=== PATIENT | male | born 1945 | race Caucasian/White ===

== ENCOUNTER 2018-12-23 09:10 | Inpatient (IN) | payer MEDICARE, SELFPAY ==
[2018-12-23] VITALS (33 sets, daily range): BP systolic 114–226; BP diastolic 70–108; PULSE 66–90; RESP 13–27; TEMP 36.4–38.1; O2SAT 94–100; BMI 27.3; BMI 29.4
--- NOTE | 2018-12-23 09:11 | ED.RN ---
PRESENTED TO ED. STATES SOB FOR 4-5 DAYS AMBULATED TO TRIAGE ROOM. INTIATED TRIAGE PROCESS. STATES ALSO HAVING CP WHICH IS BETTER WHEN HE IS UP MOVING AROUND IS NOT CARDIAC. PT RUBBING CENTER CHEST IN TRIAGE. CALLED FOR ASSIST TO TAKE PATIENT DIRECTLY TO ROOM AND REPORTED CP AND SOB TO NURSING.
--- NOTE | 2018-12-23 09:21 | EKG12_ITS ---
Test Reason : CP Blood Pressure : / mmHG Vent. Rate : 083 BPM Atrial Rate : 083 BPM P-R Int : 180 ms QRS Dur : 086 ms QT Int : 354 ms P-R-T Axes : -14 -31 072 degrees QTc Int : 415 ms Normal sinus rhythm Left axis deviation Inferior infarct , age undetermined Anteroseptal infarct , possibly acute ACUTE MT / STEMI Abnormal ECG Confirmed by SORAIDA JOHN ([id number]), online content editor AARON GARCIA ([id number]) on 12/27/2018 4:56:09 PM Referred By: ALDA/BRADLEY Confirmed By:SORAIDA JOHN
[2018-12-23] MEDS: Heparin Injection (Vial) 5,000 UNIT/ML VIAL 4000 UNIT IV (09:32)
[2018-12-23] MEDS: Aspirin 81 MG TAB.CHEW 324 MG PO (09:32)
[2018-12-23] MEDS: TICAGRELOR 90 MG TABLET 180 MG PO (09:32)
--- NOTE | 2018-12-23 09:35 | ED.RN ---
rad here for pt. 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
[2018-12-23 09:37] LABS: Absolute Lymphocyte Count 2.65 X10^3/ul (0.83-4.51); Absolute Neutrophil Count 9.5 X10^3/uL (2.0-7.7); Basophil# 0.02 X10^3/uL; Basophil% 0.2 % (0-1); Eosinophil# 0.26 X10^3/uL; Hematocrit 40.5 % (40-54); Hemoglobin 13.6 g/dl (13.0-16.5); Lymphocyte # 2.65 X10^3/ul (4.0); Mean Corp Hgb Conc 33.6 g/gl (32-36); Mean Corpuscular Hgb 27.9 pg (27.0-32.0); Mean Corpuscular Volume 83.2 fL (80-94); Mean Platelet Vol. 10.3 fl (6.2-12.0); Monocyte# 0.82 X10^3/uL; Monocyte% 6.2 % (0-10); Neutrophil # 9.51 X10^3/uL (2.7-7.7); Neutrophil % 71.4 % (47-70); Platelet Count 228 K/mm3 (150-450); RBC Distribution Width CV 14.2 % (11.6-14.6); RBC Distribution Width SD 43.4 fl (35.1-43.9); Red Blood Count 4.87 M/mm3 (4.6-6.2); White Blood Count 13.3 K/mm3 (4.4-11.0)
[2018-12-23 09:38] LABS: POSITIVE COUNT NO; POSITIVE DIFFERENTIAL NO; POSITIVE MORPHOLOGY NO
--- NOTE | 2018-12-23 09:38 | ED.DCSUM_ITS ---
- ER Visit Summary Date of Service: 12/23/18 Chief Complaint: Chest pain History of Present Illness: The patient is a 73 M who presents with chest pain that has been intermittent over the past 4 days but constant since this morning. Patient describes the pain is sharp. Patient states the pain is over the substernal area. Patient admits to some shortness of breath. Patient denies any nausea or vomiting. Patient denies any diaphoresis. Physical Examination: Vital signs are stable except for an elevated blood pressure 172/108. Patient is afebrile. Patient is in no acute distress. Oral mucosa is pink and moist. Neck is supple. There is no JVD noted. Heart was regular rate and rhythm. Lungs are clear and equal bilateral. Abdomen is soft nontender. Cranial nerves II through XII are intact. There are no focal motor or sensory deficits noted. Test Results: EKG showed sinus rhythm with a rate of 83. There is ST elevation in V1 through V4. Emergency Department Course and Treatment: STEMI was called. Case was discussed with Dr. Vann. He recommended giving the patient aspirin, 4000 units of heparin, and 180 mg of Brilinta. Patient was transferred to the [facility]. Patient understood and was agreeable with the plan. All questions were answered. Disposition: Admit to hospital Impression: 1. Acute STEMI This note was generated with [employer] dictation software. It may contain incorrect words, spelling, and punctuation that were not noted in review of the chart prior to signing ED Disposition - Plan for ED Patient: Referrals: NOT,DEFINED [Primary Care Provider] -
[2018-12-23 09:39] LABS: International Normalized Ratio 1.1; Prothrombin Time (Protime)PT. 13.8 SECONDS (11.7-14.9)
[2018-12-23 09:40] LABS: Partial Thromboplast Time 31.6 Seconds (24.1-36.2)
[2018-12-23 09:50] LABS: Anion Gap 8 (5-15); BUN 15 mg/dL (7-18); BUN/Creat Ratio 13.6 RATIO (10-20); Calcium,Total 9.3 mg/dL (8.5-10.1); Chloride 103 mmol/L (98-107); EST Glomerular Filtration Rate 70 mL/min (>60); Est Glom Filt Rate - Afr Amer 84 mL/min (>60); Estimated Creatinine Clearance 57.86 ml/min; Glucose 111 mg/dL (74-106); Sodium Level 138 mmol/L (136-145)
[2018-12-23 10:26] LABS: ACT Activated Clotting Time 224 sec (74-137)
[2018-12-23 10:26] LABS: ACT Activated Clotting Time 197 sec (74-137)
--- NOTE | 2018-12-23 10:30 | ECHOCS_ITS ---
Reason For Study: CHF Procedure This was a 2D Doppler, Color Flow transthoracic echocardiogram. Contrast injection was performed. Exam performed portable in ICU/CCU. Left Ventricle Mildly dilated left ventricle. The estimated ejection fraction is 45-50 %. Stage 2 diastolic dysfunction. There are regional wall motion abnormalities as specified. Right Ventricle Normal size and thickness. Normal systolic function. Atria Normal left atrium. Normal right atrium. Normal atrial septum. Mitral Valve The mitral valve is structurally normal. No prolapse or stenosis seen. Trivial mitral valve insufficiency. Tricuspid Valve Normal tricuspid valve. Unable to estimate RV systolic pressure due to inadequate jet, pulmonary artery pressure probably normal. Aortic Valve Normal aortic valve. Trisinus/trileaflet aortic valve. Pulmonic Valve Normal pulmonic valve. Great Vessels Normal aortic root. Normal arch. Normal inferior vena cava. Inferior vena cava collapse with sniff. Pericardium/Pleural No pericardial effusion. Medication Diluted definity 3.5ml given slow IV push to enhance endocardial definition. MMode/2D Measurements & Calculations LVIDd: 5.4 cm IVSd: 1.6 cm Ao root diam: 3.2 cm LVIDs: 4.0 cm LVPWd: 1.3 cm RVDd: 3.1 cm FS: 25.8 % LAV(MOD-bp): 41.2 ml LVAd ap4: 37.7 cm2 SV(MOD-sp4): 55.6 ml LAV(MOD-bp) Indexed: 21.1 ml/m2 EDV(MOD-sp4): 132.3 ml LAV(MOD-sp2): 45.3 ml EDV(sp4-el): 134.9 ml LAV(MOD-sp4): 35.9 ml LVAs ap4: 28.6 cm2 ESV(MOD-sp4): 76.7 ml ESV(sp4-el): 79.1 ml EF(MOD-sp4): 42.0 % EF(sp4-el): 41.4 % SV(sp4-el): 55.8 ml LA A4 area: 14.5 cm2 RA A4 area: 13.9 cm2 Time Measurements MV dec time: 0.27 sec Doppler Measurements & Calculations MV E max nito: 103.5 cm/sec Lat Peak E' Nito: 5.0 cm/sec Med Peak E' Nito: 5.7 cm/sec MV A max nito: 83.4 cm/sec E/E' lat: 20.6 E/E' med: 18.0 MV E/A: 1.2 MV V2 max: 106.9 cm/sec MV P1/2t max nito: 106.9 cm/sec Ao V2 max: 197.4 cm/sec MV max P.6 mmHg MV P1/2t: 154.7 msec Ao max P.6 mmHg MV V2 mean: 58.1 cm/sec Ao V2 mean: 114.6 cm/sec MV mean P.6 mmHg MV dec slope: 202.4 cm/sec2 Ao mean P.4 mmHg MV V2 VTI: 38.7 cm MVA(P1/2t): 1.4 cm2 Ao V2 VTI: 36.2 cm LV V1 max: 105.0 cm/sec PA V2 max: 114.6 cm/sec LV V1 max P.4 mmHg LV V1 mean P.3 mmHg LV V1 mean: 71.2 cm/sec LV V1 VTI: 23.5 cm Interpretation Summary Mildly dilated left ventricle. The estimated ejection fraction is 45-50 %. Stage 2 diastolic dysfunction. There are regional wall motion abnormalities as specified. Trivial mitral valve insufficiency. Unable to estimate RV systolic pressure due to inadequate jet, pulmonary artery pressure probably normal. The study was technically difficult. Contrast injection was performed. There is no comparison study available. Ordering Physician: Prakash Vann Performed By: Cesar Lopez RCS
--- NOTE | 2018-12-23 10:44 | CL.I_ITS ---
Patient Name: QASIM TAO Study Date: 12/23/2018 Performing: Prakash Vann MD Ht: 68.11 inches 173 cm : 1945 Wt: 180.78 lbs 82 kg Age: 73 Gender: male BSA: 1.96 PROCEDURE(S) PERFORMED [id number]/COR/LV [id number], TESSIE AND/OR PTCA, ARTERY OR GRAFT, SINGLE VESSEL CLINICAL PROFILE AND CO-MORBIDITIES Patient presents with STEMI for emergent cardiac cath. Indications: ACS <= 24 hrs, Worsening Angina, Suspected CAD Heart Failure: None Stress/Imaging Stress/Image Study Performed: No Angina Classification Anginal Classification w/in 2 Weeks: CCS III CAD Presentations: Unstable angina. STEMI. 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 Successful PTCA/TESSIE distal LAD with a 2.25 x 12 Promus Synergy, post dilated with a 2.25 x 8 NC ballo on; 75%-->0%, no dissection. Successful PTCA/TESSIE proximal LAD with a 3.0 x 20 Promus Synergy, post dilated throughout with a 3.0 x 8 NC Balloon; 75%-->0%, no dissection. initially successful Mynx closure, but then hematoma formed requiring femostop. RECOMMENDATIONS Referred for immediate PCI Highly recommend quitting all tobacco products Follow up with primary recruitment internship Risk factor modification ASA Indefinitley Plavix for at least 12 months Routine post interventional care Refer for Outpatient Cardiac Rehab Manual sheath removal per protocol Follow up with Dr. Vann Elective PCI of LCX and OM in 3 weeks. Medical management vs stress echo after PCI of LCX/OM DESCRIPTION OF PROCEDURE The patient arrived to the procedure lab. The risks and benefits of the procedure as well as a full d escription of our services here and lack of surgical backup were fully explained to the patient and/o r their significant other prior to the catheterization. The Timeout was completed, verifying the jose daniel ect patient and procedure. The patient's procedural site was prepped and draped in the usual fashion. Local anesthetic was given subcutaneously to right groin region with Lidocaine 2%. Using a modified Seldinger technique, arterial access was obtained via the right femoral artery, a 6Fr sheath was inse rted.. Right Coronary Artery selective angiography was then performed in multiple views using a 4 Fr . 3DRC catheter. Left Ventriculography was performed in ANTON projection using a 4 Fr. Pigtail catheter EBU 3.5 Guide catheter was inserted and engaged into the LCA. Runthrough Guide wire was advanced to the LAD. Emerge 2.00x12 Balloon catheter was inserted. PTCA balloon inflated at 10 atms for 6 secs . PTCA balloon inflated at 10 atms for 5 secs. Angiogram performed post balloon dilatation. Synergy 3 .00x38 Drug Eluting stent was inserted. Angiogram performed post balloon dilatation. Emerge 2.00x12 B alloon catheter was inserted. PTCA balloon inflated at 6 atms for 6 secs. Synergy 2.25x12 Drug Elutin g stent was inserted. Angiogram performed post stent deployment. NC Emerge 2.25x8 Balloon catheter wa s inserted. PTCA balloon inflated at 10 atms for 8 secs. PTCA balloon inflated at 14 atms for 12 secs . Angiogram performed post balloon dilatation. BMW Guide wire was advanced to the 1st Diagonal as bud dy wire Angiogram performed pre stent deployment. Synergy 3.00x20 Drug Eluting stent was inserted. NC Emerge 3.00x8 Balloon catheter was inserted. PTCA balloon inflated at 14 atms for 7 secs. PTCA balloon inflated at 14 atms for 7 secs. PTCA balloon inflated at 15 atms for 7 secs. PTCA balloo n inflated at 15 atms for 7 secs. PTCA balloon inflated at 15 atms for 7 secs. PTCA balloon inflated at 15 atms for 7 secs. Angiogram performed post balloon dilatation. Contrast was injected through the sheath and the Right Iliac and Femoral artery were assessed for possible closure device. The arteri al sheath was pulled and a Mynx closure device was deployed for hemostasis CORONARY ANGIOGRAPHY DOMINANCE: Right Dominant LEFT HEART ASSESSMENT Left Ventricular Ejection Fraction: by LV Gram 45-50 % Depressed Left Ventricular systolic function LVEDP: 30 mmHg Elevated Left Ventricular End Diastolic Pressure Anterior Hypokinesis - Mild LEFT MAIN: Angiographically normal LEFT ANTERIOR DECENDING ARTERY: PROX LAD: 75 % Stenosis MID LAD: is occluded DISTAL LAD: 75 % Stenosis CIRCUMFLEX ARTERY: MID CIRC: 75 % Stenosis OM 1: Proximal - 75 % Stenosis RIGHT CORONARY ARTERY: Non-obstructive MID RCA: 50 % Stenosis INTERVENTION INFORMATION LESION SITE: LAD (Mid) Lesion Complexity: High/C, lesion at bifurcation: No, thrombus present: Yes, lesion length: 38 mm, cu lprit lesion: Yes Pre Stenosis: 100 % Pre intervention YUE flow: 0 PROCEDURE: Drug Eluting Stent with pre and post dilatation Post Stenosis: 0 % Post intervention YUE flow: 3 Lesion Devices: Mookie Sci EMERGE MR 2.00x12 BALLOON Mookie Sci Synergy MR TESSIE 3.00x38 Mookie Sci NC EMERGE MR 3.00x08 BALLOON LESION SITE: LAD (Distal) Lesion Complexity: Non-High/Non-C, lesion at bifurcation: No, thrombus present: No, culprit lesion: N o Pre Stenosis: 75 % Pre intervention YUE flow: 2 PROCEDURE: Drug Eluting Stent with pre and post dilatation Post Stenosis: 0 % Post intervention YUE flow: 3 Lesion Devices: Mookie Sci EMERGE MR 2.00x12 BALLOON Mookie Sci Synergy MR TESSIE 2.25x12 Mookie Sci NC EMERGE MR 2.25x08 BALLOON LESION SITE: LAD (Proximal) Lesion Complexity: High/C, lesion at bifurcation: No, thrombus present: No, lesion length: 20 mm, cul prit lesion: No Pre Stenosis: 75 % Pre intervention YUE flow: 3 PROCEDURE: Drug Eluting Stent with pre and post dilatation 0 % Post intervention YUE flow: 3 Lesion Devices: Jimenez .014 BMW [place] Straight 190cm Mookie Sci Synergy MR TESSIE 3.00x20 Mookie Sci NC EMERGE MR 3.00x08 BALLOON COMPLICATIONS No Complications PROCEDURE MEDICATIONS Oxygen: 2 L/min via nasal cannula Heparin 6000 unit(s) IV 12/23/2018 09:39:37 Nitro 200 mcg IC 12/23/2018 09:40:22 Nitro glycerin 25mg / 250ml D5W @ 5 mcg/min IV started 12/23/2018 09:42:22 Nitro glycerin 25mg / 250ml D5W @ 10 mcg/min (increased rate) 12/23/2018 09:50:47 Nitro 200 mcg IC 12/23/2018 10:00:18 Nitro glycerin 25mg / 250ml D5W @ 15 mcg/min (increased rate) 12/23/2018 10:21:32 IV Bolus: .9 NaCl 1050ml total 12/23/2018 09:32:23 SUMMARY OF HEMODYNAMIC DATA Time AIR REST ECG 09:30:11 AO 206/97 (141) SA 09:35:26 LV 181/-11, 35 10:15:46 LV 174/-11, 29 10:15:52 LVp 179/-8, 29 10:15:55 AOp 176/69 (111) 10:16:00 RM AIR REST 10:41:50 Signed By Prakash Vann MD On 12/23/2018 10:43:56 Prakash Vann MD
--- NOTE | 2018-12-23 10:52 | EKG12_ITS ---
Test Reason : Blood Pressure : / mmHG Vent. Rate : 081 BPM Atrial Rate : 081 BPM P-R Int : 146 ms QRS Dur : 088 ms QT Int : 404 ms P-R-T Axes : 053 -25 055 degrees QTc Int : 469 ms Normal sinus rhythm Inferior infarct , age undetermined Anterior infarct , possibly acute * ACUTE OR Abnormal ECG Confirmed by EVELYNE WATERS, ANNAMARIA ([id number]), photographic editor AARON GARCIA ([id number]) on 12/29/2018 2:03:42 PM Referred By: Confirmed By:ANNAMARIA STUBBS MD
--- NOTE | 2018-12-23 11:00 | NURSING ---
In ICU1 per bed from skilled laborer, laborer laboratory staff in attendance
--- NOTE | 2018-12-23 11:15 | NURSING ---
noted increase firmness pt rt inner thigh. laboratory courier staff to bedside. femstop repositioned. area soft w/slt surface ecchymosis noted 1120.
[2018-12-23] MEDS: 0.9% Normal Saline 1,000 ML 150 ML IV (11:18)
[2018-12-23] MEDS: Metoprolol Tartrate 25 MG Tablet PO ×2 (12:00→21:26)
--- NOTE | 2018-12-23 12:21 | HP.PCM_ITS ---
Problem List (1) Hypertension Status: Chronic (2) Atherosclerosis of coronary artery of [place] heart without angina pectoris Status: Acute Comment: PCI-TESSIE proximal LAD with a 3.0 x 20 Promus Synergy,TESSIE mid LAD with a 3.0 x 38 Promus Synergy stent, TESSIE distal LAD with a 2.25 x 12 Promus Synergy 12/23/18 (3) History of coronary artery stent placement Status: Acute Comment: PCI-TESSIE proximal LAD with a 3.0 x 20 Promus Synergy,TESSIE mid LAD with a 3.0 x 38 Promus Synergy stent, TESSIE distal LAD with a 2.25 x 12 Promus Synergy 12/23/18 (4) STEMI (ST elevation myocardial infarction) Status: Acute History of Present Illness Date of Admission: 12/23/18 Chief Complaint: Chest pain The patient is a 73 year old M with a past medical history of hypertension who presented to the emergency department at [facility] on 12/23/2018 complaining of substernal chest pain radiating into his neck. He has been having what he thought was heartburn that was associated with shortness of breath and neck pain for 3 weeks now off and on. Over the fast 4 days it has increased in frequency and today it became constant. He is denies diaphoresis. He also had epigastric discomfort. Denied diaphoresis and denied radiation into the back or the arms. EKG in the emergency room revealed ST segment elevation in the anterior lateral leads and Q waves in the inferior leads. STEMI was called and the patient was taken to the Tread T[facility] Machine Operator. He received 4000 units of heparin and 180 mg of Brilinta prior to transport to the [facility]. Cardiac catheterization was performed by Dr. Vann and showed double vessel coronary artery disease of the LAD and LCx/OM. The mid LAD was 100% occluded. He underwent successful PTCA/TESSIE of the mid LAD, distal LAD and proximal LAD. Ventricular ejection fraction is 50% with wall motion abnormality. He had a minx closure then had a hematoma which required FemoStop. He was transferred to the intensive care unit post catheterization. On no medications at admission. He is a former smoker but quit in the 1970s. Denies any history of VTE. Tells me that he had a stress test 2 years ago in [place] and was admitted for 2 days because of chest pain. Stress test was negative. Past Medical History Past Medical History (Chronic Problems): Chronic Problems (Last Reviewed 12/23/18 @ 12:21 by Cayla Rosenberg DO) Hypertension (Chronic) Medical History: Medical History (Last Reviewed 12/23/18 @ 12:21 by Cayla Rosenberg DO) Atherosclerosis of coronary artery of [place] heart without angina pectoris (Acute) I25.10 PCI-TESSIE proximal LAD with a 3.0 x 20 Promus Synergy,TESSIE mid LAD with a 3.0 x 38 Promus Synergy stent, TESSIE distal LAD with a 2.25 x 12 Promus Synergy 12/23/18 STEMI (ST elevation myocardial infarction) (Acute) Onset Date: 12/23/18 I21.3 Allergies No Known Allergies Allergy (Verified 12/23/18 09:11) Surgical History: Surgical History (Last Reviewed 12/23/18 @ 12:21 by Cayla Rosenberg DO) History of coronary artery stent placement (Acute) Onset Date: 12/23/18 Z95.5 PCI-TESSIE proximal LAD with a 3.0 x 20 Promus Synergy,TESSIE mid LAD with a 3.0 x 38 Promus Synergy stent, TESSIE distal LAD with a 2.25 x 12 Promus Synergy 12/23/18 Surgical History: no surgical history - Other than the 3 stents to the LAD Psychiatric History: No pertinent psych hx - 12/23/2018., - - Has been under a lot of stress lately. His and he are recently . Lives: Alone Smoking Status: Former smoker - Quit smoking in the 1970s Tobacco Use: Non-smoker Alcohol: Occasional Drugs: None - *Family History Maternal History Items: No pertinent history Paternal History Items: No pertinent history Review of Systems Constitutional: Denies: Chills, Fever, Weight Change HEENT: Denies: Head Aches, Sinus Congestion, Sinus Drainage Cardiovascular: Reports: Chest Pain - Substernal chest pain radiating to the neck intermittently times 3 weeks, became constant on the morning of 12/23/2018. Rated with shortness of breath. Denies: Light Headedness, Orthopnea, Palpitations, Paroxysmal Noc. Dyspnea, Syncope Respiratory: Reports: Shortness of breath at rest - With chest pain. Denies: Cough, Sputum production Gastrointestinal: Reports: Abdominal Pain - Epigastric pain. Denies: Nausea, Vomiting Genitourinary: Denies: Dysuria Musculoskeletal: Denies: Joint Pain, Joint Tenderness Skin: Denies: Jaundice, Rash, Wounds Neurological: Denies: Numbness, Tingling, Focal weakness Psychiatric: Denies: Anxiety, Depression, Homicidal Ideations, Suicidal Ideations Endocrine: Denies: Change in Body Habitus, Hx of Thyroiditis Hematologic/ Lymphatic: Denies: Easy Bruising, Easy Bleeding, Hx of blood clot VTE Information - Inpt Only VTE Present on Admission: No VTE Mechan Device Prophylaxis: SCD's, Knee High DEBBIE Hose VTE Pharm Prophylaxis ordered?: No Reason prophylaxis not ordered:: Treatment Not Indicated - he just had 4000 of heparin prior to cardiac cath...will start prophylaxis in the AM - Physical Exam General: Alert, Oriented x3, Cooperative HEENT: Atraumatic, PERRLA, EOMI, Normocephalic Oral: Moist Mucosa, No Gingival or Mucosal Lesions/ Ulcerations Neck: Supple, No JVD, Negative Carotid Bruits, Trachea Midline Lungs: Clear to auscultation - Anterior and lateral lying flat in bed and complaining of mild shortness of breath but no significant JVD. Cardiovascular: Regular rate, Regular Rhythm, Normal S1, Normal S2, No murmurs, No Ectopic Activity, No rub noted, No Gallop Abdomen: Bowel Sounds Present, Soft, Non-Distended, Tender - Al to palpation in the mid epigastric area Extremities: No clubbing, No cyanosis, No edema, No Calf Tenderness, Peripheral Pulses Normal Skin: No rashes Musculoskeletal: No Muscle Wasting Neurological: Cranial nerves II-XII grossly intact, Neuro grossly intact Psych/Mental Status: Normal Affect, Appropriate Vital Signs Temp Pulse Resp BP Pulse Ox 97.8 F 74 18 127/91 H 100 12/23/18 11:00 12/23/18 11:45 12/23/18 11:45 12/23/18 11:45 12/23/18 11:45 Oxygen Flow Rate (L/min) 2 Oxygen Delivery Method Room Air Weight: 180 lb Body Mass Index (BMI) 27.3 Intake and Output for Last 24 Hours 12/21/18 12/22/18 12/23/18 23:59 23:59 23:59 Intake Total 1512 / 1512 Output Total 600 / 600 Balance 912 / 912 Laboratory Tests Past 24 Hrs 12/23/18 12/23/18 12/23/18 09:20 09:20 09:20 WBC 13.3 H RBC 4.87 Hgb 13.6 Hct 40.5 MCV 83.2 MCH 27.9 MCHC 33.6 RDW 14.2 RDW Differential 43.4 Plt Count 228 MPV 10.3 Immature Gran % (Auto) 0.200 Neut % (Auto) 71.4 H Lymph % (Auto) 20.0 Collier % (Auto) 6.2 Eos % (Auto) 2.0 Baso % (Auto) 0.2 Absolute Neuts (auto) 9.5 H Absolute Lymphs (auto) 2.65 Total Counted Not Reportable PT 13.8 INR 1.1 APTT 31.6 Activated Clotting Time Sodium 138 Potassium 4.0 Chloride 103 Carbon Dioxide 27.0 Anion Gap 8 BUN 15 Creatinine 1.10 Estim Creat Clear Calc 57.86 Est GFR (MDRD) Af Amer 84 Est GFR (MDRD) Non-Af 70 BUN/Creatinine Ratio 13.6 Glucose 111 H Calcium 9.3 Troponin I 7.280 H* 12/23/18 12/23/18 09:36 10:15 WBC RBC Hgb Hct MCV MCH MCHC RDW RDW Differential Plt Count MPV Immature Gran % (Auto) Neut % (Auto) Lymph % (Auto) Collier % (Auto) Eos % (Auto) Baso % (Auto) Absolute Neuts (auto) Absolute Lymphs (auto) Total Counted PT INR APTT Activated Clotting Time 197 H 224 H Sodium Potassium Chloride Carbon Dioxide Anion Gap BUN Creatinine Estim Creat Clear Calc Est GFR (MDRD) Af Amer Est GFR (MDRD) Non-Af BUN/Creatinine Ratio Glucose Calcium Troponin I Assessment/Plan All Active Problems (Last Reviewed 12/23/18 @ 12:21 by Cayla Rosenberg DO) Atherosclerosis of coronary artery of [place] heart without angina pectoris (Acute) History of coronary artery stent placement (Acute 12/23/18) STEMI (ST elevation myocardial infarction) (Acute 12/23/18) Impressions 1. STEMI 2. Two-vessel coronary artery disease of the LAD and LCx/OM -LAD had 3 stents and he will be brought back for staged intervention to the LCx post discharge 3. Hypertension 4. Possible dyslipidemia 5. Possible old inferior wall myocardial infarction with Q waves in 2, 3 and F 6. Ischemic cardiomyopathy with a 50% ejection fraction High intensity statin Beta-indira, ANNETTE inhibitor, Brilinta and aspirin for at least 1 year Currently on a nitroglycerin drip to help with blood pressure and he will be given metoprolol now. CMP and lipid panel in the a.m. Will be brought back to the hospital post discharge for intervention to the LCx/OM. Code Visit Inpatient E&M: [id number] Init Hosp L3
[2018-12-23] MEDS: 0.9% NaCl Peripheral Flush Adult/Peds IV ×2 (13:31→15:52)
[2018-12-23] MEDS: LORazepam 1 MG Tablet PO (13:37)
--- NOTE | 2018-12-23 13:40 | CASEMGMT ---
RN CM Assessment Presentation: STEMI, HTN Intro role of CM and purpose of RN CM assessment to patient in ICU. Pt awake, able to participate in RN CM assessment. Demographics, PCP and Pharmacy verified. Pt is from his and is living in [place]. PCP: Per [facility]- Pt needs to call and choose new physician as Dr. Santana is no longer available. Specialists: Dr. Vann Preferred Pharmacy: [facility] Insurance: [facility] Prescription Benefit: yes LNOK: Ez Rasheed, Daughter Living Arrangements: Pt lives in one story home alone. States he does not require any assistance normally. Transportation:drives DME: none HHC: none Patient DC goals: Home DC PLAN: anticipate pt will return home on dc. Will need [employer] savings card prior to dc.
--- NOTE | 2018-12-23 13:41 | NURSING ---
Pt very teary, lot going on. pt states recently moved out and seperated from . meds given
--- NOTE | 2018-12-23 15:29 | CHAPLAIN ---
Type of Pastoral Visit _x__ Initial Visit ___ Follow-up Visit ___ On-call Visit ___ General Patient Visit ___ Spiritual Assessment ___ Family Conference ___ Bereavement ___ Rapid Response ___ Code Blue ___ Other (describe below) Pastoral Care Referral From _x__ Patient ___ Family _x__ Nurse ___ Physician ___ Watch Parts Grinder ___ Silk Weaver ___ Other (describe below) Sacrament/Intervention _x__ Active listening ___ Anointing ___ Adventist ___ Bereavement ___ Communion _x__ Maricruz exploration ___ _x__ Life review _x__ Prayer ___ Reconciliation ___ Sacrament of Sick _x__ Supportive presence ___ Wedding ___ Other (describe below) Pastoral Comments patient talks about his 36yr old son dying 6 years ago; pt speaks of his immediate help today and good care; pt welcomes spiritual support, presence, and prayer;
[2018-12-23] MEDS: Morphine 2 MG/ML Syringe IV (15:52)
--- NOTE | 2018-12-23 16:13 | NURSING ---
Restless, c/o back discomfort d/t laying flat, Morphine given per MAR, will cont to monitor. Femstop remains on.
[2018-12-23] MEDS: TICAGRELOR 90 MG TABLET PO (21:26)
[2018-12-23] MEDS: Atorvastatin Calcium 80 MG Tablet PO (21:26)
[2018-12-23] MEDS: Acetaminophen 325 MG Tablet 650 MG PO (23:38)
[2018-12-24] VITALS (35 sets, daily range): BP systolic 120–177; BP diastolic 52–100; PULSE 61–79; RESP 10–26; TEMP 36.9–38.8; O2SAT 94–99
[2018-12-24] MEDS: 0.9% NaCl Peripheral Flush Adult/Peds IV (02:01)
[2018-12-24 05:24] LABS: Hemoglobin 10.9 g/dl (13.0-16.5); Mean Corpuscular Hgb 27.7 pg (27.0-32.0); Mean Platelet Vol. 10.8 fl (6.2-12.0); Platelet Count 187 K/mm3 (150-450); RBC Distribution Width CV 14.6 % (11.6-14.6); RBC Distribution Width SD 43.3 fl (35.1-43.9); Red Blood Count 3.93 M/mm3 (4.6-6.2); White Blood Count 11.4 K/mm3 (4.4-11.0)
[2018-12-24 05:25] LABS: Scan Indicated on CBC? Y/N NO
[2018-12-24 05:42] LABS: AST(SGOT) 106 U/L (15-37); Alanine Aminotransfer ALT/SGPT 24 U/L (16-61); Alkaline Phosphatase 55 U/L (45-117); Anion Gap 6 (5-15); BUN 18 mg/dL (7-18); BUN/Creat Ratio 15.9 RATIO (10-20); Bilirubin, Direct 0.22 mg/dL (0.00-0.30); Calcium,Total 8.1 mg/dL (8.5-10.1); Chloride 108 mmol/L (98-107); Cholesterol 138 mg/dL (200); Creatinine, Serum 1.13 mg/dL (0.70-1.30); EST Glomerular Filtration Rate 67 mL/min (>60); Est Glom Filt Rate - Afr Amer 82 mL/min (>60); Estimated Creatinine Clearance 56.33 ml/min; Globulin 3.2 g/dL (2.2-4.2); Glucose 99 mg/dL (74-106); High Density Lipoprotein 30 mg/dL; Potassium 4.2 mmol/L (3.5-5.1); Protein, Total 6.2 g/dL (6.4-8.2); Sodium Level 140 mmol/L (136-145); Triglycerides 96 mg/dL; Very Low Density Lipoprotein 19 mg/dL (5-40)
--- NOTE | 2018-12-24 08:01 | RAD_ITS ---
STUDY: X-RAY CHEST REASON FOR EXAM: Male, 73 years old. Fever TECHNIQUE: Single AP portable view of the chest. COMPARISON: None. FINDINGS: There are superimposed monitor leads. Mild interstitial prominence without focal consolidation. There is no demonstrated pleural abnormality. Normal size heart. Normal mediastinum and shabana. Normal visualized pulmonary arteries. Normal visualized aortic arch and descending extreme thoracic aorta. Normal visualized thoracic spine. Normal visualized ribs, clavicles, and shoulders. There is no demonstrated abnormality of the visualized soft tissue structures of the upper abdomen. RAD/Chest 1 View (Portable) IMPRESSION: Mild interstitial prominence may be chronic in nature. Mild bronchial inflammation possible, there is however no confluent pneumonia. Electronically Signed: Georgia Harrison MD at 6:59 EDT , Service support ,
[2018-12-24] MEDS: Aspirin E.C. 81 MG Tablet PO (08:13)
[2018-12-24] MEDS: Losartan Potassium 25 MG Tablet PO (08:14)
[2018-12-24] MEDS: Metoprolol Tartrate 25 MG Tablet PO ×2 (08:14→17:57)
--- NOTE | 2018-12-24 08:29 | CRPHASE1 ---
Patient Communication PHII Cardiac Rehab Discussed with Patient:: Yes Guide to Cardiac Rehab Given to Patient:: Yes Cardiac Rehab Facility Choice List Given to Patient:: Yes - [place] Choice Program [facility] CR PHII:: Communication Given to CR, Refer to [facility] Imaging System Administrator:: Prakash Vann Phase II Cardiac Rehab:: Yes Sessions:: 36 sessions - 3 days/wk, 12 weeks Risk Factors/Lifestyle Smoking Status: Former smoker Hx Hypertension: No Hx Diabetes Mellitus Type 1: No Hx Diabetes Mellitus Type 2: No Hx Metabolic Disorders: No Hx Dyslipidemia: No Hx Obesity: No Height: 5 ft 8 in - BMI 27.4 Stress: Home/Family Laboratory Values: Cardiac Rehab Phase I Labs Triglycerides 96 mg/dL (-199) 12/24/18 05:10 Cholesterol 138 mg/dL (200) 12/24/18 05:10 LDL Cholesterol 89 mg/dL (0-130) 12/24/18 05:10 HDL Cholesterol 30 mg/dL (40-) L 12/24/18 05:10 Phase I Education Given On:: [place], Nutrition, Antiplatelet medication Issues Affecting Care:: None Knowledge of Condition:: Yes Learning Preferences: Verbal, Written Hospital Course Presenting Symptoms:: STEMI Medical/Surgical History NH:: Yes - STEMI CAD:: No COPD:: No Diabetes:: No Hypertension:: No Dyslipidemia:: No Discharge/Home/Social Eval Discharge Disposition: Home Cardiac Rehabilitation Info Cardiac Rehabilitation Program Information: Cardiac Rehabilitation is important for patients like you who are recovering from a heart problem. Cardiac rehabilitation programs are recognized as integral to the continued care of the patient with coronary heart disease. The cardiac rehabilitation program is designed to optimize a patient's physical, psychological, and social functioning. Health assisted living care manager work in cardiac rehabilitation programs and assist you with getting the treatments you need to get stronger and healthier - like exercise, healthy eating habits, and medications. Cardiac rehabilitation has been show to help people with heart problems live longer and have better life enjoyment than people who do not go to cardiac rehabilitation. Please contact the Cardiac Rehabilitation Program at [facility] at in two weeks if you have not heard from them.
--- NOTE | 2018-12-24 08:33 | CRPHASE1_ITS ---
Patient Communication PHII Cardiac Rehab Discussed with Patient:: Yes Guide to Cardiac Rehab Given to Patient:: Yes Cardiac Rehab Facility Choice List Given to Patient:: Yes - [place] [facility] Choice [facility] CR PHII:: Communication Given to CR, Refer to [facility] Mixing Machine Tender:: Prakash Vann Phase II Cardiac Rehab:: Yes Sessions:: 36 sessions - 3 days/wk, 12 weeks Risk Factors/Lifestyle Smoking Status: Former smoker Hx Hypertension: No Hx Diabetes Mellitus Type 1: No Hx Diabetes Mellitus Type 2: No Hx Metabolic Disorders: No Hx Dyslipidemia: No Hx Obesity: No Height: 5 ft 8 in - BMI 27.4 Stress: Home/Family Laboratory Values: Cardiac Rehab Phase I Labs Triglycerides 96 mg/dL (-199) 12/24/18 05:10 Cholesterol 138 mg/dL (200) 12/24/18 05:10 LDL Cholesterol 89 mg/dL (0-130) 12/24/18 05:10 HDL Cholesterol 30 mg/dL (40-) L 12/24/18 05:10 Phase I Education Given On:: [place], Nutrition, Antiplatelet medication Issues Affecting Care:: None Knowledge of Condition:: Yes Learning Preferences: Verbal, Written Hospital Course Presenting Symptoms:: STEMI Medical/Surgical History ID:: Yes - STEMI CAD:: No COPD:: No Diabetes:: No Hypertension:: No Dyslipidemia:: No Discharge/Home/Social Eval Discharge Disposition: Home Cardiac Rehabilitation Info Cardiac Rehabilitation Program Information: Cardiac Rehabilitation is important for patients like you who are recovering from a heart problem. Cardiac rehabilitation programs are recognized as integral to the continued care of the patient with coronary heart disease. The cardiac rehabilitation program is designed to optimize a patient's physical, psychological, and social functioning. Health summer child caregiver work in cardiac rehabilitation programs and assist you with getting the treatments you need to get stronger and healthier - like exercise, healthy eating habits, and medications. Cardiac rehabilitation has been show to help people with heart problems live longer and have better life enjoyment than people who do not go to cardiac rehabilitation. Please contact the Cardiac Rehabilitation Program at [facility] at in two weeks if you have not heard from them.
--- NOTE | 2018-12-24 08:34 | CRPH1.INSTRU ---
General Education CAD and cardiac anatomy and function:: Patient communicates acknowledgment Explanation of diagnoses and procedures:: Patient communicates acknowledgment Sign/Symptoms of RI:: Patient communicates acknowledgment Antiplatelet therapy: Patient communicates acknowledgment Proper use of NTG-SL: Not instructed Emergency procedures and activation of EMS: Patient communicates acknowledgment Compliance of all prescribed medications: Patient communicates acknowledgment Smoking Patient Nicotine/Smoking Risk Factors Are:: Cigarettes Recommendations Include:: Previous smoker; encourage continued cessation Nicotine/Smoking Response Code:: Patient communicates acknowledgment Dyslipidemia Recommendations Include:: Lipid profile provided, Reviewed NCEP/ATP guidelines, Therapeutic Lifestyle Change dietary guidelines Dyslipidemia Response Code:: Patient communicates acknowledgment Overweight/Obesity Patient Overweight/Obesity Risk Factors Are:: Overweight = 26-29 Recommendations Include:: Weight loss of 5-10%, Reduced calorie diet, Exercise 5-7 times/week Overweight/Obesity:: Patient communicates acknowledgment Hypertension Patient Hypertension Risk Factors Are:: No documented hx of HTN Heart Disease Heart Disease Response Code:: Patient communicates acknowledgment Diabetes Patient Diabetes Risk Factors Are:: No documented hx of diabetes Metabolic Syndrome Recommendations Include:: Does not meet criteria Sedentary Patient Sedentary Risk Factors Are:: Lack of regular exercise Recommendations Include:: Aerobic exercise 5-7 times/week for 20-30 minutes continuously, Benefits of regular exercise, Discussed home walking program, Monitored Outpatient Cardiac Rehab Sedentary Response Code:: Patient communicates acknowledgment Stress Recommendations Include:: Identification of stressors, and assessment of coping skills, Stress management techniques Stress Response Code:: Patient communicates acknowledgment
--- NOTE | 2018-12-24 09:28 | PCM.PROGNOTE ---
Subjective: 73-year-old male admitted to the hospital with STEMI and taken to the Pediatric Licensed Practical Nurse where he had 3 stents to the LAD, proximal, mid and distal. Transferred to ICU 1 following procedure. All events of the past 24 hours been reviewed. T-max is 101.8 and current temp is 98.6. Systolic blood pressure is mildly elevated at times. Current blood pressure is 158/77. He is 96-98% saturated on room air. All lab was personally reviewed. White blood cell count is down at 11.4 from 13.3 at admission. Hemoglobin is 10.9 and platelets are within normal limits. The BMP is unremarkable. Creatinine is 1.13 with a an estimated GFR of 67. AST is mildly increased at 106 with alk phos, bili and ALT all being normal. The third troponin was 40.4. Triglycerides are normal at 96, LDL is 89 and the HDL is low at 30. He has been seen by cardiac rehab this a.m. Denies chest pain, shortness of breath, palpitations, lightheadedness, nausea, abdominal pain. States he feels better than yesterday. Objective: PHYSICAL EXAM: GENERAL: seems a little groggy this morning, oriented X 3, Cooperative, NAD ORAL: moist mucosa, no mucosal lesions NECK: No JVD, supple, trachea midline LUNGS: CTA after a few deep breaths, symmetric chest expansion HEART: RRR, Normal S1 and S2, no rub, no gallop TELEMETRY: NSR with PAC's and a short run of SVT this AM. EKG shows resolving ST elevation DC. ABDOMEN: soft, NT, ND, BS present, no guarding with palpation EXTREMITIES: no edema, no cyanosis, no calf tenderness, peripheral pulses are normal. There is groin ecchymosis and also swelling, hematoma of the right medial thigh SKIN: No rashes, no breakdown NEUROLOGIC: no focal neurologic deficits PSYCH: appropriate, flat affect, pleasant - Physical Exam Vital Signs Temp Pulse Resp BP Pulse Ox 98.6 F 76 10 L 158/77 H 97 12/24/18 04:00 12/24/18 08:14 12/24/18 07:00 12/24/18 07:00 12/24/18 07:00 Oxygen Flow Rate (L/min) 2 Oxygen Delivery Method Room Air Weight: 187 lb 6.287 oz Body Mass Index (BMI) 29.4 Intake and Output for Last 24 Hours 12/22/18 12/23/18 12/24/18 23:59 23:59 23:59 Intake Total 2732.9 / 2732.9 8.6 / 8.6 Output Total 1250 / 1250 300 / 300 Balance 1482.9 / 1482.9 -291.4 / -291.4 Laboratory Tests Past 24 Hrs 12/23/18 12/23/18 12/23/18 09:20 09:20 09:20 WBC 13.3 H RBC 4.87 Hgb 13.6 Hct 40.5 MCV 83.2 MCH 27.9 MCHC 33.6 RDW 14.2 RDW Differential 43.4 Plt Count 228 MPV 10.3 Immature Gran % (Auto) 0.200 Neut % (Auto) 71.4 H Lymph % (Auto) 20.0 Mcdowell % (Auto) 6.2 Eos % (Auto) 2.0 Baso % (Auto) 0.2 Absolute Neuts (auto) 9.5 H Absolute Lymphs (auto) 2.65 Total Counted Not Reportable PT 13.8 INR 1.1 APTT 31.6 Activated Clotting Time Sodium 138 Potassium 4.0 Chloride 103 Carbon Dioxide 27.0 Anion Gap 8 BUN 15 Creatinine 1.10 Estim Creat Clear Calc 57.86 Est GFR (MDRD) Af Amer 84 Est GFR (MDRD) Non-Af 70 BUN/Creatinine Ratio 13.6 Glucose 111 H Calcium 9.3 Total Bilirubin Direct Bilirubin AST ALT Alkaline Phosphatase Troponin I 7.280 H* Total Protein Albumin Globulin Triglycerides Cholesterol LDL Cholesterol VLDL Cholesterol HDL Cholesterol 12/23/18 12/23/18 12/23/18 09:36 10:15 12:30 WBC RBC Hgb Hct MCV MCH MCHC RDW RDW Differential Plt Count MPV Immature Gran % (Auto) Neut % (Auto) Lymph % (Auto) Mcdowell % (Auto) Eos % (Auto) Baso % (Auto) Absolute Neuts (auto) Absolute Lymphs (auto) Total Counted PT INR APTT Activated Clotting Time 197 H 224 H Sodium Potassium Chloride Carbon Dioxide Anion Gap BUN Creatinine Estim Creat Clear Calc Est GFR (MDRD) Af Amer Est GFR (MDRD) Non-Af BUN/Creatinine Ratio Glucose Calcium Total Bilirubin Direct Bilirubin AST ALT Alkaline Phosphatase Troponin I 23.300 H* Total Protein Albumin Globulin Triglycerides Cholesterol LDL Cholesterol VLDL Cholesterol HDL Cholesterol 04/11/19 04/12/19 04/12/19 15:30 05:10 05:10 WBC 11.4 H RBC 3.93 L Hgb 10.9 L Hct 33.0 L MCV 84.0 MCH 27.7 MCHC 33.0 RDW 14.6 RDW Differential 43.3 Plt Count 187 MPV 10.8 Immature Gran % (Auto) Neut % (Auto) Lymph % (Auto) Mcdowell % (Auto) Eos % (Auto) Baso % (Auto) Absolute Neuts (auto) Absolute Lymphs (auto) Total Counted PT INR APTT Activated Clotting Time Sodium 140 Potassium 4.2 Chloride 108 H Carbon Dioxide 26.0 Anion Gap 6 BUN 18 Creatinine 1.13 Estim Creat Clear Calc 56.33 Est GFR (MDRD) Af Amer 82 Est GFR (MDRD) Non-Af 67 BUN/Creatinine Ratio 15.9 Glucose 99 Calcium 8.1 L Total Bilirubin 0.80 Direct Bilirubin 0.22 AST 106 H ALT 24 Alkaline Phosphatase 55 Troponin I 40.400 H* Total Protein 6.2 L Albumin 3.0 L Globulin 3.2 Triglycerides 96 Cholesterol 138 LDL Cholesterol 89 VLDL Cholesterol 19 HDL Cholesterol 30 L Medical Necessity - Tobacco Use Smoking Status: Former smoker Tobacco Use: Non-smoker Assessment/Plan All Active Problems (Last Reviewed 12/23/18 @ 12:21 by Cayla Rosenberg DO) Atherosclerosis of coronary artery of [place] heart without angina pectoris (Acute) History of coronary artery stent placement (Acute 12/23/18) STEMI (ST elevation myocardial infarction) (Acute 12/23/18) Impressions 1. STEMI 2. Two-vessel coronary artery disease of the LAD and LCx/OM -LAD had 3 stents and he will be brought back for staged intervention to the LCx post discharge 3. Hypertension 4. Possible dyslipidemia 5. Possible old inferior wall myocardial infarction with Q waves in 2, 3 and F 6. Ischemic cardiomyopathy with a 50% ejection fraction 7. PAC's and short run SVT 8. anemia due to fluids and to groin hematoma Maintain in ICU today. Echocardiogram today Recheck BMP in the a.m. Code Visit Inpatient E&M: 01265 Subs Hosp L2
--- NOTE | 2018-12-24 10:00 | EKG12_ITS ---
Test Reason : AM Blood Pressure : / mmHG Vent. Rate : 070 BPM Atrial Rate : 070 BPM P-R Int : 180 ms QRS Dur : 088 ms QT Int : 374 ms P-R-T Axes : 000 -30 071 degrees QTc Int : 403 ms Normal sinus rhythm Left axis deviation Inferior infarct , age undetermined Abnormal ECG When compared with ECG of 23-DEC-2018 11:06, MANUAL COMPARISON REQUIRED, DATA IS UNCONFIRMED Confirmed by EVELYNE WATERS, ANNAMARIA ([id number]), editor newspaper AARON GARCIA ([id number]) on 12/29/2018 2:03:30 PM Referred By: Confirmed By:ANNAMARIA STUBBS MD
--- NOTE | 2018-12-24 10:03 | CASEMGMT ---
RN CM Note: Discussed [employer] savings card with patient. Pt with good understanding to take to pharmacy with first prescription fill. Miquel BARAHONA RNA CM
[2018-12-24] MEDS: TICAGRELOR 90 MG TABLET PO ×2 (10:10→21:22)
--- NOTE | 2018-12-24 10:17 | PCM.PN.CARD ---
Subjectve: Patient doing very well this morning does complain of a headache after nitroglycerin drip. No further chest pain. Peak troponin of 40. The patient has a mild amount of ecchymosis around his sheath site, but it appears to be clean/dry/intact without evidence of thrills or bruits. He has 2+ DP and PT pulses bilaterally. No further chest pain. EKG shows normal sinus rhythm with resolving anterior ST elevation. Echocardiogram is pending. Telemetry showed normal sinus rhythm with rare PACs. Objective: Vital Signs Temp Pulse Resp BP Pulse Ox 98.6 F 76 10 L 158/77 H 97 12/24/18 04:00 12/24/18 08:14 12/24/18 07:00 12/24/18 07:00 12/24/18 07:00 Oxygen Flow Rate (L/min) 2 Oxygen Delivery Method Room Air Weight: 187 lb 6.287 oz Body Mass Index (BMI) 29.4 Intake and Output for Last 24 Hours 12/22/18 12/23/18 12/24/18 23:59 23:59 23:59 Intake Total 2732.9 / 2732.9 8.6 / 8.6 Output Total 1250 / 1250 300 / 300 Balance 1482.9 / 1482.9 -291.4 / -291.4 General: Awake, Alert, Oriented x 3 HEENT: PERRL, EOMI, Sclera Non Icteric Neck: Supple, Good ROM, No Lymph Node Enlargement Lungs: Clear to auscultation Cardiovascular: Regular Rhythm, Normal S1, Normal S2, No Murmurs, No Rubs, No Gallops Vascular: No Carotid Bruits, Normal Femoral Pulses, Normal Radial Pulses, Normal Dorsalis Pedal Pulse, Normal Posterior Tibial Pulses Abdomen: Bowel Sounds Present, Soft, Non Tender, No HSM, No Organomegaly Extremities: No Cyanosis, No Clubbing, No edema Neurological: No Focal Motor or Sensory Deficit 12/23/18 12:30: Troponin I 23.300 H* 12/23/18 15:30: Troponin I 40.400 H* 12/24/18 05:10: WBC 11.4 H, RBC 3.93 L, Hgb 10.9 L, Hct 33.0 L, MCV 84.0, MCH 27.7, MCHC 33.0, RDW 14.6, RDW Differential 43.3, Plt Count 187, MPV 10.8 12/24/18 05:10: Sodium 140, Potassium 4.2, Chloride 108 H, Carbon Dioxide 26.0, Anion Gap 6, BUN 18, Creatinine 1.13, Est GFR (MDRD) Af Amer 82, Est GFR (MDRD) Non-Af 67, BUN/Creatinine Ratio 15.9, Glucose 99, Calcium 8.1 L, Total Bilirubin 0.80, Direct Bilirubin 0.22, Triglycerides 96, Cholesterol 138, LDL Cholesterol 89, VLDL Cholesterol 19, HDL Cholesterol 30 L Rhythm: EKG: As above ECHO: Pending Stress Test: Cardiac Cath: PCI: CT Surgery: Holter monitor: EPS: PPM: CXR: Chest CT Scan: Medical Necessity - Tobacco Use Smoking Status: Former smoker Tobacco Use: Non-smoker Assessment/Plan 1. Coronary artery disease: Patient status post acute anterior wall myocardial infarction requiring angioplasty and drug-eluting stents x3 to his LAD. The patient received 2 long proximal and mid LAD stents followed by a distal apical small 2.25 mm ex-12 Promus Synergy stent with an excellent result. Patient has remaining coronary disease in his obtuse marginal #1 and mid left circumflex which require elective intervention in 3 weeks time. Patient also has 50% mid RCA stenosis which will be assessed by a stress test after his left circumflex and OM stenting is been completed. In the meantime we will continue his baby aspirin, Brilinta, beta blockers, Cozaar and statin based medications. We will discontinue his nitro drip given his headache and appropriate pressure. We will titrate up his antihypertensive medications going forward. His echocardiogram is pending. 2. Hyperlipidemia: His LDL is 89 HDL is 30. He was started on Lipitor 80 mg p.o. nightly and will continue this and repeat his lipid profile in 6 weeks time. 3. Would recommend keeping the patient in the ICU for another day given his elevated troponin and anterior wall myocardial infarction. 4. Depending upon the patient's condition and blood pressure he may be discharged home either Thursday or Thursday. Thank you very much for the opportunity to participate in the cardiac care of your patient. Code Visit Inpatient E&M: 25666 Subs Hosp L2
--- NOTE | 2018-12-24 16:41 | PN_ITS ---
Progress Note Patient is scheduled for post hospital follow-up on 01/07/2019 at 1:30 PM with Greta Physician Expansion Envelope Maker Hand.
--- NOTE | 2018-12-24 18:24 | NURSING ---
taking pt's wallet home per his request
[2018-12-24] MEDS: Metoprolol Tartrate 50 MG Tablet PO (21:22)
[2018-12-24] MEDS: Atorvastatin Calcium 80 MG Tablet PO (21:22)
[2018-12-25] VITALS (20 sets, daily range): BP systolic 110–164; BP diastolic 58–79; PULSE 59–73; RESP 13–22; TEMP 36.7–37.3; O2SAT 96–100
[2018-12-25] MEDS: Acetaminophen 325 MG Tablet 650 MG PO (02:45)
[2018-12-25 05:01] LABS: Anion Gap 6 (5-15); BUN 23 mg/dL (7-18); BUN/Creat Ratio 20.4 RATIO (10-20); Calcium,Total 8.8 mg/dL (8.5-10.1); Chloride 107 mmol/L (98-107); Creatinine, Serum 1.13 mg/dL (0.70-1.30); EST Glomerular Filtration Rate 67 mL/min (>60); Est Glom Filt Rate - Afr Amer 82 mL/min (>60); Estimated Creatinine Clearance 56.33 ml/min; Glucose 103 mg/dL (74-106); Sodium Level 138 mmol/L (136-145)
--- NOTE | 2018-12-25 07:40 | PCM.PROGNOTE ---
Subjective: All events of the past 24 hours been reviewed. He has been afebrile. He had a low-grade fever the night before last but this is completely resolved and there is no sign of infection. Blood pressures have been mildly increased and over the past 24 hours have ranged from 124/52-170 7/72. He has predominantly systolic hypertension. BMP today is remarkable for an elevated BUN at 23 and a creatinine of 1.13 which is stable. Echocardiogram on 12/24/2018 shows a mildly dilated left ventricle with an estimated ejection fraction of 45-50%. There is stage II diastolic dysfunction. There are regional wall motion abnormalities. TELEMETRY: having NSR with bursts of AF with RVR. Objective: General: alert, oriented X3, NAD, appropriate with normal affect, looks fatigued Neck: supple, trachea midline, carotids have brisk upstroke and normal pulse volume, no JVD, no carotid bruits Lungs: Bibasilar Rales, symmetric chest expansion, not tachypneic at rest, no conversational dyspnea Heart: Regular rate and rhythm, normal S1, normal S2, no murmur, no gallop, no rub, PMI is on the midclavicular line Abdomen: soft, NT, ND, BS's present Extremities: no edema, no calf tenderness, peripheral pulses are normal, no cyanosis Telemetry: Normal sinus rhythm with bursts of atrial fibrillation, no significant ventricular ectopy - Physical Exam Vital Signs Temp Pulse Resp BP Pulse Ox 98.6 F 73 19 H 160/64 H 99 12/25/18 04:00 12/25/18 06:00 12/25/18 05:00 12/25/18 06:00 12/25/18 06:00 Oxygen Flow Rate (L/min) 2 Oxygen Delivery Method Room Air Weight: 187 lb 6.287 oz Body Mass Index (BMI) 29.4 Intake and Output for Last 24 Hours 12/23/18 12/24/18 12/25/18 23:59 23:59 23:59 Intake Total 2732.9 / 2732.9 608.6 / 608.6 400 / 400 Output Total 1250 / 1250 1750 / 1750 925 / 925 Balance 1482.9 / 1482.9 -1141.4 / -1141.4 -525 / -525 Laboratory Tests Past 24 Hrs 12/25/18 04:36 Sodium 138 Potassium 4.0 Chloride 107 Carbon Dioxide 25.0 Anion Gap 6 BUN 23 H Creatinine 1.13 Estim Creat Clear Calc 56.33 Est GFR (MDRD) Af Amer 82 Est GFR (MDRD) Non-Af 67 BUN/Creatinine Ratio 20.4 H Glucose 103 Calcium 8.8 Medical Necessity - Tobacco Use Smoking Status: Former smoker Tobacco Use: Non-smoker Assessment/Plan All Active Problems (Last Reviewed 12/23/18 @ 12:21 by Cayla Rosenberg DO) Atherosclerosis of coronary artery of [place] heart without angina pectoris (Acute) History of coronary artery stent placement (Acute 12/23/18) STEMI (ST elevation myocardial infarction) (Acute 12/23/18) Impressions 1. STEMI 2. Two-vessel coronary artery disease of the LAD and LCx/OM -LAD had 3 stents and he will be brought back for staged intervention to the LCx post discharge 3. Hypertension 4. Possible dyslipidemia 5. Possible old inferior wall myocardial infarction with Q waves in 2, 3 and F 6. Ischemic cardiomyopathy with a 45 to 50% ejection fraction on echocardiogram 7. PAC's and short bursts of paroxysmal atrial fibrillation with rapid ventricular response 8. anemia due to fluids and to groin hematoma Transfer to PCU Increase Losartan to 50 mg daily Start Lasix 20 mg IV daily Will need ambulatory pulse ox on room air prior to discharge Monitor the blood pressure closely and obtain PA and lateral chest x-ray today. Recheck BMP in the AM Code Visit Inpatient E&M: 07610 Subs Hosp L2
--- NOTE | 2018-12-25 08:57 | PCM.PN.CARD ---
Subjectve: Patient doing well this morning, no 24-hour events. Telemetry showed normal sinus rhythm/sinus tachycardia with periods of atrial fibrillation. No chest pain symptoms. Right groin is clean/dry/intact with evidence of mild soft ecchymosis along the medial area. No hematoma. Patient complained of some mild shortness of breath. Objective: Vital Signs Temp Pulse Resp BP Pulse Ox 98.0 F 65 13 152/77 H 99 12/25/18 08:00 12/25/18 08:00 12/25/18 08:00 12/25/18 08:00 12/25/18 08:00 Oxygen Flow Rate (L/min) 2 Oxygen Delivery Method Room Air Weight: 187 lb 6.287 oz Body Mass Index (BMI) 29.4 Intake and Output for Last 24 Hours 12/23/18 12/24/18 12/25/18 23:59 23:59 23:59 Intake Total 2732.9 / 2732.9 608.6 / 608.6 400 / 400 Output Total 1250 / 1250 1750 / 1750 925 / 925 Balance 1482.9 / 1482.9 -1141.4 / -1141.4 -525 / -525 General: Awake, Alert, Oriented x 3 HEENT: PERRL, EOMI, Sclera Non Icteric Neck: Supple, Good ROM, No Lymph Node Enlargement Lungs: Rales - Bruce Bases Cardiovascular: Regular Rhythm, Normal S1, Normal S2, No Murmurs, No Rubs, No Gallops Vascular: No Carotid Bruits, Normal Femoral Pulses, Normal Radial Pulses, Normal Dorsalis Pedal Pulse, Normal Posterior Tibial Pulses Abdomen: Bowel Sounds Present, Soft, Non Tender, No HSM, No Organomegaly Extremities: No Cyanosis, No Clubbing, No edema Neurological: No Focal Motor or Sensory Deficit 12/25/18 04:36: Sodium 138, Potassium 4.0, Chloride 107, Carbon Dioxide 25.0, Anion Gap 6, BUN 23 H, Creatinine 1.13, Est GFR (MDRD) Af Amer 82, Est GFR (MDRD) Non-Af 67, BUN/Creatinine Ratio 20.4 H, Glucose 103, Calcium 8.8 Rhythm: EKG: ECHO: Stress Test: Cardiac Cath: PCI: CT Surgery: Holter monitor: EPS: PPM: CXR: Chest CT Scan: Medical Necessity - Tobacco Use Smoking Status: Former smoker Tobacco Use: Non-smoker Assessment/Plan 1. Coronary artery disease: Patient status post acute anterior wall myocardial infarction requiring angioplasty and drug-eluting stents x3 to his LAD. The patient received 2 long proximal and mid LAD stents followed by a distal apical small 2.25 mm ex-12 Promus Synergy stent with an excellent result. Patient has remaining coronary disease in his obtuse marginal #1 and mid left circumflex which require elective intervention in 3 weeks time. Patient also has 50% mid RCA stenosis which will be assessed by a stress test after his left circumflex and OM stenting is been completed. In the meantime we will continue his baby aspirin, Brilinta, beta blockers, Cozaar and statin based medications. Recommend titrating up his Cozaar to 50 mg p.o. daily for afterload reduction. His echocardiogram showed an EF around 45% with mid anterior hypokinesis. He is positive on his fluid since admission, and has some mild crackles and complains of some mild shortness of breath. I recommended Lasix 20 mg IV daily to normalize his fluid balance. He may require daily p.o. Lasix such as 40 mg daily. I recommended the patient be transferred to PCU to stay for 1 more day. The patient lives alone and may benefit from either bridge facility or physical therapy at home. 2. Hyperlipidemia: His LDL is 89 HDL is 30. He was started on Lipitor 80 mg p.o. nightly and will continue this and repeat his lipid profile in 6 weeks time. 3. Would recommend keeping the patient in the PCU for another day given his elevated troponin and anterior wall myocardial infarction. 4. Discussed with Dr. Rosenberg. thank you very much for the opportunity to participate in the cardiac care of your patient. Code Visit Inpatient E&M: 20071 Subs Hosp L2
[2018-12-25] MEDS: TICAGRELOR 90 MG TABLET PO ×2 (09:13→22:08)
[2018-12-25] MEDS: Losartan Potassium 50 MG Tablet PO (09:13)
[2018-12-25] MEDS: Aspirin E.C. 81 MG Tablet PO (09:14)
[2018-12-25] MEDS: Metoprolol Tartrate 50 MG Tablet PO ×2 (09:14→22:08)
--- NOTE | 2018-12-25 10:00 | EKG12_ITS ---
Test Reason : AM EKG Blood Pressure : / mmHG Vent. Rate : 063 BPM Atrial Rate : 063 BPM P-R Int : 180 ms QRS Dur : 098 ms QT Int : 392 ms P-R-T Axes : 000 -15 065 degrees QTc Int : 401 ms Normal sinus rhythm Inferior infarct , age undetermined Anteroseptal infarct , age undetermined Abnormal ECG When compared with ECG of 24-DEC-2018 05:13, MANUAL COMPARISON REQUIRED, DATA IS UNCONFIRMED Confirmed by EVELYNE WATERS, ANNAMARIA ([id number]), metropolitan editor AARON GARCIA ([id number]) on 12/29/2018 2:02:00 PM Referred By: DORA Confirmed By:ANNAMARIA STUBBS MD
--- NOTE | 2018-12-25 10:07 | RAD_ITS ---
STUDY: X-RAY CHEST REASON FOR EXAM: Male, 73 years old. Shortness of breath TECHNIQUE: PA and lateral views of the chest. COMPARISON: 12/24/2018 FINDINGS: EKG leads project over the chest. The lungs are clear and expanded. There is no demonstrated pleural abnormality. Normal size heart. Normal mediastinum and shabana. Normal visualized pulmonary arteries. There is atherosclerotic calcification of the aortic arch with tortuosity. Normal visualized thoracic spine. Normal visualized ribs, clavicles, and shoulders. There is no demonstrated abnormality of the visualized soft tissue structures of the upper abdomen. RAD/Chest PA and Lateral IMPRESSION: No airspace consolidation or pleural effusion. Electronically Signed: Jeff Sheppard MD at 10:52 EDT , Service support ,
[2018-12-25] MEDS: Furosemide 20 MG/2 ML VIAL IV (11:07)
[2018-12-25] MEDS: Atorvastatin Calcium 80 MG Tablet PO (22:08)
[2018-12-26] VITALS (7 sets, daily range): BP systolic 112–157; BP diastolic 57–79; PULSE 63–71; RESP 16–18; TEMP 36.7–37; O2SAT 97–98
[2018-12-26 06:41] LABS: Anion Gap 7 (5-15); BUN 24 mg/dL (7-18); Calcium,Total 8.9 mg/dL (8.5-10.1); Chloride 106 mmol/L (98-107); Creatinine, Serum 1.09 mg/dL (0.70-1.30); EST Glomerular Filtration Rate 70 mL/min (>60); Est Glom Filt Rate - Afr Amer 85 mL/min (>60); Estimated Creatinine Clearance 58.39 ml/min; Glucose 103 mg/dL (74-106); Potassium 3.8 mmol/L (3.5-5.1); Sodium Level 138 mmol/L (136-145)
[2018-12-26] MEDS: Furosemide 20 MG/2 ML VIAL IV (09:46)
[2018-12-26] MEDS: 0.9% NaCl Peripheral Flush Adult/Peds IV (09:46)
[2018-12-26] MEDS: Aspirin E.C. 81 MG Tablet PO (09:47)
[2018-12-26] MEDS: Losartan Potassium 50 MG Tablet PO (09:47)
[2018-12-26] MEDS: Senna/Docusate Sodium 1 Tablet 2 TABLET PO (09:47)
[2018-12-26] MEDS: Metoprolol Tartrate 50 MG Tablet PO (09:47)
[2018-12-26] MEDS: TICAGRELOR 90 MG TABLET PO (09:47)
--- NOTE | 2018-12-26 09:52 | PCM.PN.CARD ---
Subjectve: Patient doing better this morning, no 24-hour events. Telemetry showed normal sinus rhythm. Breathing is much better since initiating low-dose Lasix. Right groin is clean/dry/intact with mild diffuse soft ecchymosis. Objective: Vital Signs Temp Pulse Resp BP Pulse Ox 98.6 F 67 16 112/57 L 97 12/26/18 09:36 12/26/18 09:47 12/26/18 09:36 12/26/18 09:36 12/26/18 09:36 Oxygen Flow Rate (L/min) 2 Oxygen Delivery Method Room Air Weight: 177 lb 11.081 oz Body Mass Index (BMI) 29.4 Intake and Output for Last 24 Hours 12/24/18 12/25/18 12/26/18 23:59 23:59 23:59 Intake Total 608.6 / 608.6 940 / 940 60 / 60 Output Total 1750 / 1750 1600 / 1600 400 / 400 Balance -1141.4 / -1141.4 -660 / -660 -340 / -340 General: Awake, Alert, Oriented x 3 HEENT: PERRL, EOMI, Sclera Non Icteric Neck: Supple, Good ROM, No Lymph Node Enlargement Lungs: Clear to auscultation Cardiovascular: Regular Rhythm, Normal S1, Normal S2, No Murmurs, No Rubs, No Gallops Vascular: No Carotid Bruits, Normal Femoral Pulses, Normal Radial Pulses, Normal Dorsalis Pedal Pulse, Normal Posterior Tibial Pulses Abdomen: Bowel Sounds Present, Soft, Non Tender, No HSM, No Organomegaly Extremities: No Cyanosis, No Clubbing, No edema Neurological: No Focal Motor or Sensory Deficit 12/26/18 05:17: Sodium 138, Potassium 3.8, Chloride 106, Carbon Dioxide 25.0, Anion Gap 7, BUN 24 H, Creatinine 1.09, Est GFR (MDRD) Af Amer 85, Est GFR (MDRD) Non-Af 70, BUN/Creatinine Ratio 22.0 H, Glucose 103, Calcium 8.9 Rhythm: EKG: ECHO: Stress Test: Cardiac Cath: PCI: CT Surgery: Holter monitor: EPS: PPM: CXR: Chest CT Scan: Medical Necessity - Tobacco Use Smoking Status: Former smoker Tobacco Use: Non-smoker Assessment/Plan 1. Coronary artery disease: Patient status post acute anterior wall myocardial infarction requiring angioplasty and drug-eluting stents x3 to his LAD. The patient received 2 long proximal and mid LAD stents followed by a distal apical small 2.25 mm ex-12 Promus Synergy stent with an excellent result. Patient has remaining coronary disease in his obtuse marginal #1 and mid left circumflex which require elective intervention in 3 weeks time. Patient also has 50% mid RCA stenosis which will be assessed by a stress test after his left circumflex and OM stenting is been completed. In the meantime we will continue his baby aspirin, Brilinta, beta blockers, Cozaar and statin based medications. Recommend titrating up his Cozaar to 50 mg p.o. daily for afterload reduction. His echocardiogram showed an EF around 45% with mid anterior hypokinesis. He is positive on his fluid since admission, but his crackles have resolved with IV Lasix. Recommend discharging him home with Lasix 40 mg p.o. daily. will DC IV Lasix. I believe the patient can be discharged home today, less physical therapy or social work believes he requires additional placement. He will follow-up with Dr. Vann going forward. 2. Hyperlipidemia: His LDL is 89 HDL is 30. He was started on Lipitor 80 mg p.o. nightly and will continue this and repeat his lipid profile in 6 weeks time. 3. Would recommend keeping the patient in the PCU for another day given his elevated troponin and anterior wall myocardial infarction. 4. Discussed with Dr. Rosenberg. thank you very much for the opportunity to participate in the cardiac care of your patient. Patient may be discharged home today if okay with primary service and physical therapy. Code Visit Inpatient E&M: 56265 Subs Hosp L2
--- NOTE | 2018-12-26 10:00 | EKG12_ITS ---
Test Reason : AM EKG Blood Pressure : / mmHG Vent. Rate : 064 BPM Atrial Rate : 064 BPM P-R Int : 184 ms QRS Dur : 100 ms QT Int : 374 ms P-R-T Axes : -40 -24 068 degrees QTc Int : 385 ms Unusual P axis, possible ectopic atrial rhythm Inferior infarct , age undetermined Anteroseptal infarct , age undetermined Abnormal ECG When compared with ECG of 25-DEC-2018 05:51, MANUAL COMPARISON REQUIRED, DATA IS UNCONFIRMED Confirmed by EVELYNE WATERS, ANNAMARIA ([id number]), greeting card editor AARON GARCIA ([id number]) on 12/29/2018 10:04:45 AM Referred By: DORA Confirmed By:ANNAMARIA STUBBS MD
--- NOTE | 2018-12-26 14:04 | DCINST_ITS ---
- Discharge Diagnoses Current Active Problems: Current Active and Chronic Problems (Last Reviewed 12/23/18 @ 12:21 by Cayla Rosenberg DO) Hypertension (Chronic) You will use the following diet at home:: Cardiac Your food should be the consistency of: Regular Your liquids should be the consistency of: Regular/Thin Discharge Activity: - - You may remove the dressing in 1 day. You may shower in 1 day. No sex for 10-14 days. Do not lift more than 10 pounds for the next 10-14 days. No strenuous activity. You may start a walking program and work up to 30 minutes daily 5-6 times a week. No hills. Lifting Restrictions: 10 pounds Call your doctor if your incision/area has: Continuous Slow Oozing, Sudden Increased Bleeding, Increased Pain/ Swelling, Increased Redness, Foul Smelling Discharge, Swelling at the incision site Call your doctor if you observe: Fever of 101 or Higher, Shortness of breath, Dizziness, Fainting spells, Swelling in the ankles, Chest pain, Increased palpitations (irregular heartbeat) Additional Instructions: 1. You have an appointment to follow-up in the cardiology office on 01/07/2019 at 1:30 PM with Greta physician assistant warehouse manager. 2. You have another artery in the heart that needs to have a stent put in it and Greta will arrange for a time for you to come back. 3. You will be on Lasix which is a diuretic once a day. You should purchase a good scale if you do not have one and weigh yourself with no close on every morning after urinating. Keep a record of your weights. If the weight goes up by more than 1-2 pounds a day 2 days in a row call cardiology for advice on Lasix. If your weight is decreasing every day and especially if you are lightheaded you may need to change the Lasix to every other day. Pending Tests on Discharge: None Allergies/Adverse Reactions: Allergies No Known Allergies Allergy (Verified 12/23/18 09:11) Medications to take at Discharge Aspirin E.C. [Ecotrin] 81 mg PO DAILY@0800 tablet 12/26/18 Atorvastatin Calcium [Lipitor] 80 mg PO QHS #30 tablet 12/26/18 Furosemide [Lasix] 40 mg PO DAILY #30 tablet 12/26/18 Losartan Potassium [Cozaar] 50 mg PO DAILY #30 tablet 12/26/18 Metoprolol Tartrate [Lopressor (beta indira)] 50 mg PO BID #60 tablet 12/26/18 Nitroglycerin [Nitrostat] 0.4 mg SUBLINGUAL Q5M PRN #1 bottle 12/26/18 Ticagrelor [Brilinta] 90 mg PO BID #60 tablet 12/26/18 The following prescriptions were given: Atorvastatin Calcium [Lipitor] 80 mg PO QHS #30 tablet Furosemide [Lasix] 40 mg PO DAILY #30 tablet Losartan Potassium [Cozaar] 50 mg PO DAILY #30 tablet Nitroglycerin [Nitrostat] 0.4 mg SUBLINGUAL Q5M PRN #1 bottle PRN Reason: Cardiac/Chest Pain Metoprolol Tartrate [Lopressor (beta indira)] 50 mg PO BID #60 tablet Ticagrelor [Brilinta] 90 mg PO BID #60 tablet Please follow up with your Primary Care Physician in: 7-10 days Test Results: Test results from this visit will be discussed in further detail at your follow- up appointment, if applicable. Please Follow Up With: Greta Esparza PA Proposed Discharge Date: 12/26/18
--- NOTE | 2018-12-26 15:37 | PCM.DC.SUM ---
Discharge Date and Diagnosis Date of Admission: 12/23/18 Date of Discharge: 12/26/18 - Primary Discharge Diagnosis Active and Suspected Problems (Last Updated 12/26/18 @ 14:01 by Cayla Rosenberg DO) STEMI Groin hematoma (Acute) Paroxysmal atrial fibrillation (Acute) Ischemic cardiomyopathy (Acute)45-50% Acute CHF - Secondary Discharge Diagnosis Chronic Problems (Last Updated 12/26/18 @ 14:01 by Cayla Rosenberg DO) Dyslipidemia (Chronic) Hypertension (Chronic) Atherosclerosis of coronary artery of [place] heart without angina pectoris (Chronic) PCI-TESSIE proximal LAD with a 3.0 x 20 Promus Synergy,TESSIE mid LAD with a 3.0 x 38 Promus Synergy stent, TESSIE distal LAD with a 2.25 x 12 Promus Synergy 12/23/18 Hospital Course and Treatment Imaging Results: Clinical Impression(s) from Imaging Studies Chest X-Ray 12/24/18 08:01 IMPRESSION: Mild interstitial prominence may be chronic in nature. Mild bronchial inflammation possible, there is however no confluent pneumonia. Electronically Signed: Georgia Harrison MD at 6:59 EDT , Service support , Chest X-Ray 12/25/18 10:07 IMPRESSION: No airspace consolidation or pleural effusion. Electronically Signed: Jeff Sheppard MD at 10:52 EDT , Service support , Laboratory Results - last 24 hr 12/26/18 05:17 Sodium 138 Potassium 3.8 Chloride 106 Carbon Dioxide 25.0 Anion Gap 7 BUN 24 H Creatinine 1.09 Estim Creat Clear Calc 58.39 Est GFR (MDRD) Af Amer 85 Est GFR (MDRD) Non-Af 70 BUN/Creatinine Ratio 22.0 H Glucose [address] Vann - [facility] Operations: None Procedures: 2-D Echocardiogram, Cardiac catheterization Summary of Care Provided: The patient is a 73 year old M with a past medical history of hypertension who presented to the emergency department at [facility] on 12/23/2018 complaining of substernal chest pain radiating into his neck. He had been having what he thought was heartburn that was associated with shortness of breath and neck pain for 3 weeks now off and on. Over the fast 4 days it has increased in frequency and today it became constant. He is denies diaphoresis. He also had epigastric discomfort. Denied diaphoresis and denied radiation into the back or the arms. EKG in the emergency room revealed ST segment elevation in the anterior lateral leads and Q waves in the inferior leads. STEMI was called and the patient was taken to the [facility]. He received 4000 units of heparin and 180 mg of Brilinta prior to transport to the [facility]. Cardiac catheterization was performed by Dr. Vann and showed double vessel coronary artery disease of the LAD and LCx/OM. The mid LAD was 100% occluded. He underwent successful PTCA/TESSIE of the mid LAD, distal LAD and proximal LAD. Ventricular ejection fraction is 50% with wall motion abnormality. He had a minx closure then had a hematoma which required FemoStop. He was transferred to the intensive care unit post catheterization. Overnight the hematoma reformed and pressure had to be applied. Telemetry showed bursts of atrial fibrillation. He was maintained in the intensive care unit 1 more day. Echocardiogram showed an ejection fraction of 40-55% with a mildly dilated left ventricle. There was stage II diastolic dysfunction and regional wall motion abnormalities. He was transferred to the progressive care unit on 12/25/2018 and encouraged to ambulate. Losartan was increased to 50 mg daily on that date and he was started on Lasix 20 mg IV daily for increased shortness of breath. On 12/26 he stated his breathing had improved significantly after Lasix. Blood pressure was well controlled and his pulse ox on room air was 97-98%. He was discharged home with prescriptions for atorvastatin 80 mg, furosemide 40 mg, losartan 50 mg, Nitrostat 0.4 mg, metoprolol 50 mg and Brilinta 90 mg. He will continue aspirin and will need dual antiplatelet therapy for at least one year. He has an appointment to follow-up with Greta Esparza in the cardiology office on 01/07/2019 at 1:30 PM. He will be brought back to the hospital post discharge for intervention to the LCx/OM. I reviewed all of his medications with him and the proper use of sublingual nitroglycerin should he develop chest discomfort. I answered all his questions and his 's questions prior to discharge. General: alert, oriented X3, NAD, appropriate with normal affect, looks fatigued Neck: supple, trachea midline, carotids have brisk upstroke and normal pulse volume, no JVD, no carotid bruits Lungs: Clear to auscultation, symmetric chest expansion, not tachypneic at rest, no conversational dyspnea Heart: Regular rate and rhythm, normal S1, normal S2, no murmur, no gallop, no rub, PMI is on the midclavicular line Abdomen: soft, NT, ND, BS's present Extremities: no edema, no calf tenderness, peripheral pulses are normal, no cyanosis Telemetry: Normal sinus rhythm with bursts of atrial fibrillation, no significant ventricular ectopy This note was generated with [employer] dictation software. It may contain incorrect words, spelling, and punctuation that were not noted in checking the note before signing. - Physical Exam Vital Signs Temp Pulse Resp BP Pulse Ox 98.0 F 64 16 124/64 H 98 12/26/18 14:43 12/26/18 14:43 12/26/18 14:43 12/26/18 14:43 12/26/18 14:43 Oxygen Flow Rate (L/min) 2 Oxygen Delivery Method Room Air Weight: 177 lb 11.081 oz Body Mass Index (BMI) 29.4 Intake and Output for Last 24 Hours 12/24/18 12/25/18 12/26/18 23:59 23:59 23:59 Intake Total 608.6 / 608.6 940 / 940 300 / 300 Output Total 1750 / 1750 1600 / 1600 525 / 525 Balance -1141.4 / -1141.4 -660 / -660 -225 / -225 Laboratory Tests Past 24 Hrs 12/26/18 05:17 Sodium 138 Potassium 3.8 Chloride 106 Carbon Dioxide 25.0 Anion Gap 7 BUN 24 H Creatinine 1.09 Estim Creat Clear Calc 58.39 Est GFR (MDRD) Af Amer 85 Est GFR (MDRD) Non-Af 70 BUN/Creatinine Ratio 22.0 H Glucose 103 Calcium 8.9 Discharge Activity: - - You may remove the dressing in 1 day. You may shower in 1 day. No sex for 10-14 days. Do not lift more than 10 pounds for the next 10-14 days. No strenuous activity. You may start a walking program and work up to 30 minutes daily 5-6 times a week. No hills. Call your doctor if your incision/area has: Continuous Slow Oozing, Sudden Increased Bleeding, Increased Pain/ Swelling, Increased Redness, Foul Smelling Discharge, Swelling at the incision site Call your doctor if you observe: Fever of 101 or Higher, Shortness of breath, Dizziness, Fainting spells, Swelling in the ankles, Chest pain, Increased palpitations (irregular heartbeat) Home Medications: Medications to take at Discharge Aspirin E.C. [Ecotrin] 81 mg PO DAILY@0800 tablet 12/26/18 Atorvastatin Calcium [Lipitor] 80 mg PO QHS #30 tablet 12/26/18 Furosemide [Lasix] 40 mg PO DAILY #30 tablet 12/26/18 Losartan Potassium [Cozaar] 50 mg PO DAILY #30 tablet 12/26/18 Metoprolol Tartrate [Lopressor (beta rocio)] 50 mg PO BID #60 tablet 12/26/18 Nitroglycerin [Nitrostat] 0.4 mg SUBLINGUAL Q5M PRN #1 bottle 12/26/18 Ticagrelor [Brilinta] 90 mg PO BID #60 tablet 12/26/18 Following Prescrptions Were Given to Patient: Atorvastatin Calcium [Lipitor] 80 mg PO QHS #30 tablet Furosemide [Lasix] 40 mg PO DAILY #30 tablet Losartan Potassium [Cozaar] 50 mg PO DAILY #30 tablet Nitroglycerin [Nitrostat] 0.4 mg SUBLINGUAL Q5M PRN #1 bottle PRN Reason: Cardiac/Chest Pain Metoprolol Tartrate [Lopressor (beta rocio)] 50 mg PO BID #60 tablet Ticagrelor [Brilinta] 90 mg PO BID #60 tablet Primary Care Physician: Partha Santana MD [Primary Care Provider] - Please follow up with your Primary Care Physician in: 7-10 days Please Follow Up With: Greta Esparza PA Disposition: Home Minutes spent on discharge:: 35 Medical Necessity - Tobacco Use Smoking Status: Former smoker Tobacco Use: Non-smoker Meaningful Use Info Meaningful Use Diagnoses (Choose all that apply): AMI - AMI Aspirin given w/in 24hrs of arrival?: Yes ASA at discharge?: Yes Statins at discharge?: Yes Main/ARB at discharge?: Yes Beta Rocio at discharge?: Yes Done w/ Acute [place] measure.: Yes Code Visit Inpatient E&M: 64247 Subs Hosp L3
--- NOTE | 2018-12-26 15:41 | DS.PCM_ITS ---
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 Mild bronchial inflammation possible, there is however no confluent pneumonia. Electronically Signed: Georgia Harrison MD at 6:59 EDT , Service support , Chest X-Ray 12/25/18 10:07 IMPRESSION: No airspace consolidation or pleural effusion. Electronically Signed: Jeff Sheppard MD at 10:52 EDT , Service support , Laboratory Results - last 24 hr 12/26/18 05:17 Sodium 138 Potassium 3.8 Chloride 106 Carbon Dioxide 25.0 Anion Gap 7 BUN 24 H Creatinine 1.09 Estim Creat Clear Calc 58.39 Est GFR (MDRD) Af Amer 85 Est GFR (MDRD) Non-Af 70 BUN/Creatinine Ratio 22.0 H Glucose [address] Vann - [facility] Operations: None Procedures: 2-D Echocardiogram, Cardiac catheterization Summary of Care Provided: The patient is a 73 year old M with a past medical history of hypertension who presented to the emergency department at [facility] on 12/23/2018 complaining of substernal chest pain radiating into his neck. He had been havi ng what he thought was heartburn that was associated with shortness of breath and neck pain for 3 weeks now off and on. Over the fast 4 days it has increased in frequency and today it became constant. He is denies diaphoresis. He also had epigastric discomfort. Denied diaphoresis and denied radiation into the back or the arms. EKG in the emergency room revealed ST segment elevation in the anterior lateral leads and Q waves in the inferior leads. STEMI was called and the patient was taken to the [facility]. He received 4000 units of heparin and 180 mg of Brilinta prior to transport to the [facility]. Cardiac catheterization was performed by Dr. Vann and showed double vessel coronary artery disease of the LAD and LCx/OM. The mid LAD was 100% occluded. He underwent successful PTCA/TESSIE of the mid LAD, distal LAD and proximal LAD. Ventricular ejection fraction is 50% with wall motion abnormality. He had a minx closure then had a hematoma which required FemoStop. He was transferred to the intensive care unit post catheterization. Overnight the hematoma reformed and pressure had to be applied. Telemetry showed bursts of atrial fibrillation. He was maintained in the intensive care unit 1 more day. Echocardiogram showed an ejection fraction of 40-55% with a mildly dilated left ventricle. There was stage II diastolic dysfunction and regional wall motion abnormalities. He was transferred to the progressive care unit on 12/25/2018 and encouraged to ambulate. Losartan was increased to 50 mg daily on that date and he was started on Lasix 20 mg IV daily for increased shortness of breath. On 12/26 he stated his breathing had improved significantly after Lasix. Blood pressure was well controlled and his pulse ox on room air was 97-98%. He was discharged home with prescriptions for atorvastatin 80 mg, furosemide 40 mg, losartan 50 mg, Nitrostat 0.4 mg, metoprolol 50 mg and Brilinta 90 mg. He will continue aspirin and will need dual antiplatelet therapy for at least one year. He has an appointment to follow-up with Greta Esparza in the cardiology office on 01/07/2019 at 1:30 PM. He will be brought back to the hospital post discharge for intervention to the LCx/OM. I reviewed all of his medications with him and the proper use of sublingual nitroglycerin should he develop chest discomfort. I answered all his questions and his 's questions prior to discharge. General: alert, oriented X3, NAD, appropriate with normal affect, looks fatigued Neck: supple, trachea midline, carotids have brisk upstroke and normal pulse volume, no JVD, no carotid bruits Lungs: Clear to auscultation, symmetric chest expansion, not tachypneic at rest, no conversational dyspnea Heart: Regular rate and rhythm, normal S1, normal S2, no murmur, no gallop, no rub, PMI is on the midclavicular line Abdomen: soft, NT, ND, BS's present Extremities: no edema, no calf tenderness, peripheral pulses are normal, no cyanosis Telemetry: Normal sinus rhythm with bursts of atrial fibrillation, no significant ventricular ectopy This note was generated with [employer] dictation software. It may contain incorrect words, spelling, and punctuation that were not noted in checking the note before signing. - Physical Exam Vital Signs Temp Pulse Resp BP Pulse Ox 98.0 F 64 16 124/64 H 98 12/26/18 14:43 12/26/18 14:43 12/26/18 14:43 12/26/18 14:43 12/26/18 14:43 Oxygen Flow Rate (L/min) 2 Oxygen Delivery Method Room Air Weight: 177 lb 11.081 oz Body Mass Index (BMI) 29.4 Intake and Output for Last 24 Hours 12/24/18 12/25/18 12/26/18 23:59 23:59 23:59 Intake Total 608.6 / 608.6 940 / 940 300 / 300 Output Total 1750 / 1750 1600 / 1600 525 / 525 Balance -1141.4 / -1141.4 -660 / -660 -225 / -225 Laboratory Tests Past 24 Hrs 12/26/18 05:17 Sodium 138 Potassium 3.8 Chloride 106 Carbon Dioxide 25.0 Anion Gap 7 BUN 24 H Creatinine 1.09 Estim Creat Clear Calc 58.39 Est GFR (MDRD) Af Amer 85 Est GFR (MDRD) Non-Af 70 BUN/Creatinine Ratio 22.0 H Glucose 103 Calcium 8.9 Discharge Activity: - - You may remove the dressing in 1 day. You may shower in 1 day. No sex for 10-14 days. Do not lift more than 10 pounds for the next 10-14 days. No strenuous activity. You may start a walking program and work up to 30 minutes daily 5-6 times a week. No hills. Call your doctor if your incision/area has: Continuous Slow Oozing, Sudden Increased Bleeding, Increased Pain/ Swelling, Increased Redness, Foul Smelling Discharge, Swelling at the incision site Call your doctor if you observe: Fever of 101 or Higher, Shortness of breath, Dizziness, Fainting spells, Swelling in the ankles, Chest pain, Increased palpitations (irregular heartbeat) Home Medications: Medications to take at Discharge Aspirin E.C. [Ecotrin] 81 mg PO DAILY@0800 tablet 12/26/18 Atorvastatin Calcium [Lipitor] 80 mg PO QHS #30 tablet 12/26/18 Furosemide [Lasix] 40 mg PO DAILY #30 tablet 12/26/18 Losartan Potassium [Cozaar] 50 mg PO DAILY #30 tablet 12/26/18 Metoprolol Tartrate [Lopressor (beta rocio)] 50 mg PO BID #60 tablet 12/26/18 Nitroglycerin [Nitrostat] 0.4 mg SUBLINGUAL Q5M PRN #1 bottle 12/26/18 Ticagrelor [Brilinta] 90 mg PO BID #60 tablet 12/26/18 Following Prescrptions Were Given to Patient: Atorvastatin Calcium [Lipitor] 80 mg PO QHS #30 tablet Furosemide [Lasix] 40 mg PO DAILY #30 tablet Losartan Potassium [Cozaar] 50 mg PO DAILY #30 tablet Nitroglycerin [Nitrostat] 0.4 mg SUBLINGUAL Q5M PRN #1 bottle PRN Reason: Cardiac/Chest Pain Metoprolol Tartrate [Lopressor (beta rocio)] 50 mg PO BID #60 tablet Ticagrelor [Brilinta] 90 mg PO BID #60 tablet Primary Care Physician: Partha Santana MD [Primary Care Provider] - Please follow up with your Primary Care Physician in: 7-10 days Please Follow Up With: Greta Esparza PA Disposition: Home Minutes spent on discharge:: 35 Medical Necessity - Tobacco Use Smoking Status: Former smoker Tobacco Use: Non-smoker Meaningful Use Info Meaningful Use Diagnoses (Choose all that apply): AMI - AMI Aspirin given w/in 24hrs of arrival?: Yes ASA at discharge?: Yes Statins at discharge?: Yes Main/ARB at discharge?: Yes Beta Rocio at discharge?: Yes Done w/ Acute [place] measure.: Yes Code Visit Inpatient E&M: 88771 Subs Hosp L3
== END 2018-12-26 15:54 | disposition home or self-care (01) | DRG 246 ==
LOC: ED 09:33 → ICU 10:16 → PCU 12-26 14:11 → ICU 12-27 11:01 → PCU 12-27 11:03
PROVIDERS: Admitting Provider Internal Medicine; Emergency Provider Emergency Medicine; Family Provider Family Medicine; PCP Family Medicine; Visit Provider Internal Medicine Cardiovascular Disease
DX: I21.09 ST elevation (STEMI) myocardial infarction involving other coronary artery of anterior wall (principal); I50.21 Acute systolic (congestive) heart failure; L76.32 Postprocedural hematoma of skin and subcutaneous tissue following other procedure; I25.110 Atherosclerotic heart disease of native coronary artery with unstable angina pectoris; E78.5 Hyperlipidemia, unspecified; I25.5 Ischemic cardiomyopathy; Y84.0 Cardiac catheterization as the cause of abnormal reaction of the patient, or of later complication, without mention of misadventure at the time of the procedure; I48.0 Paroxysmal atrial fibrillation; I11.0 Hypertensive heart disease with heart failure; Z87.891 Personal history of nicotine dependence
CPT/HCPCS: 36415; 71045; 71046; 80048; 80061; 80076; 84484; 85025; 85027; 85347; 85610; 85730; 92941; 93005; 93306; 93458; J7030; J7040; Q9957; Q9967; A4216; C1725; C1769; C1874; C1887; C8929; C9606; J1940

== ENCOUNTER → 2019-01-17 10:46 | Outpatient (CLI) | payer MEDICARE, SELFPAY ==
[2019-01-14 15:01] VITALS: BMI 29.4
--- NOTE | 2019-01-17 10:49 | ADU_ITS ---
Reason For Study: Bilateral groin bruits S/P heart catherization (RT groin). Right Velocities Left Velocities CFV, SFV and Prof V are compressible and CFV,SFV and Prof V are compressible and demonstrate flow. demonstrate flow. Supf. Femoral Artery, prox = 156.3 cm./sec. S/P RT groin heart cath access. No sign of Supf. Femoral Artery, mid = 85.7 cm./sec. pseudoaneurym or hematoma. Swelling is minimal Profunda Femoral Artery = 117.2 cm./sec. now. Ext. Iliac Artery, dist = 159.7 cm./sec. Common Femoral Artery, mid = 149.6 cm./sec. Supf Femoral Artery, prox = 103.0 cm./sec. Supf Femoral Artery, mid = 290.0 cm./sec. Supf Femoral Artery, dist. = 61.1 cm./sec. Profunda Femoral Artery = 45.8 cm./sec. Interpretation Summary Normal bilateral common femoral, profunda femoral and superficial femoral venous flow at the level of the groin. No pseudoaneurysm or AV fistula detected >50% stenosis right mid superficial femoral artery. Ordering Physician: Greta Esparza Referring Physician: Greta Esparza Performed By: Arianne Majano, MARCO, RVT
== END ==
PROVIDERS: Referring Provider Physician Assistant Medical; Visit Provider Physician Assistant Medical
DX: R09.89 Other specified symptoms and signs involving the circulatory and respiratory systems (principal); Z95.5 Presence of coronary angioplasty implant and graft; S30.1XXA Contusion of abdominal wall, initial encounter
CPT/HCPCS: 93925

== ENCOUNTER 2019-01-19 08:12 | Day surgery (SDC) | payer MEDICARE, SELFPAY ==
[2018-12-23 10:31] VITALS: BMI 29.4
[2019-01-14 15:01] VITALS: BMI 29.4
--- NOTE | 2019-01-14 16:24 | HP_ITS ---
HPI HPI Surgical H&P: Yes Details: This is a 74-year-old gentleman that presents here today for a hospital follow-up. He presented to [facility] on December 23, 2018 with substernal chest discomfort. He was noted to have an NSTEMI. He underwent a urgent heart catheterization and was noted to have double vessel coronary artery disease of the LAD and left circumflex OM. His mid LAD was 100% occluded. He did undergo successful stenting of his mid LAD, distal LAD and proximal LAD. It was noted that his ejection fraction was 50%. He did have an echocardiogram the following day which demonstrated an ejection fraction of 40 to 45% with a mildly dilated left ventricle with stage II diastolic dysfunction. He is scheduled to undergo a staged PCI of the left circumflex/OM system on January 19, 2019. During his hospital stay he was also noted to have paroxysms of atrial fibrillation. Patient states that since he has been home he has not had any further chest discomfort or shortness of breath. He does not have any palpitations that he is aware. He does not have any lightheadedness or dizziness. He does not have any syncopal episodes. He does have some bruising of his right leg. He states that his groin site is not tender however the lower part of his leg is tender where the bruises distending to. Intake Vital Signs 01/14/19 Body Mass Index (BMI) 29.4 01/14/19 Height 5 ft 8 in 01/14/19 Weight: 179 lb 01/14/19 Body Mass Index (BMI) 27.2 01/14/19 Blood Pressure 136/71 H 01/14/19 Blood Pressure Location Lt brachial 01/14/19 Blood Pressure Position Sitting 01/14/19 Respiratory Rate 18 01/14/19 Pulse Rate 58 L 01/14/19 Pulse Source Monitor 01/14/19 Pulse Ox 99 Intake Visit Reasons: Staged PCI for 01/19 Echocardiography Tech Required: No Accompanied by: none Is patient in pain?: No Allergies No Known Allergies Allergy (Verified 01/14/19 14:29) Medications Nitroglycerin [Nitrostat] 0.4 mg SUBLINGUAL Q5M PRN #1 bottle 12/26/18 [Rx Confirmed 01/14/19] ticagrelor 90 mg tablet 90 mg PO BID #60 tab 01/10/19 [Rx Confirmed 01/14/19] aspirin 81 mg tablet,delayed release 81 mg PO DAILY #90 tab 01/14/19 [Rx Confirmed 01/14/19] atorvastatin 80 mg tablet 80 mg PO QHS #90 tab 01/14/19 [Rx Confirmed 01/14/19] furosemide 40 mg tablet 40 mg PO DAILY #90 tab 01/14/19 [Rx Confirmed 01/14/19] losartan 50 mg tablet 50 mg PO DAILY #90 tab 01/14/19 [Rx Confirmed 01/14/19] metoprolol tartrate 50 mg tablet 50 mg PO BID #180 tab 01/14/19 [Rx Confirmed 01/14/19] PFSH Medical History Paroxysmal atrial fibrillation (Acute) Dyslipidemia (Chronic) Ischemic cardiomyopathy (Acute) Hypertension (Chronic) Atherosclerosis of coronary artery of [place] heart without angina pectoris (Chronic) STEMI (ST elevation myocardial infarction) (Acute 12/23/18) Surgical History History of coronary artery stent placement (Acute 12/23/18) Social History Smoking Status: Former smoker ROS Const Const: Negative for fatigue, weakness, fever(s) or headache(s) Eyes Eyes: Negative for blind spots, loss of peripheral vision or transient loss of vision ENT ENT: Negative for headache(s), dizziness, tinnitus or Nosebleed/epistaxis Cardio Chest Pain: No Palpitations: No Edema: None Muscle aches with walking: None Resp Respiratory: Negative for SOB with activity, SOB at rest, SOB orthopnea\SOB lying down or Cough GI GI: Negative nausea, vomiting, heartburn or vomiting blood/hematemesis : Negative for hematuria Musc Musc: Negative for muscle aches/ myalgia Neuro Neuro: Negative for dizziness, lightheadedness, near syncope, syncope, orthostatic symptoms, headache(s) or weakness Brad Hematologic/Lymphatic: Negative for easy bleeding Endo Endo: Negative for fatigue Cardiology Exam Const Appearance: cooperative, no acute distress and well developed Orientation: alert, awake and oriented x3 Head Head: normocephalic and atraumatic Mouth: moist mucous membranes Eyes General: appearance normal, both eyes and all related structures Conjunctivae: conjunctivae normal Pupils: PERRL EOM: EOM intact bilaterally Neck Neck: normal visual inspection, no lymphadenopathy and no JVD Carotids: Negative bruit Neck Mass: Negative Neck mass Chest Chest inspection: normal inspection of the chest and symmetric chest movement Auscultation: Bilateral: Clear to Auscultation Cardio Palpation: normal PMI Rate: regular rate Rhythm: regular rhythm Heart sounds: S1 normal and S2 normal; negative rub, gallop or murmur GI GI: normal to inspection, soft, no hepatosplenomegaly and bowel sounds present; negative tender Neuro General: alert, awake, oriented x3, CN's II-XI intact bilaterally and moves all extremities Extremities Pulses: Normal: Right Posterior Tibial Pulse, Left Posterior Tibial Pulse, Right Radial Pulse, Left Radial Pulse Lower Extremity Edema: None: Bilateral Psych Psychological: normal affect Assessment & Plan 1. Atherosclerosis of [place] coronary artery of [place] heart without angina pectoris I25.10 PCI-TESSIE proximal LAD with a 3.0 x 20 Promus Synergy,TESSIE mid LAD with a 3.0 x 38 Promus Synergy stent, TESSIE distal LAD with a 2.25 x 12 Promus Synergy 12/23/18 Plan Patient is scheduled to undergo stenting of his circumflex and OM system next week. However he was noted to have bilateral femoral bruits, would like to obtain a ultrasound to evaluate for pseudoaneurysm prior to proceeding with staged procedure for additional stenting. He is aware that he needs to maintain his Brilinta for at least one year prior to discontinuing it however he was informed that if this is expensive that he should letter office know and then we can consider switching him to Plavix after his next procedure. Did also discuss cardiac rehab with patient, he would like to further think about this and will rediscuss at next office visit. 2. Essential hypertension I10 Plan Adequately controlled. Will not make any adjustments. 3. Cardiomyopathy, ischemic I25.5 Plan We will plan on repeating echocardiogram after his staged procedure. We will like to continue to monitor. We will continue with aggressive medical management. 4. Dyslipidemia E78.5 Plan He was started on a high-dose statin. We will repeat his lipids after his next office visit. 5. Paroxysmal atrial fibrillation I48.0 Plan Patient has not had any symptomatic recurrence. We will continue to monitor. May need to consider additional anticoagulation in the future if he has any recurrence. Plan Detail Other Medications Refilled: aspirin (Adult Low Dose Aspirin) 81 mg PO DAILY 90 tabs 3RF atorvastatin 80 mg PO QHS 90 tabs 3RF furosemide 40 mg PO DAILY 90 tabs 3RF losartan 50 mg PO DAILY 90 tabs 3RF metoprolol tartrate 50 mg PO BID 180 tabs 3RF Additional Comments Thank you for allowing us to participate in patient's plan of care, if you have any questions please do not hesitate to call. This note was generated using a voice recognition system and there may be incorrect words, spelling or punctuation errors that were not noted when reviewing the office note prior to saving. Follow Up 01/14/19 (keep as is) Coding Level of Care Code Off vis,est,level 4 Diagnoses Atherosclerosis of [place] coronary artery of [place] heart without angina pectoris I25.10 ??Coronary Disease-Associated Artery/Lesion type: [place] artery Essential hypertension I10 ??Hypertension type: essential hypertension Cardiomyopathy, ischemic I25.5 Dyslipidemia E78.5 Paroxysmal atrial fibrillation I48.0 Coding Level of Care Code Off vis,est,level 4 Diagnoses Atherosclerosis of [place] coronary artery of [place] heart without angina pectoris I25.10 ??Coronary Disease-Associated Artery/Lesion type: [place] artery Essential hypertension I10 ??Hypertension type: essential hypertension Cardiomyopathy, ischemic I25.5 Dyslipidemia E78.5 Paroxysmal atrial fibrillation I48.0 Supplemental Info Supplemental Information Echocardiogram in 2019 demonstrated: Mildly dilated left ventricle. The estimated ejection fraction is 45-50 %. Stage 2 diastolic dysfunction. There are regional wall motion abnormalities as specified. Trivial mitral valve insufficiency. Unable to estimate RV systolic pressure due to inadequate jet, pulmonary artery pressure probably normal. The study was technically difficult. Contrast injection was performed. There is no comparison study available. Labs LDL Cholesterol 89 mg/dL (0-130) 12/24/18 HDL Cholesterol 30 mg/dL (40-) L 12/24/18 Triglycerides 96 mg/dL (-199) 12/24/18 VLDL Cholesterol 19 mg/dL (5-40) 12/24/18 Diagnostics Electrocardiogram 12/26/18 Echocardiogram 12/23/18 Chest X-Ray 12/25/18 01/14/19 [id number] <Electronically signed by Greta MORIN> Date Greta MORIN
[2019-01-18 09:05] VITALS: BMI 27.2
[2019-01-19] VITALS (17 sets, daily range): BP systolic 134–173; BP diastolic 39–95; PULSE 46–59; RESP 9–18; TEMP 36.6; O2SAT 94–100; BMI 27.1
[2019-01-19 13:26] LABS: ACT Activated Clotting Time 175 sec (74-137)
--- NOTE | 2019-01-19 13:39 | CL.I_ITS ---
Patient Name: QASIM TAO Study Date: 01/19/2019 Performing: Prakash Vann MD Ht: 68.11 inches 173 cm : 1945 Wt: 178.57 lbs 81 kg Age: 74 Gender: male BSA: 1.95 PROCEDURE(S) PERFORMED [id number] W OR WO PTCA, SINGLE CORONARY ARTERY [id number] W OR WO PTCA, EACH ADD'L ARTERY, SAME MAJOR [id number], EACH ADD'L CORONARY ART, SAME MAJOR CLINICAL PROFILE AND CO-MORBIDITIES Indications: Stable Known CAD, New Onset Angina <= 2 months, LV Dysfunction Heart Failure: NYHA Class: 2, Newly Diagnosed: Yes, Heart Failure Type: Systolic Stress/Imaging Stress/Image Study Performed: No Angina Classification Anginal Classification w/in 2 Weeks: CCS II CAD Presentations: Unstable angina. Other: Dyspnea on exertion Comorbidities/Risk Factors: Hypertension Dyslipidemia Prior PCI CONCLUSIONS Successful PTCA/TESSIE distal LCX with a 2.25 x 28 Promus Synergy, post dilated throughout with a 2.5 x 8 NC Balloon; 85%-->0%, no dissection. Successful PCI with PTCA to the ostium of OM#2 with a 1.5 and 2.0 x 12 balloon; 85%-->30%, no dissect ion. Vessel is too small to stent. Successful PTCA/TESSIE of OM#1 with a 2.5 x 16 Promus Synergy, post dilated throughout with a 2.5 x 8 NC Balloon; 85%-->0%, no dissection. RECOMMENDATIONS Highly recommend quitting all tobacco products Follow up with primary grease renderer Risk factor modification ASA Indefinitley Plavix for at least 12 months Routine post interventional care Refer for Outpatient Cardiac Rehab Manual sheath removal per protocol Follow up with Dr. Vann Medical management of proximal LCX. Pt recently had anterior STEMI with recurrent exertional anginal symptoms and dysnea on exertion carmen ng stress testing problematic. Manual sheath removal. DESCRIPTION OF PROCEDURE The patient arrived to the procedure lab. The risks and benefits of the procedure as well as a full d escription of our services here and current unavailability of surgical backup were fully explained to the patient and/or their significant other prior to the catheterization. The Timeout was completed, verifying the correct patient and procedure. The patient's procedural site was prepped and draped in the usual fashion. Local anesthetic was given subcutaneously to right groin region with Lidocaine 2%. Using a modified Seldinger technique, arterial access was obtained via the right femoral artery, a 6 Fr 55 cm sheath was inserted.. EBU 3.75 Guide catheter was inserted and engaged into the LCA. [employer] [place] Guide wire was advan tyrese to the Circumflex. Emerge 2.0 x 12 Balloon catheter was inserted. Balloon catheter was advanced a cross lesion in the circumflex, mid. Angiogram performed pre balloon dilatation. PTCA balloon inflate d at 6 atms for 13 secs. PTCA balloon inflated at 6 atms for 9 secs. PTCA balloon inflated at 6 atms for 10 secs. PTCA balloon inflated at 7 atms for 10 secs. PTCA balloon inflated at 6 atms for 8 secs. PTCA balloon inflated at 6 atms for 8 secs. [employer] [place] (2) Guide wire was advanced to the 2nd OM. Emerge 2.0 x 12 Balloon catheter was reinserted Balloon catheter was advanced across lesion in the s econd obtuse marginal, ostial Angiogram performed pre balloon dilatation. PTCA balloon inflated at 6 atms for 12 secs. Angiogram performed post balloon dilatation. Synergy 2.25 x 28 Drug Eluting stent w as inserted. Drug Eluting stent was advanced across the lesion in the circumflex, mid. Angiogram performed post stent deployment. NC Emerge 2.5 x 8 Balloon catheter was inserted. [employer] Unive rsal (2) Guide wire was repositioned to the 1st OM Balloon catheter was advanced across lesion in the circumflex, mid. Angiogram performed pre balloon dilatation. Angiogram performed post balloon dilata tion. [employer] [place] (1) Guide wire was repositioned to the 1st OM Emerge 2.0 x 12 Balloon catheter wa s reinserted Emerge 1.5 x 8 Balloon catheter was inserted. Balloon catheter was advanced across lesio n in the second obtuse marginal, ostial PTCA balloon inflated at 8 atms for 9 secs. PTCA balloon infl ated at 10 atms for 26 secs. PTCA balloon inflated at 12 atms for 12 secs. Emerge 2.0 x 12 Balloon ca theter was reinserted Balloon catheter was advanced across lesion in the second obtuse marginal, osti al PTCA balloon inflated at 6 atms for 40 secs. Angiogram performed post balloon dilatation. Emerge 2 .0 x 12 Balloon catheter was reinserted Balloon catheter was advanced across lesion in the first obtuse marginal, proximal. PTCA balloon inflated at 6 atms for 8 secs. PTCA balloon inflated at 8 atms for 10 secs. Angiogram performed post balloon dilatation. Synergy 2.5 x 16 Drug Eluting stent was inserted. Drug Eluting stent was advanced across the lesion in the first obtuse marginal, proxim al. Angiogram performed pre stent deployment. Angiogram performed post stent deployment. NC Emerge 2. 5 x 8 Balloon catheter was reinserted. Balloon catheter was advanced across lesion in the first obtus e marginal, proximal. Angiogram performed pre balloon dilatation. Angiogram performed post balloon di latation. Emerge 2.0 x 12 Balloon catheter was reinserted Balloon catheter was advanced across lesion in the first obtuse marginal, proximal. Angiogram performed pre balloon dilatation. Arterial sheath was exchanged for a 6 Fr 11cm Sheath. The arterial sheath was pulled and manual compression applied until hemostasis is achieved. INTERVENTION INFORMATION LESION SITE: Circumflex (Mid) Lesion Complexity: High/C, lesion at bifurcation: Yes, thrombus present: No, lesion length: 28 mm, cu lprit lesion: Yes Pre Stenosis: 85 % Pre intervention YUE flow: 3 PROCEDURE: Drug Eluting Stent with pre and post dilatation Post Stenosis: 0 % Post intervention YUE flow: 3 Lesion Devices: Cook 6F 55cm Sheath Medtronic 6 Fr EBU3.75 100cm Guide Catheter Jimenez .014 [employer] Straight 190cm Jimenez .014 [employer] [place] Straight 190cm Mookie Sci EMERGE MR 2.00x12 BALLOON Mookie Sci Synergy MR TESSIE 2.25x28 Mookie Sci NC EMERGE MR 2.50x08 BALLOON LESION SITE: 2nd OM (Ostial) Lesion Complexity: Non-High/Non-C, lesion at bifurcation: Yes, thrombus present: No, lesion length: 8 mm, culprit lesion: No Pre Stenosis: 85 % Pre intervention YUE flow: 3 PROCEDURE: Balloon Angioplasty Post Stenosis: 30 % Post intervention YEU flow: 3 Lesion Devices: Cook 6F 55cm Sheath Medtronic 6 Fr EBU3.75 100cm Guide Catheter Jimenez .014 [employer] [place] Straight 190cm Jimenez .014 [employer] [place] Straight 190cm Mookie Sci EMERGE MR 2.00x12 BALLOON Mookie Sci EMERGE MR 1.50x08 BALLOON LESION SITE: 2nd OM (Proximal) Lesion Complexity: High/C, lesion at bifurcation: No, lesion length: 16 mm, culprit lesion: No Pre Stenosis: 85 % Pre intervention YUE flow: 3 PROCEDURE: Drug Eluting Stent with pre and post dilatation 0 % Post intervention YUE flow: 3 Lesion Devices: [facility] MR TESSIE 2.50x16 COMPLICATIONS No Complications PROCEDURE MEDICATIONS Oxygen: 2 L/min via nasal cannula Heparin 6000 unit(s) IV 01/19/2019 12:24:27 Nitro 200 mcg IC 01/19/2019 12:25:25 Nitro 200 mcg IC 01/19/2019 12:25:25 Nitro 200 mcg IC 01/19/2019 12:38:04 Nitro 200 mcg IC 01/19/2019 12:44:28 Nitro 200 mcg IC 01/19/2019 13:00:46 IV Bolus: .9 NaCl 750 ml total 01/19/2019 12:24:55 SUMMARY OF HEMODYNAMIC DATA Time AIR REST ECG 08:38:10 AO 147/63 (86) SA 12:26:20 Signed By Prakash Vann MD On 01/19/2019 1:38:27 PM Prakash Vann MD
--- NOTE | 2019-01-19 14:03 | EKG12_ITS ---
Test Reason : AM EKG Blood Pressure : / mmHG Vent. Rate : 047 BPM Atrial Rate : 047 BPM P-R Int : 168 ms QRS Dur : 084 ms QT Int : 468 ms P-R-T Axes : -19 -10 022 degrees QTc Int : 414 ms Marked sinus bradycardia Low voltage QRS Inferior infarct , age undetermined ST & Marked T wave abnormality, consider anterolateral ischemia Abnormal ECG When compared with ECG of 19-JAN-2019 14:00, MANUAL COMPARISON REQUIRED, DATA IS UNCONFIRMED Confirmed by NEHEMIAS MESA ([id number]), material expeditor ADELFO WEBB ([id number]) on 01/24/2019 2:29:17 PM Referred By: Prakash Vann Confirmed By:JIM MESA
[2019-01-19] MEDS: 0.9% Normal Saline 1,000 ML 150 ML IV (14:26)
--- NOTE | 2019-01-19 15:12 | CRPHASE1_ITS ---
Patient Communication Former Patient:: Phase I - PATIENT PREVIOUSLY SEEN ON 12/31/2018 BY CR STAFF. PHII Cardiac Rehab Discussed with Patient:: Yes Guide to Cardiac Rehab Given to Patient:: Yes Cardiac Rehab Facility Choice List Given to Patient:: Yes - [facility] Choice Program [facility] PHII:: Communication Given to CR, Refer to [facility] Ledger Poster:: Prakash Vann Refer Phase II Cardiac Rehab:: Yes - TO OCCUR AFTER DISCHARGE Sessions:: 36 sessions - 3 days/wk, 12 weeks Cardiac Rehabilitation Info Cardiac Rehabilitation Program Information: Cardiac Rehabilitation is important for patients like you who are recovering from a heart problem. Cardiac rehabilitation programs are recognized as integral to the continued care of the patient with coronary heart disease. The cardiac rehabilitation program is designed to optimize a patient's physical, psychological, and social functioning. Health wound care rn work in cardiac rehabilitation programs and assist you with getting the treatments you need to get stronger and healthier - like exercise, healthy eating habits, and medications. Cardiac rehabilitation has been show to help people with heart problems live longer and have better life enjoyment than people who do not go to cardiac rehabilitation. Please contact the Cardiac Rehabilitation Program at [facility] at in two weeks if you have not heard from them.
--- NOTE | 2019-01-19 15:12 | CRPH1.INSTRU ---
General Education CAD and cardiac anatomy and function:: Not instructed Explanation of diagnoses and procedures:: Not instructed Sign/Symptoms of AL:: Not instructed Antiplatelet therapy: Not instructed Proper use of NTG-SL: Not instructed Compliance of all prescribed medications: Not instructed - PATIENT PREVIOUSLY SEEN ON 12/24/2018 FOLLOWING HIS PREVIOUS STENT
[2019-01-19] MEDS: TICAGRELOR 90 MG TABLET PO (20:50)
[2019-01-19] MEDS: Atorvastatin Calcium 80 MG Tablet PO (20:50)
[2019-01-19] MEDS: Metoprolol Tartrate 50 MG Tablet PO (20:50)
[2019-01-19] MEDS: Acetaminophen 325 MG Tablet 650 MG PO (20:51)
[2019-01-20] VITALS (14 sets, daily range): BP systolic 144–190; BP diastolic 31–66; PULSE 44–60; RESP 14–17; TEMP 36.7–36.8; O2SAT 97–99
[2019-01-20] MEDS: amLODIPine 10 MG Tablet PO (03:29)
--- NOTE | 2019-01-20 06:54 | DCINST_ITS ---
Discharge Diet: Low fat/ Low Cholesterol May shower in (days): 1 - No tub baths for 5 days May resume sexual activity in: 1-2 weeks Lifting Restrictions: Do not lift anything greater than 10 pounds for 3 days Call your doctor if your incision/area has: Continuous Slow Oozing, Sudden Increased Bleeding, Increased Pain/ Swelling, Increased Redness, Foul Smelling Discharge, Swelling at the incision site Call your doctor if you observe: Fever of 101 or Higher, Shortness of breath, Chest pain Remove Dressing in (days):: 1 Cleanse incision/area with: Soap & Water Additional Instructions: You will continue with aspirin therapy. You will remain on Brilinta therapy for at least one year. If anyone asks you to stop this medication please call the [facility] Office first at [phone]. You are scheduled for a post hospital follow-up visit with Greta Del Angel Physician Construction Stonemason on 02/02/2019 at 3 PM. Allergies/Adverse Reactions: Allergies No Known Allergies Allergy (Verified 01/18/19 09:06) Medications to take at Discharge Nitroglycerin (INPATIENT USE) [Nitrostat] 0.4 mg SUBLINGUAL Q5M PRN #1 bottle 12/26/18 ticagrelor 90 mg tablet 90 mg PO BID #60 tab 01/10/19 aspirin 81 mg tablet,delayed release 81 mg PO DAILY #90 tab 01/14/19 atorvastatin 80 mg tablet 80 mg PO QHS #90 tab 01/14/19 furosemide 40 mg tablet 40 mg PO DAILY #90 tab 01/14/19 losartan 50 mg tablet 50 mg PO DAILY #90 tab 01/14/19 metoprolol tartrate 50 mg tablet 50 mg PO BID #180 tab 01/14/19 Primary Care Physician: Care Physician,No Primary [Primary Care Provider] - Test Results: Test results from this visit will be discussed in further detail at your follow- up appointment, if applicable. Cardiac Rehabilitation Info Cardiac Rehabilitation Program Information: Cardiac Rehabilitation is important for patients like you who are recovering from a heart problem. Cardiac rehabilitation programs are recognized as integral to the continued care of the patient with coronary heart disease. The cardiac rehabilitation program is designed to optimize a patient's physical, psychological, and social functioning. Health day care home provider work in cardiac rehabilitation programs and assist you with getting the t reatments you need to get stronger and healthier - like exercise, healthy eating habits, and medications. Cardiac rehabilitation has been show to help people with heart problems live longer and have better life enjoyment than people who do not go to cardiac rehabilitation. Please contact the Cardiac Rehabilitation Program at [facility] at in two weeks if you have not heard from them.
--- NOTE | 2019-01-20 08:42 | PCM.PN.CARD ---
Subjectve: Patient feeling very well this morning, feels much better after his angioplasty. No chest pain or anginal symptoms. EKG shows sinus bradycardia with resolving anterior T wave inversions, no acute changes. Telemetry shows normal sinus rhythm, no PVCs. Right groin is clean/dry/intact, without a thrills, bruits or hematoma. Hemoglobin and creatinine within nominal limits. Blood pressure is slightly elevated this morning. Objective: Vital Signs Temp Pulse Resp BP Pulse Ox 98.1 F 50 L 17 144/52 H 99 01/20/19 04:00 01/20/19 06:00 01/20/19 06:00 01/20/19 06:00 01/20/19 06:00 Oxygen Delivery Method Room Air Weight: 168 lb 6.931 oz Body Mass Index (BMI) 27.1 Intake and Output for Last 24 Hours 01/18/19 01/19/19 01/20/19 23:59 23:59 23:59 Intake Total 2402 / 2402 480 / 480 Output Total 1100 / 1100 600 / 600 Balance 1302 / 1302 -120 / -120 General: Awake, Alert, Oriented x 3 HEENT: PERRL, EOMI, Sclera Non Icteric Neck: Supple, Good ROM, No Lymph Node Enlargement Lungs: Clear to auscultation Cardiovascular: Regular Rhythm, Normal S1, Normal S2, No Murmurs, No Rubs, No Gallops Vascular: No Carotid Bruits, Normal Femoral Pulses, Normal Radial Pulses, Normal Dorsalis Pedal Pulse, Normal Posterior Tibial Pulses Abdomen: Bowel Sounds Present, Soft, Non Tender, No HSM, No Organomegaly Extremities: No Cyanosis, No Clubbing, No edema Neurological: No Focal Motor or Sensory Deficit Rhythm: EKG: ECHO: Stress Test: Cardiac Cath: PCI: CT Surgery: Holter monitor: EPS: PPM: CXR: Chest CT Scan: Medical Necessity - Tobacco Use Smoking Status: Former smoker Assessment/Plan 1. Patient doing very well this morning, no 24-hour events. Feels much better. Blood pressure slightly elevated this morning. Right groin is clean/dry/intact, no thrills, bruits or hematoma. At this point the patient will continue antihypertensive therapy, aspirin, and Brilinta. He will now be enrolled in cardiac rehab now that he has been revascularized. The patient has nonobstructive disease of his proximal left circumflex which was left for medical management as well as his mid RCA which was left for medical management. Should the patient have recurrent chest pain symptoms I would recommend a stress test to evaluate what territory may need to be managed percutaneously. If however he has chest pain-free will continue with plans for cardiac rehab. 2. Hyperlipidemia: We will recheck his lipid profile in 6 weeks time. Continue Lipitor. 3. Patient may be discharged home. He will follow-up with Dr. Vann going forward. Code Visit Inpatient E&M: 01449 Subs Hosp L2
[2019-01-20] MEDS: TICAGRELOR 90 MG TABLET PO (08:43)
[2019-01-20] MEDS: Aspirin E.C. 81 MG Tablet PO (08:44)
[2019-01-20] MEDS: Losartan Potassium 50 MG Tablet PO (08:44)
[2019-01-20] MEDS: Furosemide 40 MG Tablet PO (08:44)
[2019-01-20] MEDS: Metoprolol Tartrate 50 MG Tablet PO (08:44)
[2019-01-20 09:44] LABS: Hematocrit 35.8 % (40-54); Hemoglobin 11.7 g/dl (13.0-16.5); Mean Corp Hgb Conc 32.7 g/gl (32-36); Mean Corpuscular Hgb 27.7 pg (27.0-32.0); Mean Corpuscular Volume 84.8 fL (80-94); Mean Platelet Vol. 10.6 fl (6.2-12.0); Platelet Count 189 K/mm3 (150-450); RBC Distribution Width CV 15.4 % (11.6-14.6); Red Blood Count 4.22 M/mm3 (4.6-6.2)
[2019-01-20 09:46] LABS: Scan Indicated on CBC? Y/N NO
--- NOTE | 2019-01-20 09:48 | CASEMGMT ---
RN CM Note: Intro role of CM to patient in room. Pt was on Brillinta prior to admission and this is covered by his insurance. No dc needs identified. Pt will dc home today. Miquel BARAHONA RN ACM
[2019-01-20 09:58] LABS: Anion Gap 7 (5-15); BUN 20 mg/dL (7-18); BUN/Creat Ratio 16.9 RATIO (10-20); Calcium,Total 8.8 mg/dL (8.5-10.1); Chloride 107 mmol/L (98-107); Cholesterol 101 mg/dL (200); Creatinine, Serum 1.18 mg/dL (0.70-1.30); EST Glomerular Filtration Rate 64 mL/min (>60); Est Glom Filt Rate - Afr Amer 78 mL/min (>60); Estimated Creatinine Clearance 53.14 ml/min; Glucose 137 mg/dL (74-106); High Density Lipoprotein 34 mg/dL; Potassium 3.9 mmol/L (3.5-5.1); Sodium Level 141 mmol/L (136-145); Triglycerides 96 mg/dL; Very Low Density Lipoprotein 19 mg/dL (5-40)
--- NOTE | 2019-01-20 10:00 | EKG12_ITS ---
Test Reason : POST PCI Blood Pressure : / mmHG Vent. Rate : 050 BPM Atrial Rate : 050 BPM P-R Int : 200 ms QRS Dur : 080 ms QT Int : 456 ms P-R-T Axes : 000 -27 -41 degrees QTc Int : 415 ms Sinus bradycardia with sinus arrhythmia Low voltage QRS Inferior infarct (cited on or before 23-DEC-2018) ST & Marked T wave abnormality, consider anterolateral ischemia Abnormal ECG When compared with ECG of 26-DEC-2018 04:47, Sinus rhythm has replaced Ectopic atrial rhythm Questionable change in QRS duration Criteria for Anteroseptal infarct are no longer Present Confirmed by NEHEMIAS MESA ([id number]), website/blog editor ADELFO WEBB ([id number]) on 01/24/2019 2:30:38 PM Referred By: Prakash Vann Confirmed By:JIM MESA
== END 2019-01-20 09:50 | disposition home or self-care (01) ==
LOC: CLSP 08:14 → ICU 01-20 09:38
PROVIDERS: Referring Provider Internal Medicine Cardiovascular Disease; Visit Provider Internal Medicine Cardiovascular Disease
DX: I25.10 Atherosclerotic heart disease of native coronary artery without angina pectoris (principal); I25.5 Ischemic cardiomyopathy; I48.0 Paroxysmal atrial fibrillation; I25.2 Old myocardial infarction; I10 Essential (primary) hypertension; E78.5 Hyperlipidemia, unspecified; Z95.5 Presence of coronary angioplasty implant and graft; Z79.82 Long term (current) use of aspirin; Z79.899 Other long term (current) drug therapy; Z87.891 Personal history of nicotine dependence
CPT/HCPCS: 80048; 80061; 85027; 85347; 92921; 92928; 92929; 93005; J0153; J7030; J7040; C1725; C1769; C1874; C1887; C1894; C9600; C9601; Q9967

== ENCOUNTER → 2019-04-05 12:46 | Outpatient (CLI) | payer MEDICARE, SELFPAY ==
[2019-03-16 13:52] VITALS: BMI 27.8
--- NOTE | 2019-04-05 12:53 | ECHOCS_ITS ---
Reason For Study: CAROTID BRUIT Procedure This was a 2D Doppler, Color Flow transthoracic echocardiogram. Exam performed in department. Left Ventricle Normal size and thickness. The estimated ejection fraction is 65 %. Stage 1 diastolic dysfunction. No regional wall motion abnormalities noted. Right Ventricle Normal size and thickness. Normal systolic function. Atria Normal left atrium. Normal right atrium. Normal atrial septum. Mitral Valve The mitral valve is structurally normal. No prolapse or stenosis seen. Trivial mitral valve insufficiency. Tricuspid Valve Normal tricuspid valve. Trivial tricuspid valve insufficiency. Right ventricular systolic pressure estimated to be 28 mmHg. Aortic Valve Trisinus/trileaflet aortic valve. Mild focal aortic valve thickening. Mild aortic stenosis. Peak aortic valve gradient 19 mmHg. Mean aortic valve gradient 12 mmHg. Calculated aortic valve area (continuity equation) is 1.7 cm2. Trivial aortic valve insufficiency. Pulmonic Valve Normal pulmonic valve. Great Vessels Normal aortic root. Normal arch. Normal inferior vena cava. Inferior vena cava collapse with sniff. Pericardium/Pleural No pericardial effusion. Medication 22 gauge I.V. with prn adaptor inserted into right arm. Diluted definity 4ml given slow IV push to enhance endocardial definition. MMode/2D Measurements & Calculations LVIDd: 4.7 cm IVSd: 0.96 cm LVOT diam: 2.0 cm LVIDs: 3.3 cm LVPWd: 0.98 cm RVDd: 3.6 cm FS: 29.9 % LVOT area: 3.2 cm2 Ao root diam: 3.2 cm LAV(MOD-bp): 48.5 ml LVAd ap4: 33.9 cm2 LAV(MOD-bp) Indexed: 25.4 ml/m2 EDV(MOD-sp4): 109.6 ml LAV(MOD-sp2): 57.3 ml EDV(sp4-el): 114.3 ml LAV(MOD-sp4): 38.5 ml LVAs ap4: 19.7 cm2 ESV(MOD-sp4): 42.4 ml ESV(sp4-el): 44.4 ml EF(MOD-sp4): 61.3 % EF(sp4-el): 61.2 % SV(MOD-sp4): 67.2 ml SV(sp4-el): 69.9 ml LA A4 area: 15.8 cm2 LA dimension(2D): 3.6 cm RA A4 area: 15.5 cm2 Time Measurements MV dec time: 0.31 sec Doppler Measurements & Calculations MV E max nito: 79.9 cm/sec Lat Peak E' Nito: 10.1 cm/sec Med Peak E' Nito: 9.1 cm/sec MV A max nito: 94.4 cm/sec E/E' lat: 7.9 E/E' med: 8.8 MV E/A: 0.85 Ao V2 max: 218.8 cm/sec AI max nito: 433.5 cm/sec LV V1 max: 116.1 cm/sec Ao max P.3 mmHg AI max P.2 mmHg LV V1 max P.4 mmHg Ao V2 mean: 164.9 cm/sec AI dec slope: 178.4 cm/sec2 LV V1 mean P.7 mmHg Ao mean P.0 mmHg AI P1/2t: 711.7 msec LV V1 mean: 77.3 cm/sec Ao V2 VTI: 55.9 cm LV V1 VTI: 30.6 cm SHARLENE(I,D): 1.7 cm2 SHARLENE(V,D): 1.7 cm2 SV(LVOT): 96.9 ml PA V2 max: 121.1 cm/sec TR max nito: 242.0 cm/sec TR max P.4 mmHg Interpretation Summary The estimated ejection fraction is 65 %. Stage 1 diastolic dysfunction. Trivial mitral valve insufficiency. Trivial tricuspid valve insufficiency. Right ventricular systolic pressure estimated to be 28 mmHg. Mild aortic stenosis. Trivial aortic valve insufficiency. Compared to echo report dated 12/24/2018, LV function has gone from 45% to 65%. The study was technically difficult. Contrast injection was performed. Ordering Physician: Greta Esparza/Prakash Vann Referring Physician: Greta Esparza Performed By: Nadya Sheth RDCS
== END ==
PROVIDERS: Referring Provider Physician Assistant Medical; Visit Provider Physician Assistant Medical
DX: I25.10 Atherosclerotic heart disease of native coronary artery without angina pectoris (principal)
CPT/HCPCS: 93306; Q9957; A4216; C8929

== ENCOUNTER 2019-08-21 06:13 | Inpatient (IN) | payer MEDICARE, SELFPAY ==
[2019-03-16 13:52] VITALS: BMI 27.8
[2019-08-21] VITALS (65 sets, daily range): BP systolic 63–213; BP diastolic 40–117; PULSE 49–97; RESP 14–38; TEMP 35.6–37.8; O2SAT 92–100; BMI 26.8; BMI 25.1; BMI 26.9
[2019-08-21 06:30] LABS: Bedside Glucose 214 mg/dL (70-110)
[2019-08-21] MEDS: Etomidate 20 MG/10 ML Vial IV (06:31)
[2019-08-21] MEDS: Succinylcholine Chloride 200 MG/10 ML Vial 100 MG IV (06:31)
[2019-08-21] MEDS: Propofol 10MG/Ml 1,000 MG/100 ML Bottle 5.1 MG CONT INF ×2 (06:40→16:28)
--- NOTE | 2019-08-21 06:40 | RAD_ITS ---
STUDY: X-RAY CHEST REASON FOR EXAM: Male, 74 years old. Respiratory distress TECHNIQUE: Portable chest COMPARISON: 12/25/2018 FINDINGS: There is an endotracheal tube with the tube tip 5.1 cm proximal to the horacio. There is a orogastric tube tip in the stomach. There are no significant bilateral patchy pulmonary opacities. There is no demonstrated pleural abnormality. Normal size heart. Normal mediastinum and shabana. Normal visualized pulmonary arteries. Normal visualized aortic arch and descending thoracic aorta. Normal visualized thoracic spine. Normal visualized ribs, clavicles, and shoulders. There is no demonstrated abnormality of the visualized soft tissue structures of the upper abdomen. RAD/Chest 1 View (Portable) IMPRESSION: endotracheal tube with the tube tip 5.1 cm proximal to the horacio. There is a orogastric tube tip in the stomach Significant patchy bilateral pulmonary opacities pulmonary edema and/or pneumonia Electronically Signed: Benny Lomeli, at 7:48 EST Tel , Service support ,
--- NOTE | 2019-08-21 06:40 | EKG12_ITS ---
Test Reason : SOB Blood Pressure : / mmHG Vent. Rate : 088 BPM Atrial Rate : 088 BPM P-R Int : 174 ms QRS Dur : 100 ms QT Int : 412 ms P-R-T Axes : 011 -70 112 degrees QTc Int : 498 ms Normal sinus rhythm Left axis deviation Septal infarct , age undetermined Inferior infarct , age undetermined T wave abnormality, consider anterolateral ischemia Abnormal ECG Confirmed by BONITA WATERS, NEHEMIAS ([id number]), general expeditor AARON GARCIA ([id number] on 08/24/2019 11:52:47 AM Referred By: Confirmed By:JIM MESA MD
[2019-08-21 06:54] LABS: Absolute Lymphocyte Count 2.84 X10^3/uL (0.83-4.51); Absolute Neutrophil Count 9.5 X10^3/uL (2.0-7.7); Basophil# 0.07 X10^3/uL; Basophil% 0.5 % (0-1); Eosinophil# 0.22 X10^3/uL; Eosinophils% 1.6 % (0-5); Hematocrit 41.3 % (40-54); Lymphocyte # 2.84 X10^3/ul (4.0); Lymphocyte % 20.4 % (19-41); Mean Corp Hgb Conc 31.5 g/dL (32-36); Mean Corpuscular Volume 92.2 fL (80-94); Mean Platelet Vol. 11.2 fl (6.2-12.0); Monocyte# 1.25 X10^3/uL; NRBC Flagged by Analyzer 0 % (0-5); Neutrophil # 9.51 X10^3/uL (2.7-7.7); Neutrophil % 68.1 % (47-70); Platelet Count 307 K/mm3 (150-450); RBC Distribution Width CV 15.3 % (11.6-14.6); RBC Distribution Width SD 51.8 fl (35.1-43.9); Red Blood Count 4.48 M/mm3 (4.6-6.2); White Blood Count 13.9 K/mm3 (4.4-11.0)
--- NOTE | 2019-08-21 07:08 | NURSING ---
STEMI ALERT CALLED
[2019-08-21 07:11] LABS: Anion Gap 10 (5-15); BUN 20 mg/dL (7-18); Calcium,Total 8.5 mg/dL (8.5-10.1); Chloride 109 mmol/L (98-107); Creatinine, Serum 1.54 mg/dL (0.70-1.30); EST Glomerular Filtration Rate 47 mL/min (>60); Est Glom Filt Rate - Afr Amer 57 mL/min (>60); Estimated Creatinine Clearance 43.45 ml/min; Glucose 225 mg/dL (74-106); Potassium 3.9 mmol/L (3.5-5.1); Sodium Level 139 mmol/L (136-145)
[2019-08-21] MEDS: Midazolam 2 MG/2 ML Syringe IV (07:18)
--- NOTE | 2019-08-21 07:24 | NURSING ---
DR TL CARLISLE
--- NOTE | 2019-08-21 07:32 | NURSING ---
ICU 5
--- NOTE | 2019-08-21 07:34 | PCM.HP.STD ---
Problem List (1) Right carotid bruit Status: Chronic (2) Paroxysmal atrial fibrillation Status: Chronic (3) Dyslipidemia Status: Chronic (4) Ischemic cardiomyopathy Status: Chronic (5) Hypertension Status: Chronic Qualifiers: Hypertension type: essential hypertension Qualified Code(s): I10 - Essential (primary) hypertension (6) Atherosclerosis of coronary artery of [place] heart without angina pectoris Status: Chronic Qualifiers: Coronary Disease-Associated Artery/Lesion type: [place] artery Qualified Code(s): I25.10 - Atherosclerotic heart disease of [place] coronary artery without angina pectoris Comment: PTCA/TESSIE distal LCX with a 2.25 x 28 Promus Synergy, PCI with PTCA to the ostium of OM#2 with a 1.5 and 2.0 x 12 balloon; 85%-->30%, no dissection. Vessel is too small to stent. Successful PTCA/TESSIE of OM#1 with a 2.5 x 16 Promus Synergy, post dilated throughout with a 2.5 X 16, 01/19/2019 PCI-TESSIE proximal LAD with a 3.0 x 20 Promus Synergy,TESSIE mid LAD with a 3.0 x 38 Promus Synergy stent, TESSIE distal LAD with a 2.25 x 12 Promus Synergy 12/23/18 (7) History of coronary artery stent placement Status: Chronic Comment: PTCA/TESSIE distal LCX with a 2.25 x 28 Promus Synergy, PCI with PTCA to the ostium of OM#2 with a 1.5 and 2.0 x 12 balloon; 85%-->30%, no dissection. Vessel is too small to stent. Successful PTCA/TESSIE of OM#1 with a 2.5 x 16 Promus Synergy, post dilated throughout with a 2.5 X 16, 01/19/2019 PCI-TESSIE proximal LAD with a 3.0 x 20 Promus Synergy,TESSIE mid LAD with a 3.0 x 38 Promus Synergy stent, TESSIE distal LAD with a 2.25 x 12 Promus Synergy 12/23/18 (8) Dyspnea Status: Acute (9) CHF (congestive heart failure) Status: Acute History of Present Illness Date of Admission: 08/21/19 Chief Complaint: Shortness of breath The patient is a 74 year old M past medical history single for coronary artery disease with previous ST segment elevation LA in December 2018 for which he underwent emergency intervention with stent placement in his LAD who was brought to the emergency department with shortness of breath. 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 He was apparently found slumped in his car the EMS squad was called. Patient was placed on noninvasive ventilation brought to the emergency department. In the ED patient was found to be significantly dyspneic. Did receive initial treatment with aerosol placed on BiPAP without much improvement decision was made to intubate patient. EKG performed in the ED demonstrated minutes of anterolateral ischemia. 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 Was subsequently admitted to the intensive care unit as a case of acute respiratory failure as well as acute non-STEMI. Past Medical History Past Medical History (Chronic Problems): Chronic Problems (Last Reviewed 08/21/19 @ 10:11 by Claude Rodriguez MD) Right carotid bruit (Chronic) Paroxysmal atrial fibrillation (Chronic) Dyslipidemia (Chronic) Ischemic cardiomyopathy (Chronic) Hypertension (Chronic) Atherosclerosis of coronary artery of [place] heart without angina pectoris (Chronic) PTCA/TESSIE distal LCX with a 2.25 x 28 Promus Synergy, PCI with PTCA to the ostium of OM#2 with a 1.5 and 2.0 x 12 balloon; 85%-->30%, no dissection. Vessel is too small to stent. Successful PTCA/TESSIE of OM#1 with a 2.5 x 16 Promus Synergy, post dilated throughout with a 2.5 X 16, 01/19/2019 PCI-TESSIE proximal LAD with a 3.0 x 20 Promus Synergy,TESSIE mid LAD with a 3.0 x 38 Promus Synergy stent, TESSIE distal LAD with a 2.25 x 12 Promus Synergy 12/23/18 History of coronary artery stent placement (Chronic 01/19/19) PTCA/TESSIE distal LCX with a 2.25 x 28 Promus Synergy, PCI with PTCA to the ostium of OM#2 with a 1.5 and 2.0 x 12 balloon; 85%-->30%, no dissection. Vessel is too small to stent. Successful PTCA/TESSIE of OM#1 with a 2.5 x 16 Promus Synergy, post dilated throughout with a 2.5 X 16, 01/19/2019 PCI-TESSIE proximal LAD with a 3.0 x 20 Promus Synergy,TESSIE mid LAD with a 3.0 x 38 Promus Synergy stent, TESSIE distal LAD with a 2.25 x 12 Promus Synergy 12/23/18 Medical History: Medical History (Last Reviewed 08/21/19 @ 10:11 by Claude Rodriguez MD) Paroxysmal atrial fibrillation (Chronic) I48.0 Dyslipidemia (Chronic) E78.5 Ischemic cardiomyopathy (Chronic) I25.5 Hypertension (Chronic) I10 Atherosclerosis of coronary artery of [place] heart without angina pectoris (Chronic) I25.10 PTCA/TESSIE distal LCX with a 2.25 x 28 Promus Synergy, PCI with PTCA to the ostium of OM#2 with a 1.5 and 2.0 x 12 balloon; 85%-->30%, no dissection. Vessel is too small to stent. Successful PTCA/TESSIE of OM#1 with a 2.5 x 16 Promus Synergy, post dilated throughout with a 2.5 X 16, 01/19/2019 PCI-TESSIE proximal LAD with a 3.0 x 20 Promus Synergy,TESSIE mid LAD with a 3.0 x 38 Promus Synergy stent, TESSIE distal LAD with a 2.25 x 12 Promus Synergy 12/23/18 STEMI (ST elevation myocardial infarction) (Resolved) Onset Date: 12/23/18 I21.3 Allergies No Known Allergies Allergy (Verified 08/21/19 06:32) Home Medications: Ambulatory Orders Medication Instructions Recorded Nitroglycerin (INPATIENT USE) 0.4 mg SUBLINGUAL Q5M PRN #1 bottle 12/26/18 [Nitrostat] ticagrelor 90 mg tablet 90 mg PO BID #60 tab 01/10/19 aspirin 81 mg tablet,delayed 81 mg PO DAILY #90 tab 01/21/19 release atorvastatin 80 mg tablet 80 mg PO QHS #90 tab 01/21/19 furosemide 40 mg tablet 40 mg PO DAILY #90 tab 01/21/19 losartan 50 mg tablet 50 mg PO DAILY #90 tab 01/21/19 metoprolol tartrate 25 mg tablet 25 mg PO BID #180 tab 02/02/19 Surgical History: Surgical History (Last Reviewed 08/21/19 @ 10:11 by Claude Rodriguez MD) History of coronary artery stent placement (Chronic) Onset Date: 01/19/19 Z95.5 PTCA/TESSIE distal LCX with a 2.25 x 28 Promus Synergy, PCI with PTCA to the ostium of OM#2 with a 1.5 and 2.0 x 12 balloon; 85%-->30%, no dissection. Vessel is too small to stent. Successful PTCA/TESSIE of OM#1 with a 2.5 x 16 Promus Synergy, post dilated throughout with a 2.5 X 16, 01/19/2019 PCI-TESSIE proximal LAD with a 3.0 x 20 Promus Synergy,TESSIE mid LAD with a 3.0 x 38 Promus Synergy stent, TESSIE distal LAD with a 2.25 x 12 Promus Synergy 12/23/18 Surgical History: no surgical history - Other than the 3 stents to the LAD Psychiatric History: No pertinent psych hx - 12/23/2018., - - Has been under a lot of stress lately. His and he are recently . Smoking Status: Unknown if ever smoked - *Family History Maternal History Items: Unknown - Patient sedated on the vent Paternal History Items: Unknown - Patient sedated on the vent Review of Systems Unable to obtain accurate/complete ROS d/t: With patient being sedated on the vent VTE Information - Inpt Only VTE Present on Admission: No VTE Mechan Device Prophylaxis: None VTE Pharm Prophylaxis ordered?: Yes Patient Problems: Active and Suspected Problems (Last Reviewed 08/21/19 @ 10:11 by Claude Rodriguez MD) Dyspnea (Acute) CHF (congestive heart failure) (Acute) Objective: GENERAL: Sedated on the vent HEENT: Atraumatic; ET tube in place EYES; Anicteric, Normal Conjunctiva NECK; supple, normal thyroid, RESPIRATORY: Diminished to auscultation bilateral rhonchi CARDIOVASCULAR: Regular S1 S2, GI: soft, normoactive bowel sounds, : No Renal angle tenderness; EXTREMITIES: Trace edema no clubbing MUSCULOSKELETAL: no muscle waisting NEURO: unable to assess patient on the vent SKIN: No Rash PSYCH; unable to assess - Physical Exam Vitals/I&O's: Vital Signs Temp Pulse Resp BP Pulse Ox 98.7 F 88 25 H 116/72 93 08/21/19 07:25 08/21/19 07:25 08/21/19 07:25 08/21/19 07:25 08/21/19 07:25 Oxygen Delivery Method Mechanical Ventilator Weight: 84.9 kg Body Mass Index (BMI) 26.8 Intake and Output for Last 24 Hours 08/19/19 08/20/19 08/21/19 23:59 23:59 23:59 Intake Total 3.82 / 3.82 Balance 3.82 / 3.82 Microbiology Past 72 Hours 08/21/19 06:48 Mucosa - Nasopharyngeal Influenza Types A,B Direct FA (YENNY) - Final Laboratory Results 08/21/19 06:26: POC Glucose 214 H 08/21/19 06:45: WBC 13.9 H, RBC 4.48 L, Hgb 13.0, Hct 41.3, MCV 92.2, MCH 29.0, MCHC 31.5 L, RDW Std Deviation 51.8 H, RDW Coeff of Fercho 15.3 H, Plt Count 307, MPV 11.2, Immature Gran % (Auto) 0.400, Neut % (Auto) 68.1, Lymph % (Auto) 20.4, [place] % (Auto) 9.0, Eos % (Auto) 1.6, Baso % (Auto) 0.5, Absolute Neuts (auto) 9.5 H, Absolute Lymphs (auto) 2.84, Nucleated RBC % 0 08/21/19 06:45: Sodium 139, Potassium 3.9, Chloride 109 H, Carbon Dioxide 20.0 L, Anion Gap 10, BUN 20 H, Creatinine 1.54 H, Estim Creat Clear Calc 43.45, Est GFR (MDRD) Af Amer 57 L, Est GFR (MDRD) Non-Af 47 L, BUN/Creatinine Ratio 13.0, Glucose 225 H, Calcium 8.5, Troponin I 0.098 H Current Medications Propofol (Diprivan) 1,000 mg in 100 mls @ 5.094 mls/hr CONT INF .Q12H MAYRA; Protocol Last Titration: 08/21/19 07:10 Dose: 25 mcg/kg/min, 12.7 mls/hr Documented by: Assessment/Plan All Active Problems (Last Reviewed 08/21/19 @ 10:11 by Claude Rodriguez MD) Dyspnea (Acute) CHF (congestive heart failure) (Acute) Groin hematoma (Resolved) STEMI (ST elevation myocardial infarction) (Resolved 12/23/18) Patient is a 74-year-old gentleman who presented with acute dyspnea.. He was found to be in acute respiratory distress resulting in patient being intubated and admitted to the intensive care unit. Imaging studies obtained on admission demonstrated patchy bilateral opacities (differential diagnosis pulmonary edema and or pneumonia 1. Acute hypoxic respiratory failure ?Suspected to be secondary to a combination of pulmonary edema with possible superimposed pneumonia. Patient was intubated in the ED placed on the vent admitted to the intensive care unit consult placed to Dr. Mayfield with intensive care for vent management 2. Acute pulmonary edema ?Patient did receive Lasix in the ED which had to be held subsequently on the floor since patient became relatively hypotensive. Of note patient is on propofol. 2D echo ordered for subsequent evaluation 3. Elevated troponin consistent with acute non-STEMI ?Patient has underlying history of single coronary artery disease with history of ST segment elevation LA in December 2018 for which he underwent PCI/TESSIE to his LAD. Subsequent serial cardiac enzymes ordered consult placed to cardiology. Also ordered echo for EF assessment patient was also placed on therapeutic Lovenox 4. Suspected pneumonia ?Patient was empirically started on vancomycin and Levaquin after cultures have been sent. Also did order for acute viral panel 5. Acute kidney injury ? ?? cardiorenal ; Patient baseline creatinine on 01/20/2019 was 1.18 creatinine was 1.54 on admission. Subsequent serial BMPs ordered for close monitoring. 6. Hyperglycemia Patient not a known diabetic. Did order hemoglobin A1c placed on Accu-Cheks before meals and at bedtime with sliding scale coverage 7. Dyslipidemia ~patient is on statin therapy, plan to restart once patient comes on the vent 8. Hypertension ~ blood pressure low on admission antihypertensives subsequently held 9. DVT prophylaxis ~ on enoxaparin Clinical Impression(s) from Imaging Studies Chest X-Ray 08/21/19 06:40 IMPRESSION: endotracheal tube with the tube tip 5.1 cm proximal to the horacio. There is a orogastric tube tip in the stomach Significant patchy bilateral pulmonary opacities pulmonary edema and/or pneumonia Electronically Signed: Benny Lomeli, at 7:48 EST Tel , Service support , Code Visit Inpatient E&M: [id number] Init Hosp L3
[2019-08-21 07:41] LABS: Base Excess -8 mmol/L (-2 to +2); Bicarbonate 18.8 mmol/L (22-26); Blood Gas Specimen Type ART; FI02 50; Mode A-C; O2 Delivery Device Vent; PEEP 5; PO2 79 mmHG (75-100); RR 14; SITE R Radial; SO2 94 % (95-99); Time Given 735; Total Carbon Dioxide 20 mmol/L; Vt 450; pH 7.28 (7.35-7.45)
--- NOTE | 2019-08-21 07:47 | PCM.CON.CC ---
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 The patient has a known history of coronary artery disease, having been admitted in December 2018, during which time he underwent cardiac catheterization and subsequent stent placement to his LAD. The patient has underlying heart failure with preserved ejection fraction and paroxysmal atrial fibrillation. On presentation to the emergency department, the patient was noted to have a documented blood pressure of 213/110. He was tachypneic with labored breathing and accessory muscle use. Attempts to utilize noninvasive positive pressure ventilatory support was unsuccessful. The patient did require emergent intubation. Initial laboratory evaluation revealed a mildly elevated white blood cell count of 14,000. Chemistry profile revealed evidence of acute kidney injury with a creatinine of 1.54. Troponin was elevated to 0.098. Arterial blood gas obtained post intubation revealed a pH of 7.28 with a corresponding PCO2 of 40 and PO2 of 79. Plain film chest x-ray revealed patchy bilateral infiltrates. The patient received IV Lasix and was subsequently transferred to the medical intensive care unit for further management. Past Medical History Past Medical History (Chronic Problems): Chronic Problems (Last Reviewed 08/21/19 @ 10:11 by Claude Rodriguez MD) Right carotid bruit (Chronic) Paroxysmal atrial fibrillation (Chronic) Dyslipidemia (Chronic) Ischemic cardiomyopathy (Chronic) Hypertension (Chronic) Atherosclerosis of coronary artery of [place] heart without angina pectoris (Chronic) PTCA/TESSIE distal LCX with a 2.25 x 28 Promus Synergy, PCI with PTCA to the ostium of OM#2 with a 1.5 and 2.0 x 12 balloon; 85%-->30%, no dissection. Vessel is too small to stent. Successful PTCA/TESSIE of OM#1 with a 2.5 x 16 Promus Synergy, post dilated throughout with a 2.5 X 16, 01/19/2019 PCI-TESSIE proximal LAD with a 3.0 x 20 Promus Synergy,TESSIE mid LAD with a 3.0 x 38 Promus Synergy stent, TESSIE distal LAD with a 2.25 x 12 Promus Synergy 12/23/18 History of coronary artery stent placement (Chronic 01/19/19) PTCA/TESSIE distal LCX with a 2.25 x 28 Promus Synergy, PCI with PTCA to the ostium of OM#2 with a 1.5 and 2.0 x 12 balloon; 85%-->30%, no dissection. Vessel is too small to stent. Successful PTCA/TESSIE of OM#1 with a 2.5 x 16 Promus Synergy, post dilated throughout with a 2.5 X 16, 01/19/2019 PCI-TESSIE proximal LAD with a 3.0 x 20 Promus Synergy,TESSIE mid LAD with a 3.0 x 38 Promus Synergy stent, TESSIE distal LAD with a 2.25 x 12 Promus Synergy 12/23/18 Medical History: Medical History (Last Reviewed 08/21/19 @ 10:11 by Claude Rodriguez MD) Paroxysmal atrial fibrillation (Chronic) I48.0 Dyslipidemia (Chronic) E78.5 Ischemic cardiomyopathy (Chronic) I25.5 Hypertension (Chronic) I10 Atherosclerosis of coronary artery of [place] heart without angina pectoris (Chronic) I25.10 PTCA/TESSIE distal LCX with a 2.25 x 28 Promus Synergy, PCI with PTCA to the ostium of OM#2 with a 1.5 and 2.0 x 12 balloon; 85%-->30%, no dissection. Vessel is too small to stent. Successful PTCA/TESSIE of OM#1 with a 2.5 x 16 Promus Synergy, post dilated throughout with a 2.5 X 16, 01/19/2019 PCI-TESSIE proximal LAD with a 3.0 x 20 Promus Synergy,TESSIE mid LAD with a 3.0 x 38 Promus Synergy stent, TESSIE distal LAD with a 2.25 x 12 Promus Synergy 12/23/18 STEMI (ST elevation myocardial infarction) (Resolved) Onset Date: 12/23/18 I21.3 Allergies No Known Allergies Allergy (Verified 08/21/19 06:32) Home Medications: Ambulatory Orders Medication Instructions Recorded Nitroglycerin (INPATIENT USE) 0.4 mg SUBLINGUAL Q5M PRN #1 bottle 12/26/18 [Nitrostat] ticagrelor 90 mg tablet 90 mg PO BID #60 tab 01/10/19 aspirin 81 mg tablet,delayed 81 mg PO DAILY #90 tab 01/21/19 release atorvastatin 80 mg tablet 80 mg PO QHS #90 tab 01/21/19 Furosemide [Lasix] 40 mg PO DAILY 08/21/19 Losartan Potassium [Cozaar] 50 mg PO DAILY 08/21/19 Metoprolol Tartrate [Lopressor 25 mg PO BID 08/21/19 (beta indira)] Surgical History: Surgical History (Last Reviewed 08/21/19 @ 10:11 by Claude Rodriguez MD) History of coronary artery stent placement (Chronic) Onset Date: 01/19/19 Z95.5 PTCA/TESSIE distal LCX with a 2.25 x 28 Promus Synergy, PCI with PTCA to the ostium of OM#2 with a 1.5 and 2.0 x 12 balloon; 85%-->30%, no dissection. Vessel is too small to stent. Successful PTCA/TESSIE of OM#1 with a 2.5 x 16 Promus Synergy, post dilated throughout with a 2.5 X 16, 01/19/2019 PCI-TESSIE proximal LAD with a 3.0 x 20 Promus Synergy,TESSIE mid LAD with a 3.0 x 38 Promus Synergy stent, TESSIE distal LAD with a 2.25 x 12 Promus Synergy 12/23/18 Surgical History: no surgical history - Other than the 3 stents to the LAD Psychiatric History: No pertinent psych hx - 12/23/2018., - - Has been under a lot of stress lately. His and he are recently . Smoking Status: Unknown if ever smoked - *Family History Maternal History Items: No pertinent history Paternal History Items: No pertinent history Review of Systems Unable to obtain accurate/complete ROS d/t: Due to current intubation and mechanical ventilation status. Patient Problems: Active and Suspected Problems (Last Reviewed 08/21/19 @ 10:11 by Claude Rodriguez MD) Dyspnea (Acute) CHF (congestive heart failure) (Acute) Objective: The patient's most recent lab work, culture data and imaging studies have all been personally reviewed. - Physical Exam Vitals/I&O's: Vital Signs Temp Pulse Resp BP Pulse Ox 98.7 F 88 25 H 116/72 93 08/21/19 07:25 08/21/19 07:25 08/21/19 07:25 08/21/19 07:25 08/21/19 07:25 Oxygen Delivery Method Mechanical Ventilator Weight: 187 lb 2.759 oz Body Mass Index (BMI) 26.8 Intake and Output for Last 24 Hours 08/19/19 08/20/19 08/21/19 23:59 23:59 23:59 Intake Total 3.82 / 3.82 Balance 3.82 / 3.82 General: - - Intubated, sedated and mechanically ventilated. HEENT: Atraumatic, PERRLA, Normocephalic Oral: No Gingival or Mucosal Lesions/ Ulcerations, - - Endotracheal and OG tubes currently in place Neck: Supple, No Nodes, Trachea Midline Lungs: Diminished, Rhonchi Cardiovascular: Regular rate, Regular Rhythm, Normal S1, Normal S2 Abdomen: Bowel Sounds Present, Soft, Non Tender Extremities: No clubbing, No cyanosis, No edema Skin: No breakdown Musculoskeletal: No Tenderness to Palpation of Joints or Extremities Lymphatic: No Cervical, Supraclavicular, or Inguinal Adenopathy Neurological: - - No focal neurological deficits. Labs (Last 48 Hours) 08/21/19 08/21/19 08/21/19 06:26 06:45 06:45 WBC 13.9 H RBC 4.48 L Hgb 13.0 Hct 41.3 MCV 92.2 MCH 29.0 MCHC 31.5 L RDW Std Deviation 51.8 H RDW Coeff of Fercho 15.3 H Plt Count 307 MPV 11.2 Immature Gran % (Auto) 0.400 Neut % (Auto) 68.1 Lymph % (Auto) 20.4 [place] % (Auto) 9.0 Eos % (Auto) 1.6 Baso % (Auto) 0.5 Absolute Neuts (auto) 9.5 H Absolute Lymphs (auto) 2.84 Nucleated RBC % 0 Specimen Type Sample Site pH Bicarbonate Actual POC Total CO2 Base Excess O2 Saturation O2 % ABG pCO2 ABG pO2 Jose Manuel Test Respiration Rate O2 Delivery Device Minute Volume Vent Mode Tidal Volume POC PEEP Blood Gas Notified Whom Blood Gas Notified Time Sodium 139 Potassium 3.9 Chloride 109 H Carbon Dioxide 20.0 L Anion Gap 10 BUN 20 H Creatinine 1.54 H Estim Creat Clear Calc 43.45 Est GFR (MDRD) Af Amer 57 L Est GFR (MDRD) Non-Af 47 L BUN/Creatinine Ratio 13.0 Glucose 225 H Calcium 8.5 Troponin I 0.098 H POC Glucose 214 H 08/21/19 07:36 WBC RBC Hgb Hct MCV MCH MCHC RDW Std Deviation RDW Coeff of Fercho Plt Count MPV Immature Gran % (Auto) Neut % (Auto) Lymph % (Auto) [place] % (Auto) Eos % (Auto) Baso % (Auto) Absolute Neuts (auto) Absolute Lymphs (auto) Nucleated RBC % Specimen Type ART Sample Site R Radial pH 7.28 L Bicarbonate Actual 18.8 L POC Total CO2 20 Base Excess -8 L O2 Saturation 94 L O2 % 50 ABG pCO2 40.0 ABG pO2 79 Jose Manuel Test NA Respiration Rate 14 O2 Delivery Device Vent Minute Volume 10.00 Vent Mode A-C Tidal Volume 450 POC PEEP 5 Blood Gas Notified Whom ED Blood Gas Notified Time 735 Sodium Potassium Chloride Carbon Dioxide Anion Gap BUN Creatinine Estim Creat Clear Calc Est GFR (MDRD) Af Amer Est GFR (MDRD) Non-Af BUN/Creatinine Ratio Glucose Calcium Troponin I POC Glucose Microbiology 08/21/19 06:48 Mucosa - Nasopharyngeal Influenza Types A,B Direct FA (YENNY) - Final Clinical Impression(s) from Imaging Studies Chest X-Ray 08/21/19 06:40 IMPRESSION: endotracheal tube with the tube tip 5.1 cm proximal to the horacio. There is a orogastric tube tip in the stomach Significant patchy bilateral pulmonary opacities pulmonary edema and/or pneumonia Electronically Signed: Benny Armani, at 7:48 EST Tel , Service support , Current Medications Propofol (Diprivan) 1,000 mg in 100 mls @ 5.094 mls/hr CONT INF .Q12H MAYRA; Protocol Last Titration: 08/21/19 07:10 Dose: 25 mcg/kg/min, 12.7 mls/hr Documented by: Assessment/Plan Active and Suspected Problems (Last Reviewed 08/21/19 @ 10:11 by Claude Rodriguez MD) Dyspnea (Acute) CHF (congestive heart failure) (Acute) RECOMMENDATIONS: 1. Recheck conference of metabolic profile and obtain BNP. 2. Continue to trend troponins. 3. Cardiology consultation pending. Obtain echocardiogram. 4. Obtain blood, urine and sputum cultures. 5. Start empiric antimicrobials. 6. Obtain arterial blood gas. Wean FiO2 to maintain oxygen saturations at or above 90%. IMPRESSIONS: 1. Acute hypoxemic respiratory failure Although the patient's presentation was initially attributed to flash pulmonary edema in the setting of hypertensive emergency, I am not entirely convinced that the patient's radiographic findings only represents that of pulmonary edema. He did technically meet 2 sirs criteria with elevated respiratory rate and white blood cell count. Given rhonchi noted on exam, I would advocate that we empirically treat him with antimicrobials and obtain culture data as well. We will plan to check a serum lactate. I would hold any additional diuretics at this time, given the patient's tenuous hemodynamics. We will also plan to check a BNP level as well. 2. Troponin elevation/known coronary artery disease/heart failure with preserved ejection fraction/paroxysmal atrial fibrillation Although there was initial concern in the emergency department for ST segment changes noted on EKG, cardiology did not feel that these represented acute changes. For now, we will continue current supportive measures. Cardiology consultation is currently pending, as are repeat troponin levels and echocardiogram. 3. Acute kidney injury Unclear etiology. Nunn catheter is in place. Will check urine lytes. 4. Hypertension/hyperlipidemia Complicates care, management, recovery and prognosis. Hold all antihypertensives at the current time given tenuous hemodynamics. TIME: 42 minutes of critical care time, independent of procedures, was spent addressing the patient's acute hypoxemic respiratory failure, troponin elevation, known history of coronary artery disease, acute kidney injury, review of all data and collaboration with the care team. ([id number]) Code Visit 9xxxx: [id number] Critical care first hour
--- NOTE | 2019-08-21 08:14 | ED.DCSUM_ITS ---
- ER Visit Summary Date of Service: 08/21/19 Chief Complaint: Shortness of breath History of Present Illness: The patient is a 74 M presenting per EMS with shortness of breath. 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 EMS was called. On arrival he is on CPAP. He is speaking in one-word sentences. He denies chest pain, complains of severe shortness of breath. Physical Examination: Blood pressure 213/110, temperature 96, heart rate 97, respiratory rate 38, pulse ox 100% on CPAP. HEENT exam is unremarkable. Neck is supple. Lungs are rhonchi bilaterally. Tachypnea, retractions Heart is regular rate and rhythm. Abdomen is soft nontender nondistended. Extremities are unremarkable. Skin is warm and dry. No focal neurologic deficit. Remainder of exam is unremarkable. Emergency Department Course and Treatment: On arrival to the ED he was placed on BiPAP. He continues to be tachypneic and has increased work of breathing. Patient is agreeable to intubation. RSI was performed using etomidate and succinylcholine. 7.5 ET tube was placed through the cords. Good color change. Equal breath sounds bilaterally. Repeat blood pressure 116/72. EKG is sinus rhythm rate of [address] elevation in leads V2 and V3. Patient has a history of previous STEMI in December 2018. At that time he had LAD occlusion. EKGs were faxed to Dr. Peters. He feels the EKG currently is similar to his baseline EKG and he does not feel patient requires emergent cardiac cath at this time. Recommends treating pulmonary edema first. Patient was given Lasix IV. Discussed with ICU and hospitalist and patient will be admitted. Disposition: Admission Impression: Respiratory failure, pulmonary edema, intubation by ED physician This note was generated with [employer] dictation software. It may contain incorrect words, spelling, and punctuation that were not noted in review of the chart prior to signing
[2019-08-21] MEDS: Furosemide 40 MG/4 ML Vial IV (08:18)
[2019-08-21 08:58] LABS: BNP,B-Type NATRIURETIC PEPTIDE 1612.8 pg/mL (0-100)
[2019-08-21] MEDS: fentaNYL drip 100 ML 5 MCG IV (09:00)
--- NOTE | 2019-08-21 09:20 | ECHOCS_ITS ---
Reason For Study: CHF Procedure This was a 2D Doppler, Color Flow transthoracic echocardiogram. The study was technically difficult. Exam performed portable in ICU/CCU. Left Ventricle Normal LV size. The estimated ejection fraction is 45 %. Mild to moderate segmental systolic dysfunction (see wall motion). Stage 2 diastolic dysfunction. Centre : Akinetic. Mid-anteroseptal : Hypokinetic. The rest of the wall segments are normal. Right Ventricle Normal RV size. Normal systolic function. Atria Normal left atrium. Normal right atrium. Mitral Valve Normal mitral valve. Mild (1+) eccentric mitral valve insufficiency. Tricuspid Valve Normal tricuspid valve. Mild tricuspid valve insufficiency. Pulmonary artery systolic pressure is 32 mmHg. Aortic Valve Trisinus/trileaflet aortic valve. Mild (1+) aortic valve insufficiency. Pulmonic Valve Normal pulmonic valve. Great Vessels Normal aortic root. The pulmonary artery is normal size. Normal inferior vena cava. Pericardium/Pleural No pericardial effusion. Medication Diluted definity 3ml given slow IV push to enhance endocardial definition. MMode/2D Measurements & Calculations LVIDd: 5.6 cm IVSd: 0.93 cm Ao root diam: 2.7 cm LVIDs: 3.0 cm LVPWd: 0.97 cm RVDd: 3.4 cm FS: 46.8 % LAV(MOD-bp): 65.4 ml LA A4 area: 18.9 cm2 LA dimension(2D): 3.7 cm LAV(MOD-bp) Indexed: 32.3 ml/m2 LAV(MOD-sp2): 76.7 ml LAV(MOD-sp4): 55.0 ml RA A4 area: 13.6 cm2 Doppler Measurements & Calculations MV E max nito: 96.5 cm/sec Lat Peak E' Nito: 7.0 cm/sec Med Peak E' Nito: 4.2 cm/sec MV A max nito: 72.9 cm/sec E/E' lat: 13.8 E/E' med: 23.0 MV E/A: 1.3 Ao V2 max: 195.3 cm/sec LV V1 max: 119.2 cm/sec PA V2 max: 122.3 cm/sec Ao max P.3 mmHg LV V1 max P.7 mmHg TR max nito: 270.6 cm/sec TR max P.3 mmHg Interpretation Summary Normal LV size. The estimated ejection fraction is 45 %. Mild to moderate segmental systolic dysfunction (see wall motion). Stage 2 diastolic dysfunction. Mild (1+) eccentric mitral valve insufficiency. Mild (1+) aortic valve insufficiency. Ordering Physician: Claude Rodriguez Performed By: Rosalind Leonardo, MARCO, RVT
--- NOTE | 2019-08-21 09:20 | RAD_ITS ---
STUDY: X-RAY - ABDOMEN/PELVIS REASON FOR EXAM: Male, 74 years old. NG tube placement. TECHNIQUE: KUB. COMPARISON: None. FINDINGS: Normal visualized lung bases. Nasogastric tube terminates in the right upper quadrant consistent with placement in the gastric antrum or duodenal bulb. Nonobstructive bowel gas pattern. No abnormal calcifications or organomegaly. Mild degenerative changes of the lumbar spine. RAD/Abdomen Single View (Portable) IMPRESSION: NG tube placement consistent with position in the gastric antrum or duodenal bulb. Electronically Signed: Varsha Majano MD at 20:09 EST Tel , Service support ,
[2019-08-21 09:48] LABS: ALB/GLOB Ratio 0.5 RATIO (0.9-2.4); AST(SGOT) 70 U/L (15-37); Alanine Aminotransfer ALT/SGPT 36 U/L (16-61); Albumin, Serum 2.4 g/dL (3.2-5.0); Alkaline Phosphatase 240 U/L (45-117); Anion Gap 6 (5-15); BUN 21 mg/dL (7-18); Calcium,Total 7.9 mg/dL (8.5-10.1); Chloride 111 mmol/L (98-107); Creatinine, Serum 1.31 mg/dL (0.70-1.30); EST Glomerular Filtration Rate 57 mL/min (>60); Est Glom Filt Rate - Afr Amer 69 mL/min (>60); Estimated Creatinine Clearance 51.08 ml/min; Globulin 4.5 g/dL (2.2-4.2); Glucose 115 mg/dL (74-106); Potassium 4.6 mmol/L (3.5-5.1); Protein, Total 6.9 g/dL (6.4-8.2); Sodium Level 140 mmol/L (136-145)
[2019-08-21 10:04] LABS: BNP,B-Type NATRIURETIC PEPTIDE 2003.5 pg/mL (0-100)
[2019-08-21] MEDS: Enoxaparin 80 MG/0.8 ML Syringe SC ×2 (10:45→18:24)
[2019-08-21] MEDS: Chlorhexidine 15 ML PO ×2 (10:46→22:17)
[2019-08-21] MEDS: Famotidine 200 MG/20 ML MDV 20 MG in 0.9% Normal Saline (Pres. free 8 ML 300 MG IV ×2 (10:46→22:22)
[2019-08-21 10:49] LABS: M R Staph aureus DNA By PCR Negative (Negative); Probe Check PASS; Specimen Processing Control PASS
[2019-08-21] MEDS: 0.9% Saline Lock 10 ML Syringe IV ×2 (11:00→16:29)
[2019-08-21 11:29] LABS: Magnesium 1.9 mg/dL (1.6-2.6); Phosphorus 3.6 mg/dL (2.5-4.9)
[2019-08-21 12:31] LABS: Bedside Glucose 102 mg/dL (70-110)
[2019-08-21 13:32] LABS: Reflex Lactate? Y
--- NOTE | 2019-08-21 14:39 | PCM.CONS.C ---
Problem List (1) CHF (congestive heart failure) Status: Acute Reason for Consult Date of Consultation: 08/21/19 History of Present Illness: The patient is a 74 year old M past medical history single for coronary artery disease with previous ST segment elevation VA in December 2018 for which he underwent emergency intervention with stent placement in his LAD who was brought to the emergency department with shortness of breath. 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 He was apparently found slumped in his car the EMS squad was called. Patient was placed on noninvasive ventilation brought to the emergency department. In the ED patient was found to be significantly dyspneic. Did receive initial treatment with aerosol placed on BiPAP without much improvement decision was made to intubate patient. EKG performed in the ED was not consistent with ST segment elevation VA. Patient had to be intubated and is currently admitted to the ICU for management of his CHF. His enzymes also went up slightly. Patient is currently intubated and sedated. Patient denied any chest pain on presentation. At the time of his ST elevation VA he had chest pain. His EKG today was compared with the EKGs from December. Review of systems: This cannot be obtained as patient is intubated and sedated. Past Medical History Allergies/Adverse Reactions: Allergies No Known Allergies Allergy (Verified 08/21/19 06:32) Home Medications: Ambulatory Orders Medication Instructions Recorded Nitroglycerin (INPATIENT USE) 0.4 mg SUBLINGUAL Q5M PRN #1 bottle 12/26/18 [Nitrostat] ticagrelor 90 mg tablet 90 mg PO BID #60 tab 01/10/19 aspirin 81 mg tablet,delayed 81 mg PO DAILY #90 tab 01/21/19 release atorvastatin 80 mg tablet 80 mg PO QHS #90 tab 01/21/19 furosemide 40 mg tablet 40 mg PO DAILY #90 tab 01/21/19 losartan 50 mg tablet 50 mg PO DAILY #90 tab 01/21/19 metoprolol tartrate 25 mg tablet 25 mg PO BID #180 tab 02/02/19 Past Medical History (Chronic Problems): Chronic Problems (Last Reviewed 08/21/19 @ 10:11 by Claude Rodriguez MD) Right carotid bruit (Chronic) Paroxysmal atrial fibrillation (Chronic) Dyslipidemia (Chronic) Ischemic cardiomyopathy (Chronic) Hypertension (Chronic) Atherosclerosis of coronary artery of [place] heart without angina pectoris (Chronic) PTCA/TESSIE distal LCX with a 2.25 x 28 Promus Synergy, PCI with PTCA to the ostium of OM#2 with a 1.5 and 2.0 x 12 balloon; 85%-->30%, no dissection. Vessel is too small to stent. Successful PTCA/TESSIE of OM#1 with a 2.5 x 16 Promus Synergy, post dilated throughout with a 2.5 X 16, 01/19/2019 PCI-TESSIE proximal LAD with a 3.0 x 20 Promus Synergy,TESSIE mid LAD with a 3.0 x 38 Promus Synergy stent, TESSIE distal LAD with a 2.25 x 12 Promus Synergy 12/23/18 History of coronary artery stent placement (Chronic 01/19/19) PTCA/TESSIE distal LCX with a 2.25 x 28 Promus Synergy, PCI with PTCA to the ostium of OM#2 with a 1.5 and 2.0 x 12 balloon; 85%-->30%, no dissection. Vessel is too small to stent. Successful PTCA/TESSIE of OM#1 with a 2.5 x 16 Promus Synergy, post dilated throughout with a 2.5 X 16, 01/19/2019 PCI-TESSIE proximal LAD with a 3.0 x 20 Promus Synergy,TESSIE mid LAD with a 3.0 x 38 Promus Synergy stent, TESSIE distal LAD with a 2.25 x 12 Promus Synergy 12/23/18 Surgical History: no surgical history - Other than the 3 stents to the LAD Psychiatric History: No pertinent psych hx - 12/23/2018., - - Has been under a lot of stress lately. His and he are recently . - *Family History Maternal History Items: Unknown - Patient sedated on the vent Paternal History Items: Unknown - Patient sedated on the vent Smoking Status: Unknown if ever smoked Objective: Vital Signs Temp Pulse Resp BP Pulse Ox 97.8 F 53 L 14 90/55 L 100 08/21/19 12:00 08/21/19 12:00 08/21/19 12:00 08/21/19 12:00 08/21/19 12:00 Oxygen Delivery Method Mechanical Ventilator Weight: 175 lb 11.335 oz Body Mass Index (BMI) 25.1 Intake and Output for Last 24 Hours 08/19/19 08/20/19 08/21/19 23:59 23:59 23:59 Intake Total 518.21 / 518.21 Output Total 475 / 475 Balance 43.21 / 43.21 General: - - Intubated, sedated HEENT: Atraumatic Lungs: Clear to auscultation Cardiovascular: Normal S1, Normal S2 Abdomen: Soft Extremities: No edema Skin: No Rashes 08/21/19 06:45: WBC 13.9 H, RBC 4.48 L, Hgb 13.0, Hct 41.3, MCV 92.2, MCH 29.0, MCHC 31.5 L, Plt Count 307, MPV 11.2, Immature Gran % (Auto) 0.400, Neut % (Auto) 68.1, Lymph % (Auto) 20.4, [place] % (Auto) 9.0, Eos % (Auto) 1.6, Baso % (Auto) 0.5, Absolute Neuts (auto) 9.5 H, Nucleated RBC % 0 08/21/19 06:45: Sodium 139, Potassium 3.9, Chloride 109 H, Carbon Dioxide 20.0 L, Anion Gap 10, BUN 20 H, Creatinine 1.54 H, Est GFR (MDRD) Af Amer 57 L, Est GFR (MDRD) Non-Af 47 L, BUN/Creatinine Ratio 13.0, Glucose 225 H, Calcium 8.5, Troponin I 0.098 H 08/21/19 06:45: B-Natriuretic Peptide 1612.8 H 08/21/19 06:45: B-Natriuretic Peptide 2003.5 H 08/21/19 07:36: pH 7.28 L, Bicarbonate Actual 18.8 L, POC Total CO2 20, Base Excess -8 L, O2 Saturation 94 L, ABG pCO2 40.0, ABG pO2 79, Jose Manuel Test NA 08/21/19 08:55: Sodium 140, Potassium 4.6, Chloride 111 H, Carbon Dioxide 23.0, Anion Gap 6, BUN 21 H, Creatinine 1.31 H, Est GFR (MDRD) Af Amer 69, Est GFR (MDRD) Non-Af 57 L, BUN/Creatinine Ratio 16.0, Glucose 115 H, Calcium 7.9 L, Total Bilirubin 0.90 08/21/19 08:55: Lactic Acid 2.0 08/21/19 08:55: Phosphorus 3.6, Magnesium 1.9, Troponin I 0.424 H 08/21/19 12:15: Troponin I 0.943 H* Rhythm: EKG: ECHO: Stress Test: Cardiac Cath: PCI: CT Surgery: Holter monitor: EPS: PPM: CXR: Chest CT Scan: Assessment/Plan 1. Congestive heart failure: Patient seems to have responded to IV Lasix. He is on 40% FiO2. His blood pressure is on the low side. He had preserved EF by echo in March of this year. We will repeat another echocardiogram. His BNP is elevated. His blood pressure was very elevated when he presented. I agree with considering other etiologies for his respiratory failure and empiric antibiotics as well. 2. Non-STEMI: Patient's troponin has gone up to 0.9. This could be a type II VA. In view of his recent stent heart cath could be considered in the next 1 or 2 days as well unless the clinical picture clearly suggests a noncardiac etiology for his respiratory failure. Continue dual antiplatelet therapy at this time.
[2019-08-21 17:05] LABS: Lactic Acid 1.1 mmol/L (0.4-1.9)
[2019-08-21 18:01] LABS: Bedside Glucose 86 mg/dL (70-110)
[2019-08-21] MEDS: Atorvastatin Calcium 80 MG Tablet PO (22:19)
[2019-08-21] MEDS: TICAGRELOR 90 MG TABLET PO (22:19)
[2019-08-22] VITALS (37 sets, daily range): BP systolic 103–183; BP diastolic 50–97; PULSE 55–73; RESP 12–28; TEMP 37.4–38; O2SAT 92–99
[2019-08-22] MEDS: Propofol 10MG/Ml 1,000 MG/100 ML Bottle 5.1 MG CONT INF (02:12)
[2019-08-22] MEDS: fentaNYL drip 100 ML 5 MCG IV (02:13)
[2019-08-22] MEDS: 0.9% Saline Lock 10 ML Syringe IV (02:20)
[2019-08-22] MEDS: CHLORHEXIDINE GLUC 2% CLOTH 1 EACH TOWELETTE TOPICAL ×2 (03:53→22:21)
[2019-08-22 04:25] LABS: Hematocrit 29.5 % (40-54); Hemoglobin 9.7 g/dL (13.0-16.5); Mean Corp Hgb Conc 32.9 g/dL (32-36); Mean Corpuscular Hgb 29.8 pg (27.0-32.0); Mean Corpuscular Volume 90.5 fL (80-94); Mean Platelet Vol. 11.2 fl (6.2-12.0); Platelet Count 191 K/mm3 (150-450); RBC Distribution Width CV 15.6 % (11.6-14.6); RBC Distribution Width SD 51.7 fl (35.1-43.9); Red Blood Count 3.26 M/mm3 (4.6-6.2)
[2019-08-22 04:39] LABS: Anion Gap 5 (5-15); BUN 25 mg/dL (7-18); BUN/Creat Ratio 19.8 RATIO (10-20); Calcium,Total 7.4 mg/dL (8.5-10.1); Chloride 111 mmol/L (98-107); Creatinine, Serum 1.26 mg/dL (0.70-1.30); EST Glomerular Filtration Rate 59 mL/min (>60); Est Glom Filt Rate - Afr Amer 72 mL/min (>60); Estimated Creatinine Clearance 53.11 ml/min; Glucose 89 mg/dL (74-106); Potassium 3.7 mmol/L (3.5-5.1); Sodium Level 140 mmol/L (136-145)
[2019-08-22 05:10] LABS: Bedside Glucose 75 mg/dL (70-110)
[2019-08-22] MEDS: Enoxaparin 80 MG/0.8 ML Syringe SC ×2 (05:13→18:16)
[2019-08-22 05:21] LABS: Bedside Glucose 78 mg/dL (70-110)
--- NOTE | 2019-08-22 05:55 | EKG12_ITS ---
Test Reason : AM EKG Blood Pressure : / mmHG Vent. Rate : 061 BPM Atrial Rate : 061 BPM P-R Int : 152 ms QRS Dur : 086 ms QT Int : 442 ms P-R-T Axes : -13 -35 077 degrees QTc Int : 444 ms Normal sinus rhythm Left axis deviation Inferior infarct (cited on or before 23-DEC-2018) T wave abnormality, consider anterior ischemia Confirmed by EVELYNE WATERS, ANNAMARIA ([id number]), editor trade journal AARON GARCIA ([id number]) on 08/22/2019 1:35:34 PM Referred By: DEB Confirmed By:ANNAMARIA STUBBS MD
[2019-08-22 06:16] LABS: Allen Test POS; Base Excess -5 mmol/L (-2 to +2); Bicarbonate 19.9 mmol/L (22-26); Blood Gas Specimen Type ART; FI02 35; Mode CPAP PS; O2 Delivery Device Vent; PEEP 5; PO2 85 mmHG (75-100); PS 5; SITE R Radial; SO2 97 % (95-99); Time Given 608; Total Carbon Dioxide 21 mmol/L; pCO2 31.7 mmHg (35-45); pH 7.41 (7.35-7.45)
[2019-08-22 06:52] LABS: Color, Urine Yellow (Yellow); Glucose, Dipstick Normal (Normal); Ketone-Dipstick 15 mg/dl (Negative); Leukocyte Esterase-Dipstick 100 /ul (Negative); Nitrite-Dipstick Negative (Negative); Occult Blood-Urine 50 /ul (Negative); Protein-Dipstick 30 mg/dl (Negative); Urine Bilirubin Dipstick Negative (Negative); Urine Clarity Clear (Clear); Urine Urobilinogen Normal (Normal)
[2019-08-22 07:00] LABS: Bacteria RARE /hpf (None Seen); Mucous, Urine RARE /hpf (<or=2+); Red Blood Cells-Urine 0-5 SEEN /hpf (0-5); Squamous Epithelial Cells - UA 0-5 SEEN /hpf (0-5); White Blood Cells 5-10 SEEN /hpf (0-5)
--- NOTE | 2019-08-22 07:11 | PN_ITS ---
Subjective: Patient did okay overnight. Patient was able to be placed on a spontaneous breathing trial this morning and tolerated over an hour. Patient reports he is currently breathing well on CPAP and pressure support. No pain has been reported. Objective: All imaging was personally reviewed. Agree with formal interpretation. General: Alert, Cooperative, No apparent distress, - - Follows commands. Appears stated age. HEENT: Atraumatic, PERRLA, EOMI, Normocephalic, - - No scleral icterus or injection noted Oral: Moist Mucosa, No Gingival or Mucosal Lesions/ Ulcerations Neck: Supple, No JVD, No Nodes, Trachea Midline Lungs: No rhonchi, No wheeze, No rales, Diminished, - - Symmetric expansion. No dullness to percussion. Cardiovascular: Regular rate, Regular Rhythm, Normal S1, Normal S2, No murmurs, No rub noted, No Gallop Abdomen: Bowel Sounds Present, Soft, Non Tender, Non-Distended Extremities: No clubbing, No cyanosis, No edema, Capillary Refill Less than 3 Seconds Skin: No rashes, No breakdown Musculoskeletal: No Tenderness to Palpation of Joints or Extremities Lymphatic: No Cervical, Supraclavicular, or Inguinal Adenopathy Neurological: Cranial nerves II-XII grossly intact, Neuro grossly intact, Motor Exam 5/5 strength throughout Psych/Mental Status: Alert and oriented to time, place, person, mood and affect Vital Signs Temp Pulse Resp BP Pulse Ox 38.0 C H 63 16 141/68 H 98 08/22/19 06:00 08/22/19 06:00 08/22/19 06:00 08/22/19 06:00 08/22/19 06:00 Oxygen Delivery Method Mechanical Ventilator Weight: 79.4 kg Body Mass Index (BMI) 25.1 Intake and Output for Last 24 Hours 08/20/19 08/21/19 08/22/19 23:59 23:59 23:59 Intake Total 1579.16 / 1699.68 237.14 / 237.14 Output Total 1025 / 1225 440 / 440 Balance 554.16 / 474.68 -202.86 / -202.86 Labs (Last 48 Hours) 08/21/19 08/21/19 08/21/19 06:26 06:45 06:45 WBC 13.9 H RBC 4.48 L Hgb 13.0 Hct 41.3 MCV 92.2 MCH 29.0 MCHC 31.5 L RDW Std Deviation 51.8 H RDW Coeff of Fercho 15.3 H Plt Count 307 MPV 11.2 Immature Gran % (Auto) 0.400 Neut % (Auto) 68.1 Lymph % (Auto) 20.4 [place] % (Auto) 9.0 Eos % (Auto) 1.6 Baso % (Auto) 0.5 Absolute Neuts (auto) 9.5 H Absolute Lymphs (auto) 2.84 Nucleated RBC % 0 Specimen Type Sample Site pH Bicarbonate Actual POC Total CO2 Base Excess O2 Saturation O2 % ABG pCO2 ABG pO2 Jose Manuel Test Respiration Rate O2 Delivery Device Minute Volume Vent Mode Tidal Volume POC PEEP POC Pressure Suppt Blood Gas Notified Whom Blood Gas Notified Time Sodium 139 Potassium 3.9 Chloride 109 H Carbon Dioxide 20.0 L Anion Gap 10 BUN 20 H Creatinine 1.54 H Estim Creat Clear Calc 43.45 Est GFR (MDRD) Af Amer 57 L Est GFR (MDRD) Non-Af 47 L BUN/Creatinine Ratio 13.0 Glucose 225 H Lactic Acid Calcium 8.5 Phosphorus Magnesium Total Bilirubin AST ALT Alkaline Phosphatase Troponin I 0.098 H B-Natriuretic Peptide Total Protein Albumin Globulin Albumin/Globulin Ratio Urine Color Urine Clarity Urine pH Ur Specific [place] Urine Protein Urine Glucose (UA) Urine Ketones Urine Occult Blood Urine Nitrite Urine Bilirubin Urine Urobilinogen Ur Leukocyte Esterase Urine RBC Urine WBC Ur Squamous Epith Cells Urine Bacteria Urine Mucus MRSA (PCR) POC Glucose 214 H 08/21/19 08/21/19 08/21/19 06:45 06:45 07:36 WBC RBC Hgb Hct MCV MCH MCHC RDW Std Deviation RDW Coeff of Fercho Plt Count MPV Immature Gran % (Auto) Neut % (Auto) Lymph % (Auto) [place] % (Auto) Eos % (Auto) Baso % (Auto) Absolute Neuts (auto) Absolute Lymphs (auto) Nucleated RBC % Specimen Type ART Sample Site R Radial pH 7.28 L Bicarbonate Actual 18.8 L POC Total CO2 20 Base Excess -8 L O2 Saturation 94 L O2 % 50 ABG pCO2 40.0 ABG pO2 79 Jose Manuel Test NA Respiration Rate 14 O2 Delivery Device Vent Minute Volume 10.00 Vent Mode A-C Tidal Volume 450 POC PEEP 5 POC Pressure Suppt Blood Gas Notified Whom ED Blood Gas Notified Time 735 Sodium Potassium Chloride Carbon Dioxide Anion Gap BUN Creatinine Estim Creat Clear Calc Est GFR (MDRD) Af Amer Est GFR (MDRD) Non-Af BUN/Creatinine Ratio Glucose Lactic Acid Calcium Phosphorus Magnesium Total Bilirubin AST ALT Alkaline Phosphatase Troponin I B-Natriuretic Peptide 1612.8 H 2003.5 H Total Protein Albumin Globulin Albumin/Globulin Ratio Urine Color Urine Clarity Urine pH Ur Specific [place] Urine Protein Urine Glucose (UA) Urine Ketones Urine Occult Blood Urine Nitrite Urine Bilirubin Urine Urobilinogen Ur Leukocyte Esterase Urine RBC Urine WBC Ur Squamous Epith Cells Urine Bacteria Urine Mucus MRSA (PCR) POC Glucose 08/21/19 08/21/19 08/21/19 08:55 08:55 08:55 WBC RBC Hgb Hct MCV MCH MCHC RDW Std Deviation RDW Coeff of Fercho Plt Count MPV Immature Gran % (Auto) Neut % (Auto) Lymph % (Auto) [place] % (Auto) Eos % (Auto) Baso % (Auto) Absolute Neuts (auto) Absolute Lymphs (auto) Nucleated RBC % Specimen Type Sample Site pH Bicarbonate Actual POC Total CO2 Base Excess O2 Saturation O2 % ABG pCO2 ABG pO2 Jose Manuel Test Respiration Rate O2 Delivery Device Minute Volume Vent Mode Tidal Volume POC PEEP POC Pressure Suppt Blood Gas Notified Whom Blood Gas Notified Time Sodium 140 Potassium 4.6 Chloride 111 H Carbon Dioxide 23.0 Anion Gap 6 BUN 21 H Creatinine 1.31 H Estim Creat Clear Calc 51.08 Est GFR (MDRD) Af Amer 69 Est GFR (MDRD) Non-Af 57 L BUN/Creatinine Ratio 16.0 Glucose 115 H Lactic Acid 2.0 Calcium 7.9 L Phosphorus 3.6 Magnesium 1.9 Total Bilirubin 0.90 AST 70 H ALT 36 Alkaline Phosphatase 240 H Troponin I 0.424 H B-Natriuretic Peptide Total Protein 6.9 Albumin 2.4 L Globulin 4.5 H Albumin/Globulin Ratio 0.5 L Urine Color Urine Clarity Urine pH Ur Specific [place] Urine Protein Urine Glucose (UA) Urine Ketones Urine Occult Blood Urine Nitrite Urine Bilirubin Urine Urobilinogen Ur Leukocyte Esterase Urine RBC Urine WBC Ur Squamous Epith Cells Urine Bacteria Urine Mucus MRSA (PCR) POC Glucose 08/21/19 08/21/19 08/21/19 09:30 12:15 12:25 WBC RBC Hgb Hct MCV MCH MCHC RDW Std Deviation RDW Coeff of Fercho Plt Count MPV Immature Gran % (Auto) Neut % (Auto) Lymph % (Auto) [place] % (Auto) Eos % (Auto) Baso % (Auto) Absolute Neuts (auto) Absolute Lymphs (auto) Nucleated RBC % Specimen Type Sample Site pH Bicarbonate Actual POC Total CO2 Base Excess O2 Saturation O2 % ABG pCO2 ABG pO2 Jose Manuel Test Respiration Rate O2 Delivery Device Minute Volume Vent Mode Tidal Volume POC PEEP POC Pressure Suppt Blood Gas Notified Whom Blood Gas Notified Time Sodium Potassium Chloride Carbon Dioxide Anion Gap BUN Creatinine Estim Creat Clear Calc Est GFR (MDRD) Af Amer Est GFR (MDRD) Non-Af BUN/Creatinine Ratio Glucose Lactic Acid Calcium Phosphorus Magnesium Total Bilirubin AST ALT Alkaline Phosphatase Troponin I 0.943 H* B-Natriuretic Peptide Total Protein Albumin Globulin Albumin/Globulin Ratio Urine Color Urine Clarity Urine pH Ur Specific [place] Urine Protein Urine Glucose (UA) Urine Ketones Urine Occult Blood Urine Nitrite Urine Bilirubin Urine Urobilinogen Ur Leukocyte Esterase Urine RBC Urine WBC Ur Squamous Epith Cells Urine Bacteria Urine Mucus MRSA (PCR) Negative POC Glucose 102 08/21/19 08/21/19 08/22/19 16:10 17:51 00:33 WBC RBC Hgb Hct MCV MCH MCHC RDW Std Deviation RDW Coeff of Fercho Plt Count MPV Immature Gran % (Auto) Neut % (Auto) Lymph % (Auto) [place] % (Auto) Eos % (Auto) Baso % (Auto) Absolute Neuts (auto) Absolute Lymphs (auto) Nucleated RBC % Specimen Type Sample Site pH Bicarbonate Actual POC Total CO2 Base Excess O2 Saturation O2 % ABG pCO2 ABG pO2 Jose Manuel Test Respiration Rate O2 Delivery Device Minute Volume Vent Mode Tidal Volume POC PEEP POC Pressure Suppt Blood Gas Notified Whom Blood Gas Notified Time Sodium Potassium Chloride Carbon Dioxide Anion Gap BUN Creatinine Estim Creat Clear Calc Est GFR (MDRD) Af Amer Est GFR (MDRD) Non-Af BUN/Creatinine Ratio Glucose Lactic Acid 1.1 Calcium Phosphorus Magnesium Total Bilirubin AST ALT Alkaline Phosphatase Troponin I B-Natriuretic Peptide Total Protein Albumin Globulin Albumin/Globulin Ratio Urine Color Urine Clarity Urine pH Ur Specific [place] Urine Protein Urine Glucose (UA) Urine Ketones Urine Occult Blood Urine Nitrite Urine Bilirubin Urine Urobilinogen Ur Leukocyte Esterase Urine RBC Urine WBC Ur Squamous Epith Cells Urine Bacteria Urine Mucus MRSA (PCR) POC Glucose 86 75 08/22/19 08/22/19 08/22/19 03:55 03:55 05:08 WBC 8.0 RBC 3.26 L Hgb 9.7 L Hct 29.5 L MCV 90.5 MCH 29.8 MCHC 32.9 RDW Std Deviation 51.7 H RDW Coeff of Fercho 15.6 H Plt Count 191 MPV 11.2 Immature Gran % (Auto) Neut % (Auto) Lymph % (Auto) [place] % (Auto) Eos % (Auto) Baso % (Auto) Absolute Neuts (auto) Absolute Lymphs (auto) Nucleated RBC % Specimen Type Sample Site pH Bicarbonate Actual POC Total CO2 Base Excess O2 Saturation O2 % ABG pCO2 ABG pO2 Jose Manuel Test Respiration Rate O2 Delivery Device Minute Volume Vent Mode Tidal Volume POC PEEP POC Pressure Suppt Blood Gas Notified Whom Blood Gas Notified Time Sodium 140 Potassium 3.7 Chloride 111 H Carbon Dioxide 24.0 Anion Gap 5 BUN 25 H Creatinine 1.26 Estim Creat Clear Calc 53.11 Est GFR (MDRD) Af Amer 72 Est GFR (MDRD) Non-Af 59 L BUN/Creatinine Ratio 19.8 Glucose 89 Lactic Acid Calcium 7.4 L Phosphorus Magnesium Total Bilirubin AST ALT Alkaline Phosphatase Troponin I B-Natriuretic Peptide Total Protein Albumin Globulin Albumin/Globulin Ratio Urine Color Urine Clarity Urine pH Ur Specific [place] Urine Protein Urine Glucose (UA) Urine Ketones Urine Occult Blood Urine Nitrite Urine Bilirubin Urine Urobilinogen Ur Leukocyte Esterase Urine RBC Urine WBC Ur Squamous Epith Cells Urine Bacteria Urine Mucus MRSA (PCR) POC Glucose 78 08/22/19 08/22/19 06:09 06:25 WBC RBC Hgb Hct MCV MCH MCHC RDW Std Deviation RDW Coeff of Fercho Plt Count MPV Immature Gran % (Auto) Neut % (Auto) Lymph % (Auto) [place] % (Auto) Eos % (Auto) Baso % (Auto) Absolute Neuts (auto) Absolute Lymphs (auto) Nucleated RBC % Specimen Type ART Sample Site R Radial pH 7.41 Bicarbonate Actual 19.9 L POC Total CO2 21 Base Excess -5 L O2 Saturation 97 O2 % 35 ABG pCO2 31.7 L ABG pO2 85 Jose Manuel Test POS Respiration Rate O2 Delivery Device Vent Minute Volume Vent Mode CPAP PS Tidal Volume POC PEEP 5 POC Pressure Suppt 5 Blood Gas Notified Whom ICU MD Blood Gas Notified Time 608 Sodium Potassium Chloride Carbon Dioxide Anion Gap BUN Creatinine Estim Creat Clear Calc Est GFR (MDRD) Af Amer Est GFR (MDRD) Non-Af BUN/Creatinine Ratio Glucose Lactic Acid Calcium Phosphorus Magnesium Total Bilirubin AST ALT Alkaline Phosphatase Troponin I B-Natriuretic Peptide Total Protein Albumin Globulin Albumin/Globulin Ratio Urine Color Yellow Urine Clarity Clear Urine pH 5.0 Ur Specific [place] 1.020 Urine Protein 30 H Urine Glucose (UA) Normal Urine Ketones 15 H Urine Occult Blood 50 H Urine Nitrite Negative Urine Bilirubin Negative Urine Urobilinogen Normal Ur Leukocyte Esterase 100 H Urine RBC 0-5 SEEN Urine WBC 5-10 SEEN Ur Squamous Epith Cells 0-5 SEEN Urine Bacteria RARE Urine Mucus RARE MRSA (PCR) POC Glucose Microbiology 08/21/19 08:47 Sputum, Induced/Lukens Gram Stain - Final 08/21/19 06:48 Mucosa - Nasopharyngeal Influenza Types A,B Direct FA (YENNY) - Final Clinical Impression(s) from Imaging Studies Chest X-Ray 08/21/19 06:40 IMPRESSION: endotracheal tube with the tube tip 5.1 cm proximal to the horacio. There is a orogastric tube tip in the stomach Significant patchy bilateral pulmonary opacities pulmonary edema and/or pneumonia Electronically Signed: Benny Lomeli at 7:48 EST Tel , Service support , KUB X-Ray 08/21/19 09:20 IMPRESSION: NG tube placement consistent with position in the gastric antrum or duodenal bulb. Electronically Signed: Varsha Majano MD at 20:09 EST Tel , Service support , Medical Necessity - Tobacco Use Smoking Status: Unknown if ever smoked Assessment/Plan All Active Problems (Last Reviewed 08/21/19 @ 10:11 by Claude Rodriguez MD) Dyspnea (Acute) CHF (congestive heart failure) (Acute) Groin hematoma (Resolved) STEMI (ST elevation myocardial infarction) (Resolved 12/23/18) RECOMMENDATIONS: 1. Anticipate extubation later this morning 2. Await echocardiogram 3. Continue antibiotics until culture negative 4. Aggressive pulmonary toileting IMPRESSIONS: 1. Acute hypoxemic respiratory failure Patient appears to have responded well to therapy overnight. This would be consistent with flash pulmonary edema associated with hypertensive emergency. However, patient is also had some elevated white blood cell count and did spike a fever this morning. Patient should be continued on empiric antibiotics pending culture data. Anticipate extubation later today. Cannot exclude the dc ed for BiPAP rescue. 2. Troponin elevation/known coronary artery disease/heart failure with preserved ejection fraction/paroxysmal atrial fibrillation Although there was initial concern in the emergency department for ST segment changes noted on EKG, cardiology did not feel that these represented acute changes. Cardiology is currently following. Troponin did elevate slightly, but this may be secondary to supply demand mismatch given hypoxia on presentation. 3. Acute kidney injury Resolved. Nunn catheter is in place. Likely okay to discontinue Nunn catheter once patient extubated 4. Hypertension/hyperlipidemia Complicates care, management, recovery and prognosis. Hold all antihypertensives at the current time given tenuous hemodynamics. TIME: 32 minutes of critical care time, independent of procedures, was spent addressing the patient's acute hypoxemic respiratory failure, troponin elevation, known history of coronary artery disease, acute kidney injury, review of all data and collaboration with the care team. (6 AM to 7 AM) Code Visit 9xxxx: [id number] Critical care first hour
--- NOTE | 2019-08-22 08:32 | PN.CARD_ITS ---
Subjectve: Patient extubated at 730 this morning. EKGs and medicines reviewed. Patient admits to stopping his diuretic therapy between 2 and 3 weeks ago, with progressively worsening shortness of breath and worsening substernal chest pain which became severe on the morning of his event requiring intubation. Unfortunate the patient's respiratory status deteriorated in his car to the point where he was unable to give a meaningful history to the EMS squad. EKG upon arrival showed normal sinus rhythm with anterolateral J-point elevation, and new T wave inversion in 1 and aVL. Patient had minimal IV diuresis according to the records but nonetheless was able to be successfully extubated this morning. Patient did not notify our office to my knowledge about his condition or discontinuation of his diuretics. Diuretics were discontinued due to urinary frequency while he was at work on the second shift. Peak troponin thus far is 0.943. Objective: Vital Signs Temp Pulse Resp BP Pulse Ox 100.4 F H 62 19 H 141/68 H 98 08/22/19 06:00 08/22/19 07:02 08/22/19 07:02 08/22/19 06:00 08/22/19 07:02 Oxygen Flow Rate (L/min) 3 Oxygen Delivery Method Nasal Cannula Weight: 175 lb 0.752 oz Body Mass Index (BMI) 25.1 Intake and Output for Last 24 Hours 08/20/19 08/21/19 08/22/19 23:59 23:59 23:59 Intake Total 1579.16 / 1699.68 237.14 / 237.14 Output Total 1025 / 1225 440 / 440 Balance 554.16 / 474.68 -202.86 / -202.86 General: Awake, Alert, Oriented x 3 HEENT: PERRL, EOMI, Sclera Non Icteric Neck: Supple, Good ROM, No Lymph Node Enlargement Lungs: Clear to auscultation Cardiovascular: Regular Rhythm, Normal S1, Normal S2, No Murmurs, No Rubs, No Gallops Vascular: No Carotid Bruits, Normal Femoral Pulses, Normal Radial Pulses, Normal Dorsalis Pedal Pulse, Normal Posterior Tibial Pulses Abdomen: Bowel Sounds Present, Soft, Non Tender, No HSM, No Organomegaly Extremities: No Cyanosis, No Clubbing, No edema Neurological: No Focal Motor or Sensory Deficit 08/21/19 06:45: B-Natriuretic Peptide 1612.8 H 08/21/19 06:45: B-Natriuretic Peptide 2003.5 H 08/21/19 08:55: Sodium 140, Potassium 4.6, Chloride 111 H, Carbon Dioxide 23.0, Anion Gap 6, BUN 21 H, Creatinine 1.31 H, Est GFR (MDRD) Af Amer 69, Est GFR (MDRD) Non-Af 57 L, BUN/Creatinine Ratio 16.0, Glucose 115 H, Calcium 7.9 L, Total Bilirubin 0.90 08/21/19 08:55: Lactic Acid 2.0 08/21/19 08:55: Phosphorus 3.6, Magnesium 1.9, Troponin I 0.424 H 08/21/19 12:15: Troponin I 0.943 H* 08/21/19 16:10: Lactic Acid 1.1 08/22/19 03:55: WBC 8.0, RBC 3.26 L, Hgb 9.7 L, Hct 29.5 L, MCV 90.5, MCH 29.8, MCHC 32.9, Plt Count 191, MPV 11.2 08/22/19 03:55: Sodium 140, Potassium 3.7, Chloride 111 H, Carbon Dioxide 24.0, Anion Gap 5, BUN 25 H, Creatinine 1.26, Est GFR (MDRD) Af Amer 72, Est GFR (MDRD) Non-Af 59 L, BUN/Creatinine Ratio 19.8, Glucose 89, Calcium 7.4 L 08/22/19 06:09: pH 7.41, Bicarbonate Actual 19.9 L, POC Total CO2 21, Base Excess -5 L, O2 Saturation 97, ABG pCO2 31.7 L, ABG pO2 85, Jose Manuel Test POS 08/22/19 06:25: Urine Color Yellow, Urine Clarity Clear, Urine pH 5.0, Ur Specific [place] 1.020, Urine Protein 30 H, Urine Glucose (UA) Normal, Urine Ketones 15 H, Urine Occult Blood 50 H, Urine Nitrite Negative, Urine Bilirubin Negative, Urine Urobilinogen Normal, Ur Leukocyte Esterase 100 H, Urine RBC 0-5 SEEN, Urine WBC 5-10 SEEN Rhythm: EKG: Normal sinus rhythm with old anteroseptal wall myocardial infarction, ST elevation/J-point elevation resolved. ECHO: Pending Stress Test: Cardiac Cath: PCI: CT Surgery: Holter monitor: EPS: PPM: CXR: Chest CT Scan: Medical Necessity - Tobacco Use Smoking Status: Unknown if ever smoked Assessment/Plan 1. Respiratory distress: Patient had a combination of medical noncompliance with discontinuation of his diuretic about 2 weeks ago, with progressively worsening shortness of breath but also progressively worsening significant substernal chest pain similar to his anginal symptoms at the time of his myocardial infarction in earlier around November 2018. At that time he received 3 stents to his LAD followed by elective angioplasty and stenting to his obtuse marginal and left circumflex. Given the patient's progressively worsening shortness of breath, fatigue, substernal chest pain, dynamic EKG changes, and need for emergent intubation due to respiratory distress I recommended that he undergo a diagnostic left heart catheterization tomorrow morning presuming he recovers well from his extubation today. In addition we will obtain a 2D echo with Doppler to evaluate his LV function and his pulmonary pressures. It is interesting that the patient's symptoms markedly improved with minimal diuresis suggesting he may have coronary occlusive disease at the 6-month racheal from his previous multivessel stenting. In the meantime he will continue his baby aspirin, Brilinta, Lasix 40 mg daily, losartan 50 mg a day, and resume his metoprolol 25 mg p.o. twice daily. 2. Hyperlipidemia: Continue Lipitor therapy. 3. Thank you very much for the opportunity to participate in the cardiac care of your patient. A catheterization to follow tomorrow 08/23/2019. Code Visit Inpatient E&M: 95858 Subs Hosp L2
--- NOTE | 2019-08-22 10:12 | PCM.PROGNOTE ---
Patient Problems: Active and Suspected Problems (Last Reviewed 08/21/19 @ 10:11 by Claude Rodriguez MD) CHF (congestive heart failure) (Acute) Subjective: Chief complaint: Follow-up after admission for acute hypoxic respiratory failure secondary to congestive heart failure and questionable pneumonia, found to have acute ST patient PA as well as acute kidney injury. Patient seen and examined. No acute events overnight. He was extubated this morning. He stated that his breathing is getting better. Denies any chest pain. He is still having spikes of low-grade fever, blood pressure stable, he is on 3 L of oxygen. - Physical Exam Vitals/I&O's: Vital Signs Temp Pulse Resp BP Pulse Ox 100.3 F H 70 22 H 152/72 H 98 08/22/19 08:00 08/22/19 08:00 08/22/19 08:00 08/22/19 08:00 08/22/19 08:00 Oxygen Flow Rate (L/min) 3 Oxygen Delivery Method Mechanical Ventilator Weight: 175 lb 0.752 oz Body Mass Index (BMI) 25.1 Intake and Output for Last 24 Hours 08/20/19 08/21/19 08/22/19 23:59 23:59 23:59 Intake Total 1579.16 / 1699.68 237.14 / 237.14 Output Total 1025 / 1225 440 / 440 Balance 554.16 / 474.68 -202.86 / -202.86 General: Alert, Oriented x3, Cooperative, - - Minimally short of breath. HEENT: Atraumatic, PERRLA, EOMI, Normocephalic Oral: Moist Mucosa, No Gingival or Mucosal Lesions/ Ulcerations Neck: Supple, No JVD, Negative Carotid Bruits, Trachea Midline, Thyroid Normal Size and Texture Lungs: Clear to auscultation, No rhonchi, No wheeze, No rales, Diminished Cardiovascular: Regular rate, Regular Rhythm, Normal S1, Normal S2, PMI Normal Abdomen: Bowel Sounds Present, Soft, Non Tender, Non-Distended, No Hepato-splenomegaly Extremities: No clubbing, No cyanosis, No edema Skin: No rashes, No breakdown Lymphatic: No Cervical, Supraclavicular, or Inguinal Adenopathy Neurological: Cranial nerves II-XII grossly intact, Motor Exam 5/5 strength throughout Psych/Mental Status: Normal Affect, Appropriate, Alert and oriented to time, place, person, mood and affect Microbiology Past 72 Hours 08/21/19 08:47 Sputum, Induced/Lukens Gram Stain - Final 08/21/19 06:48 Mucosa - Nasopharyngeal Influenza Types A,B Direct FA (YENNY) - Final Laboratory Results 08/21/19 08:55: Phosphorus 3.6, Magnesium 1.9, Troponin I 0.424 H 08/21/19 09:30: MRSA (PCR) Negative 08/21/19 12:15: Troponin I 0.943 H* 08/21/19 12:25: POC Glucose 102 08/21/19 16:10: Lactic Acid 1.1 08/21/19 17:51: POC Glucose 86 08/22/19 00:33: POC Glucose 75 08/22/19 03:55: WBC 8.0, RBC 3.26 L, Hgb 9.7 L, Hct 29.5 L, MCV 90.5, MCH 29.8, MCHC 32.9, RDW Std Deviation 51.7 H, RDW Coeff of Fercho 15.6 H, Plt Count 191, MPV 11.2 08/22/19 03:55: Sodium 140, Potassium 3.7, Chloride 111 H, Carbon Dioxide 24.0, Anion Gap 5, BUN 25 H, Creatinine 1.26, Estim Creat Clear Calc 53.11, Est GFR (MDRD) Af Amer 72, Est GFR (MDRD) Non-Af 59 L, BUN/Creatinine Ratio 19.8, Glucose 89, Calcium 7.4 L 08/22/19 03:55: Troponin I 0.699 H* 08/22/19 05:08: POC Glucose 78 08/22/19 06:09: Specimen Type ART, Sample Site R Radial, pH 7.41, Bicarbonate Actual 19.9 L, POC Total CO2 21, Base Excess -5 L, O2 Saturation 97, O2 % 35, ABG pCO2 31.7 L, ABG pO2 85, Jose Manuel Test POS, O2 Delivery Device Vent, Vent Mode CPAP PS, POC PEEP 5, POC Pressure Suppt 5, Blood Gas Notified Whom ICU MD, Blood Gas Notified Time 608 08/22/19 06:25: Urine Color Yellow, Urine Clarity Clear, Urine pH 5.0, Ur Specific [place] 1.020, Urine Protein 30 H, Urine Glucose (UA) Normal, Urine Ketones 15 H, Urine Occult Blood 50 H, Urine Nitrite Negative, Urine Bilirubin Negative, Urine Urobilinogen Normal, Ur Leukocyte Esterase 100 H, Urine RBC 0-5 SEEN, Urine WBC 5-10 SEEN, Ur Squamous Epith Cells 0-5 SEEN, Urine Bacteria RARE, Urine Mucus RARE Clinical Impression(s) from Imaging Studies Chest X-Ray 08/21/19 06:40 IMPRESSION: endotracheal tube with the tube tip 5.1 cm proximal to the horacio. There is a orogastric tube tip in the stomach Significant patchy bilateral pulmonary opacities pulmonary edema and/or pneumonia Electronically Signed: Benny Lomeli at 7:48 EST Tel , Service support , KUB X-Ray 08/21/19 09:20 IMPRESSION: NG tube placement consistent with position in the gastric antrum or duodenal bulb. Electronically Signed: Varsha Majano MD at 20:09 EST Tel , Service support , Current Medications Acetaminophen (Tylenol) 650 mg RECTAL Q4H PRN PRN PRN Reason: Pain Score 1-3/Temp > 100.7 F Albuterol Sulfate (Ventolin Aerosols) 2.5 mg INHALATION Q2H PRN PRN PRN Reason: SOB/Wheezing Aspirin (Ecotrin) 81 mg PO DAILY@0800 [facility] Atorvastatin Calcium (Lipitor) 80 mg PO QHS [facility] Last Admin: 08/21/19 22:19 Dose: 80 mg Documented by: Chlorhexidine Gluconate () 15 ml PO BID [facility] Last Admin: 08/21/19 22:17 Dose: 15 ml Documented by: Chlorhexidine Gluconate () 1 each TOPICAL DAILY [facility] Last Admin: 08/22/19 03:53 Dose: 1 each Documented by: Dextrose (D50w Syringe) 0 gm IV X1 PRN; Protocol PRN Reason: Hypoglycemia Enoxaparin Sodium (Lovenox) 80 mg SC Q12@0600,1800 [facility] Last Admin: 08/22/19 05:13 Dose: 80 mg Documented by: Furosemide (Lasix) 40 mg PO DAILY [facility] Glucagon () 1 mg IM .X1 PRN PRN Reason: Hypoglycemia Famotidine 20 mg/ Sodium (Chloride) 10 mls @ 300 mls/hr IV Q12 [facility] Last Infusion: 08/21/19 22:24 Dose: Infused Documented by: Piperacillin Sod/Tazobactam (Sod 3.375 gm/ Sodium Chloride) 50 mls @ 12.5 mls/hr IV Q8 [facility] Last Infusion: 08/22/19 05:34 Dose: 12.5 mls/hr Documented by: Sodium Chloride () 250 mls @ 15 mls/hr IV .[id number] PRN PRN Reason: Saline Flush Last Infusion: 08/22/19 05:13 Dose: 0 mls/hr Documented by: Sodium Chloride () 1,000 mls @ 0 mls/hr IV .Q0M [facility] Insulin Human Lispro (Humalog Kwikpen (Bkc)) 0 unit SC Q6 [facility]; Protocol Last Admin: 08/22/19 05:12 Dose: Not Given Documented by: Losartan Potassium (Cozaar) 25 mg PO DAILY [facility] Metoprolol Tartrate (Lopressor (Beta Rocio)) 25 mg PO BID [facility] Ondansetron HCl (Zofran) 4 mg IV Q8H PRN PRN PRN Reason: Nausea Sodium Chloride () 10 - 40 ml IV UD PRN PRN Reason: SALINE FLUSH Last Admin: 08/22/19 02:20 Dose: 30 ml Documented by: Ticagrelor (Brilinta) 90 mg PO BID [facility] Last Admin: 08/21/19 22:19 Dose: 90 mg Documented by: Assessment/Plan All Active Problems (Last Reviewed 08/21/19 @ 10:11 by Claude Rodriguez MD) CHF (congestive heart failure) (Acute) This is a 74 years old male patient presented to the emergency room because of shortness of breath and cough, found to have acute respiratory failure secondary to acute flash pulmonary edema, CHF and also found non-ST relation PA and acute kidney injury. #1 acute flash pulmonary edema: With hypertensive emergency. Switched to oral Lasix, remains on losartan and metoprolol. Status post extubation. He has been having spikes of low-grade fever, remained in sinus rhythm, blood pressure stable. Pulse ox is 93% on 3 L. Cardiology and it support technician on the case. Plan to continue same treatment for now, cardiac catheterization tomorrow according to cardiology. #2 acute hypoxic respiratory failure: Secondary to above in addition to possible pneumonia. Patient is on diuresis and empiric IV antibiotics. Status post extubation, remains on 3 L of oxygen. Plan as above. #3 acute non-ST relation PA: Troponin was elevated and went up to 0.94, came down to 0.69 today. Patient is chest pain-free. He is on aspirin, Brilinta, statins, therapeutic Lovenox twice daily in addition to losartan metoprolol. Cardiology on the case, plan for cardiac catheterization tomorrow. #4 probable community-acquired pneumonia: He is on IV Zosyn empirically. Still having spikes of low-grade fever, no leukocytosis. Sputum culture revealed beta Streptococcus, final is pending. Blood cultures pending. Nasal swab for influenza a and B were negative. Plan to continue same treatment. #5 acute kidney injury: Probably prerenal. Admission creatinine was 1.54 on admission, came down to 1.26 today, improving. Plan to keep monitoring. #6 CAD status post stents: Plan as above, continue aspirin, Brilinta, Lovenox, statins, losartan and metoprolol. #7 hypertension: Blood pressure stabilized, continue Lasix, losartan and metoprolol. #8 ischemic cardiomyopathy: With acute CHF/pulmonary edema as above. Patient is not on diuretics, beta-blockers, losartan and statins. Plan as above. #9 paroxysmal atrial fibrillation: Currently in sinus rhythm, rate is controlled. He is on metoprolol for rate control and on Lovenox twice daily. #10 hyperlipidemia: Continue statins. #11 DVT prophylaxis: He is on therapeutic Lovenox twice daily. This note was generated with popexpertation software. It may contain incorrect words, spelling, and punctuation that were not noted in checking the note before signing. Code Visit Inpatient E&M: 57441 Subs Hosp L2
--- NOTE | 2019-08-22 11:40 | CASEMGMT ---
[facility] if [facility] to Tertiary care is recommended. [facility], [facility], [facility], [facility], [facility], [facility].
--- NOTE | 2019-08-22 11:45 | CASEMGMT ---
RN CM Assessment Presentation: Pulmonary Edema/ Superimposed Pneumonia. Plan is for heart cath tomorrow. Intro role of CM and purpose of RN CM assessment to patient in room. Demographics, PCP and Pharmacy verified. Pt states he is independent, no care needs at home. Pt states exwife if living in his home currently. PCP: None. Discussed importance of establishing with PCP on dc. List of [facility] PCP's for [facility] given to pt. Specialists: [facility] Preferred Pharmacy: [facility] Insurance: Aisha ZARCO Prescription Benefit: YES LNOK: Exwife Rasheeda Martinez Living Arrangements: Lives in one story home, one step in. Pt states he is independent, does not require any assist at home. Transportation: drives DME: none. denies home oxygen HHC/SNF: none Patient DC goals: Home DC PLAN: Home. Marcelino BARAHONA RN ACM
[2019-08-22] MEDS: TICAGRELOR 90 MG TABLET PO ×2 (12:09→22:23)
[2019-08-22] MEDS: Losartan Potassium 25 MG Tablet PO (12:09)
[2019-08-22] MEDS: Aspirin E.C. 81 MG Tablet PO (12:09)
[2019-08-22] MEDS: Metoprolol Tartrate 25 MG Tablet PO ×2 (12:09→22:22)
[2019-08-22] MEDS: Furosemide 40 MG Tablet PO (12:10)
[2019-08-22] MEDS: Famotidine 20 MG Tablet PO ×2 (12:11→22:21)
--- NOTE | 2019-08-22 13:34 | CASEMGMT ---
RN АНДРЕЙ Note: questions answered re: PCP list, how to set up for first appt. RN АНДРЕЙ offered to assist pt but he would like to review list at later time. Questions answered. Pt does see [facility] physicians, and states since his PCP Dr. Santana retired, he has not found another physician. Pt does drive, not difficulty following up once established. Jeferson BARAHONA RN ACM
--- NOTE | 2019-08-22 14:08 | CHAPLAIN ---
Type of Pastoral Visit _x__ Initial Visit ___ Follow-up Visit ___ On-call Visit ___ General Patient Visit ___ Spiritual Assessment ___ Family Conference ___ Bereavement ___ Rapid Response ___ Code Blue ___ Other (describe below) Pastoral Care Referral From _x__ Patient ___ Family ___ Nurse ___ Physician ___ Litigation Services Manager ___ Assembly Supervisor ___ Other (describe below) Sacrament/Intervention _x__ Active listening ___ Anointing ___ Shinto ___ Bereavement ___ Communion ___ Maricruz exploration ___ ___ Life review ___ Prayer ___ Reconciliation ___ Sacrament of Sick ___ Supportive presence ___ Wedding ___ Other (describe below) Pastoral Comments
[2019-08-22] MEDS: Nitroglycerin Infusion 250 ML 12 MG CONT INF (18:15)
--- NOTE | 2019-08-22 18:48 | NURSING ---
education re chronic illness deferred till acute illness resolving
[2019-08-22] MEDS: Atorvastatin Calcium 80 MG Tablet PO (22:22)
[2019-08-23] VITALS (46 sets, daily range): BP systolic 104–178; BP diastolic 48–106; PULSE 56–76; RESP 14–25; TEMP 37.4–38.1; O2SAT 90–99; BMI 24.7
[2019-08-23] MEDS: 0.9% Saline Lock 10 ML Syringe IV ×2 (04:42→18:05)
[2019-08-23 04:58] LABS: Hematocrit 27.1 % (40-54); Hemoglobin 8.8 g/dL (13.0-16.5); Mean Corp Hgb Conc 32.5 g/dL (32-36); Mean Corpuscular Hgb 28.9 pg (27.0-32.0); Mean Corpuscular Volume 88.9 fL (80-94); Mean Platelet Vol. 10.4 fl (6.2-12.0); Platelet Count 184 K/mm3 (150-450); RBC Distribution Width SD 49.1 fl (35.1-43.9); Red Blood Count 3.05 M/mm3 (4.6-6.2); White Blood Count 7.2 K/mm3 (4.4-11.0)
[2019-08-23 05:06] LABS: International Normalized Ratio 1.2; Prothrombin Time (Protime)PT. 15.4 SECONDS (11.7-14.9)
[2019-08-23 05:07] LABS: Partial Thromboplast Time 43.9 Seconds (24.1-36.2)
[2019-08-23 05:09] LABS: Anion Gap 7 (5-15); BUN 23 mg/dL (7-18); BUN/Creat Ratio 18.4 RATIO (10-20); Calcium,Total 7.7 mg/dL (8.5-10.1); Chloride 110 mmol/L (98-107); Creatinine, Serum 1.25 mg/dL (0.70-1.30); EST Glomerular Filtration Rate 60 mL/min (>60); Est Glom Filt Rate - Afr Amer 73 mL/min (>60); Estimated Creatinine Clearance 53.53 ml/min; Glucose 98 mg/dL (74-106); Potassium 3.3 mmol/L (3.5-5.1); Sodium Level 142 mmol/L (136-145)
[2019-08-23] MEDS: Potassium Chloride 10mEq/100mL 10 MEQ/100 ML IV.SOLN. 100 MEQ IV BOLUS ×4 (06:13→10:00)
[2019-08-23] MEDS: CHLORHEXIDINE GLUC 2% CLOTH 1 EACH TOWELETTE TOPICAL (06:21)
[2019-08-23] MEDS: Aspirin E.C. 81 MG Tablet PO (06:21)
[2019-08-23] MEDS: Losartan Potassium 25 MG Tablet PO (06:22)
[2019-08-23] MEDS: Metoprolol Tartrate 25 MG Tablet PO (06:22)
[2019-08-23] MEDS: TICAGRELOR 90 MG TABLET PO ×2 (06:22→22:06)
[2019-08-23] MEDS: DiphenhydrAMINE 25 MG Capsule 50 MG PO (06:24)
--- NOTE | 2019-08-23 06:52 | PCM.PN.INT ---
Subjective: Patient did well overnight. No hemodynamic instability was reported. Patient has had some elevated temperatures and is reporting a slightly sore throat. Patient tolerating room air. Patient is to have a heart catheterization this morning. Patient was made n.p.o. except meds overnight. General: Alert, Oriented x3, Cooperative, No apparent distress, Well developed, Well nourished, - - No conversational dyspnea. HEENT: Atraumatic, PERRLA, EOMI, Normocephalic, - - No scleral icterus or injection noted Oral: Moist Mucosa, No Gingival or Mucosal Lesions/ Ulcerations Neck: Supple, No JVD, No Nodes, Trachea Midline Lungs: No rhonchi, No wheeze, No rales, Diminished Cardiovascular: Regular rate, Regular Rhythm, Normal S1, Normal S2, No murmurs, No rub noted, No Gallop Abdomen: Bowel Sounds Present, Soft, Non Tender, Non-Distended Extremities: No clubbing, No cyanosis, Edema - Trace Skin: No rashes, No breakdown Musculoskeletal: No Tenderness to Palpation of Joints or Extremities Lymphatic: No Cervical, Supraclavicular, or Inguinal Adenopathy Neurological: Cranial nerves II-XII grossly intact, Neuro grossly intact, Motor Exam 5/5 strength throughout Psych/Mental Status: Appropriate, Flat Affect Vital Signs Temp Pulse Resp BP Pulse Ox 37.5 C H 61 20 H 139/54 H 96 08/23/19 05:00 08/23/19 06:22 08/23/19 05:00 08/23/19 06:22 08/23/19 05:00 Oxygen Flow Rate (L/min) 3 Oxygen Delivery Method Room Air Weight: 78.2 kg Body Mass Index (BMI) 25.1 Intake and Output for Last 24 Hours 08/21/19 08/22/19 08/23/19 23:59 23:59 23:59 Intake Total 1579.16 / 1699.68 1198.82 / 1198.82 39.79 / 39.79 Output Total 1025 / 1225 2740 / 2740 Balance 554.16 / 474.68 -1541.18 / -1541.18 39.79 / 39.79 Labs (Last 48 Hours) 08/21/19 08/21/19 08/21/19 06:45 06:45 06:45 WBC 13.9 H RBC 4.48 L Hgb 13.0 Hct 41.3 MCV 92.2 MCH 29.0 MCHC 31.5 L RDW Std Deviation 51.8 H RDW Coeff of Fercho 15.3 H Plt Count 307 MPV 11.2 Immature Gran % (Auto) 0.400 Neut % (Auto) 68.1 Lymph % (Auto) 20.4 [place] % (Auto) 9.0 Eos % (Auto) 1.6 Baso % (Auto) 0.5 Absolute Neuts (auto) 9.5 H Absolute Lymphs (auto) 2.84 Nucleated RBC % 0 PT INR APTT Specimen Type Sample Site pH Bicarbonate Actual POC Total CO2 Base Excess O2 Saturation O2 % ABG pCO2 ABG pO2 Jose Manuel Test Respiration Rate O2 Delivery Device Minute Volume Vent Mode Tidal Volume POC PEEP POC Pressure Suppt Blood Gas Notified Whom Blood Gas Notified Time Sodium 139 Potassium 3.9 Chloride 109 H Carbon Dioxide 20.0 L Anion Gap 10 BUN 20 H Creatinine 1.54 H Estim Creat Clear Calc 43.45 Est GFR (MDRD) Af Amer 57 L Est GFR (MDRD) Non-Af 47 L BUN/Creatinine Ratio 13.0 Glucose 225 H Lactic Acid Calcium 8.5 Phosphorus Magnesium Total Bilirubin AST ALT Alkaline Phosphatase Troponin I 0.098 H B-Natriuretic Peptide 1612.8 H Total Protein Albumin Globulin Albumin/Globulin Ratio Urine Color Urine Clarity Urine pH Ur Specific [place] Urine Protein Urine Glucose (UA) Urine Ketones Urine Occult Blood Urine Nitrite Urine Bilirubin Urine Urobilinogen Ur Leukocyte Esterase Urine RBC Urine WBC Ur Squamous Epith Cells Urine Bacteria Urine Mucus MRSA (PCR) POC Glucose 08/21/19 08/21/19 08/21/19 06:45 07:36 08:55 WBC RBC Hgb Hct MCV MCH MCHC RDW Std Deviation RDW Coeff of Fercho Plt Count MPV Immature Gran % (Auto) Neut % (Auto) Lymph % (Auto) [place] % (Auto) Eos % (Auto) Baso % (Auto) Absolute Neuts (auto) Absolute Lymphs (auto) Nucleated RBC % PT INR APTT Specimen Type ART Sample Site R Radial pH 7.28 L Bicarbonate Actual 18.8 L POC Total CO2 20 Base Excess -8 L O2 Saturation 94 L O2 % 50 ABG pCO2 40.0 ABG pO2 79 Jose Manuel Test NA Respiration Rate 14 O2 Delivery Device Vent Minute Volume 10.00 Vent Mode A-C Tidal Volume 450 POC PEEP 5 POC Pressure Suppt Blood Gas Notified Whom ED MD Blood Gas Notified Time 735 Sodium 140 Potassium 4.6 Chloride 111 H Carbon Dioxide 23.0 Anion Gap 6 BUN 21 H Creatinine 1.31 H Estim Creat Clear Calc 51.08 Est GFR (MDRD) Af Amer 69 Est GFR (MDRD) Non-Af 57 L BUN/Creatinine Ratio 16.0 Glucose 115 H Lactic Acid Calcium 7.9 L Phosphorus Magnesium Total Bilirubin 0.90 AST 70 H ALT 36 Alkaline Phosphatase 240 H Troponin I B-Natriuretic Peptide 2003.5 H Total Protein 6.9 Albumin 2.4 L Globulin 4.5 H Albumin/Globulin Ratio 0.5 L Urine Color Urine Clarity Urine pH Ur Specific [place] Urine Protein Urine Glucose (UA) Urine Ketones Urine Occult Blood Urine Nitrite Urine Bilirubin Urine Urobilinogen Ur Leukocyte Esterase Urine RBC Urine WBC Ur Squamous Epith Cells Urine Bacteria Urine Mucus MRSA (PCR) POC Glucose 08/21/19 08/21/19 08/21/19 08:55 08:55 09:30 WBC RBC Hgb Hct MCV MCH MCHC RDW Std Deviation RDW Coeff of Fercho Plt Count MPV Immature Gran % (Auto) Neut % (Auto) Lymph % (Auto) [place] % (Auto) Eos % (Auto) Baso % (Auto) Absolute Neuts (auto) Absolute Lymphs (auto) Nucleated RBC % PT INR APTT Specimen Type Sample Site pH Bicarbonate Actual POC Total CO2 Base Excess O2 Saturation O2 % ABG pCO2 ABG pO2 Jose Manuel Test Respiration Rate O2 Delivery Device Minute Volume Vent Mode Tidal Volume POC PEEP POC Pressure Suppt Blood Gas Notified Whom Blood Gas Notified Time Sodium Potassium Chloride Carbon Dioxide Anion Gap BUN Creatinine Estim Creat Clear Calc Est GFR (MDRD) Af Amer Est GFR (MDRD) Non-Af BUN/Creatinine Ratio Glucose Lactic Acid 2.0 Calcium Phosphorus 3.6 Magnesium 1.9 Total Bilirubin AST ALT Alkaline Phosphatase Troponin I 0.424 H B-Natriuretic Peptide Total Protein Albumin Globulin Albumin/Globulin Ratio Urine Color Urine Clarity Urine pH Ur Specific [place] Urine Protein Urine Glucose (UA) Urine Ketones Urine Occult Blood Urine Nitrite Urine Bilirubin Urine Urobilinogen Ur Leukocyte Esterase Urine RBC Urine WBC Ur Squamous Epith Cells Urine Bacteria Urine Mucus MRSA (PCR) Negative POC Glucose 08/21/19 08/21/19 08/21/19 12:15 12:25 16:10 WBC RBC Hgb Hct MCV MCH MCHC RDW Std Deviation RDW Coeff of Fercho Plt Count MPV Immature Gran % (Auto) Neut % (Auto) Lymph % (Auto) [place] % (Auto) Eos % (Auto) Baso % (Auto) Absolute Neuts (auto) Absolute Lymphs (auto) Nucleated RBC % PT INR APTT Specimen Type Sample Site pH Bicarbonate Actual POC Total CO2 Base Excess O2 Saturation O2 % ABG pCO2 ABG pO2 Jose Manuel Test Respiration Rate O2 Delivery Device Minute Volume Vent Mode Tidal Volume POC PEEP POC Pressure Suppt Blood Gas Notified Whom Blood Gas Notified Time Sodium Potassium Chloride Carbon Dioxide Anion Gap BUN Creatinine Estim Creat Clear Calc Est GFR (MDRD) Af Amer Est GFR (MDRD) Non-Af BUN/Creatinine Ratio Glucose Lactic Acid 1.1 Calcium Phosphorus Magnesium Total Bilirubin AST ALT Alkaline Phosphatase Troponin I 0.943 H* B-Natriuretic Peptide Total Protein Albumin Globulin Albumin/Globulin Ratio Urine Color Urine Clarity Urine pH Ur Specific [place] Urine Protein Urine Glucose (UA) Urine Ketones Urine Occult Blood Urine Nitrite Urine Bilirubin Urine Urobilinogen Ur Leukocyte Esterase Urine RBC Urine WBC Ur Squamous Epith Cells Urine Bacteria Urine Mucus MRSA (PCR) POC Glucose 102 08/21/19 08/22/19 08/22/19 17:51 00:33 03:55 WBC 8.0 RBC 3.26 L Hgb 9.7 L Hct 29.5 L MCV 90.5 MCH 29.8 MCHC 32.9 RDW Std Deviation 51.7 H RDW Coeff of Fercho 15.6 H Plt Count 191 MPV 11.2 Immature Gran % (Auto) Neut % (Auto) Lymph % (Auto) [place] % (Auto) Eos % (Auto) Baso % (Auto) Absolute Neuts (auto) Absolute Lymphs (auto) Nucleated RBC % PT INR APTT Specimen Type Sample Site pH Bicarbonate Actual POC Total CO2 Base Excess O2 Saturation O2 % ABG pCO2 ABG pO2 Jose Manuel Test Respiration Rate O2 Delivery Device Minute Volume Vent Mode Tidal Volume POC PEEP POC Pressure Suppt Blood Gas Notified Whom Blood Gas Notified Time Sodium Potassium Chloride Carbon Dioxide Anion Gap BUN Creatinine Estim Creat Clear Calc Est GFR (MDRD) Af Amer Est GFR (MDRD) Non-Af BUN/Creatinine Ratio Glucose Lactic Acid Calcium Phosphorus Magnesium Total Bilirubin AST ALT Alkaline Phosphatase Troponin I B-Natriuretic Peptide Total Protein Albumin Globulin Albumin/Globulin Ratio Urine Color Urine Clarity Urine pH Ur Specific [place] Urine Protein Urine Glucose (UA) Urine Ketones Urine Occult Blood Urine Nitrite Urine Bilirubin Urine Urobilinogen Ur Leukocyte Esterase Urine RBC Urine WBC Ur Squamous Epith Cells Urine Bacteria Urine Mucus MRSA (PCR) POC Glucose 86 75 08/22/19 08/22/19 08/22/19 03:55 03:55 05:08 WBC RBC Hgb Hct MCV MCH MCHC RDW Std Deviation RDW Coeff of Fercho Plt Count MPV Immature Gran % (Auto) Neut % (Auto) Lymph % (Auto) [place] % (Auto) Eos % (Auto) Baso % (Auto) Absolute Neuts (auto) Absolute Lymphs (auto) Nucleated RBC % PT INR APTT Specimen Type Sample Site pH Bicarbonate Actual POC Total CO2 Base Excess O2 Saturation O2 % ABG pCO2 ABG pO2 Jose Manuel Test Respiration Rate O2 Delivery Device Minute Volume Vent Mode Tidal Volume POC PEEP POC Pressure Suppt Blood Gas Notified Whom Blood Gas Notified Time Sodium 140 Potassium 3.7 Chloride 111 H Carbon Dioxide 24.0 Anion Gap 5 BUN 25 H Creatinine 1.26 Estim Creat Clear Calc 53.11 Est GFR (MDRD) Af Amer 72 Est GFR (MDRD) Non-Af 59 L BUN/Creatinine Ratio 19.8 Glucose 89 Lactic Acid Calcium 7.4 L Phosphorus Magnesium Total Bilirubin AST ALT Alkaline Phosphatase Troponin I 0.699 H* B-Natriuretic Peptide Total Protein Albumin Globulin Albumin/Globulin Ratio Urine Color Urine Clarity Urine pH Ur Specific [place] Urine Protein Urine Glucose (UA) Urine Ketones Urine Occult Blood Urine Nitrite Urine Bilirubin Urine Urobilinogen Ur Leukocyte Esterase Urine RBC Urine WBC Ur Squamous Epith Cells Urine Bacteria Urine Mucus MRSA (PCR) POC Glucose 78 08/22/19 08/22/19 08/22/19 06:09 06:25 18:00 WBC RBC Hgb Hct MCV MCH MCHC RDW Std Deviation RDW Coeff of Fercho Plt Count MPV Immature Gran % (Auto) Neut % (Auto) Lymph % (Auto) [place] % (Auto) Eos % (Auto) Baso % (Auto) Absolute Neuts (auto) Absolute Lymphs (auto) Nucleated RBC % PT INR APTT Specimen Type ART Sample Site R Radial pH 7.41 Bicarbonate Actual 19.9 L POC Total CO2 21 Base Excess -5 L O2 Saturation 97 O2 % 35 ABG pCO2 31.7 L ABG pO2 85 Jose Manuel Test POS Respiration Rate O2 Delivery Device Vent Minute Volume Vent Mode CPAP PS Tidal Volume POC PEEP 5 POC Pressure Suppt 5 Blood Gas Notified Whom ICU MD Blood Gas Notified Time 608 Sodium Potassium Chloride Carbon Dioxide Anion Gap BUN Creatinine Estim Creat Clear Calc Est GFR (MDRD) Af Amer Est GFR (MDRD) Non-Af BUN/Creatinine Ratio Glucose Lactic Acid Calcium Phosphorus Magnesium Total Bilirubin AST ALT Alkaline Phosphatase Troponin I 0.408 H B-Natriuretic Peptide Total Protein Albumin Globulin Albumin/Globulin Ratio Urine Color Yellow Urine Clarity Clear Urine pH 5.0 Ur Specific [place] 1.020 Urine Protein 30 H Urine Glucose (UA) Normal Urine Ketones 15 H Urine Occult Blood 50 H Urine Nitrite Negative Urine Bilirubin Negative Urine Urobilinogen Normal Ur Leukocyte Esterase 100 H Urine RBC 0-5 SEEN Urine WBC 5-10 SEEN Ur Squamous Epith Cells 0-5 SEEN Urine Bacteria RARE Urine Mucus RARE MRSA (PCR) POC Glucose 08/23/19 08/23/19 08/23/19 04:43 04:43 04:43 WBC 7.2 RBC 3.05 L Hgb 8.8 L Hct 27.1 L MCV 88.9 MCH 28.9 MCHC 32.5 RDW Std Deviation 49.1 H RDW Coeff of Fercho 15.0 H Plt Count 184 MPV 10.4 Immature Gran % (Auto) Neut % (Auto) Lymph % (Auto) [place] % (Auto) Eos % (Auto) Baso % (Auto) Absolute Neuts (auto) Absolute Lymphs (auto) Nucleated RBC % PT 15.4 H INR 1.2 APTT 43.9 H Specimen Type Sample Site pH Bicarbonate Actual POC Total CO2 Base Excess O2 Saturation O2 % ABG pCO2 ABG pO2 Jose Manuel Test Respiration Rate O2 Delivery Device Minute Volume Vent Mode Tidal Volume POC PEEP POC Pressure Suppt Blood Gas Notified Whom Blood Gas Notified Time Sodium 142 Potassium 3.3 L Chloride 110 H Carbon Dioxide 25.0 Anion Gap 7 BUN 23 H Creatinine 1.25 Estim Creat Clear Calc 53.53 Est GFR (MDRD) Af Amer 73 Est GFR (MDRD) Non-Af 60 BUN/Creatinine Ratio 18.4 Glucose 98 Lactic Acid Calcium 7.7 L Phosphorus Magnesium Total Bilirubin AST ALT Alkaline Phosphatase Troponin I B-Natriuretic Peptide Total Protein Albumin Globulin Albumin/Globulin Ratio Urine Color Urine Clarity Urine pH Ur Specific [place] Urine Protein Urine Glucose (UA) Urine Ketones Urine Occult Blood Urine Nitrite Urine Bilirubin Urine Urobilinogen Ur Leukocyte Esterase Urine RBC Urine WBC Ur Squamous Epith Cells Urine Bacteria Urine Mucus MRSA (PCR) POC Glucose Microbiology 08/21/19 09:30 Urine Catheter - Nunn Urine Culture - Preliminary Culture exhibits no growth. 08/21/19 08:47 Sputum, Induced/Lukens Gram Stain - Final 08/21/19 08:47 Sputum, Induced/Lukens Respiratory Culture - Preliminary Beta streptococcus 08/21/19 06:48 Mucosa - Nasopharyngeal Influenza Types A,B Direct FA (YENNY) - Final Assessment/Plan All Active Problems (Last Updated 08/22/19 @ 13:07 by Antoinette Flowers MD) CHF (congestive heart failure) (Acute) RECOMMENDATIONS: 1. Await the results of heart catheterization 2. Transition potassium supplementation from p.o. to IV 3. Transition from Zosyn to amoxicillin to complete a 5-day course 4. Aggressive pulmonary toileting 5. Possible transfer from the intensive care unit later today pending results of heart catheterization IMPRESSIONS: 1. Acute hypoxemic respiratory failure Patient appears to have responded well to therapy overnight. This would be consistent with flash pulmonary edema associated with hypertensive emergency. However, patient is also had some elevated white blood cell count and did spike a fever this morning. Patient should be continued on empiric antibiotics pending culture data. Anticipate extubation later today. Cannot exclude the need for BiPAP rescue. 2. Troponin elevation/known coronary artery disease/heart failure with preserved ejection fraction/paroxysmal atrial fibrillation Although there was initial concern in the emergency department for ST segment changes noted on EKG, cardiology did not feel that these represented acute changes. Cardiology is currently following. Troponin did elevate slightly, but this may be secondary to supply demand mismatch given hypoxia on presentation. Patient is to have a heart catheterization this morning. Transfer from the intensive care unit pending results of study. 3. Acute kidney injury/hypokalemia Resolved. Patient will be transition from potassium repletion by mouth to IV secondary to concerns for nausea associated with oral administration and need for heart catheterization this morning. 4. Hypertension/hyperlipidemia/strep throat Complicates care, management, recovery and prognosis. Okay to reinitiate baseline medications. Patient will be treated for 5 days for beta-hemolytic pharyngitis. Code Visit Inpatient E&M: 52747 [facility] L3
--- NOTE | 2019-08-23 07:03 | NURSING ---
PT is prepped for Heart Cath. Report called to biological lab technician and pt has been medicated with pertinent medications per protocol.
[2019-08-23 09:40] LABS: ACT Activated Clotting Time 208 sec (74-137)
[2019-08-23 09:40] LABS: ACT Activated Clotting Time 224 sec (74-137)
--- NOTE | 2019-08-23 09:45 | EKG12_ITS ---
Test Reason : CHEST PAIN Blood Pressure : / mmHG Vent. Rate : 065 BPM Atrial Rate : 065 BPM P-R Int : 170 ms QRS Dur : 090 ms QT Int : 452 ms P-R-T Axes : 009 -56 071 degrees QTc Int : 470 ms Normal sinus rhythm Left axis deviation Low voltage QRS Septal infarct , age undetermined , cannot be excluded Inferior infarct , age undetermined , cannot be excluded T wave abnormality, consider anterior ischemia Abnormal ECG No previous ECGs available Confirmed by CARLI WATERS, RAUL ([id number]), manuscript editor ADELFO WEBB ([id number]) on 08/31/2019 1:12:17 PM Referred By: MOHAMUD Confirmed By:RAUL BOYCE MD
--- NOTE | 2019-08-23 09:49 | CL.I_ITS ---
Patient Name: QASIM TAO Study Date: 08/23/2019 Performing: Prakash Vann MD Ht: 70 inches 178 cm : 1945 Wt: 172.2 lbs 78 kg Age: 74 Gender: male BSA: 1.96 PROCEDURE(S) PERFORMED SW26-LHD/COR/LV QD08-MIC W OR WO PTCA, SINGLE CORONARY ARTERY [id number] W OR WO PTCA, SINGLE CORONARY ARTERY CLINICAL PROFILE AND CO-MORBIDITIES Patient presents with NSTEMI for urgent cardiac cath Indications: ACS > 24 hrs, New Onset Angina <= 2 months, Worsening Angina, Resuscitated Cardiac A rrest, Stable Known CAD, LV Dysfunction Heart Failure: NYHA Class: 3, Newly Diagnosed: No, Heart Failure Type: Systolic Stress/Imaging Stress/Image Study Performed: No Angina Classification Anginal Classification w/in 2 Weeks: CCS III CAD Presentations: Unstable angina. Non-STEMI. Symptom onset Date/Time: 08/21/2019 Time Not Avail able Comorbidities/Risk Factors: Hypertension Dyslipidemia Prior CHF Prior PCI Diabetes Mellitus: Diabetes Therapy: Oral CONCLUSIONS Segmented LV systolic dysfunction- Moderate LVEF: by LV gram 45 % Double vessel CAD of the LCX and RCA Successful PTCA/TESSIE proximal LCX with a 3.0 x 8 Promus Synergy, post dilated with a 3.25 x 8 NC ballo on; 75%-->0%, no dissection. Successful PTCA/TESSIE distal RCA with a 2.5 x 38 Promus Synergy, followed immediately upstream with a 3 .0 x 12 Promus Synergy, post dilated distally with 3.25 x 8 NC at low pressure (4 lydia), followed with a 3.5 x 8 NC balloon in proximal overlapping stented area at 14 lydia; 75%-->0%, no dissection. RECOMMENDATIONS Referred for immediate PCI Highly recommend quitting all tobacco products Follow up with primary shagger Risk factor modification ASA Indefinitley Plavix for at least 12 months Routine post interventional care Refer for Outpatient Cardiac Rehab Manual sheath removal per protocol Follow up with Dr. Vann Manual sheath removal once ACT<150. Pt may need temporary in patient rehab/SNF prior to d/c home. DESCRIPTION OF PROCEDURE The patient arrived to the procedure lab. The risks and benefits of the procedure as well as a full d escription of our services here and lack of surgical backup were fully explained to the patient and/o r their significant other prior to the catheterization. The Timeout was completed, verifying the jose daniel ect patient and procedure. The patient's procedural site was prepped and draped in the usual fashion. Local anesthetic was given subcutaneously to right groin region with Lidocaine 2%. Using a modified Seldinger technique, arterial access was obtained via the right femoral artery, a 4Fr sheath was inse rted. Left Coronary Artery selective angiography was performed in multiple views using a 4 Fr. JL5 c atheter. Right Coronary Artery selective angiography was then performed in multiple views using a 4 F r. 3DRC catheter. Left Ventriculography was performed in ANTON projection using a 4 Fr. Pigtail cathete r. LV to AO pullback pressures were then recorded Arterial sheath was exchanged for a 6 Fr 55cm Sheath. EBU 3.75 Guide catheter was inserted and en gaged into the LCA. BMW Frederic Guide wire was advanced to the Circumflex. Emerge 2.0 x 8 Balloon c atheter was inserted. Balloon catheter was advanced across lesion in the circumflex, mid. PTCA balloo n inflated at 8 atms for 11 secs. Synergy 3.0 x 8 Drug Eluting stent was inserted. Drug Eluting stent was advanced across the lesion in the circumflex, mid. NC Emerge 3.25 x 8 Balloon catheter was inser saida. Drug Eluting stent was advanced across the lesion in the circumflex, mid. HS II Guide catheter w as inserted and engaged into the RCA. BMW Frederic Guide wire was Inserted. AL 1 Guide catheter was inserted and engaged into the RCA. BMW Frederic Guide wire was advanced to the RCA. Emerge 2.0 x 8 B alloon catheter was inserted. Balloon catheter was advanced across lesion in the right coronary, dist al. PTCA balloon inflated at 8 atms for 8 secs. PTCA balloon inflated at 8 atms for 9 secs. PTCA balloon inflated at 8 atms for 14 secs. Synergy 2.5 x 38 Drug Eluting stent was inserted. Drug Eluting stent was advanced across the lesion in the right coronary, distal. Synergy 3.0 x 12 Raphael g Eluting stent was inserted. Drug Eluting stent was advanced across the lesion in the right coronary , distal. NC Emerge 3.25 x 8 Balloon catheter was reinserted. Balloon catheter was advanced across l esion in the right coronary, distal. NC Emerge 3.5 x 8 Balloon catheter was inserted. Balloon cathete r was advanced across lesion in the right coronary, distal. Contrast was injected through the sheath and the Right Iliac and Femoral artery were assessed for possible closure device. The arterial sheat h was exchanged to a standard sheath and left inplace to be pulled once ACT is in range. The arterial sheath was sutured in place and capped CORONARY ANGIOGRAPHY DOMINANCE: Right Dominant LEFT HEART ASSESSMENT Left Ventricular Ejection Fraction: by LV Gram 45 % Depressed Left Ventricular systolic function LVEDP: 24 mmHg Elevated Left Ventricular End Diastolic Pressure Depressed Left Ventricular systolic function LVEDP: 24 mmHg Elevated Left Ventricular End Diastolic Pressure Anterior Hypokinesis - Mild. Apical Akinesis LEFT MAIN: Angiographically normal LEFT ANTERIOR DESCENDING ARTERY: PROX LAD: Previously placed stent is patent DISTAL LAD: Previously placed stent is patent, 60%, doubtful benefit from additional PCI. CIRCUMFLEX ARTERY: PROX CIRC: 75 % Stenosis DISTAL CIRC: Previously placed stent is patent OM 1: Proximal - Previously placed stent is patent RIGHT CORONARY ARTERY: PROX RCA: Mild luminal irregularities less than 30% DISTAL RCA: 75 % Stenosis RT PDA: Proximal - Non-obstructive INTERVENTION INFORMATION LESION SITE: Circumflex (Mid) Lesion Complexity: Non-High/Non-C, lesion at bifurcation: No, thrombus present: No, lesion length: 8 mm, culprit lesion: No Pre Stenosis: 75 % Pre intervention YUE flow: 3 PROCEDURE: Drug Eluting Stent with pre and post dilatation Post Stenosis: 0 % Post intervention YUE flow: 3 Lesion Devices: Medtronic 6 Fr EBU3.75 100cm Guide Catheter Jimenez .014 BMW Frederic Straight 190cm Mookie Sci EMERGE MR 2.00x08 BALLOON Mookie Sci Synergy MR TESSIE 3.00x08 Mookie Sci NC EMERGE MR 3.25x08 BALLOON LESION SITE: RCA (Distal) Lesion Complexity: High/C, lesion at bifurcation: No, thrombus present: No, lesion length: 50 mm, cul prit lesion: Yes Pre Stenosis: 75 % Pre intervention YUE flow: 3 PROCEDURE: Drug Eluting Stent with pre and post dilatation Post Stenosis: 0 % Post intervention YUE flow: 3 Lesion Devices: Medtronic 6 Fr EBU3.75 100cm Guide Catheter Jimenez .014 BMW Frederic Straight 190cm Mookie Sci EMERGE MR 2.00x08 BALLOON Mookie Sci NC EMERGE MR 3.25x08 BALLOON Medtronic 6 Fr HSII 100cm Guide Catheter Medtronic 6 Fr AL1.0 100cm Guide Catheter Mookie Sci Synergy MR TESSIE 2.50x38 Mookie Sci Synergy MR TESSIE 3.00x12 Mookie Sci NC EMERGE MR 3.50x08 BALLOON COMPLICATIONS No Complications PROCEDURE MEDICATIONS Fentanyl 25 mcg IV Oxygen: 2 L/min via nasal cannula Heparin 6000 unit(s) IV 08/23/2019 08:35:32 Heparin 4000 unit(s) IV 08/23/2019 08:59:35 Nitro 200 mcg IC 08/23/2019 08:30:44 Nitro 200 mcg IC 08/23/2019 08:30:44 Nitro 200 mcg IC 08/23/2019 08:40:13 SUMMARY OF HEMODYNAMIC DATA Time AIR REST ECG 08:10:34 AO 121/70 (92) SA 08:26:49 LV 156/-11, 24 08:33:43 LV 155/-10, 24 08:33:49 LVp 158/-12, 23 08:33:54 AOp 159/63 (95) 08:33:59 Signed By Prakash Vann MD On 08/23/2019 09:49:02 Prakash Vann MD
--- NOTE | 2019-08-23 10:00 | EKG12_ITS ---
Test Reason : AM EKG Blood Pressure : / mmHG Vent. Rate : 062 BPM Atrial Rate : 062 BPM P-R Int : 152 ms QRS Dur : 098 ms QT Int : 454 ms P-R-T Axes : 065 -51 116 degrees QTc Int : 460 ms Normal sinus rhythm Low voltage QRS Left anterior fascicular block Inferior infarct , age undetermined Anterior ND, age undetermined, cannot be excluded T wave abnormality, consider anterior-lateral ischemia Abnormal ECG Confirmed by CARLI WATERS, RAUL ([id number]), city editor ADELFO WEBB ([id number]) on 08/31/2019 1:17:31 PM Referred By: LINDA Confirmed By:RAUL BOYCE MD
[2019-08-23] MEDS: 0.9% Normal Saline 1,000 ML 150 ML IV (10:10)
[2019-08-23] MEDS: Morphine 2 MG/ML Syringe IV (10:19)
--- NOTE | 2019-08-23 10:35 | NURSING ---
1035 - steady bleeding from around sheath. golf ball size hematoma noted just above insertions site. pressure held by this RN call to roofing laborer 1040 - roofing laborer staff present in pt room. Dr. Vann notified-. orders recd 1050 - now marble size hematoma, bleeding slowed to steady ooze. pressure now by Mahesh, roofing laborer staff 1105 - ACT 197 1110 - 1 nitro SL given for BP 1120 - Dr. Vann present in pt room. 1125 - per Dr. Vann 6fr sheath excanged for 7fr sheath. no bleeding noted from site, sm amt bruising noted, return to sheath intervention
--- NOTE | 2019-08-23 10:40 | CRPHASE1 ---
Patient Communication PHII Cardiac Rehab Discussed with Patient:: No - PT STATES HE DECLINED CR IN DECEMBER 2018 WELL Guide to Cardiac Rehab Given to Patient:: Yes Cardiac Rehab Facility Choice List Given to Patient:: Yes Choice Program [facility] CR PHII:: Communication Given to CR, Refer to [employer] Risk Factors/Lifestyle Hx Hypertension: Yes Hx Dyslipidemia: Yes Height: 5 ft 10 in Weight:: 172 lb BMI: 24.7 Medical/Surgical History Hypertension:: Yes Dyslipidemia:: Yes Arrhythmias:: Yes - PAROXYSMAL A FIB PTCA:: Yes - STENT 12/2018 AND TODAY 08/23/2019 Discharge/Home/Social Eval Discharge Disposition: Home - PT DECLINED CR IN DECEMBER 2018 AND STATES HE DOES NOT PLAN TO ATTEND. WILL CALL PT AFTER HOME TO ASSESS IF INTERESTED IN INTERVIEW FOR CR Cardiac Rehabilitation Info Cardiac Rehabilitation Program Information: Cardiac Rehabilitation is important for patients like you who are recovering from a heart problem. Cardiac rehabilitation programs are recognized as integral to the continued care of the patient with coronary heart disease. The cardiac rehabilitation program is designed to optimize a patient's physical, psychological, and social functioning. Health career resource technician work in cardiac rehabilitation programs and assist you with getting the treatments you need to get stronger and healthier - like exercise, healthy eating habits, and medications. Cardiac rehabilitation has been show to help people with heart problems live longer and have better life enjoyment than people who do not go to cardiac rehabilitation. Please contact the Cardiac Rehabilitation Program at [facility] at in two weeks if you have not heard from them.
--- NOTE | 2019-08-23 10:45 | CRPH1.INSTRU ---
General Education CAD and cardiac anatomy and function:: Not instructed Explanation of diagnoses and procedures:: Not instructed Sign/Symptoms of OR:: Not instructed Antiplatelet therapy: Not instructed Proper use of NTG-SL: Not instructed Emergency procedures and activation of EMS: Not instructed Compliance of all prescribed medications: Not instructed - PT DECLINES WANTING TO ATTEND CR. HE DECLINED IN DECEMBER 2018 WELL Smoking Nicotine/Smoking Response Code:: Not instructed Dyslipidemia Dyslipidemia Response Code:: Not instructed Overweight/Obesity Patient Overweight/Obesity Risk Factors Are:: BMI Normal [24-29 & > 65 years old] Overweight/Obesity:: Not instructed Hypertension Recommendations Include:: Maintain BP <130/85, BP <130/80 if diabetic, DASH dietary guidelines, Decrease/maintain normal body weight, Moderation of ETOH Hypertension:: Not instructed Heart Disease Heart Disease Response Code:: Not instructed Diabetes Patient Diabetes Risk Factors Are:: No documented hx of diabetes Diabetes:: Not instructed Metabolic Syndrome Metabolic Syndrome Response Code:: Not instructed Sedentary Sedentary Response Code:: Not instructed Stress Stress Response Code:: Not instructed
[2019-08-23] MEDS: Nitroglycerin (INPATIENT USE) 0.4 MG TAB.SUBL SUBLINGUAL (11:10)
[2019-08-23] MEDS: hydrALAZINE 20 MG/ML Vial 10 MG IV ×2 (11:20→18:04)
[2019-08-23] MEDS: LORazepam 1 MG Tablet PO (12:28)
[2019-08-23 12:31] LABS: ACT Activated Clotting Time 180 sec (74-137)
--- NOTE | 2019-08-23 12:35 | PCM.PROGNOTE ---
Patient Problems: Active and Suspected Problems (Last Updated 08/22/19 @ 13:07 by Antoinette Flowers MD) CHF (congestive heart failure) (Acute) Subjective: Chief complaint: Follow-up after admission for acute hypoxic respiratory failure secondary to congestive heart failure and questionable pneumonia, found to have acute ST patient VT as well as acute kidney injury. Patient seen and examined. No acute events overnight. He is came back from [employer] and he was having bleeding at the right groin at the catheterization site. Patient denied any chest pain or shortness of breath. He continued to have spikes of low-grade fever, blood pressure slightly better, other vital signs are stable. - Physical Exam Vitals/I&O's: Vital Signs Temp Pulse Resp BP Pulse Ox 100.6 F H 65 24 H 157/75 H 97 08/23/19 11:30 08/23/19 11:30 08/23/19 11:30 08/23/19 11:30 08/23/19 11:30 Oxygen Flow Rate (L/min) 2 Oxygen Delivery Method Nasal Cannula Weight: 172 lb Body Mass Index (BMI) 25.1 Intake and Output for Last 24 Hours 08/21/19 08/22/19 08/23/19 23:59 23:59 23:59 Intake Total 1579.16 / 1699.68 1198.82 / 1198.82 558.24 / 558.24 Output Total 1025 / 1225 2740 / 2740 225 / 225 Balance 554.16 / 474.68 -1541.18 / -1541.18 333.24 / 333.24 General: Alert, Oriented x3, Cooperative, No apparent distress HEENT: Atraumatic, PERRLA, EOMI, Normocephalic Oral: Moist Mucosa, No Gingival or Mucosal Lesions/ Ulcerations Neck: Supple, No JVD, Negative Carotid Bruits, Trachea Midline, Thyroid Normal Size and Texture Lungs: Clear to auscultation, Normal air movement, No rhonchi, No wheeze, No rales, Diminished Cardiovascular: Regular rate, Regular Rhythm, Normal S1, Normal S2, PMI Normal Abdomen: Bowel Sounds Present, Soft, Non Tender, Non-Distended, No Hepato-splenomegaly Extremities: No clubbing, No cyanosis, Edema Skin: No rashes, No breakdown Lymphatic: No Cervical, Supraclavicular, or Inguinal Adenopathy Neurological: Cranial nerves II-XII grossly intact, Motor Exam 5/5 strength throughout Psych/Mental Status: Normal Affect, Appropriate, Alert and oriented to time, place, person, mood and affect Microbiology Past 72 Hours 08/21/19 08:45 Blood Culture (Wb) - Left Wrist Blood Culture - Preliminary No growth in 48 hours. 08/21/19 06:55 Blood Culture (Wb) - Left Wrist Blood Culture - Preliminary No growth in 48 hours. 08/21/19 07:02 Blood Culture (Wb) - Anticubital Right Blood Culture - Preliminary No growth in 48 hours. 08/22/19 06:25 Urine Catheter - Nunn Urine Culture - Preliminary Culture exhibits no growth. 08/21/19 09:30 Urine Catheter - Nunn Urine Culture - Final Culture exhibits no growth. 08/21/19 08:47 Sputum, Induced/Lukens Gram Stain - Final 08/21/19 08:47 Sputum, Induced/Lukens Respiratory Culture - Preliminary Beta streptococcus 08/21/19 06:48 Mucosa - Nasopharyngeal Influenza Types A,B Direct FA (YENNY) - Final Laboratory Results 08/22/19 18:00: Troponin I 0.408 H 08/23/19 04:43: WBC 7.2, RBC 3.05 L, Hgb 8.8 L, Hct 27.1 L, MCV 88.9, MCH 28.9, MCHC 32.5, RDW Std Deviation 49.1 H, RDW Coeff of Fercho 15.0 H, Plt Count 184, MPV 10.4 08/23/19 04:43: Sodium 142, Potassium 3.3 L, Chloride 110 H, Carbon Dioxide 25.0, Anion Gap 7, BUN 23 H, Creatinine 1.25, Estim Creat Clear Calc 53.53, Est GFR (MDRD) Af Amer 73, Est GFR (MDRD) Non-Af 60, BUN/Creatinine Ratio 18.4, Glucose 98, Calcium 7.7 L 08/23/19 04:43: PT 15.4 H, INR 1.2, APTT 43.9 H 08/23/19 08:56: Activated Clotting Time 208 H 08/23/19 09:21: Activated Clotting Time 224 H 08/23/19 12:18: Activated Clotting Time 180 H Current Medications Acetaminophen (Tylenol) 650 mg PO Q6H PRN PRN PRN Reason: Pain Score 1-3/10 Albuterol Sulfate (Ventolin Aerosols) 2.5 mg INHALATION Q2H PRN PRN PRN Reason: SOB/Wheezing Amoxicillin (Amoxil) 500 mg PO Q8 [facility] Stop: 08/26/19 22:00 Aspirin (Ecotrin) 81 mg PO DAILY@0800 [facility] Last Admin: 08/23/19 06:21 Dose: 81 mg Documented by: Atorvastatin Calcium (Lipitor) 80 mg PO QHS [facility] Last Admin: 08/22/19 22:22 Dose: 80 mg Documented by: Atropine Sulfate () 0.5 mg IV UD PRN PRN Reason: HR <50 bpm Carvedilol (Coreg) 6.25 mg PO BID [facility] Chlorhexidine Gluconate () 1 each TOPICAL DAILY [facility] Last Admin: 08/23/19 06:21 Dose: 1 each Documented by: Dextrose (D50w Syringe) 0 gm IV X1 PRN; Protocol PRN Reason: Hypoglycemia Famotidine (Pepcid) 20 mg PO BID [facility] Last Admin: 08/22/19 22:21 Dose: 20 mg Documented by: Fentanyl Citrate (Sublimaze (100mcg Ampule)) 25 mcg IV Q2H PRN PRN PRN Reason: Pain Score 4-10/10 Furosemide (Lasix) 40 mg PO DAILY [facility] Last Admin: 08/22/19 12:10 Dose: 40 mg Documented by: Glucagon () 1 mg IM .X1 PRN PRN Reason: Hypoglycemia Heparin Sodium (Beef Lung) (Heparin 500 Unit/5 Ml (100/Ml)) 500 unit IV UD PRN PRN Reason: HEPARIN FLUSH Hydralazine HCl (Apresoline Iv) 10 mg IV Q4H PRN PRN PRN Reason: Hypertension Last Admin: 08/23/19 11:20 Dose: 10 mg Documented by: Sodium Chloride () 250 mls @ 15 mls/hr IV .[id number] PRN PRN Reason: Saline Flush Last Infusion: 08/23/19 07:50 Dose: 0 mls/hr Documented by: Sodium Chloride () 1,000 mls @ 0 mls/hr IV .Q0M [facility] Nitroglycerin/Dextrose () 250 mls @ 12 mls/hr CONT INF .[id number] [facility]; Protocol Last Titration: 08/23/19 08:00 Dose: 20 mcg/min, 12 mls/hr Documented by: Sodium Chloride () 1,000 mls @ 150 mls/hr IV .[id number] [facility] Stop: 08/23/19 16:14 Last Admin: 08/23/19 10:10 Dose: 150 mls/hr Documented by: Nitroglycerin/Dextrose () 250 mls @ 12 mls/hr IV .[id number] [facility] Stop: 08/24/19 07:00 Isosorbide Mononitrate (Imdur) 30 mg PO DAILY [facility] Labetalol HCl (Trandate) 5 mg IV X1 PRN PRN Reason: SBP > 160 when pulling sheath Stop: 08/25/19 09:32 Lorazepam (Ativan) 1 mg PO Q6H PRN PRN PRN Reason: BACK SPASMS/ANXIETY Last Admin: 08/23/19 12:28 Dose: 1 mg Documented by: Losartan Potassium (Cozaar) 50 mg PO DAILY [facility] Metoclopramide HCl (Reglan) 5 mg IV Q6H PRN PRN PRN Reason: NAUSEA/VOMITING Nitroglycerin (Nitrostat) 0.4 mg SUBLINGUAL Q5M PRN PRN Reason: CARDIAC/CHEST PAIN Last Admin: 08/23/19 11:10 Dose: 1 tab Documented by: Ondansetron HCl (Zofran) 4 mg IV Q8H PRN PRN PRN Reason: Nausea Sodium Chloride () 10 - 40 ml IV UD PRN PRN Reason: SALINE FLUSH Last Admin: 08/23/19 04:42 Dose: 10 ml Documented by: Sodium Chloride () 500 ml IV BOLUS PRN PRN Reason: VASO-VAGAL PROTOCOL Ticagrelor (Brilinta) 90 mg PO BID [facility] Last Admin: 08/23/19 06:22 Dose: 90 mg Documented by: Assessment/Plan All Active Problems (Last Updated 08/22/19 @ 13:07 by Antoinette Flowers MD) CHF (congestive heart failure) (Acute) This is a 74 years old male patient presented to the emergency room because of shortness of breath and cough, found to have acute respiratory failure secondary to acute flash pulmonary edema, CHF and also found non-ST relation VT and acute kidney injury. #1 acute flash pulmonary edema: Started on IV nitroglycerin drip, also on p.o. Lasix, nitrate and Coreg as well as losartan. Blood pressure still on the higher side, systolic has been around 160s. Patient underwent cardiac catheterization today as below. Cardiology and field director on the case. Plan to continue same treatment for now. #2 acute hypoxic respiratory failure: Secondary to above in addition to possible pneumonia. Patient is on diuresis, IV nitroglycerin drip and empiric IV antibiotics. Status post extubation, respiratory status stabilized, pulse ox is 97% on 2 L. #3 acute non-ST relation VT: Status post cardiac catheterization, PTCA/TESSIE to proximal left circumflex, PTCA/TESSIE to distal RCA. He is on aspirin, statins, Coreg, nitrate, losartan and Brilinta. 2D echocardiogram revealed ejection fraction of 45%, stage II diastolic function. Cardiology on the case, plan to continue same treatment. #4 probable community-acquired pneumonia: Started on oral Augmentin, IV Zosyn discontinued. Patient still having spikes of low-grade fever, no leukocytosis. Sputum culture revealed beta Streptococcus, final is pending. Blood culture showed no growth in 48 hours. Urine culture showed no growth x2.. Nasal swab for influenza a and B were negative. #5 acute kidney injury: Probably prerenal. Admission creatinine was 1.54 on admission, came down to 1.25 today, improving. #6 CAD status post stents: Plan as above, continue aspirin, Brilinta, statins, losartan and Coreg. #7 hypertension: Blood pressure still on the higher side, started on IV nitroglycerin drip, continue Lasix, losartan and Coreg. #8 ischemic cardiomyopathy: With acute CHF/pulmonary edema as above. #9 paroxysmal atrial fibrillation: Currently in sinus rhythm, rate is controlled. He is Coreg for rate control and not on anticoagulation #10 hyperlipidemia: Continue statins. #11 DVT prophylaxis: SCDs. This note was generated with [employer] dictation software. It may contain incorrect words, spelling, and punctuation that were not noted in checking the note before signing. Code Visit Inpatient E&M: 96067 Subs Hosp L2
[2019-08-23] MEDS: fentaNYL 100 MCG/2 ML Ampul 25 MCG IV ×2 (12:54→13:55)
[2019-08-23] MEDS: Isosorbide Mononitrate 30 MG Tablet PO ×2 (12:58→17:45)
[2019-08-23] MEDS: Losartan Potassium 50 MG Tablet PO (12:58)
--- NOTE | 2019-08-23 13:25 | NURSING ---
1325 - Zen Orr RN, present in pt room. 1333 - sheath removed, pressure held 1335 HR 71 R 22, BP 165/78, SpO2 95RA pt restless. much reassurance given 1340 HR, 71 R,17 BP,144/66 SpO2 94 RA despite reassurance/instruction re bleeding concerns, pt cont to be very restless, trying to sit up/turn on his side. he remains Ox3, CAM neg. 1345 HR,72 R,17 BP, SpO2 94 RA pt more relaxed at this time 1350 HR,72 R,18 BP,136/100 SpO2 94 RA pt c/o severe pain in rt groin, again disc why pressure required, risks of bleeding. pt cont to find it diff to assist w/ acchieving hemostasis. 1355 HR, 75 R,22 BP,154/92 SpO2 95 RA Fentanyl 25mcq IV given, verified per Jolene Parker RN. 1400 HR,81 R,20 BP,SpO2 95 RA pt restful at this time. 1405 HR,70 R,16 BP,126/56 SpO2 94 RA 1410 HR,65 R, 18 BP,163/89 SpO2 93 RA pt again c/o dissatisfaction of staying in bed, again educated on post cath bedrest requirment/bleeding risks, time bedrest completed, and cont of bedrest till am if bleeding occurs. 1415 see post cath intervention
[2019-08-23 13:30] LABS: ACT Activated Clotting Time 164 sec (74-137)
[2019-08-23] MEDS: Nitroglycerin Infusion 250 ML 33 MG IV (13:30)
[2019-08-23] MEDS: TITRATION PARAMETER CHANGE 1 EACH IV ×2 (14:00→16:15)
--- NOTE | 2019-08-23 14:22 | CASEMGMT ---
RN CM Note: Attempted to explain Brilinta savings card to patient. He is currently sleepy and will need reinforcement. Card left on bedside table. Nurse updated. Jeferson GUTIERREZN RN ACM
[2019-08-23 15:20] LABS: ACT Activated Clotting Time 202 sec (74-137)
[2019-08-23 15:20] LABS: ACT Activated Clotting Time 197 sec (74-137)
[2019-08-23] MEDS: Nitroglycerin Infusion 250 ML 24 MG IV (15:30)
[2019-08-23] MEDS: Furosemide 40 MG Tablet PO (15:39)
[2019-08-23] MEDS: Famotidine 20 MG Tablet PO ×2 (15:41→22:07)
--- NOTE | 2019-08-23 17:23 | NURSING ---
education re chronic illness deferred till post cath care completed.
[2019-08-23] MEDS: AMOXICILLIN 500 MG CAPSULE PO ×2 (17:45→22:06)
[2019-08-23] MEDS: Atorvastatin Calcium 80 MG Tablet PO (22:06)
[2019-08-23] MEDS: Carvedilol 6.25 MG Tablet PO (22:07)
[2019-08-24] VITALS (24 sets, daily range): BP systolic 115–181; BP diastolic 35–76; PULSE 58–73; RESP 15–26; TEMP 36.8–37.9; O2SAT 93–97
[2019-08-24] MEDS: 0.9% Saline Lock 10 ML Syringe IV ×2 (04:11→20:51)
[2019-08-24 04:25] LABS: Hematocrit 25.9 % (40-54); Hemoglobin 8.6 g/dL (13.0-16.5); Mean Corp Hgb Conc 33.2 g/dL (32-36); Mean Corpuscular Volume 87.2 fL (80-94); Mean Platelet Vol. 10.5 fl (6.2-12.0); Platelet Count 175 K/mm3 (150-450); RBC Distribution Width CV 15.2 % (11.6-14.6); RBC Distribution Width SD 48.8 fl (35.1-43.9); Red Blood Count 2.97 M/mm3 (4.6-6.2); White Blood Count 7.5 K/mm3 (4.4-11.0)
[2019-08-24 05:03] LABS: ALB/GLOB Ratio 0.6 RATIO (0.9-2.4); AST(SGOT) 51 U/L (15-37); Alanine Aminotransfer ALT/SGPT 23 U/L (16-61); Albumin, Serum 2.2 g/dL (3.2-5.0); Alkaline Phosphatase 160 U/L (45-117); Anion Gap 6 (5-15); BUN 17 mg/dL (7-18); BUN/Creat Ratio 15.3 RATIO (10-20); Calcium,Total 7.7 mg/dL (8.5-10.1); Chloride 108 mmol/L (98-107); Creatinine, Serum 1.11 mg/dL (0.70-1.30); EST Glomerular Filtration Rate 69 mL/min (>60); Est Glom Filt Rate - Afr Amer 83 mL/min (>60); Estimated Creatinine Clearance 60.29 ml/min; Glucose 106 mg/dL (74-106); Potassium 3.5 mmol/L (3.5-5.1); Protein, Total 6.2 g/dL (6.4-8.2); Sodium Level 140 mmol/L (136-145)
[2019-08-24] MEDS: AMOXICILLIN 500 MG CAPSULE PO ×3 (06:39→21:10)
--- NOTE | 2019-08-24 06:40 | PN_ITS ---
Subjective: Patient did okay overnight. Patient is off of bedrest following heart catheterization with 2 stents placed. Patient is denying any pain at the int ervention site. No bleeding complications have been reported. Patient is not reporting any back pain, abdominal pain, nausea or vomiting. Patient has remained on room air. General: Alert, Oriented x3, Cooperative, No apparent distress, Well developed, Well nourished, - - No conversational dyspnea. HEENT: Atraumatic, PERRLA, EOMI, Normocephalic, - - No scleral icterus or injection noted Oral: Moist Mucosa, No Gingival or Mucosal Lesions/ Ulcerations Neck: Supple, No JVD, No Nodes, Trachea Midline Lungs: No rhonchi, No wheeze, No rales, Diminished, - - Fair effort. Symmetric expansion. Cardiovascular: Regular rate, Regular Rhythm, Normal S1, Normal S2, No murmurs, No rub noted, No Gallop Abdomen: Bowel Sounds Present, Soft, Non Tender, Non-Distended Extremities: No clubbing, No cyanosis, No edema, Capillary Refill Less than 3 Seconds Skin: No rashes, No breakdown, - - Slight ecchymosis without induration at the femoral site Musculoskeletal: No Tenderness to Palpation of Joints or Extremities Lymphatic: No Cervical, Supraclavicular, or Inguinal Adenopathy Neurological: Cranial nerves II-XII grossly intact, Neuro grossly intact, Motor Exam 5/5 strength throughout Psych/Mental Status: Alert and oriented to time, place, person, mood and affect Vital Signs Temp Pulse Resp BP Pulse Ox 37.5 C H 67 24 H 165/74 H 95 08/24/19 05:00 08/24/19 06:00 08/24/19 06:00 08/24/19 06:00 08/24/19 06:00 Oxygen Flow Rate (L/min) 2 Oxygen Delivery Method Room Air Weight: 78.7 kg Body Mass Index (BMI) 25.1 Intake and Output for Last 24 Hours 08/22/19 08/23/19 08/24/19 23:59 23:59 23:59 Intake Total 1198.82 / 1198.82 1943.99 / 2327.99 429.00 / 429.00 Output Total 2740 / 2740 1075 / 2575 1750 / 1750 Balance -1541.18 / -1541.18 868.99 / -247.01 -1321.00 / -1321.00 Labs (Last 48 Hours) 08/22/19 08/22/19 08/22/19 03:55 06:25 18:00 WBC RBC Hgb Hct MCV MCH MCHC RDW Std Deviation RDW Coeff of Fercho Plt Count MPV PT INR APTT Activated Clotting Time Sodium Potassium Chloride Carbon Dioxide Anion Gap BUN Creatinine Estim Creat Clear Calc Est GFR (MDRD) Af Amer Est GFR (MDRD) Non-Af BUN/Creatinine Ratio Glucose Calcium Total Bilirubin AST ALT Alkaline Phosphatase Troponin I 0.699 H* 0.408 H Total Protein Albumin Globulin Albumin/Globulin Ratio Urine Color Yellow Urine Clarity Clear Urine pH 5.0 Ur Specific Bradford 1.020 Urine Protein 30 H Urine Glucose (UA) Normal Urine Ketones 15 H Urine Occult Blood 50 H Urine Nitrite Negative Urine Bilirubin Negative Urine Urobilinogen Normal Ur Leukocyte Esterase 100 H Urine RBC 0-5 SEEN Urine WBC 5-10 SEEN Ur Squamous Epith Cells 0-5 SEEN Urine Bacteria RARE Urine Mucus RARE 08/23/19 08/23/19 08/23/19 04:43 04:43 04:43 WBC 7.2 RBC 3.05 L Hgb 8.8 L Hct 27.1 L MCV 88.9 MCH 28.9 MCHC 32.5 RDW Std Deviation 49.1 H RDW Coeff of Fercho 15.0 H Plt Count 184 MPV 10.4 PT 15.4 H INR 1.2 APTT 43.9 H Activated Clotting Time Sodium 142 Potassium 3.3 L Chloride 110 H Carbon Dioxide 25.0 Anion Gap 7 BUN 23 H Creatinine 1.25 Estim Creat Clear Calc 53.53 Est GFR (MDRD) Af Amer 73 Est GFR (MDRD) Non-Af 60 BUN/Creatinine Ratio 18.4 Glucose 98 Calcium 7.7 L Total Bilirubin AST ALT Alkaline Phosphatase Troponin I Total Protein Albumin Globulin Albumin/Globulin Ratio Urine Color Urine Clarity Urine pH Ur Specific Bradford Urine Protein Urine Glucose (UA) Urine Ketones Urine Occult Blood Urine Nitrite Urine Bilirubin Urine Urobilinogen Ur Leukocyte Esterase Urine RBC Urine WBC Ur Squamous Epith Cells Urine Bacteria Urine Mucus 08/23/19 08/23/19 08/23/19 08:56 09:21 10:53 WBC RBC Hgb Hct MCV MCH MCHC RDW Std Deviation RDW Coeff of Fercho Plt Count MPV PT INR APTT Activated Clotting Time 208 H 224 H 202 H Sodium Potassium Chloride Carbon Dioxide Anion Gap BUN Creatinine Estim Creat Clear Calc Est GFR (MDRD) Af Amer Est GFR (MDRD) Non-Af BUN/Creatinine Ratio Glucose Calcium Total Bilirubin AST ALT Alkaline Phosphatase Troponin I Total Protein Albumin Globulin Albumin/Globulin Ratio Urine Color Urine Clarity Urine pH Ur Specific Bradford Urine Protein Urine Glucose (UA) Urine Ketones Urine Occult Blood Urine Nitrite Urine Bilirubin Urine Urobilinogen Ur Leukocyte Esterase Urine RBC Urine WBC Ur Squamous Epith Cells Urine Bacteria Urine Mucus 08/23/19 08/23/19 08/23/19 11:02 12:18 13:20 WBC RBC Hgb Hct MCV MCH MCHC RDW Std Deviation RDW Coeff of Fercho Plt Count MPV PT INR APTT Activated Clotting Time 197 H 180 H 164 H Sodium Potassium Chloride Carbon Dioxide Anion Gap BUN Creatinine Estim Creat Clear Calc Est GFR (MDRD) Af Amer Est GFR (MDRD) Non-Af BUN/Creatinine Ratio Glucose Calcium Total Bilirubin AST ALT Alkaline Phosphatase Troponin I Total Protein Albumin Globulin Albumin/Globulin Ratio Urine Color Urine Clarity Urine pH Ur Specific Bradford Urine Protein Urine Glucose (UA) Urine Ketones Urine Occult Blood Urine Nitrite Urine Bilirubin Urine Urobilinogen Ur Leukocyte Esterase Urine RBC Urine WBC Ur Squamous Epith Cells Urine Bacteria Urine Mucus 08/24/19 08/24/19 04:15 04:15 WBC 7.5 RBC 2.97 L Hgb 8.6 L Hct 25.9 L MCV 87.2 MCH 29.0 MCHC 33.2 RDW Std Deviation 48.8 H RDW Coeff of Fercho 15.2 H Plt Count 175 MPV 10.5 PT INR APTT Activated Clotting Time Sodium 140 Potassium 3.5 Chloride 108 H Carbon Dioxide 26.0 Anion Gap 6 BUN 17 Creatinine 1.11 Estim Creat Clear Calc 60.29 Est GFR (MDRD) Af Amer 83 Est GFR (MDRD) Non-Af 69 BUN/Creatinine Ratio 15.3 Glucose 106 Calcium 7.7 L Total Bilirubin 0.90 AST 51 H ALT 23 Alkaline Phosphatase 160 H Troponin I Total Protein 6.2 L Albumin 2.2 L Globulin 4.0 Albumin/Globulin Ratio 0.6 L Urine Color Urine Clarity Urine pH Ur Specific Bradford Urine Protein Urine Glucose (UA) Urine Ketones Urine Occult Blood Urine Nitrite Urine Bilirubin Urine Urobilinogen Ur Leukocyte Esterase Urine RBC Urine WBC Ur Squamous Epith Cells Urine Bacteria Urine Mucus Microbiology 08/21/19 08:45 Blood Culture (Wb) - Left Wrist Blood Culture - Preliminary No growth in 48 hours. 08/21/19 06:55 Blood Culture (Wb) - Left Wrist Blood Culture - Preliminary No growth in 48 hours. 08/21/19 07:02 Blood Culture (Wb) - Anticubital Right Blood Culture - Preliminary No growth in 48 hours. 08/22/19 06:25 Urine Catheter - Nunn Urine Culture - Preliminary Culture exhibits no growth. 08/21/19 09:30 Urine Catheter - Nunn Urine Culture - Final Culture exhibits no growth. 08/21/19 08:47 Sputum, Induced/Lukens Gram Stain - Final 08/21/19 08:47 Sputum, Induced/Lukens Respiratory Culture - Preliminary Beta streptococcus Assessment/Plan All Active Problems (Last Updated 08/23/19 @ 17:25 by Carol Mckeon) CHF (congestive heart failure) (Acute) RECOMMENDATIONS: 1. Increase activity per cardiology 2. Walking oximetry prior to discharge 3. Complete 5-day course of antibiotics 4. Aggressive pulmonary toileting 5. Hemodynamically stable on room air. Will sign off from a critical care perspective IMPRESSIONS: 1. Acute hypoxemic respiratory failure Patient likely had an element of flash pulmonary edema secondary to hypertensive emergency. Patient is on room air and tolerating well. Patient did have a fever overnight, but is being treated for strep pharyngitis. Patient should have a walking oximetry prior to discharge. 2. Troponin elevation/known coronary artery disease/heart failure with preserved ejection fraction/paroxysmal atrial fibrillation Patient with heart catheterization and stent placement yesterday. Patient is off of bedrest and doing well. Patient did have a slight drop in hemoglobin, but no acute bleeding has been reported. Patient has no pain at the femoral site. 3. Acute kidney injury/hypokalemia Resolved. Potassium is marginal at this time, but would likely respond to dietary intake of potassium. 4. Hypertension/hyperlipidemia/strep throat Complicates care, management, recovery and prognosis. Okay to reinitiate baseline medications. Patient will be treated for 5 days for beta-hemolytic pharyngitis. Code Visit Inpatient E&M: 66244 Subs Hosp L2
--- NOTE | 2019-08-24 07:52 | ADUL_ITS ---
Reason For Study: S/p cath 08/23/19, r/o pseudoaneurysm of right groin. Right Velocities Rt MOLDER INFLATED BALL measures 0.70 x 0.74 cm with a velocity of 190.6 cm/sec. RT FA measures 0.69 x 0.76 cm with a velocity of 115.6 cm/sec. RT CFV and FV are compressible with normal flow noted. No pseudoaneurysm noted. Procedure Prelim to Danita MARIE. Exam performed portable in ICU/CCU. Interpretation Summary No evidence for pseudoaneurysm or artereovenous fistula right common femoral artery or vein. Mildly increased velocity noted in the right common femoral artery. Ordering Physician: Prakash Vann Performed By: Danielle Wesley RVT
--- NOTE | 2019-08-24 08:30 | PN.CARD_ITS ---
Subjectve: Patient seen and examined this morning. Nitroglycerin drip titrated off around 2 AM this morning. Right groin is clean/dry/intact without evidence of hematoma but there is a faint bruit noted. No tenderness. 2+ DP and PT pulses bilaterally. No chest pain. EKG shows normal sinus rhythm with resolving anterior lateral T wave inversion. Hemoglobin decreased from 8.8 to 8.6 post PCI, however his original hemoglobin upon admission was 13.0. Patient as of yet has not had a significant hemoglobin drop since his PCI. Patient admits to black tarry stools at home prior to his admission. Objective: Vital Signs Temp Pulse Resp BP Pulse Ox 99.5 F H 59 L 20 H 164/62 H 97 08/24/19 05:00 08/24/19 07:06 08/24/19 07:06 08/24/19 07:06 08/24/19 07:06 Oxygen Flow Rate (L/min) 2 Oxygen Delivery Method Room Air Weight: 173 lb 8.061 oz Body Mass Index (BMI) 25.1 Intake and Output for Last 24 Hours 08/22/19 08/23/19 08/24/19 23:59 23:59 23:59 Intake Total 1198.82 / 1198.82 1943.99 / 2327.99 429.00 / 429.00 Output Total 2740 / 2740 1075 / 2575 1750 / 1750 Balance -1541.18 / -1541.18 868.99 / -247.01 -1321.00 / -1321.00 General: Awake, Alert, Oriented x 3 HEENT: PERRL, EOMI, Sclera Non Icteric Neck: Supple, Good ROM, No Lymph Node Enlargement Lungs: Clear to auscultation Cardiovascular: Regular Rhythm, Normal S1, Normal S2, No Murmurs, No Rubs, No Gallops Vascular: No Carotid Bruits, Normal Femoral Pulses, Normal Radial Pulses, Normal Dorsalis Pedal Pulse, Normal Posterior Tibial Pulses Abdomen: Bowel Sounds Present, Soft, Non Tender, No HSM, No Organomegaly Extremities: No Cyanosis, No Clubbing, No edema Neurological: No Focal Motor or Sensory Deficit 08/24/19 04:15: WBC 7.5, RBC 2.97 L, Hgb 8.6 L, Hct 25.9 L, MCV 87.2, MCH 29.0, MCHC 33.2, Plt Count 175, MPV 10.5 08/24/19 04:15: Sodium 140, Potassium 3.5, Chloride 108 H, Carbon Dioxide 26.0, Anion Gap 6, BUN 17, Creatinine 1.11, Est GFR (MDRD) Af Amer 83, Est GFR (MDRD) Non-Af 69, BUN/Creatinine Ratio 15.3, Glucose 106, Calcium 7.7 L, Total Bilirubin 0.90 Rhythm: EKG: ECHO: Stress Test: Cardiac Cath: PCI: CT Surgery: Holter monitor: EPS: PPM: CXR: Chest CT Scan: Assessment/Plan 1. Respiratory distress: Patient had a combination of medical noncompliance with discontinuation of his diuretic about 2 weeks ago, with progressively worsening shortness of breath but also progressively worsening significant substernal chest pain similar to his anginal symptoms at the time of his myocardial infarction in earlier around November 2018. At that time he received 3 stents to his LAD followed by elective angioplasty and stenting to his obtuse marginal and left circumflex. Given the patient's progressively worsening shortness of breath, fatigue, substernal chest pain, dynamic EKG changes, and need for emergent intubation due to respiratory distress I recommended that he undergo a diagnostic left heart catheterization which took place on 08/23/2019, the patient required 3 additional drug-eluting stents. The patient received a drug-eluting stent to the proximal left circumflex and 2 drug-eluting stents to the distal right coronary artery with an excellent result. Overnight the patient required aggressive antihypertensive medication therapy, as well as prolonged direct manual pressure to his right groin by the [employer] staff to maintain hemostasis. Overnight the patient has had no further chest pain, and feels much better, however his right groin appears to have some mild bruit noted. The access site appeared to be between the profunda and the superficial femoral artery, possibly increasing the risk for pseudoaneurysm. I recommend the patient undergo an ultrasound of his right groin today to evaluate for pseudoaneurysm prior to ambulation. If this is negative, the patient may be transferred to the floor for further rehabilitation. In addition the patient's hemoglobin has been drifting down ever since admission, and went from 8.8 from yesterday to 8.6 today. The patient does admit to black tarry stools at home prior to his admission. Recommend starting him on Protonix 40 mg p.o. daily. He may require an EGD at some point in the future. Recommend monitoring his hemoglobin on a daily basis. Would not recommend transfusion until his hemoglobin goes below 8.0. The patient officially did not have a significant 4 g drop of hemoglobin after his angioplasty. His echocardiogram demonstrates anteroseptal and apical hypokinesis with an overall ejection fraction of 45% confirmed by catheterization yesterday. In the meantime he will continue his baby aspirin, Brilinta, Lasix 40 mg daily, losartan 50 mg a day. We switched him from metoprolol to Coreg which is a better antihypertensive medication given his LV dysfunction and coronary disease. His nitroglycerin drip is been titrated off. We started him on Imdur yesterday 30 mg p.o. daily and will titrate this up as needed. If the patient's ultrasound is negative he may be transferred to the PCU for further rehab evaluation. The patient may require long term facility prior to discharge. 2. Hyperlipidemia: Continue Lipitor therapy. 3. Thank you very much for the opportunity to participate in the cardiac care of your patient. Patient to follow-up with Dr. Vann going forward. Code Visit Inpatient E&M: 08747 Subs Hosp L2
[2019-08-24] MEDS: Furosemide 40 MG Tablet PO (08:50)
[2019-08-24] MEDS: Famotidine 20 MG Tablet PO ×2 (08:50→20:47)
[2019-08-24] MEDS: Aspirin E.C. 81 MG Tablet PO (08:50)
[2019-08-24] MEDS: Carvedilol 6.25 MG Tablet PO ×2 (08:51→20:42)
[2019-08-24] MEDS: TICAGRELOR 90 MG TABLET PO ×2 (08:51→20:43)
[2019-08-24] MEDS: Losartan Potassium 50 MG Tablet PO (08:51)
[2019-08-24] MEDS: Pantoprazole Sodium 40 MG Tablet PO (08:53)
[2019-08-24] MEDS: Isosorbide Mononitrate 30 MG Tablet PO (08:54)
--- NOTE | 2019-08-24 10:00 | EKG12_ITS ---
Test Reason : Blood Pressure : / mmHG Vent. Rate : 055 BPM Atrial Rate : 055 BPM P-R Int : 164 ms QRS Dur : 092 ms QT Int : 450 ms P-R-T Axes : 060 -63 091 degrees QTc Int : 430 ms Sinus bradycardia Low voltage QRS (Limb Leads) Left anterior fascicular block Septal infarct , age undetermined Inferior infarct , age undetermined, cannot be excluded T wave abnormality, consider anterior ischemia Abnormal ECG Confirmed by CARLI WATERS, RAUL ([id number]), rewrite editor ADELFO WEBB ([id number]) on 08/31/2019 1:26:56 PM Referred By: Confirmed By:RAUL BOYCE MD
--- NOTE | 2019-08-24 10:02 | PN_ITS ---
Patient Problems: Active and Suspected Problems (Last Updated 08/23/19 @ 17:25 by Carol Mckeon) CHF (congestive heart failure) (Acute) Subjective: Chief complaint: Follow-up after admission for acute hypoxic respiratory failure secondary to congestive heart failure and questionable pneumonia, found to have acute ST patient NH as well as acute kidney injury. Patient seen and examined. No acute events overnight. He denied any chest pain or shortness of breath. Denied any complaints. Blood pressure slightly related, other vital signs are stable. - Physical Exam Vitals/I&O's: Vital Signs Temp Pulse Resp BP Pulse Ox 99.5 F H 59 L 20 H 164/62 H 97 08/24/19 05:00 08/24/19 07:06 08/24/19 07:06 08/24/19 07:06 08/24/19 07:06 Oxygen Flow Rate (L/min) 2 Oxygen Delivery Method Room Air Weight: 173 lb 8.061 oz Body Mass Index (BMI) 25.1 Intake and Output for Last 24 Hours 08/22/19 08/23/19 08/24/19 23:59 23:59 23:59 Intake Total 1198.82 / 1198.82 1943.99 / 2327.99 429.00 / 429.00 Output Total 2740 / 2740 1075 / 2575 1750 / 1750 Balance -1541.18 / -1541.18 868.99 / -247.01 -1321.00 / -1321.00 General: Alert, Oriented x3, Cooperative, No apparent distress HEENT: Atraumatic, PERRLA, EOMI, Normocephalic Oral: Moist Mucosa, No Gingival or Mucosal Lesions/ Ulcerations Neck: Supple, No JVD, Negative Carotid Bruits, Trachea Midline, Thyroid Normal Size and Texture Lungs: Clear to auscultation, Normal air movement, No rhonchi, No wheeze, No rales, Diminished Cardiovascular: Regular rate, Regular Rhythm, Normal S1, Normal S2, PMI Normal Abdomen: Bowel Sounds Present, Soft, Non Tender, Non-Distended, No Hepato- splenomegaly Extremities: No clubbing, No cyanosis, No edema Skin: No rashes, No breakdown Lymphatic: No Cervical, Supraclavicular, or Inguinal Adenopathy Neurological: Cranial nerves II-XII grossly intact, Neuro grossly intact Psych/Mental Status: Normal Affect, Appropriate, Alert and oriented to time, place, person, mood and affect Microbiology Past 72 Hours 08/22/19 06:25 Urine Catheter - Nunn Urine Culture - Final Culture exhibits no growth. 08/21/19 08:47 Sputum, Induced/Lukens Gram Stain - Final 08/21/19 08:47 Sputum, Induced/Lukens Respiratory Culture - Final Streptococcus agalactiae (B) 08/21/19 08:45 Blood Culture (Wb) - Left Wrist Blood Culture - Preliminary No growth in 48 hours. 08/21/19 06:55 Blood Culture (Wb) - Left Wrist Blood Culture - Preliminary No growth in 48 hours. 08/21/19 07:02 Blood Culture (Wb) - Anticubital Right Blood Culture - Preliminary No growth in 48 hours. 08/21/19 09:30 Urine Catheter - Nunn Urine Culture - Final Culture exhibits no growth. 08/21/19 06:48 Mucosa - Nasopharyngeal Influenza Types A,B Direct FA (YENNY) - Final Laboratory Results 08/23/19 10:53: Activated Clotting Time 202 H 08/23/19 11:02: Activated Clotting Time 197 H 08/23/19 12:18: Activated Clotting Time 180 H 08/23/19 13:20: Activated Clotting Time 164 H 08/24/19 04:15: WBC 7.5, RBC 2.97 L, Hgb 8.6 L, Hct 25.9 L, MCV 87.2, MCH 29.0, MCHC 33.2, RDW Std Deviation 48.8 H, RDW Coeff of Fercho 15.2 H, Plt Count 175, MPV 10.5 08/24/19 04:15: Sodium 140, Potassium 3.5, Chloride 108 H, Carbon Dioxide 26.0, Anion Gap 6, BUN 17, Creatinine 1.11, Estim Creat Clear Calc 60.29, Est GFR (MDRD) Af Amer 83, Est GFR (MDRD) Non-Af 69, BUN/Creatinine Ratio 15.3, Glucose 106, Calcium 7.7 L, Total Bilirubin 0.90, AST 51 H, ALT 23, Alkaline Phosphatase 160 H, Total Protein 6.2 L, Albumin 2.2 L, Globulin 4.0, Albumin/Globulin Ratio 0.6 L Current Medications Acetaminophen (Tylenol) 650 mg PO Q6H PRN PRN PRN Reason: Pain Score 1-3/10 Albuterol Sulfate (Ventolin Aerosols) 2.5 mg INHALATION Q2H PRN PRN PRN Reason: SOB/Wheezing Amoxicillin (Amoxil) 500 mg PO Q8 [facility] Stop: 08/26/19 22:00 Last Admin: 08/24/19 06:39 Dose: 500 mg Documented by: Aspirin (Ecotrin) 81 mg PO DAILY@0800 [facility] Last Admin: 08/24/19 08:50 Dose: 81 mg Documented by: Atorvastatin Calcium (Lipitor) 80 mg PO QHS [facility] Last Admin: 08/23/19 22:06 Dose: 80 mg Documented by: Atropine Sulfate () 0.5 mg IV UD PRN PRN Reason: HR <50 bpm Carvedilol (Coreg) 6.25 mg PO BID [facility] Last Admin: 08/24/19 08:51 Dose: 6.25 mg Documented by: Chlorhexidine Gluconate () 1 each TOPICAL DAILY [facility] Last Admin: 08/23/19 06:21 Dose: 1 each Documented by: Famotidine (Pepcid) 20 mg PO BID [facility] Last Admin: 08/24/19 08:50 Dose: 20 mg Documented by: Fentanyl Citrate (Sublimaze (100mcg Ampule)) 25 mcg IV Q2H PRN PRN PRN Reason: Pain Score 4-10/10 Last Admin: 08/23/19 12:54 Dose: 25 mcg Documented by: Furosemide (Lasix) 40 mg PO DAILY [facility] Last Admin: 08/24/19 08:50 Dose: 40 mg Documented by: Glucagon () 1 mg IM .X1 PRN PRN Reason: Hypoglycemia Heparin Sodium (Beef Lung) (Heparin 500 Unit/5 Ml (100/Ml)) 500 unit IV UD PRN PRN Reason: HEPARIN FLUSH Hydralazine HCl (Apresoline Iv) 10 mg IV Q2H PRN PRN PRN Reason: Hypertension Sodium Chloride () 250 mls @ 15 mls/hr IV .[id number] PRN PRN Reason: Saline Flush Last Infusion: 08/23/19 14:00 Dose: Infused Documented by: Sodium Chloride () 1,000 mls @ 0 mls/hr IV .Q0M [facility] Dextrose (Dextrose 10%-Water) 250 mls @ 999 mls/hr IV X1 PRN; Protocol Isosorbide Mononitrate (Imdur) 30 mg PO DAILY [facility] Last Admin: 08/24/19 08:54 Dose: 30 mg Documented by: Labetalol HCl (Trandate) 5 mg IV X1 PRN PRN Reason: SBP > 160 when pulling sheath Stop: 08/25/19 09:32 Lorazepam (Ativan) 1 mg PO Q6H PRN PRN PRN Reason: BACK SPASMS/ANXIETY Last Admin: 08/23/19 12:28 Dose: 1 mg Documented by: Losartan Potassium (Cozaar) 50 mg PO DAILY [facility] Last Admin: 08/24/19 08:51 Dose: 50 mg Documented by: Metoclopramide HCl (Reglan) 5 mg IV Q6H PRN PRN PRN Reason: NAUSEA/VOMITING Nitroglycerin (Nitrostat) 0.4 mg SUBLINGUAL Q5M PRN PRN Reason: CARDIAC/CHEST PAIN Last Admin: 08/23/19 11:10 Dose: 1 tab Documented by: Ondansetron HCl (Zofran) 4 mg IV Q8H PRN PRN PRN Reason: Nausea Pantoprazole Sodium (Protonix) 40 mg PO DAILY [facility] Last Admin: 08/24/19 08:53 Dose: 40 mg Documented by: Sodium Chloride () 10 - 40 ml IV UD PRN PRN Reason: SALINE FLUSH Last Admin: 08/24/19 04:11 Dose: 20 ml Documented by: Sodium Chloride () 500 ml IV BOLUS PRN PRN Reason: VASO-VAGAL PROTOCOL Ticagrelor (Brilinta) 90 mg PO BID [facility] Last Admin: 08/24/19 08:51 Dose: 90 mg Documented by: Assessment/Plan All Active Problems (Last Updated 08/23/19 @ 17:25 by Carol Mckeon) CHF (congestive heart failure) (Acute) This is a 74 years old male patient presented to the emergency room because of shortness of breath and cough, found to have acute respiratory failure secondary to acute flash pulmonary edema, CHF and also found non-ST relation NH and acute kidney injury. #1 acute flash pulmonary edema: IV nitroglycerin drip discontinued, he is on Lasix, nitrates, Coreg and losartan. Symptoms improved, has been on home oxygen and pulse ox is maintained. Patient underwent cardiac catheterization today as below. Cardiology and web content producer on the case. Plan to transfer to PCU. #2 acute hypoxic respiratory failure: Resolved, secondary to above in addition to possible pneumonia. Respiratory status improved, patient has been on room air and pulse ox is 97%. #3 acute non-ST relation NH: Status post cardiac catheterization, PTCA/TESSIE to proximal left circumflex, PTCA/TESSIE to distal RCA. He is on aspirin, statins, Coreg, nitrate, losartan and Brilinta. 2D echocardiogram revealed ejection fraction of 45%, stage II diastolic function. Patient has bruit at the right groin at the cath site. Ultrasound right groin ordered to rule out aneurysm and it is pending. #4 probable community-acquired pneumonia: On oral amoxicillin. Patient was on IV Zosyn. Fever is trending down, no leukocytosis. Sputum culture revealed beta Streptococcus, final is pending. Blood culture showed no growth in 48 hours. Urine culture showed no growth x2.. Nasal swab for influenza a and B were negative. #5 acute kidney injury: Probably prerenal. Admission creatinine was 1.54 on admission, came down to 1.11 today, improving. #6 CAD status post stents: Plan as above, continue aspirin, Brilinta, statins, losartan and Coreg. #7 hypertension: Blood pressure still on the higher side, started on IV nitroglycerin drip, continue Lasix, losartan and Coreg. #8 ischemic cardiomyopathy: With acute CHF/pulmonary edema as above. #9 paroxysmal atrial fibrillation: Currently in sinus rhythm, rate is controlled. He is Coreg for rate control and not on anticoagulation #10 hyperlipidemia: Continue statins. #11 DVT prophylaxis: SCDs. This note was generated with [employer] dictation software. It may contain incorrect words, spelling, and punctuation that were not noted in checking the note before signing. Code Visit Inpatient E&M: 34091 Subs Hosp L2
[2019-08-24] MEDS: Atorvastatin Calcium 80 MG Tablet PO (20:42)
[2019-08-25] VITALS (8 sets, daily range): BP systolic 108–165; BP diastolic 53–72; PULSE 61–85; RESP 16; TEMP 36.8–37.4; O2SAT 93–97
[2019-08-25] MEDS: AMOXICILLIN 500 MG CAPSULE PO (05:10)
[2019-08-25 06:21] LABS: Hematocrit 27.5 % (40-54); Hemoglobin 9.2 g/dL (13.0-16.5)
--- NOTE | 2019-08-25 07:13 | RAD_ITS ---
STUDY: X-RAY CHEST REASON FOR EXAM: Male, 74 years old. Fever. History of acute hypoxic respiratory failure. TECHNIQUE: Single AP portable view of the chest. COMPARISON: Comparison is made with prior examination dated August 21, 2019. FINDINGS: EKG electrodes are seen. A left-sided PICC line catheter is seen with the tip at the junction of the superior vena cava and right atrium. The orogastric tube and endotracheal tube is been removed. Since prior study, there has been a moderate degree of improvement of aeration of both lungs. Mild residual bilateral perihilar increased markings are seen as well as atelectasis and/or infiltrate in the posteromedial segment of the left lower lobe. There is no demonstrated pleural abnormality. Normal size heart. Normal mediastinum and shabana. Normal visualized pulmonary arteries. There is atherosclerotic tortuosity of the aortic arch and descending thoracic aorta. Normal visualized thoracic spine. Normal visualized ribs, clavicles, and shoulders. There is no demonstrated abnormality of the visualized soft tissue structures of the upper abdomen. RAD/Chest 1 View (Portable) IMPRESSION: Residual changes persist although there has been a moderate improvement in the aeration of both lungs. Electronically Signed: Omar Anthony, at 9:23 EST , Service support ,
[2019-08-25] MEDS: TICAGRELOR 90 MG TABLET PO (08:41)
[2019-08-25] MEDS: Aspirin E.C. 81 MG Tablet PO (08:42)
[2019-08-25] MEDS: Isosorbide Mononitrate 30 MG Tablet PO (08:42)
[2019-08-25] MEDS: Furosemide 40 MG Tablet PO (08:42)
[2019-08-25] MEDS: Famotidine 20 MG Tablet PO (08:42)
[2019-08-25] MEDS: Pantoprazole Sodium 40 MG Tablet PO (08:42)
[2019-08-25] MEDS: Carvedilol 6.25 MG Tablet PO (08:42)
[2019-08-25] MEDS: Losartan Potassium 50 MG Tablet PO (08:42)
--- NOTE | 2019-08-25 11:20 | DCINST_ITS ---
- Discharge Diagnoses Current Active Problems: Current Active and Chronic Problems (Last Updated 08/23/19 @ 17:25 by Carol Mckeon) CHF (congestive heart failure) (Acute) You will use the following diet at home:: Cardiac Your food should be the consistency of: Regular Discharge Activity: Return to Normal Activity Weight Bearing Status: Weight bearing as tolerated Call your doctor if you observe: Fever of 101 or Higher, Shortness of breath, Dizziness, Fainting spells, Swelling in the ankles, Chest pain, Increased palpitations (irregular heartbeat), Uncontrolled pain Allergies/Adverse Reactions: Allergies No Known Allergies Allergy (Verified 08/21/19 06:32) Medications to take at Discharge Nitroglycerin (INPATIENT USE) [Nitrostat] 0.4 mg SUBLINGUAL Q5M PRN #1 bottle 12/26/18 ticagrelor 90 mg tablet 90 mg PO BID #60 tab 01/10/19 aspirin 81 mg tablet,delayed release 81 mg PO DAILY #90 tab 01/21/19 atorvastatin 80 mg tablet 80 mg PO QHS #90 tab 01/21/19 Furosemide [Lasix] 40 mg PO DAILY 08/21/19 Losartan Potassium [Cozaar] 50 mg PO DAILY 08/21/19 Amoxicillin [Amoxil] 500 mg PO Q8 #15 cap 08/25/19 Carvedilol [Coreg (Beta Rocio)] 6.25 mg PO BID #90 tab 08/25/19 Isosorbide Mononitrate [Imdur] 30 mg PO DAILY #90 tab 08/25/19 Pantoprazole Sodium [Protonix] 40 mg PO DAILY #30 tab 08/25/19 The following prescriptions were given: Amoxicillin [Amoxil] 500 mg PO Q8 #15 cap Transmission Status: Pending to [facility]30 Carvedilol [Coreg (Beta Rocio)] 6.25 mg PO BID #90 tab Transmission Status: Pending to [facility] #30 Isosorbide Mononitrate [Imdur] 30 mg PO DAILY #90 tab Transmission Status: Pending to [facility] #30 Pantoprazole Sodium [Protonix] 40 mg PO DAILY #30 tab Transmission Status: Pending to [facility] #30 Orders to be completed after discharge: Phase II, Outpatient Cardiac Rehab Location: None Selected Primary Care Physician: Care Physician,No Primary [Primary Care Provider] - Please follow up with your Primary Care Physician in: 1 WEEK. Test Results: Test results from this visit will be discussed in further detail at your follow- up appointment, if applicable. Please Follow Up With: Prakash Vann MD When: 2-4 weeks.
--- NOTE | 2019-08-25 11:29 | PCA ---
List of area PCPs given to patient with discharge paperwork.
--- NOTE | 2019-08-25 11:57 | DS.PCM_ITS ---
Discharge Date and Diagnosis - Problem List Patient Problems: Active and Suspected Problems (Last Updated 08/23/19 @ 17:25 by Carol Mckeon) CHF (congestive heart failure) (Acute) Date of Admission: 08/21/19 Date of Discharge: 08/25/19 - Primary Discharge Diagnosis Active and Suspected Problems (Last Updated 08/23/19 @ 17:25 by Carol Mckeon) #1 acute flash pulmonary edema/acute systolic CHF. #2 acute non-ST elevation IA, status post PTCA/TESSIE to proximal left circumflex, PTCA/TESSIE to distal RCA. #3 acute hypoxic respiratory failure, resolved. #4 probable community-acquired pneumonia. #5 acute kidney injury, resolved. - Secondary Discharge Diagnosis Chronic Problems (Last Updated 08/23/19 @ 17:25 by Carol Mckeon) Right carotid bruit (Chronic) Paroxysmal atrial fibrillation (Chronic) Dyslipidemia (Chronic) Ischemic cardiomyopathy (Chronic) Hypertension (Chronic) Atherosclerosis of coronary artery of [place] heart without angina pectoris (Chronic) History of coronary artery stent placement (Chronic 08/23/19) TESSIE distal LCX with a 2.25 x 28 Promus Synergy, PCI with PTCA to the ostium of OM#2. PCI-TESSIE OM#1 with a 2.5 x 16 Promus Synergy 01/19/2019; PCI-TESSIE proximal LAD with a 3.0 x 20 Promus Synergy,TESSIE mid LAD with a 3.0 x 38 Promus Synergy stent, TESSIE distal LAD with a 2.25 x 12 Promus Synergy 12/23/18; TESSIE proximal LCX with a 3.0 x 8 Promus Synergy and TESSIE distal RCA with a 2.5 x 38 Promus Synergy, followed immediately upstream with a 3.0 x 12 Promus Synergy 08/23/19 STEMI (ST elevation myocardial infarction) (Chronic 12/23/18) Hospital Course and Treatment Imaging Results: 08/25/19 07:13 CXR [Chest 1 View (Portable)] [RAD] Urgent Clinical Impression(s) from Imaging Studies Chest X-Ray 08/21/19 06:40 IMPRESSION: endotracheal tube with the tube tip 5.1 cm proximal to the horacio. There is a orogastric tube tip in the stomach Significant patchy bilateral pulmonary opacities pulmonary edema and/or pneumonia Electronically Signed: Benny Lomeli, at 7:48 EST Tel , Service support , KUB X-Ray 08/21/19 09:20 IMPRESSION: NG tube placement consistent with position in the gastric antrum or duodenal bulb. Electronically Signed: Varsha Majano MD at 20:09 EST Tel , Service support , Chest X-Ray 08/25/19 07:13 IMPRESSION: Residual changes persist although there has been a moderate improvement in the aeration of both lungs. Electronically Signed: Omar Joycefarhad, at 9:23 EST , Service support , Dr. Allen, critical care. Dr. Vann, cardiology. Operations: None Procedures: 2-D Echocardiogram, Cardiac catheterization, EKG, Intubation Summary of Care Provided: Patient seen and examined on the day of discharge and appeared to be stable to be discharged home. He denies any complaints. He was evaluated by physical therapy and he did very well ambulating without any problems. His vital signs are stable. This is a 74 years old male patient presented to the emergency room because of shortness of breath and cough, found to have acute respiratory failure secondary to acute flash pulmonary edema, CHF and also found non-ST relation IA and acute kidney injury. #1 acute flash pulmonary edema: Admitted to the intensive care unit, needed endotracheal intubation and mechanical ventilation. He was treated with IV nitroglycerin drip, diuretics, nitrates as well as Coreg and losartan. Patient underwent cardiac catheterization and he had 2 stent placed as below. Patient was extubated, respiratory status stabilized and he was transferred out of the ICU to PCU. #2 acute hypoxic respiratory failure: Secondary to acute pulmonary edema in addition to probable pneumonia. Initially, patient required endotracheal intubation mechanical ventilation, later was extubated and afterwards, he did very well on room air, resolved. #3 acute non-ST relation IA: Status post cardiac catheterization, PTCA/TESSIE to proximal left circumflex, PTCA/TESSIE to distal RCA. Treated with aspirin, statins, Coreg, nitrate, losartan and Brilinta. 2D echocardiogram revealed ejection fraction of 45%, stage II diastolic function. Patient has bruit at the right groin at the cath site, ultrasound right groin showed no evidence of aneurysm or see aneurysm. #4 probable community-acquired pneumonia: Initially treated with IV antibiotics and then switched with to oral amoxicillin. Sputum culture revealed Streptococcus agalactiae B. Blood culture showed no growth in 48 hours. Urine culture showed no growth x2.. Nasal swab for influenza a and B were negative. Patient discharged on oral amoxicillin to complete total of 7 days of treatment. #5 acute kidney injury: Probably prerenal. Admission creatinine was 1.54 on admission, treated with IV fluids and came down to 1.11 today, returning back to normal.. Patient discharged home in a stable medical condition, discharged on amoxicillin 500 mg p.o. 3 times daily for 5 more days of treatment for pneumonia, discharged on aspirin, Brilinta, Lipitor, Coreg, isosorbide mononitrate and losartan as well as Lasix, discharged on Protonix, plan to follow-up with cardiology in 2 to 4 weeks, recommended follow-up with PCP in 1 week. Patient was evaluated by PT OT and he did very well and he was stable to go home without any need for intermediate facility placement. This note was generated with [employer] dictation software. It may contain incorrect words, spelling, and punctuation that were not noted in checking the note before signing. Patient Problems: Active and Suspected Problems (Last Updated 08/23/19 @ 17:25 by Carol Mckeon) CHF (congestive heart failure) (Acute) - Physical Exam Vitals/I&O's: Vital Signs Temp Pulse Resp BP Pulse Ox 98.8 F 63 16 165/70 H 97 08/25/19 08:30 08/25/19 11:03 08/25/19 08:30 08/25/19 08:30 08/25/19 08:30 Oxygen Flow Rate (L/min) 2 Oxygen Delivery Method Room Air Weight: 168 lb 6.931 oz Body Mass Index (BMI) 25.1 Intake and Output for Last 24 Hours 08/23/19 08/24/19 08/25/19 23:59 23:59 23:59 Intake Total 1943.99 / 2327.99 809.00 / 809.00 180 / 180 Output Total 1075 / 2575 2425 / 2425 675 / 675 Balance 868.99 / -247.01 -1616.00 / -1616.00 -495 / -495 General: Alert, Oriented x3, Cooperative, No apparent distress HEENT: Atraumatic, PERRLA, EOMI, Normocephalic Oral: Moist Mucosa, No Gingival or Mucosal Lesions/ Ulcerations Neck: Supple, No JVD, Negative Carotid Bruits, Trachea Midline, Thyroid Normal Size and Texture Lungs: Clear to auscultation, Normal air movement, No rhonchi, No wheeze, No rales, Diminished Cardiovascular: Regular rate, Regular Rhythm, Normal S1, Normal S2, No murmurs Abdomen: Bowel Sounds Present, Soft, Non Tender, Non-Distended, No Hepato- splenomegaly Extremities: No clubbing, No cyanosis, No edema Skin: No rashes, No breakdown Lymphatic: No Cervical, Supraclavicular, or Inguinal Adenopathy Neurological: Cranial nerves II-XII grossly intact, Neuro grossly intact Psych/Mental Status: Normal Affect, Appropriate Microbiology Past 72 Hours 08/22/19 06:25 Urine Catheter - Nunn Urine Culture - Final Culture exhibits no growth. 08/21/19 08:47 Sputum, Induced/Lukens Gram Stain - Final 08/21/19 08:47 Sputum, Induced/Lukens Respiratory Culture - Final Streptococcus agalactiae (B) 08/21/19 08:45 Blood Culture (Wb) - Left Wrist Blood Culture - Preliminary No growth in 48 hours. 08/21/19 06:55 Blood Culture (Wb) - Left Wrist Blood Culture - Preliminary No growth in 48 hours. 08/21/19 07:02 Blood Culture (Wb) - Anticubital Right Blood Culture - Preliminary No growth in 48 hours. 08/21/19 09:30 Urine Catheter - Nunn Urine Culture - Final Culture exhibits no growth. Laboratory Results 08/25/19 05:35: Hgb 9.2 L, Hct 27.5 L Current Medications Acetaminophen (Tylenol) 650 mg PO Q6H PRN PRN PRN Reason: Pain Score 1-3/10 Albuterol Sulfate (Ventolin Aerosols) 2.5 mg INHALATION Q2H PRN PRN PRN Reason: SOB/Wheezing Amoxicillin (Amoxil) 500 mg PO Q8 MAYRA Stop: 08/26/19 22:00 Last Admin: 08/25/19 05:10 Dose: 500 mg Documented by: Aspirin (Ecotrin) 81 mg PO DAILY@0800 [facility] Last Admin: 08/25/19 08:42 Dose: 81 mg Documented by: Atorvastatin Calcium (Lipitor) 80 mg PO QHS [facility] Last Admin: 08/24/19 20:42 Dose: 80 mg Documented by: Atropine Sulfate () 0.5 mg IV UD PRN PRN Reason: HR <50 bpm Carvedilol (Coreg) 6.25 mg PO BID [facility] Last Admin: 08/25/19 08:42 Dose: 6.25 mg Documented by: Chlorhexidine Gluconate () 1 each TOPICAL DAILY [facility] Last Admin: 08/25/19 08:42 Dose: Not Given Documented by: Famotidine (Pepcid) 20 mg PO BID [facility] Last Admin: 08/25/19 08:42 Dose: 20 mg Documented by: Fentanyl Citrate (Sublimaze (100mcg Ampule)) 25 mcg IV Q2H PRN PRN PRN Reason: Pain Score 4-10/10 Last Admin: 08/23/19 12:54 Dose: 25 mcg Documented by: Furosemide (Lasix) 40 mg PO DAILY [facility] Last Admin: 08/25/19 08:42 Dose: 40 mg Documented by: Glucagon () 1 mg IM .X1 PRN PRN Reason: Hypoglycemia Heparin Sodium (Beef Lung) (Heparin 500 Unit/5 Ml (100/Ml)) 500 unit IV UD PRN PRN Reason: HEPARIN FLUSH Hydralazine HCl (Apresoline Iv) 10 mg IV Q2H PRN PRN PRN Reason: Hypertension Sodium Chloride () 250 mls @ 15 mls/hr IV .[id number] PRN PRN Reason: Saline Flush Last Infusion: 08/23/19 14:00 Dose: Infused Documented by: Sodium Chloride () 1,000 mls @ 0 mls/hr IV .Q0M [facility] Dextrose (Dextrose 10%-Water) 250 mls @ 999 mls/hr IV X1 PRN; Protocol PRN Reason: HYPOGLYCEMIA Isosorbide Mononitrate (Imdur) 30 mg PO DAILY [facility] Last Admin: 08/25/19 08:42 Dose: 30 mg Documented by: Lorazepam (Ativan) 1 mg PO Q6H PRN PRN PRN Reason: BACK SPASMS/ANXIETY Last Admin: 08/23/19 12:28 Dose: 1 mg Documented by: Losartan Potassium (Cozaar) 50 mg PO DAILY [facility] Last Admin: 08/25/19 08:42 Dose: 50 mg Documented by: Metoclopramide HCl (Reglan) 5 mg IV Q6H PRN PRN PRN Reason: NAUSEA/VOMITING Nitroglycerin (Nitrostat) 0.4 mg SUBLINGUAL Q5M PRN PRN Reason: CARDIAC/CHEST PAIN Last Admin: 08/23/19 11:10 Dose: 1 tab Documented by: Ondansetron HCl (Zofran) 4 mg IV Q8H PRN PRN PRN Reason: Nausea Pantoprazole Sodium (Protonix) 40 mg PO DAILY [facility] Last Admin: 08/25/19 08:42 Dose: 40 mg Documented by: Sodium Chloride () 10 - 40 ml IV UD PRN PRN Reason: SALINE FLUSH Last Admin: 08/24/19 20:51 Dose: 20 ml Documented by: Sodium Chloride () 500 ml IV BOLUS PRN PRN Reason: VASO-VAGAL PROTOCOL Ticagrelor (Brilinta) 90 mg PO BID [facility] Last Admin: 08/25/19 08:41 Dose: 90 mg Documented by: Discharge Activity: Return to Normal Activity Weight Bearing Status: Weight bearing as tolerated Call your doctor if you observe: Fever of 101 or Higher, Shortness of breath, Dizziness, Fainting spells, Swelling in the ankles, Chest pain, Increased palpitations (irregular heartbeat), Uncontrolled pain Home Medications: Medications to take at Discharge Nitroglycerin (INPATIENT USE) [Nitrostat] 0.4 mg SUBLINGUAL Q5M PRN #1 bottle 12/26/18 ticagrelor 90 mg tablet 90 mg PO BID #60 tab 01/10/19 aspirin 81 mg tablet,delayed release 81 mg PO DAILY #90 tab 01/21/19 atorvastatin 80 mg tablet 80 mg PO QHS #90 tab 01/21/19 Furosemide [Lasix] 40 mg PO DAILY 08/21/19 Losartan Potassium [Cozaar] 50 mg PO DAILY 08/21/19 Amoxicillin [Amoxil] 500 mg PO Q8 #15 cap 08/25/19 Carvedilol [Coreg (Beta Rocio)] 6.25 mg PO BID #90 tab 08/25/19 Isosorbide Mononitrate [Imdur] 30 mg PO DAILY #90 tab 08/25/19 Pantoprazole Sodium [Protonix] 40 mg PO DAILY #30 tab 08/25/19 Following Prescrptions Were Given to Patient: Amoxicillin [Amoxil] 500 mg PO Q8 #15 cap Transmission Status: Received by [facility] Carvedilol [Coreg (Beta Rocio)] 6.25 mg PO BID #90 tab Transmission Status: Received by [facility] Isosorbide Mononitrate [Imdur] 30 mg PO DAILY #90 tab Transmission Status: Received by [facility] [place] #[facility] Pantoprazole Sodium [Protonix] 40 mg PO DAILY #30 tab Transmission Status: Received by [facility] Other Amb Orders: Phase II, Outpatient Cardiac Rehab Location: None Selected Primary Care Physician: Care Physician,No Primary [Primary Care Provider] - Please follow up with your Primary Care Physician in: 1 WEEK. Please Follow Up With: Prakash Vann MD When: 2-4 weeks. Disposition: Home Minutes spent on discharge:: 34 Patient Condition:: Stable Meaningful Use Info Meaningful Use Diagnoses (Choose all that apply): CHF - CHF ANNETTE/ARB ordered at discharge?: Yes Documented LVEF (%): 45 Code Visit Inpatient E&M: 47776 Disch Hosp
--- NOTE | 2019-08-25 12:10 | CASEMGMT ---
Therapy states no further therapy is recommended for pt at this time. This RN CM to room and pt/ state no concerns with going home at time of discharge. Pt/ state no need for any further resources at discharge. is concerned about the CXR results at this time. Rosa MARIE aware of 's concerns and states will update her on results. Pt/ voice no further questions/concerns/needs at this time. SStaten FRANK CM
--- NOTE | 2019-08-25 13:07 | NURSING ---
PICC line dc'd tip intact. Vaseline guaze with 2x2 overtop secured with tegaderm after 5min of direct pressure. Instructed to lie flat x 30 min. Verbalizes understanding.
--- NOTE | 2019-08-26 12:27 | CASEMGMT ---
FRANK CM DC PHONE CALL DC DATE: 08.26.19 DC Disposition: Home Diagnosis on Discharge: 08/17 LACE/STRATA: 08/17 Attempted call to phone. Service not working. Miquel GUTIERREZN RN ACM
== END 2019-08-25 13:33 | disposition home or self-care (01) | DRG 246 ==
LOC: ED 06:33 → ICU 07:37 → PCU 08-24 16:52
PROVIDERS: Internal Medicine Cardiovascular Disease; Internal Medicine Critical Care Medicine; Admitting Provider Internal Medicine; Emergency Provider Emergency Medicine; Visit Provider Hospitalist
DX: I11.0 Hypertensive heart disease with heart failure (principal); J96.01 Acute respiratory failure with hypoxia; I21.4 Non-ST elevation (NSTEMI) myocardial infarction; I50.21 Acute systolic (congestive) heart failure; J18.9 Pneumonia, unspecified organism; N17.9 Acute kidney failure, unspecified; I16.1 Hypertensive emergency; I25.2 Old myocardial infarction; E78.5 Hyperlipidemia, unspecified; Z95.5 Presence of coronary angioplasty implant and graft; I48.0 Paroxysmal atrial fibrillation; E87.6 Hypokalemia; I25.5 Ischemic cardiomyopathy
CPT/HCPCS: 31500; 31720; 36415; 36569; 36600; 71045; 74018; 80048; 80053; 81001; 82803; 82962; 83605; 83735; 83880; 84100; 84484; 85014; 85018; 85025; 85027; 85347; 85610; 85730; 87040; 87070; 87077; 87086; 87186; 87205; 87641; 87804; 92928; 93005; 93306; 93458; 93926; 94002; 94003; 94660; 94667; 94668; 95831; 97162; 97166; 97530; 97802; 99152; 99251; 99285; J7030; J7040; J7050; Q9957; Q9967; A4216; C1725; C1769; C1874; C1887; C1894; C8929; C9600; G0463; J0330; J1940; J3490

== ENCOUNTER → 2019-10-05 10:39 | Outpatient (CLI) | payer MEDICARE, SELFPAY ==
[2019-08-23 10:44] VITALS: BMI 24.7
[2019-09-29 14:24] VITALS: BMI 25.0
[2019-10-05 13:07] LABS: AST(SGOT) 56 U/L (15-37); Alanine Aminotransfer ALT/SGPT 44 U/L (16-61); Albumin, Serum 2.7 g/dL (3.2-5.0); Alkaline Phosphatase 183 U/L (45-117); Bilirubin, Direct 0.27 mg/dL (0.00-0.30); Cholesterol 90 mg/dL (200); Globulin 4.3 g/dL (2.2-4.2); High Density Lipoprotein 41 mg/dL; Triglycerides 58 mg/dL; Very Low Density Lipoprotein 12 mg/dL (5-40)
== END ==
PROVIDERS: Referring Provider Internal Medicine Cardiovascular Disease; Visit Provider Internal Medicine Cardiovascular Disease
DX: E78.5 Hyperlipidemia, unspecified (principal); I25.10 Atherosclerotic heart disease of native coronary artery without angina pectoris
CPT/HCPCS: 36415; 80061; 80076

== ENCOUNTER → 2020-04-16 05:41 | Outpatient (CLI) | payer MEDICARE, SELFPAY ==
[2019-08-23 10:44] VITALS: BMI 24.7
[2019-09-29 14:24] VITALS: BMI 25.0
[2020-04-16 07:32] LABS: AST(SGOT) 37 U/L (15-37); Alanine Aminotransfer ALT/SGPT 37 U/L (16-61); Albumin, Serum 3.1 g/dL (3.2-5.0); Alkaline Phosphatase 111 U/L (45-117); Bilirubin, Direct 0.14 mg/dL (0.00-0.30); Cholesterol 104 mg/dL (200); Globulin 4.3 g/dL (2.2-4.2); High Density Lipoprotein 43 mg/dL; Protein, Total 7.4 g/dL (6.4-8.2); Triglycerides 55 mg/dL; Very Low Density Lipoprotein 11 mg/dL (5-40)
== END ==
PROVIDERS: Referring Provider Internal Medicine Cardiovascular Disease; Visit Provider Internal Medicine Cardiovascular Disease
DX: E78.00 Pure hypercholesterolemia, unspecified (principal)
CPT/HCPCS: 36415; 80061; 80076

== ENCOUNTER → 2020-11-02 09:25 | Outpatient (CLI) | payer MEDICARE, SELFPAY ==
[2019-08-23 10:44] VITALS: BMI 24.7
[2020-10-30 13:57] VITALS: BMI 29.3
[2020-11-02 11:32] LABS: Absolute Lymphocyte Count 1.66 X10^3/uL (0.83-4.51); Absolute Neutrophil Count 4.3 X10^3/uL (2.0-7.7); Basophil# 0.03 X10^3/uL; Basophil% 0.4 % (0-1); Eosinophil# 0.35 X10^3/uL; Hematocrit 33.9 % (40-54); Hemoglobin 10.5 g/dL (13.0-16.5); Lymphocyte # 1.66 X10^3/ul (4.0); Lymphocyte % 23.6 % (19-41); Mean Corpuscular Hgb 26.2 pg (27.0-32.0); Mean Corpuscular Volume 84.5 fL (80-94); Mean Platelet Vol. 11.5 fl (6.2-12.0); Monocyte# 0.72 X10^3/uL; Monocyte% 10.2 % (0-10); NRBC Flagged by Analyzer 0 % (0-5); Neutrophil # 4.26 X10^3/uL (2.7-7.7); Neutrophil % 60.7 % (47-70); Platelet Count 176 K/mm3 (150-450); RBC Distribution Width SD 49.3 fl (35.1-43.9); Red Blood Count 4.01 M/mm3 (4.6-6.2)
[2020-11-02 11:45] LABS: BNP,B-Type NATRIURETIC PEPTIDE 91.9 pg/mL (0-100)
[2020-11-02 11:51] LABS: AST(SGOT) 46 U/L (15-37); Alanine Aminotransfer ALT/SGPT 41 U/L (16-61); Albumin, Serum 3.5 g/dL (3.2-5.0); Alkaline Phosphatase 113 U/L (45-117); Anion Gap 5 (5-15); BUN 23 mg/dL (7-18); BUN/Creat Ratio 15.9 RATIO (10-20); Calcium,Total 9.2 mg/dL (8.5-10.1); Chloride 106 mmol/L (98-107); Cholesterol 91 mg/dL (200); Creatinine, Serum 1.45 mg/dL (0.70-1.30); EST Glomerular Filtration Rate 50 mL/min (>60); Est Glom Filt Rate - Afr Amer 61 mL/min (>60); Globulin 4.2 g/dL (2.2-4.2); Glucose 84 mg/dL (74-106); High Density Lipoprotein 39 mg/dL; Potassium 4.1 mmol/L (3.5-5.1); Protein, Total 7.7 g/dL (6.4-8.2); Sodium Level 138 mmol/L (136-145); Triglycerides 74 mg/dL; Very Low Density Lipoprotein 15 mg/dL (5-40)
== END ==
PROVIDERS: Internal Medicine Cardiovascular Disease; PCP Family Medicine; Referring Provider Nurse Practitioner Family; Visit Provider Nurse Practitioner Family
DX: I11.0 Hypertensive heart disease with heart failure (principal); I50.9 Heart failure, unspecified; I48.0 Paroxysmal atrial fibrillation; I25.5 Ischemic cardiomyopathy; I25.10 Atherosclerotic heart disease of native coronary artery without angina pectoris; E78.00 Pure hypercholesterolemia, unspecified; R09.89 Other specified symptoms and signs involving the circulatory and respiratory systems
CPT/HCPCS: 36415; 80048; 80061; 80076; 83880; 85025

== ENCOUNTER → 2020-11-08 13:40 | Outpatient (CLI) | payer MEDICARE, SELFPAY ==
[2019-08-23 10:44] VITALS: BMI 24.7
[2020-10-30 13:57] VITALS: BMI 29.3
--- NOTE | 2020-11-08 13:44 | ECHOD_ITS ---
Reason For Study: CHF Procedure This was a 2D Doppler, Color Flow transthoracic echocardiogram. Exam performed in department. Left Ventricle Normal LV size. The estimated ejection fraction is 65 %. No evidence for diastolic dysfunction. No regional wall motion abnormalities noted. Right Ventricle Normal RV size. Normal systolic function. Atria Normal left atrium. Normal right atrium. No doppler evidence for ASD. Mitral Valve There is no mitral valve stenosis. Trivial mitral valve insufficiency. Tricuspid Valve There is no tricuspid stenosis. Unable to estimate RV systolic pressure due to inadequate jet, pulmonary artery pressure probably normal. Aortic Valve Aortic sclerosis, no stenosis. There is no aortic stenosis. Trivial aortic valve insufficiency. Pulmonic Valve There is no pulmonic valvular stenosis. No pulmonic valve insufficiency. Great Vessels Normal aortic root. Pericardium/Pleural No pericardial effusion. MMode/2D Measurements & Calculations LVIDd: 5.2 cm IVSd: 0.98 cm LVOT diam: 2.1 cm LVIDs: 3.6 cm LVPWd: 1.0 cm LVOT area: 3.6 cm2 RVDd: 3.3 cm FS: 30.3 % Ao root diam: 3.3 cm LAV(MOD-bp): 62.4 ml LA A4 area: 17.4 cm2 LAV(MOD-bp) Indexed: 31.0 ml/m2 LAV(MOD-sp2): 65.6 ml LAV(MOD-sp4): 51.4 ml LA dimension(2D): 3.9 cm RA A4 area: 15.3 cm2 Time Measurements MV dec time: 0.24 sec Doppler Measurements & Calculations MV E max nito: 83.3 cm/sec Lat Peak E' Nito: 10.7 cm/sec Med Peak E' Nito: 8.8 cm/sec MV A max nito: 66.7 cm/sec E/E' lat: 7.8 E/E' med: 9.5 MV E/A: 1.2 Ao V2 max: 209.4 cm/sec AI max nito: 385.3 cm/sec LV V1 max: 115.3 cm/sec Ao max P.6 mmHg AI max P.4 mmHg LV V1 max P.3 mmHg Ao V2 mean: 148.7 cm/sec AI dec slope: 151.8 cm/sec2 LV V1 mean P.2 mmHg Ao mean P.7 mmHg AI P1/2t: 743.4 msec LV V1 mean: 85.3 cm/sec Ao V2 VTI: 49.6 cm LV V1 VTI: 28.2 cm SHARLENE(I,D): 2.0 cm2 SHARLENE(V,D): 2.0 cm2 SV(LVOT): 101.4 ml PA V2 max: 111.2 cm/sec Interpretation Summary The estimated ejection fraction is 65 %. No evidence for diastolic dysfunction. Trivial aortic valve insufficiency. Aortic sclerosis, no stenosis. Trivial mitral valve insufficiency. Ordering Physician: Bob Leonardo Referring Physician: Flakito Villanueva Performed By: Arianne Majano RDCS, RVT
== END ==
PROVIDERS: PCP Family Medicine; Referring Provider Nurse Practitioner Family; Visit Provider Nurse Practitioner Family
DX: I50.9 Heart failure, unspecified (principal); I48.0 Paroxysmal atrial fibrillation; I25.5 Ischemic cardiomyopathy; I35.1 Nonrheumatic aortic (valve) insufficiency; R06.00 Dyspnea, unspecified
CPT/HCPCS: 93306

== ENCOUNTER → 2021-05-07 14:45 | Outpatient (CLI) | payer MEDICARE, SELFPAY ==
[2019-08-23 10:44] VITALS: BMI 24.7
--- NOTE | 2021-05-07 14:50 | RAD_ITS ---
STUDY: X-RAY CHEST REASON FOR EXAM: Male, 76 years old. chest pain post fall to chest TECHNIQUE: PA and lateral views of the chest. COMPARISON: 08/25/2019 FINDINGS: Interval removal of the left upper extremity PICC. The lungs are clear and expanded. There is no demonstrated pleural abnormality. Normal size heart. Normal mediastinum and shabana. Normal visualized pulmonary arteries. Normal visualized aortic arch and descending thoracic aorta. Normal visualized thoracic spine. Normal visualized ribs, clavicles, and shoulders. There is no demonstrated abnormality of the visualized soft tissue structures of the upper abdomen. RAD/Chest PA and Lateral IMPRESSION: Normal x-ray examination of the chest. Electronically Signed: Boo Gonzalez MD at 10:11 EDT Tel , Service support ,
== END ==
PROVIDERS: PCP Family Medicine; Referring Provider Nurse Practitioner Family; Visit Provider Nurse Practitioner Family
DX: S29.9XXA Unspecified injury of thorax, initial encounter (principal); W19.XXXA Unspecified fall, initial encounter
CPT/HCPCS: 71046

== ENCOUNTER → 2021-05-23 07:58 | Outpatient (CLI) | payer MEDICARE, SELFPAY ==
[2019-08-23 10:44] VITALS: BMI 24.7
[2021-05-23 08:53] LABS: AST(SGOT) 49 U/L (15-37); Alanine Aminotransfer ALT/SGPT 55 U/L (16-61); Albumin, Serum 3.4 g/dL (3.2-5.0); Alkaline Phosphatase 98 U/L (45-117); Bilirubin, Direct 0.14 mg/dL (0.00-0.30); Cholesterol 103 mg/dL (200); Globulin 4.4 g/dL (2.2-4.2); High Density Lipoprotein 41 mg/dL; Protein, Total 7.8 g/dL (6.4-8.2); Triglycerides 90 mg/dL; Very Low Density Lipoprotein 18 mg/dL (5-40)
== END ==
PROVIDERS: PCP Family Medicine; Referring Provider Nurse Practitioner Family; Visit Provider Nurse Practitioner Family
DX: E78.00 Pure hypercholesterolemia, unspecified (principal)
CPT/HCPCS: 36415; 80061; 80076

== ENCOUNTER 2022-05-16 03:13 | Observation (INO) | payer MEDICARE, SELFPAY ==
[2019-08-23 10:44] VITALS: BMI 24.7
[2022-05-16] VITALS (12 sets, daily range): BP systolic 133–220; BP diastolic 48–99; PULSE 46–63; RESP 15–20; TEMP 36.3–36.8; O2SAT 95–100; BMI 29.5; BMI 30.2
--- NOTE | 2022-05-16 03:22 | ED.VIS.CHEST ---
HPI History of Present Illness Chief Complaint: Chest Pain Informant: patient Onset/Context/Timing Onset: Hours (5) Activity at onset: gradual Timing: Continuous Quality: Positive for - (Cramping) Location: Left Chest Worsened By: Nothing Relieved By: Nothing Associated Symptoms: Positive for Dyspnea and Lightheadedness; Negative for Nausea, Vomiting, Diaphoresis, Cough, Fever, Acid Reflux or Palpitations Narrative Narrative: Patient presents with left-sided chest pain that began approximately 5 to 6 hours prior to arrival. Patient states it came on gradually. Patient states he had an episode of blurred vision prior to the pain starting. Patient states the blurry vision has resolved. Patient states the pain in his chest has been persistent. Patient describes it as cramping. Patient states nothing makes it better nothing makes it worse. Patient admits to some slight shortness of breath. Patient also admits to some lightheadedness and dizziness. Patient denies any nausea or vomiting. Patient denies any cough or fever. Patient denies any diaphoresis or palpitations. Prior Similar Symptoms: Yes and With Prior HI CVD Risk Factors: Positive for Hypertension and Hypercholesterolemia; Negative for Diabetes, Family History 1' </=55 or Smoking PE Risk Factors: Negative for Recent Travel/Surgery, Recent Immobilization, Prior DVT or PE, Cancer or OCP + Smoking + >/=35 PFSH [facility] Medical History Atherosclerosis of coronary artery of [place] heart without angina pectoris Dyslipidemia Essential hypertension History of non-ST elevation myocardial infarction (NSTEMI) (08/31/19) History of ST elevation myocardial infarction (STEMI) (12/23/18) Paroxysmal atrial fibrillation Right carotid bruit Home Medications aspirin 81 mg tablet,delayed release (Adult Low Dose Aspirin) 81 mg PO DAILY #90 tabs 01/21/19 [Rx Last Taken Unknown] nitroglycerin 0.4 mg sublingual tablet 0.4 mg sublingual Q5M PRN Cardiac/Chest Pain #1 BOTTLE 11/27/20 [Rx Last Taken Unknown] isosorbide mononitrate 30 mg tablet,extended release 24 hr 30 mg PO DAILY #90 tabs 07/22/21 [Rx Last Taken Unknown] clopidogrel 75 mg tablet (Plavix) 75 mg PO DAILY #90 tabs 09/25/21 [Rx Last Taken Unknown] losartan 25 mg tablet 25 mg PO DAILY #90 tabs 09/25/21 [Rx Last Taken Unknown] carvedilol 6.25 mg tablet 6.25 mg PO BID #180 tabs 04/09/22 [Rx Last Taken Unknown] furosemide 40 mg tablet 40 mg PO DAILY diuretic #90 tabs 04/14/22 [Rx Last Taken Unknown] atorvastatin 80 mg tablet 80 mg PO QHS #90 tabs 04/28/22 [Rx Last Taken Unknown] pantoprazole 40 mg tablet,delayed release 40 mg PO DAILY 05/16/22 [History Last Taken Unknown] Allergy/AdvReac Type Severity Reaction Status Date / Time No Known Allergies Allergy Verified 05/16/22 03:17 Surgical History History of coronary artery stent placement (08/23/19) Social History Smoking Status: Never smoker ROS ROS ED Constitutional Constitutional ED: Denies chills or fever(s) Eyes Eyes: Denies blurry vision or change in vision ENT ENT ED: Denies rhinorrhea or sore throat Cardiovascular Cardiovascular: Reports chest pain; Denies palpitations Respiratory/Chest Respiratory/Chest: Reports dyspnea; Denies cough Gastrointestinal Gastrointestinal: Denies abdominal pain, nausea or vomiting Genitourinary Genitourinary ED: Denies dysuria or hematuria Musculoskeletal Musculoskeletal: Denies back pain or neck pain Integumentary Reports rash; Denies abscess Neurologic Neurologic: Denies headache(s) or weakness Allergic/Immunologic Allergic/Immunologic ED: Denies mouth swelling or urticaria EXAM Physical Exam Const Vital Signs: 05/16/22 03:14 05/16/22 03:18 05/16/22 03:38 Temperature 97.4 F L Temperature Source Temporal Pulse Rate 61 Respiratory Rate 20 H Respiratory Effort Normal Respiratory Pattern Normal Blood Pressure 220/82 H Blood Pressure Mean 128 Pulse Ox 98 Oxygen Delivery Method Room Air Room Air 05/16/22 03:44 05/16/22 04:08 05/16/22 05:00 Temperature Temperature Source Pulse Rate 63 53 L 52 L Respiratory Rate 15 15 Respiratory Effort Respiratory Pattern Blood Pressure 185/66 H 141/67 H 163/67 H Blood Pressure Mean 91 99 Pulse Ox 95 97 Oxygen Delivery Method Room Air Room Air Positive well nourished and well developed General Appearance ED: well developed and NAD HEENT normocephalic and atraumatic Eyes PERRL and EOMs intact bilaterally Neck supple and no JVD Chest Wall palpation of chest normal Resp normal respiratory effort and clear to auscultation bilaterally Effort and Inspection: Negative for respiratory distress Cardio regular rate, regular rhythm and no murmurs GI normal to inspection, nondistended, normoactive bowel sounds, soft to palpation, non-tender and non-distended Extremity normal to inspection General Extremety ED: Negative for edema or tenderness General Extremity: Negative for edema Neuro oriented x3, CN's II-XII intact bilaterally and no sensory deficits noted Sensorium / Orientation: awake and alert Motor Exam: strength 5/5 throughout Psych mental status grossly normal Heart Score History: Slightly/Non-Suspicious ECG: Nonspecific Repolarization Age: >/= 65 years Risk Factors: >/= 3 Risk Factors or History of CAD Troponin: </= Normal Limit Score: 5 MDM MDM MDM Narrative Medical decision making narrative: Patient was given aspirin and sublingual nitroglycerin. EKG was obtained. On my interpretation, it showed a normal sinus rhythm with a rate of 65. OH interval, QRS interval, and QTc intervals were all normal. There is left axis deviation at -41. There are nonspecific ST-T wave changes. CBC shows a mild anemia with a hemoglobin of 10.8 and hematocrit 34.1. Basic metabolic profile shows a BUN of 26 and a creatinine of 1.56. These are consistent with prior results. High-sensitivity troponin was 12. Portable 1 view chest x-ray was obtained. On my interpretation, lung miramontes are clear. There is normal cardiac silhouette. Bony thorax is normal. There is no acute process noted. Radiologist also interpreted the x-ray and agrees. Patient has a HEART score of 5. Patient is agreeable with to admission to the hospital. Case was discussed with the hospitalist. We will admit the patient for observation. Patient understands and is agreeable with the plan. All questions were answered. Lab Data Attestation: I reviewed the patient's lab results. Labs: Laboratory Results - last 24 hr 05/16/22 05/16/22 05/16/22 03:20 03:20 03:28 WBC 6.9 RBC 4.08 L Hgb 10.8 L Hct 34.1 L MCV 83.6 MCH 26.5 L MCHC 31.7 L RDW Std Deviation 46.8 H RDW Coeff of Fercho 15.4 H Plt Count 204 MPV 11.1 Immature Gran % (Auto) 0.100 Neut % (Auto) 62.5 Lymph % (Auto) 20.7 [place] % (Auto) 11.1 H Eos % (Auto) 5.2 H Baso % (Auto) 0.4 Absolute Neuts (auto) 4.3 Absolute Lymphs (auto) 1.43 Nucleated RBC % 0 Sodium 141 Potassium 3.9 Chloride 110 H Carbon Dioxide 24.0 Anion Gap 7 BUN 26 H Creatinine 1.56 H Estim Creat Clear Calc 38.37 Est GFR (MDRD) Af Amer 56 L Est GFR (MDRD) Non-Af 46 L BUN/Creatinine Ratio 16.7 Glucose 152 H Calcium 8.6 Troponin I High Sens 12 POC Glucose 153 H Radiography Chest X-Ray - ED: 1 View, Read by ED Physician, Read by Radiologist and No Acute Disease Diagnostic Testing: Clinical Impression(s) from Imaging Studies Chest X-Ray 05/16/22 03:37 IMPRESSION: No acute cardiopulmonary disease. No significant interval change. Electronically Signed: Georgia Harrison MD at 4:11 EDT Reading Location ID and State: , Service support , EKG Initial EKG: Attestation: I personally reviewed and interpreted this EKG as follows: Interpretation: Sinus Rhythm (65) and Non-Specific ST Changes Prior EKG tracings: available for review Prior: Unchanged (08/23/2019) Discharge Plan Triage Chief Complaint: Chest Pain ED Provider: Juan Diego Conroy Dx/Rx/DC Orders Clinical Impression: Chest pain, Essential hypertension, History of coronary artery stent placement Prescriptions: No Action nitroglycerin 0.4 mg tablet, sublingual 0.4 mg sublingual Q5M PRN (Reason: Cardiac/Chest Pain) Qty: 1 4RF pantoprazole 40 mg tablet,delayed release (DR/EC) 40 mg PO DAILY aspirin [Adult Low Dose Aspirin] 81 mg tablet,delayed release (DR/EC) 81 mg PO DAILY Qty: 90 3RF isosorbide mononitrate 30 mg tablet extended release 24 hr 30 mg PO DAILY Qty: 90 3RF clopidogrel [Plavix] 75 mg tablet 75 mg PO DAILY Qty: 90 3RF losartan 25 mg tablet 25 mg PO DAILY Qty: 90 3RF carvedilol 6.25 mg tablet 6.25 mg PO BID Qty: 180 3RF Rx Instructions: must administer with a meal/food furosemide 40 mg tablet 40 mg PO DAILY Qty: 90 3RF atorvastatin 80 mg tablet 80 mg PO QHS Qty: 90 3RF Primary Care Provider: Mal Villanueva Referrals: Mal Villanueva MD [Primary Care Provider] - Disposition Disposition: Acute Care Hospital [facility]
--- NOTE | 2022-05-16 03:37 | EKG12_ITS ---
Test Reason : CP Blood Pressure : / mmHG Vent. Rate : 065 BPM Atrial Rate : 065 BPM P-R Int : 172 ms QRS Dur : 098 ms QT Int : 412 ms P-R-T Axes : 018 -41 065 degrees QTc Int : 428 ms Normal sinus rhythm with sinus arrhythmia Left axis deviation Nonspecific ST and T wave abnormality Abnormal ECG Confirmed by BONITA WATERS, NEHEMIAS ([id number]), development editor ADELFO WEBB ([id number]) on 05/20/2022 8:53:51 AM Referred By: SYLVIA Confirmed By:JIM MESA MD
--- NOTE | 2022-05-16 03:37 | RAD_ITS ---
STUDY: X-RAY CHEST REASON FOR EXAM: Male, 77 years old. chest pain TECHNIQUE: Single AP portable view of the chest. COMPARISON: 05/07/2021 FINDINGS: There are superimposed monitor leads. The lungs are clear and expanded. There is no demonstrated pleural abnormality. Normal size heart. Coronary artery calcification. Normal mediastinum and shabana. Normal visualized pulmonary arteries. Normal visualized x-ray aortic arch and descending thoracic aorta. Age-appropriate thoracic spine. There is degenerative osteoarthritis of the bilateral shoulders. There is no demonstrated abnormality of the visualized soft tissue structures of the upper abdomen. RAD/Chest 1 View (Portable) IMPRESSION: No acute cardiopulmonary disease. No significant interval change. Electronically Signed: Georgia Harrison MD at 4:11 EDT Reading Location ID and State: , Service support ,
[2022-05-16] MEDS: Aspirin 81 MG TAB.CHEW 324 MG PO (03:43)
[2022-05-16] MEDS: Nitroglycerin SL (ED/IMG/CATH) 0.4 MG TABLET SL (03:44)
[2022-05-16 03:46] LABS: Bedside Glucose 153 mg/dL (74-106)
[2022-05-16 03:47] LABS: Absolute Lymphocyte Count 1.43 X10^3/uL (0.83-4.51); Absolute Neutrophil Count 4.3 X10^3/uL (2.0-7.7); Basophil# 0.03 X10^3/uL; Basophil% 0.4 % (0-1); Eosinophil# 0.36 X10^3/uL; Eosinophils% 5.2 % (0-5); Hematocrit 34.1 % (40-54); Hemoglobin 10.8 g/dL (13.0-16.5); Lymphocyte # 1.43 X10^3/ul (0.83-4.51); Lymphocyte % 20.7 % (19-41); Mean Corp Hgb Conc 31.7 g/dL (32-36); Mean Corpuscular Hgb 26.5 pg (27.0-32.0); Mean Corpuscular Volume 83.6 fL (80-94); Mean Platelet Vol. 11.1 fl (6.2-12.0); Monocyte# 0.77 X10^3/uL; Monocyte% 11.1 % (0-10); NRBC Flagged by Analyzer 0 % (0-5); Neutrophil # 4.32 X10^3/uL (2.7-7.7); Neutrophil % 62.5 % (47-70); Platelet Count 204 K/mm3 (150-450); RBC Distribution Width CV 15.4 % (11.6-14.6); RBC Distribution Width SD 46.8 fl (35.1-43.9); Red Blood Count 4.08 M/mm3 (4.6-6.2); White Blood Count 6.9 K/mm3 (4.4-11.0)
[2022-05-16 04:28] LABS: Anion Gap 7 (5-15); BUN 26 mg/dL (7-18); BUN/Creat Ratio 16.7 RATIO (10-20); Calcium,Total 8.6 mg/dL (8.5-10.1); Chloride 110 mmol/L (98-107); Creatinine, Serum 1.56 mg/dL (0.70-1.30); EST Glomerular Filtration Rate 46 mL/min (>60); Est Glom Filt Rate - Afr Amer 56 mL/min (>60); Estimated Creatinine Clearance 38.37 ml/min; Glucose 152 mg/dL (74-106); Potassium 3.9 mmol/L (3.5-5.1); Sodium Level 141 mmol/L (136-145); Troponin-I HS (w/2H Reflex) 12 pg/mL (3.0-78.0)
--- NOTE | 2022-05-16 05:35 | PCM.HP.STD ---
HPI - General General Date of Admission: 05/16/22 Date of Service: 05/16/22 Chief Complaint: chest pain HPI Narrative QASIM TAO, is a 77 M with a significant history of CAD status post stent; paroxysmal A. fib not on anticoagulation; heart failure with improved ejection fraction; hypertension and hyperlipidemia who presents emergency department with 5 to 6 hours history of sudden onset persistent chest pain. He describes his chest pain as a pressure on his rib cage. The chest pain is located under his left breast. The chest pain is nonradiating. Associated with his symptoms is transient blurry vision and loss of balance. He reports mild shortness of breath. He denies any aggravating or ameliorating factors to the chest pain. [facility] Medical History Atherosclerosis of coronary artery of [place] heart without angina pectoris Dyslipidemia Essential hypertension History of non-ST elevation myocardial infarction (NSTEMI) (08/31/19) History of ST elevation myocardial infarction (STEMI) (12/23/18) Paroxysmal atrial fibrillation Right carotid bruit Home Medications aspirin 81 mg tablet,delayed release (Adult Low Dose Aspirin) 81 mg PO DAILY #90 tabs 01/21/19 [Rx Last Taken Unknown] nitroglycerin 0.4 mg sublingual tablet 0.4 mg sublingual Q5M PRN Cardiac/Chest Pain #1 BOTTLE 11/27/20 [Rx Last Taken Unknown] isosorbide mononitrate 30 mg tablet,extended release 24 hr 30 mg PO DAILY #90 tabs 07/22/21 [Rx Last Taken Unknown] clopidogrel 75 mg tablet (Plavix) 75 mg PO DAILY #90 tabs 09/25/21 [Rx Last Taken Unknown] losartan 25 mg tablet 25 mg PO DAILY #90 tabs 09/25/21 [Rx Last Taken Unknown] carvedilol 6.25 mg tablet 6.25 mg PO BID #180 tabs 04/09/22 [Rx Last Taken Unknown] furosemide 40 mg tablet 40 mg PO DAILY diuretic #90 tabs 04/14/22 [Rx Last Taken Unknown] atorvastatin 80 mg tablet 80 mg PO QHS #90 tabs 04/28/22 [Rx Last Taken Unknown] pantoprazole 40 mg tablet,delayed release 40 mg PO DAILY 05/16/22 [History Last Taken Unknown] Allergy/AdvReac Type Severity Reaction Status Date / Time No Known Allergies Allergy Verified 05/16/22 03:17 Family History unable to obtain unable to obtain (Patient denies knowledge of paternal or maternal medical history.) Surgical History History of coronary artery stent placement (08/23/19) Social History Smoking Status: Never smoker ROS ROS Narrative Pertinent positives and pertinent negatives as noted in HPI. All other systems were reviewed and are negative Vital Signs Vital Signs Vital Signs: 05/16/22 03:14 05/16/22 03:18 05/16/22 03:38 Temperature 97.4 F L Temperature Source Temporal Pulse Rate 61 Respiratory Rate 20 H Respiratory Effort Normal Respiratory Pattern Normal Blood Pressure 220/82 H Blood Pressure Mean 128 Pulse Ox 98 Oxygen Delivery Method Room Air Room Air 05/16/22 03:44 05/16/22 04:08 05/16/22 05:00 Temperature Temperature Source Pulse Rate 63 53 L 52 L Respiratory Rate 15 15 Respiratory Effort Respiratory Pattern Blood Pressure 185/66 H 141/67 H 163/67 H Blood Pressure Mean 91 99 Pulse Ox 95 97 Oxygen Delivery Method Room Air Room Air Weight Weight: 88 kg Body Mass Index (BMI) 29.5 Physical Exam Narrative Physical exam: General: Well-nourished, well-developed. Head: Normocephalic, atraumatic, no tenderness Eyes: Vision is grossly intact. EOMI ENT, no trauma, moist mucous membranes, no rhinorrhea Neck: Nontender, full range of motion. CVS: Regular rate and rhythm. S1-S2 present. No murmur, gallop or rub. Respiratory : clear to auscultation bilaterally, chest wall nontender, no wheezing Abdomen: Soft, nontender, nondistended, normal bowel sounds, no masses : Deferred Back: Nontender, no CVA tenderness. Extremities: Nontender full range of motion, no trauma Skin: Normal color, no trauma, abrasions Neuro: Alert, oriented, cranial nerves II through XII grossly intact. Psychiatry: Normal mood. Normal affect. Not depressed. Not anxious. Results Lab / Micro Data Result Diagrams: 05/16/22 03:20 05/16/22 03:20 Labs: Laboratory Results - last 24 hr 05/16/22 03:20: WBC 6.9, RBC 4.08 L, Hgb 10.8 L, Hct 34.1 L, MCV 83.6, MCH 26.5 L, MCHC 31.7 L, RDW Std Deviation 46.8 H, RDW Coeff of Fercho 15.4 H, Plt Count 204, MPV 11.1, Immature Gran % (Auto) 0.100, Neut % (Auto) 62.5, Lymph % (Auto) 20.7, [place] % (Auto) 11.1 H, Eos % (Auto) 5.2 H, Baso % (Auto) 0.4, Absolute Neuts (auto) 4.3, Absolute Lymphs (auto) 1.43, Nucleated RBC % 0 05/16/22 03:20: Sodium 141, Potassium 3.9, Chloride 110 H, Carbon Dioxide 24.0, Anion Gap 7, BUN 26 H, Creatinine 1.56 H, Estim Creat Clear Calc 38.37, Est GFR (MDRD) Af Amer 56 L, Est GFR (MDRD) Non-Af 46 L, BUN/Creatinine Ratio 16.7, Glucose 152 H, Calcium 8.6, Troponin I High Sens 12 05/16/22 03:28: POC Glucose 153 H Radiology Impression Chest X-Ray 05/16/22 03:37 IMPRESSION: No acute cardiopulmonary disease. No significant interval change. Electronically Signed: Georgia Harrison MD at 4:11 EDT Reading Location ID and State: , Service support , Assessment & Plan Assessment/Plan (1) Chest pain: (2) CKD (chronic kidney disease) stage 3, GFR 30-59 ml/min: (3) History of coronary artery stent placement: PLAN: Plan Chest Pain Place on a monitored bed at progressive care unit Actual CXR image was visualized and independently interpreted. I agree with radiologist interpretation of no acute cardiopulmonary process. Actual EKG tracing was independently visualized. EKG tracing showed some ST depression in lateral leads. EKG looks improved than previous where there was a T wave inversions. Aspirin and Plavix continued. High intensity statin continued. ASA 81 mg p.o. daily ordered Morphine as needed for pain ordered. Isosorbide and losartan continued. Check lipid panel. High sensitivity troponin x 2 negative; trend. Stat EKG as needed for chest pain Chemical Stress test ordered. Heart failure with improved ejection fraction Carvedilol continued. Lasix continued. Last echocardiogram on file was on 11/08/20. EF of 65%. No evidence of diastolic dysfunction. Echocardiogram on 08/21/2019 showed ejection fraction of 45% with moderate segmental systolic dysfunction. Stage II diastolic dysfunction. Akinetic apex. Mild anterior septal hypokinesis. Repeat echocardiogram ordered. Hypertension Blood pressure is not within goal Home blood pressure medication continued. As needed hydralazine ordered. Trend blood pressure and adjust blood pressure medications. CKD stage IIIa Creatinine presentation was 1.56 Stable DVT Prophylaxis: SCD ordered Charges/Coding Visit Charges OBSV E&M: 32545 Initial observation care L3
[2022-05-16 05:42] LABS: Reflex Troponin-HS? (from REC) Y
[2022-05-16 05:57] LABS: Troponin-I HS 12 pg/mL (3.0-78.0)
--- NOTE | 2022-05-16 06:03 | EKG12_ITS ---
Test Reason : CP Blood Pressure : / mmHG Vent. Rate : 054 BPM Atrial Rate : 054 BPM P-R Int : 190 ms QRS Dur : 086 ms QT Int : 418 ms P-R-T Axes : 029 -31 043 degrees QTc Int : 396 ms Sinus bradycardia with Premature atrial complexes Left axis deviation Inferior infarct , age undetermined Abnormal ECG When compared with ECG of 16-MAY-2022 03:17, MANUAL COMPARISON REQUIRED, DATA IS UNCONFIRMED Confirmed by BONITA WATERS, NEHEMIAS ([id number]), sports editor ADELFO WEBB ([id number]) on 05/16/2022 2:17:26 PM Referred By: Confirmed By:JIM MESA MD
--- NOTE | 2022-05-16 06:03 | ECHOD_ITS ---
Reason For Study: Chest Pain Procedure This was a 2D Doppler, Color Flow transthoracic echocardiogram. Exam performed in department. Left Ventricle Normal LV size. The estimated ejection fraction is 60 %. No evidence for diastolic dysfunction. No regional wall motion abnormalities noted. Right Ventricle Normal RV size. Normal systolic function. Atria Normal left atrium. Normal right atrium. No doppler evidence for ASD. Mitral Valve There is no mitral valve stenosis. Mild (1+) mitral valve insufficiency. Tricuspid Valve There is no tricuspid stenosis. Trivial tricuspid valve insufficiency. Unable to estimate RV systolic pressure due to insufficient tricuspid regurgitant envelope. Aortic Valve Trisinus/trileaflet aortic valve. Mild diffuse aortic valve thickening. There is no aortic stenosis. Trivial aortic valve insufficiency. Pulmonic Valve There is no pulmonic valvular stenosis. No pulmonic valve insufficiency. Great Vessels Normal aortic root. Pericardium/Pleural No pericardial effusion. MMode/2D Measurements & Calculations LVIDd: 5.5 cm IVSd: 0.79 cm LVOT diam: 2.0 cm LVIDs: 3.2 cm LVPWd: 0.90 cm LVOT area: 3.0 cm2 RVDd: 3.5 cm FS: 42.4 % Ao root diam: 3.4 cm LAV(MOD-bp): 64.4 ml Aortic Valve Planimetry: 1.7 cm2 LA dimension: 4.0 cm LAV(MOD-bp) Indexed: 31.9 ml/m2 LAV(MOD-sp2): 59.2 ml LAV(MOD-sp4): 58.4 ml LA A4 area: 21.2 cm2 RA A4 area: 18.0 cm2 Time Measurements MV dec time: 0.27 sec Doppler Measurements & Calculations MV E max nito: 109.9 cm/sec Lat Peak E' Nito: 10.2 cm/sec Med Peak E' Nito: 7.3 cm/sec MV A max ntio: 67.3 cm/sec E/E' lat: 10.7 E/E' med: 15.0 MV E/A: 1.6 MV V2 max: 108.1 cm/sec MV P1/2t max nito: 109.2 cm/sec Ao V2 max: 209.9 cm/sec MV max P.7 mmHg MV P1/2t: 88.8 msec Ao max P.6 mmHg MV V2 mean: 56.7 cm/sec MV dec slope: 360.1 cm/sec2 Ao V2 mean: 136.8 cm/sec MV mean P.5 mmHg Ao mean P.5 mmHg MV V2 VTI: 40.1 cm MVA(P1/2t): 2.5 cm2 Ao V2 VTI: 50.3 cm MVA(VTI): 2.1 cm2 SHARLENE(I,D): 1.6 cm2 SHARLENE(V,D): 1.4 cm2 AI max nito: 423.2 cm/sec LV V1 max: 94.2 cm/sec MR max nito: 569.3 cm/sec AI max P.7 mmHg LV V1 max P.6 mmHg MR max P.6 mmHg LV V1 mean P.3 mmHg AI dec slope: 201.4 cm/sec2 LV V1 mean: 71.8 cm/sec AI P1/2t: 615.5 msec LV V1 VTI: 27.2 cm SV(LVOT): 82.7 ml PA V2 max: 122.3 cm/sec TR max nito: 198.8 cm/sec PA V2 mean: 75.7 cm/sec TR max P.8 mmHg ECHO/Echo Complete Interpretation Summary The estimated ejection fraction is 60 %. No evidence for diastolic dysfunction. Mild (1+) mitral valve insufficiency. Trivial aortic valve insufficiency. Ordering Physician: Cecil Chase Referring Physician: Flakito Villanueva Performed By: Cesar Lopez RCS
[2022-05-16] MEDS: Aspirin E.C. 81 MG Tablet PO (06:33)
[2022-05-16] MEDS: Clopidogrel Bisulfate 75 MG Tablet PO (06:33)
[2022-05-16] MEDS: Losartan Potassium 25 MG Tablet PO (06:33)
[2022-05-16 09:51] LABS: Troponin-I HS 16 pg/mL (3.0-78.0)
[2022-05-16] MEDS: Pantoprazole Sodium 40 MG Tablet PO (11:13)
[2022-05-16] MEDS: Isosorbide Mononitrate 30 MG Tablet PO (11:13)
[2022-05-16] MEDS: Losartan Potassium 50 MG Tablet PO (11:13)
[2022-05-16] MEDS: Furosemide 40 MG Tablet PO (11:13)
--- NOTE | 2022-05-16 12:08 | STRESSREP_ITS ---
Stress Test Report Date: 05/16/2022 Procedure: Pharmacologic stress nuclear imaging study Indications: Chest pain Consent: Per the patient Procedure: The patient underwent pharmacologic (Regadenoson) evaluation with a peak heart rate of 91 beats per minute (63%predicted maximal heart rate) and a peak blood pressure of 142/80 mmHg. The baseline ECG demonstrated sinus bradycardia. EKG during lexiscan infusion revealed no significant ischemic changes. EKG post infusion revealed no significant ischemic changes [There were no cardiac dysrhythmias pretest, during pharmacologic infusion, or recovery]. [There was no complaint of chest discomfort during pharmacologic infusion or recovery]. The examination was discontinued secondary to completion of protocol. Impression: 1. Lexiscan stress test test is negative for Lexiscan infusion induced EKG changes of ischemia. 2. Lexiscan stress test test is positive for Lexiscan infusion induced chest pain which is likely a nonspecific response. 3. Results of the nuclear portion of the test is as below Myocardial perfusion imaging study: Technique: The patient was injected with 12 millicuries of technetium 99m Cardiolite and subsequently rest SPECT Cardiolite nuclear imaging was obtained in the horizontal long, vertical long, and short axis views. The patient underwent pharmacologic [Regadenoson 0.4mg] evaluation. Please see above for details. The patient was injected with 35.1 millicuries of technetium 99m Cardiolite and subsequently stress SPECT Cardiolite nuclear imaging was obtained in the horizontal long, vertical long, and short axis views. A gated Cardiolite study at peak stress was obtained. Interpretation: Rest and stress SPECT Cardiolite nuclear imaging status post realignment, normalization, and attenuation correction demonstrate mild fixed apical defect. No significant reversibility. These findings are suggestive of prior apical infarction. No evidence of significant ischemia. Gated images reveal minimal apical hypokinesis. The reported LVEF is 69%. Impression: 1. There is no evidence of significant ischemia. Evidence of prior apical my ocardial infarction. 2. Estimated ejection fraction is 69%. This note was generated with [employer] software. It may contain incorrect words, spelling, and punctuation that were not noted in checking the note before signing.
--- NOTE | 2022-05-16 13:09 | DS.PCM_ITS ---
Providers Date of Admission: 05/16/22 Date of Discharge: 05/16/22 Primary Care Physician: Dr. Mal Villanueva MD Reason For Visit: CHEST PAIN Diagnosis Discharge Diagnosis (1) Chest pain: Status: Acute Code(s): R07.9 - Chest pain, unspecified (2) CKD (chronic kidney disease) stage 3, GFR 30-59 ml/min: Status: Chronic Code(s): N18.30 - Chronic kidney disease, stage 3 unspecified (3) History of coronary artery stent placement: Status: Chronic Code(s): Z95.5 - Presence of coronary angioplasty implant and graft Medications at Discharge Home Medications aspirin 81 mg tablet,delayed release (Adult Low Dose Aspirin) 81 mg PO DAILY #90 tabs 01/21/19 nitroglycerin 0.4 mg sublingual tablet 0.4 mg sublingual Q5M PRN Cardiac/Chest Pain #1 BOTTLE 11/27/20 isosorbide mononitrate 30 mg tablet,extended release 24 hr 30 mg PO DAILY #90 tabs 07/22/21 clopidogrel 75 mg tablet (Plavix) 75 mg PO DAILY #90 tabs 09/25/21 furosemide 40 mg tablet 40 mg PO DAILY diuretic #90 tabs 04/14/22 atorvastatin 80 mg tablet 80 mg PO QHS #90 tabs 04/28/22 carvedilol 3.125 mg tablet (Coreg) 3.125 mg PO BID 30 days #60 tabs 05/16/22 losartan 50 mg tablet 50 mg PO DAILY 30 days #30 tabs 05/16/22 pantoprazole 40 mg tablet,delayed release 40 mg PO DAILY reflux 05/16/22 Hospital Course Operations None Procedures 2-D Echocardiogram and Stress test Summary of Care Provided Minutes Spent on Discharge: 40 Hospital Course: 77-year-old with past medical history of CAD status post stent, paroxysmal atrial fibrillation not on anticoagulation who presented with 5 to 6 hours of persistent chest pain. Patient describes the chest pain is located under his breast, not radiating with some mild shortness of breath. Denied any aggravating factors. Chest pain is relieved by standing up. Patient's admitting blood pressure was elevated at 220/82, heart rate was 61. H is admitting blood work showed hemoglobin of 10.8, white cell count of 6.9, platelet 204,BMP was significant for BUN of 26, creatinine 1.56, previous creatinine is 1.45. Admitting chest x-ray showed no acute cardiopulmonary disease. Patient was admitted to the progressive care unit, monitored on telemetry with some episodes of bradycardia. His blood pressure was elevated. His losartan was increased to 50 mg twice daily. His Coreg was decreased to 3.125 mg p.o. twice daily 2D echo showed EF of 60%. He underwent a stress test that was unremarkable. Patient was discharged home to follow-up with his primary care doctor within 1 week. Physical Exam Narrative Physical exam: General: Alert, Oriented x3, Cooperative, No apparent distress HEENT: Atraumatic Oral: Moist Mucosa Neck: Supple Lungs: Clear to auscultation Cardiovascular: HS I+II, regular, no murmurs Abdomen: Bowel Sounds Present, Soft, Non Tender Extremities: No edema Skin: No rashes, No breakdown Neurological: Grossly intact Psych/Mental Status: Appropriate Weight / BMI Weight Weight: 87.4 kg Body Mass Index (BMI) 30.2 ABG / Lab / Microbiology Data Result Diagrams: 05/16/22 03:20 05/16/22 03:20 Laboratory: Laboratory Results - last 24 hr 05/16/22 03:20: WBC 6.9, RBC 4.08 L, Hgb 10.8 L, Hct 34.1 L, MCV 83.6, MCH 26.5 L, MCHC 31.7 L, RDW Std Deviation 46.8 H, RDW Coeff of Fercho 15.4 H, Plt Count 204, MPV 11.1, Immature Gran % (Auto) 0.100, Neut % (Auto) 62.5, Lymph % (Auto) 20.7, [place] % (Auto) 11.1 H, Eos % (Auto) 5.2 H, Baso % (Auto) 0.4, Absolute Neuts (auto) 4.3, Absolute Lymphs (auto) 1.43, Nucleated RBC % 0 05/16/22 03:20: Sodium 141, Potassium 3.9, Chloride 110 H, Carbon Dioxide 24.0, Anion Gap 7, BUN 26 H, Creatinine 1.56 H, Estim Creat Clear Calc 38.37, Est GFR (MDRD) Af Amer 56 L, Est GFR (MDRD) Non-Af 46 L, BUN/Creatinine Ratio 16.7, Glucose 152 H, Calcium 8.6, Troponin I High Sens 12 05/16/22 03:28: POC Glucose 153 H 05/16/22 05:40: Troponin I High Sens 12 05/16/22 09:15: Troponin I High Sens 16 Radiography Diagnostic Testing: Radiology Impression Chest X-Ray 05/16/22 03:37 IMPRESSION: No acute cardiopulmonary disease. No significant interval change. Electronically Signed: Georgia Harrison MD at 4:11 EDT Reading Location ID and State: , Service support , Echocardiogram 05/16/22 06:03 Interpretation Summary The estimated ejection fraction is 60 %. No evidence for diastolic dysfunction. Mild (1+) mitral valve insufficiency. Trivial aortic valve insufficiency. Ordering Physician: Cecil Chase Referring Physician: Flakito Villanueva Performed By: Cesar Lopez RCS D/C Instructions Discharge Diet: Low fat / Low cholesterol and 2000 mg Sodium Diet Meaningful Use Info Meaningful Use Diagnoses (Choose all that apply): None applicable Discharge Plan Admission Admit Date/Time: 05/16/22 05:28 Primary Reason for Your Visit: CHEST PAIN Attending Provider: Anneliese Whitley Primary Care Provider: Mal Villanueva Consulting Providers: Cecil Chase Instructions Additional Instructions / Restrictions: Take note of changes to your medication Follow-up with your primary care doctor within a week Follow-up with your morning news anchor within 2 weeks or as scheduled Discharge Orders/Prescriptions Prescriptions: New carvedilol [Coreg] 3.125 mg tablet 3.125 mg PO BID 30 Days Qty: 60 0RF Rx Instructions: must administer with a meal/food losartan 50 mg Tablet 50 mg PO DAILY 30 Days Qty: 30 0RF Continued nitroglycerin 0.4 mg tablet, sublingual 0.4 mg sublingual Q5M PRN (Reason: Cardiac/Chest Pain) Qty: 1 4RF pantoprazole 40 mg tablet,delayed release (DR/EC) 40 mg PO DAILY aspirin [Adult Low Dose Aspirin] 81 mg tablet,delayed release (DR/EC) 81 mg PO DAILY Qty: 90 3RF isosorbide mononitrate 30 mg tablet extended release 24 hr 30 mg PO DAILY Qty: 90 3RF clopidogrel [Plavix] 75 mg tablet 75 mg PO DAILY Qty: 90 3RF furosemide 40 mg tablet 40 mg PO DAILY Qty: 90 3RF atorvastatin 80 mg tablet 80 mg PO QHS Qty: 90 3RF Discontinued losartan 25 mg tablet 25 mg PO DAILY Qty: 90 3RF carvedilol 6.25 mg tablet 6.25 mg PO BID Qty: 180 3RF Rx Instructions: must administer with a meal/food Referrals / Follow Up: Mal Villanueva MD [Primary Care Provider] - In 1 Week Disposition Disposition (needs filled in before D/C Order can be placed): Home, Self Care Charges/Coding Visit Charges OBSV E&M: 08882 Observation care discharge
== END 2022-05-16 12:40 | disposition home or self-care (01) ==
LOC: ED 05:34 → PCU 05:55
PROVIDERS: Admitting Provider Hospitalist; Emergency Provider Emergency Medicine; PCP Family Medicine; Visit Provider Internal Medicine
DX: R07.89 Other chest pain (principal); I13.0 Hypertensive heart and chronic kidney disease with heart failure and stage 1 through stage 4 chronic kidney disease, or unspecified chronic kidney disease; I50.9 Heart failure, unspecified; I48.0 Paroxysmal atrial fibrillation; N18.32 Chronic kidney disease, stage 3b; Z79.02 Long term (current) use of antithrombotics/antiplatelets; Z79.82 Long term (current) use of aspirin; R06.02 Shortness of breath; I25.10 Atherosclerotic heart disease of native coronary artery without angina pectoris; E78.00 Pure hypercholesterolemia, unspecified; D64.9 Anemia, unspecified; Z79.899 Other long term (current) drug therapy; I25.2 Old myocardial infarction
CPT/HCPCS: 71045; 78452; 80048; 82962; 84484; 85025; 93005; 93017; 93306; 99218; 99285; A9500; A4216; G0378; J2785

== ENCOUNTER → 2022-09-29 | Outpatient (CLI) | payer MEDICARE, SELFPAY ==
[2019-08-23 10:44] VITALS: BMI 24.7
[2022-09-29 10:31] LABS: AST(SGOT) 30 U/L (15-37); Alanine Aminotransfer ALT/SGPT 31 U/L (16-61); Albumin, Serum 3.4 g/dL (3.2-5.0); Alkaline Phosphatase 77 U/L (45-117); Bilirubin, Direct 0.14 mg/dL (0.00-0.30); Cholesterol 96 mg/dL (200); Globulin 3.7 g/dL (2.2-4.2); High Density Lipoprotein 35 mg/dL; Protein, Total 7.1 g/dL (6.4-8.2); Triglycerides 89 mg/dL; Very Low Density Lipoprotein 18 mg/dL (5-40)
== END | disposition home or self-care (01) ==
LOC: LAB 08:55
PROVIDERS: Nurse Practitioner Family; PCP Family Medicine; Referring Provider Nurse Practitioner Gerontology; Visit Provider Nurse Practitioner Gerontology
DX: E78.00 Pure hypercholesterolemia, unspecified (principal)
CPT/HCPCS: 36415; 80061; 80076

== ENCOUNTER 2023-05-10 08:26 | Inpatient (IN) | payer MEDICARE, SELFPAY ==
[2019-08-23 10:44] VITALS: BMI 24.7
[2023-05-10] VITALS (26 sets, daily range): BP systolic 145–212; BP diastolic 63–95; PULSE 52–60; RESP 14–23; TEMP 36.3–37.1; O2SAT 90–100; BMI 29.2; BMI 29.3
--- NOTE | 2023-05-10 08:39 | ED.VIS.GI ---
HPI HPI - GI History of Present Illness Chief Complaint: Abd Pain Informant: patient Abdominal Pain/Flank Pain Onset: Days (2) Context: Gradual Onset Timing: Continuous Quality: Aching Location: Diffuse Worsened by: - (Certain positions) Relieved by: Nothing Nausea/Vomiting/Emesis GI Symptom: Negative for Nausea or Vomiting Diarrhea/Melena/Hematochezia GI Symptom: Negative for Diarrhea, Melena or Hematochezia Associated Symptoms Associated Symptoms: Negative for Dysuria, Frequency or Hematuria Narrative Narrative: Patient presents with abdominal pain that began 2 days ago. Patient states the pain is diffuse across his abdomen. Patient states it is constant. Patient describes it as aching. Patient states it came on gradually. Patient states it is worse with certain positions. Patient states nothing seems to help with it. Patient denies any nausea or vomiting. Patient denies any diarrhea, melena, or hematochezia. Patient denies any dysuria, frequency, or hematuria. Patient denies any fevers or chills. [facility] Medical History Atherosclerosis of coronary artery of [place] heart without angina pectoris Dyslipidemia Essential hypertension History of non-ST elevation myocardial infarction (NSTEMI) (08/31/19) History of ST elevation myocardial infarction (STEMI) (12/23/18) Paroxysmal atrial fibrillation Right carotid bruit Home Medications aspirin 81 mg tablet,delayed release (Adult Low Dose Aspirin) 81 mg PO DAILY #90 tabs 01/21/19 [Rx Last Taken Unknown] nitroglycerin 0.4 mg sublingual tablet 0.4 mg sublingual Q5M PRN Cardiac/Chest Pain #1 BOTTLE 11/27/20 [Rx Last Taken Unknown] atorvastatin 80 mg tablet 80 mg PO QHS #90 tabs 04/28/22 [Rx Last Taken Unknown] pantoprazole 40 mg tablet,delayed release 40 mg PO DAILY reflux 05/16/22 [History Last Taken Unknown] carvedilol 3.125 mg tablet (Coreg) 3.125 mg PO BID #180 tabs 06/16/22 [Rx Last Taken Unknown] isosorbide mononitrate 60 mg tablet,extended release 24 hr 60 mg PO DAILY #90 tabs 07/03/22 [Rx Last Taken Unknown] clopidogrel 75 mg tablet (Plavix) 75 mg PO DAILY #90 tabs 09/29/22 [Rx Last Taken Unknown] cholecalciferol (vitamin D3) 1,250 mcg (50,000 unit) capsule 2,000 mcg PO DAILY 10/09/22 [History Last Taken Unknown] losartan 50 mg tablet 50 mg PO DAILY 10/09/22 [History Last Taken Unknown] acetaminophen 500 mg capsule 500 mg PO Q6H PRN 03/10/23 [History Last Taken Unknown] furosemide 40 mg tablet 40 mg PO DAILY diuretic #90 tabs 04/13/23 [Rx Last Taken Unknown] Allergy/AdvReac Type Severity Reaction Status Date / Time No Known Allergies Allergy Verified 03/10/23 13:31 Surgical History History of coronary artery stent placement (08/23/19) Social History Smoking Status: Never smoker ROS ROS ED Constitutional Constitutional ED: Denies chills or fever(s) Eyes Eyes: Denies blurry vision or change in vision ENT ENT ED: Denies rhinorrhea or sore throat Cardiovascular Cardiovascular: Denies chest pain or palpitations Respiratory/Chest Respiratory/Chest: Denies cough or dyspnea Gastrointestinal Gastrointestinal: Reports abdominal pain; Denies nausea or vomiting Genitourinary Genitourinary ED: Denies dysuria or hematuria Musculoskeletal Musculoskeletal: Reports back pain; Denies neck pain Integumentary Denies abscess or rash Neurologic Neurologic: Reports headache(s) and weakness Allergic/Immunologic Allergic/Immunologic ED: Denies mouth swelling or urticaria EXAM Physical Exam Const Vital Signs: 05/10/23 08:26 05/10/23 10:29 05/10/23 10:25 Temperature 97.4 F L Temperature Source Temporal Pulse Rate 54 L 60 56 L Respiratory Rate 16 22 H 14 Blood Pressure 209/82 H 182/84 H Blood Pressure Mean 124 116 Pulse Ox 99 99 99 Oxygen Delivery Method Room Air Room Air 05/10/23 10:30 05/10/23 10:32 05/10/23 10:51 Temperature Temperature Source Pulse Rate 56 L 56 L 58 L Respiratory Rate 18 20 H 16 Blood Pressure 212/89 H Blood Pressure Mean 123 Pulse Ox 100 99 97 Oxygen Delivery Method 05/10/23 11:00 05/10/23 11:10 05/10/23 11:15 Temperature Temperature Source Pulse Rate 57 L 52 L Respiratory Rate 17 17 Blood Pressure 191/71 H 155/63 H Blood Pressure Mean 103 89 Pulse Ox 91 93 Oxygen Delivery Method 05/10/23 11:20 05/10/23 11:30 05/10/23 11:40 Temperature Temperature Source Pulse Rate 55 L 56 L 54 L Respiratory Rate 17 17 18 Blood Pressure 179/73 H Blood Pressure Mean 102 Pulse Ox 92 93 93 Oxygen Delivery Method 05/10/23 11:45 05/10/23 11:50 05/10/23 12:00 Temperature Temperature Source Pulse Rate 54 L 54 L Respiratory Rate 18 17 Blood Pressure 171/72 H 194/95 H Blood Pressure Mean 99 123 Pulse Ox 94 93 Oxygen Delivery Method 05/10/23 12:10 05/10/23 12:15 05/10/23 12:20 Temperature Temperature Source Pulse Rate 59 L 57 L 56 L Respiratory Rate 17 21 H 23 H Blood Pressure 182/80 H Blood Pressure Mean 110 Pulse Ox 90 95 94 Oxygen Delivery Method Positive well nourished and well developed General Appearance ED: well developed and NAD HEENT Reports moist mucous membranes Neck supple and no JVD Resp normal respiratory effort and clear to auscultation bilaterally Cardio regular rate and regular rhythm GI normal to inspection, nondistended, normoactive bowel sounds Palpation: soft and tender epigastric, LLQ, RLQ, LUQ, RUQ, periumbilical, suprapubic and Jewell's sign; Negative for guarding or rebound tenderness present Extremity normal to inspection General Extremety ED: Negative for edema or tenderness General Extremity: Negative for edema Neuro oriented x3, CN's II-XII intact bilaterally, moves all extremities and no sensory deficits noted Sensorium / Orientation: alert Motor Exam: strength 5/5 throughout Psych mental status grossly normal Skin no rashes or lesions noted MDM MDM MDM Narrative Medical decision making narrative: Differential diagnosis includes gastritis, pancreatitis, cholecystitis, cholelithiasis, peptic ulcer disease, duodenal ulcer, bowel obstruction, perforation, ureteral calculus, pyelonephritis, and viral illness. CBC will be obtained to assess for leukocytosis and anemia. Comprehensive metabolic profile will be obtained to assess for hepatic function, renal function, electrolyte abnormality. Lipase will be obtained to assess for pancreatitis. Urinalysis will be obtained to assess for urinary tract infection and hematuria. CT scan of the abdomen and pelvis will be obtained to assess for bowel obstruction, perforation, pancreatitis, and cholecystitis. Lab Data Attestation: I reviewed the patient's lab results. Lab results narrative: CBC was reviewed. There is a mild leukocytosis of 11.1. The remainder is within normal limits. Comprehensive metabolic profile was reviewed. BUN was 29 and creatinine was 1.79. This is only slightly increased from previous result. Lipase was reviewed and was normal at 33. Urinalysis was reviewed. There is no evidence of urinary tract infection or hematuria. High-sensitivity troponin was reviewed and was normal at 18. Labs: Laboratory Results - last 24 hr 05/10/23 05/10/23 09:12 09:32 WBC 11.1 H RBC 4.44 L Hgb 13.9 Hct 39.8 L MCV 89.6 MCH 31.3 MCHC 34.9 RDW Std Deviation 43.9 RDW Coeff of Fercho 13.4 Plt Count 177 MPV 10.7 Immature Gran % (Auto) 0.400 Neut % (Auto) 77.2 H Lymph % (Auto) 10.4 L [place] % (Auto) 9.6 Eos % (Auto) 2.0 Baso % (Auto) 0.4 Absolute Neuts (auto) 8.6 H Absolute Lymphs (auto) 1.16 Nucleated RBC % 0 Sodium 136 Potassium 4.2 Chloride 105 Carbon Dioxide 26.0 Anion Gap 5 BUN 29 H Creatinine 1.79 H Estim Creat Clear Calc 32.91 Est GFR (MDRD) Af Amer 47 L Est GFR (MDRD) Non-Af 39 L BUN/Creatinine Ratio 16.2 Glucose 113 H Calcium 9.4 Total Bilirubin 0.90 AST 24 ALT 31 Alkaline Phosphatase 97 Troponin I High Sens 18 Total Protein 7.9 Albumin 3.7 Globulin 4.2 Albumin/Globulin Ratio 0.9 Lipase 33 Urine Color Yellow Urine Clarity Clear Urine pH 5.0 Ur Specific [place] 1.015 Urine Protein 15 H Urine Glucose (UA) Normal Urine Ketones Negative Urine Occult Blood 10 H Urine Nitrite Negative Urine Bilirubin Negative Urine Urobilinogen Normal Ur Leukocyte Esterase Negative Urine RBC 0 SEEN Urine WBC 0 SEEN Ur Squamous Epith Cells 0 SEEN Urine Bacteria 0 SEEN Urine Mucus 0 SEEN Radiography Diagnostic Testing: Clinical Impression(s) from Imaging Studies Abdomen/Pelvis CT 05/10/23 08:44 IMPRESSION: Abnormally distended gallbladder with gallbladder wall enhancement and thickening. There is associated intra and extrahepatic biliary dilatation but there are no gallstones identified. Findings likely due to acalculous cholecystitis. Please correlate clinically and with lab results. Further evaluation with ultrasound may be of benefit. Remaining solid organs are unremarkable. Small bowel ileus, likely due to retained stool throughout the colon Degenerative bony changes Electronically Signed: Adrien Chung MD at 11:16 EDT Reading Location ID and State: [facility] / [place] , Service support , CT scan of the abdomen and pelvis was obtained. There is a distended gallbladder with gallbladder wall enhancement and thickening. There is dilatation of the intra and extrahepatic biliary ducts. There are no gallstones noted. There is also a small bowel ileus which is likely due to retained stool throughout the colon. This was interpreted by the radiologist and was also independently reviewed by myself. EKG Initial EKG: Attestation: I personally reviewed and interpreted this EKG as follows: Interpretation: Sinus Bradycardia (59) and Non-Specific ST Changes Comments: EKG was obtained. On my independent interpretation, it showed a sinus bradycardia with a rate of 59. [place] interval, QRS interval, and QTc intervals were all normal. There is left axis deviation at -34. There are nonspecific ST-T wave changes. Prior EKG tracings: available for review Prior: Unchanged (05/16/2022) Management Discussion w/another healthcare provider: Hospitalist (Dr. Cooper) and Product Specialist (Dr. Otero) Treatment and Re-Evaluation :: Patient was given IV fluids, morphine, and Zofran initially. Patient had persistent pain and nausea. Patient was given a dose of Reglan and a repeat dose of morphine. Case was discussed with Dr. Otero from general surgery. She reviewed the CT scan does not think the biliary ducts are dilated. She requested an ultrasound be obtained and admitted to the hospitalist. She states that the ultrasound does not need to be done immediately today it can be done in the morning. She also requested patient be started on Zosyn. This was ordered. Case was discussed with the hospitalist. He will admit the patient to his service. Patient understood and was agreeable with the plan. All questions were answered. Discharge Plan Dx/Rx/DC Orders Clinical Impression: Essential hypertension, Acute acalculous cholecystitis Disposition Disposition: Acute Care Hospital [facility]
--- NOTE | 2023-05-10 08:44 | CT_ITS ---
STUDY: CT ABDOMEN AND PELVIS WITH CONTRAST REASON FOR EXAM: Male, 78 years old. Diffuse abdominal pain RADIATION DOSAGE (If Supplied By Facility): CTDIvol = ( 15.85 ) mGy, DLP = ( 1025.34 ) mGycm TECHNIQUE: Transaxial images were obtained from the dome of the diaphragm to the symphysis pubis with oral contrast. Oral and amp; IV Gastrografin and amp; 100mL Isovue-370 was administered. Sagittal and coronal images were reconstructed. Individualized dose optimization techniques were used for this CT. COMPARISON: None. FINDINGS: The visualized lung bases are unremarkable. The visualized portions of the heart are within normal limits. Normal liver. Gallbladder is abnormally distended with wall enhancement and wall thickening, no demonstrated gallstones. There is evidence of both intra and extrahepatic biliary dilatation with the extrahepatic common bile duct measuring 1.13 cm. No clearly demonstrated, and duct stone is identified. Nonetheless, cholecystitis is a concern and further evaluation. Please correlate with clinical and lab results, a dedicated ultrasound of the gallbladder may be of benefit. Normal spleen. There is some atrophy of the pancreas but no discrete lesion is noted. Normal bilateral adrenal glands. Normal right kidney. Normal left kidney. Normal visualized stomach. Nondistended fluid-filled small bowel loops noted consistent with ileus. Retained stool noted throughout the colon. There is non-visualization of the appendix. There is diffuse atherosclerotic calcification of the abdominal aorta, without a demonstrated aneurysm. Normal inferior vena cava. Normal retroperitoneum. Normal urinary bladder. Normal abdominal wall. There are diffuse degenerative changes of the visualized lumbar spine, and pelvis. CT/Abdomen/Pelvis WITH Contrast IMPRESSION: Abnormally distended gallbladder with gallbladder wall enhancement and thickening. There is associated intra and extrahepatic biliary dilatation but there are no gallstones identified. Findings likely due to acalculous cholecystitis. Please correlate clinically and with lab results. Further evaluation with ultrasound may be of benefit. Remaining solid organs are unremarkable. Small bowel ileus, likely due to retained stool throughout the colon Degenerative bony changes Electronically Signed: Adrien Chung MD at 11:16 EDT ,
[2023-05-10] MEDS: 0.9% Normal Saline 1,000 ML 1000 ML IV (09:04)
[2023-05-10] MEDS: Ondansetron 4 MG/2 ML Vial IV (09:05)
[2023-05-10] MEDS: Morphine 4 MG/ML Syringe IV ×3 (09:05→12:26)
[2023-05-10 09:17] LABS: Absolute Lymphocyte Count 1.16 X10^3/uL (0.83-4.51); Absolute Neutrophil Count 8.6 X10^3/uL (2.0-7.7); Basophil# 0.04 X10^3/uL; Basophil% 0.4 % (0-1); Eosinophil# 0.22 X10^3/uL; Hematocrit 39.8 % (40-54); Hemoglobin 13.9 g/dL (13.0-16.5); Lymphocyte # 1.16 X10^3/ul (0.83-4.51); Lymphocyte % 10.4 % (19-41); Mean Corp Hgb Conc 34.9 g/dL (32-36); Mean Corpuscular Hgb 31.3 pg (27.0-32.0); Mean Corpuscular Volume 89.6 fL (80-94); Mean Platelet Vol. 10.7 fl (6.2-12.0); Monocyte# 1.07 X10^3/uL; Monocyte% 9.6 % (0-10); NRBC Flagged by Analyzer 0 % (0-5); Neutrophil # 8.58 X10^3/uL (2.7-7.7); Neutrophil % 77.2 % (47-70); Platelet Count 177 K/mm3 (150-450); RBC Distribution Width CV 13.4 % (11.6-14.6); RBC Distribution Width SD 43.9 fl (35.1-43.9); Red Blood Count 4.44 M/mm3 (4.6-6.2); White Blood Count 11.1 K/mm3 (4.4-11.0)
[2023-05-10 09:34] LABS: ALB/GLOB Ratio 0.9 RATIO (0.9-2.4); AST(SGOT) 24 U/L (15-37); Alanine Aminotransfer ALT/SGPT 31 U/L (16-61); Albumin, Serum 3.7 g/dL (3.2-5.0); Alkaline Phosphatase 97 U/L (45-117); Anion Gap 5 (5-15); BUN 29 mg/dL (7-18); BUN/Creat Ratio 16.2 RATIO (10-20); Calcium,Total 9.4 mg/dL (8.5-10.1); Chloride 105 mmol/L (98-107); Creatinine, Serum 1.79 mg/dL (0.70-1.30); EST Glomerular Filtration Rate 39 mL/min (>60); Est Glom Filt Rate - Afr Amer 47 mL/min (>60); Estimated Creatinine Clearance 32.91 ml/min; Globulin 4.2 g/dL (2.2-4.2); Glucose 113 mg/dL (74-106); Lipase 33 U/L (13-75); Potassium 4.2 mmol/L (3.5-5.1); Protein, Total 7.9 g/dL (6.4-8.2); Sodium Level 136 mmol/L (136-145)
[2023-05-10 09:38] LABS: Bacteria 0 SEEN /hpf (None Seen); Mucous, Urine 0 SEEN /hpf (<or=2+); Red Blood Cells-Urine 0 SEEN /hpf (0-5); Squamous Epithelial Cells - UA 0 SEEN /hpf (0-5); White Blood Cells 0 SEEN /hpf (0-5)
[2023-05-10 09:39] LABS: Color, Urine Yellow (Yellow); Glucose, Dipstick Normal (Normal); Ketone-Dipstick Negative (Negative); Leukocyte Esterase-Dipstick Negative /ul (Negative); Nitrite-Dipstick Negative (Negative); Occult Blood-Urine 10 /ul (Negative); Protein-Dipstick 15 mg/dl (Negative); Specific Gravity, Urine 1.015 (1.002-1.030); Urine Bilirubin Dipstick Negative (Negative); Urine Clarity Clear (Clear); Urine Urobilinogen Normal (Normal)
[2023-05-10] MEDS: Metoclopramide 10 MG/2 ML Vial IV (10:08)
--- NOTE | 2023-05-10 10:18 | ED.RN ---
PT COMPLAINING OF CHEST PAIN AND ROLLING AROUND IN THE BED. EKG OBTAINED AND PLACED ON HANDMADE TILE ARTIST. DR. HUERTA MADE AWARE.
[2023-05-10 11:06] LABS: Troponin-I HS 18 pg/mL (3.0-78.0)
--- NOTE | 2023-05-10 12:49 | PCM.HP.STD ---
HPI - General General Date of Admission: 05/10/23 Date of Service: 05/10/23 Chief Complaint: Abdominal pain HPI Narrative QASIM TAO, is a 78 M who presents with abdominal pain. Patient symptoms started a day prior to coming in. Abdominal pain was located in the right upper quadrant. Patient denied any nausea no vomiting prior to presenting to the emergency department. He did vomit contrast he had to drink for CT of the abdomen and pelvis ordered as part of his evaluation. The CT did show Abnormally distended gallbladder with gallbladder wall enhancement and thickening. There is associated intra and extrahepatic biliary dilatation but there are no gallstones identified. Findings likely due to acalculous cholecystitis.. The general surgeon on-call was notified and recommended for patient to be admitted to medicine. [facility] Medical History Atherosclerosis of coronary artery of [place] heart without angina pectoris Dyslipidemia Essential hypertension History of non-ST elevation myocardial infarction (NSTEMI) (08/31/19) History of ST elevation myocardial infarction (STEMI) (12/23/18) Paroxysmal atrial fibrillation Right carotid bruit Home Medications aspirin 81 mg tablet,delayed release (Adult Low Dose Aspirin) 81 mg PO DAILY #90 tabs 01/21/19 [Rx Last Taken Unknown] nitroglycerin 0.4 mg sublingual tablet 0.4 mg sublingual Q5M PRN Cardiac/Chest Pain #1 BOTTLE 11/27/20 [Rx Last Taken Unknown] atorvastatin 80 mg tablet 80 mg PO QHS #90 tabs 04/28/22 [Rx Last Taken Unknown] pantoprazole 40 mg tablet,delayed release 40 mg PO DAILY reflux 05/16/22 [History Last Taken Unknown] carvedilol 3.125 mg tablet (Coreg) 3.125 mg PO BID #180 tabs 06/16/22 [Rx Last Taken Unknown] isosorbide mononitrate 60 mg tablet,extended release 24 hr 60 mg PO DAILY #90 tabs 07/03/22 [Rx Last Taken Unknown] clopidogrel 75 mg tablet (Plavix) 75 mg PO DAILY #90 tabs 09/29/22 [Rx Last Taken Unknown] cholecalciferol (vitamin D3) 1,250 mcg (50,000 unit) capsule 2,000 mcg PO DAILY 10/09/22 [History Last Taken Unknown] losartan 50 mg tablet 50 mg PO DAILY 10/09/22 [History Last Taken Unknown] acetaminophen 500 mg capsule 500 mg PO Q6H PRN 03/10/23 [History Last Taken Unknown] furosemide 40 mg tablet 40 mg PO DAILY diuretic #90 tabs 04/13/23 [Rx Last Taken Unknown] Allergy/AdvReac Type Severity Reaction Status Date / Time No Known Allergies Allergy Verified 03/10/23 13:31 Surgical History History of coronary artery stent placement (08/23/19) Social History Smoking Status: Never smoker ROS ROS Narrative GENERAL: denies fever, chills, night sweats, weight loss, anorexia HEENT: denies headache, sinus congestion, or drainage, dysphagia RESPIRATORY: denies cough, sputum production, shortness of breath, dyspnea on exertion CARDIAC: denies chest pain, palpitations, orthopnea, PND GASTROINTESTINAL: Right upper quadrant abdominal pain GENITOURINARY: denies dysuria, urgency, frequency, heamaturia EXTREMITY: denies swelling MUSCULOSKELETAL: denies current joint pain or tenderness NEUROLOGIC: denies focal numbness, weakness, tingling HEMATOLOGIC: denies easy bruising and/or hemorrhage INTEGUMENT: denies rashes PSYCHIATRIC: denies suicidal or homicidal ideation Vital Signs Vital Signs Vital Signs: 05/10/23 08:26 05/10/23 10:29 05/10/23 10:25 Temperature 97.4 F L Temperature Source Temporal Pulse Rate 54 L 60 56 L Respiratory Rate 16 22 H 14 Blood Pressure 209/82 H 182/84 H Blood Pressure Mean 124 116 Pulse Ox 99 99 99 Oxygen Delivery Method Room Air Room Air 05/10/23 10:30 05/10/23 10:32 05/10/23 10:51 Temperature Temperature Source Pulse Rate 56 L 56 L 58 L Respiratory Rate 18 20 H 16 Blood Pressure 212/89 H Blood Pressure Mean 123 Pulse Ox 100 99 97 Oxygen Delivery Method 05/10/23 11:00 05/10/23 11:10 05/10/23 11:15 Temperature Temperature Source Pulse Rate 57 L 52 L Respiratory Rate 17 17 Blood Pressure 191/71 H 155/63 H Blood Pressure Mean 103 89 Pulse Ox 91 93 Oxygen Delivery Method 05/10/23 11:20 05/10/23 11:30 05/10/23 11:40 Temperature Temperature Source Pulse Rate 55 L 56 L 54 L Respiratory Rate 17 17 18 Blood Pressure 179/73 H Blood Pressure Mean 102 Pulse Ox 92 93 93 Oxygen Delivery Method 05/10/23 11:45 05/10/23 11:50 05/10/23 12:00 Temperature Temperature Source Pulse Rate 54 L 54 L Respiratory Rate 18 17 Blood Pressure 171/72 H 194/95 H Blood Pressure Mean 99 123 Pulse Ox 94 93 Oxygen Delivery Method 05/10/23 12:10 05/10/23 12:15 05/10/23 12:20 Temperature Temperature Source Pulse Rate 59 L 57 L 56 L Respiratory Rate 17 21 H 23 H Blood Pressure 182/80 H Blood Pressure Mean 110 Pulse Ox 90 95 94 Oxygen Delivery Method 05/10/23 12:43 Temperature 98.3 F Temperature Source Temporal Pulse Rate 57 L Respiratory Rate 22 H Blood Pressure 182/80 H Blood Pressure Mean 114 Pulse Ox 97 Oxygen Delivery Method Room Air Weight Weight: 87.09 kg Body Mass Index (BMI) 29.2 Physical Exam Narrative GENERAL: cooperative HEENT: Atraumatic; normocephalic EYES; Anicteric, Normal Conjunctiva NECK; supple, normal thyroid, RESPIRATORY: Diminished to auscultation CARDIOVASCULAR: Regular S1 S2, GI: soft, normoactive bowel sounds, right upper quadrant tenderness : No Renal angle tenderness; EXTREMITIES: No edema, no clubbing, MUSCULOSKELETAL: no muscle wasting NEURO: Awake; no lateralizing signs. SKIN: No Rash PSYCH; Flat affect Results Lab / Micro Data 05/10/23 09:12 05/10/23 09:12 Labs: Laboratory Results - last 24 hr 05/10/23 09:12: WBC 11.1 H, RBC 4.44 L, Hgb 13.9, Hct 39.8 L, MCV 89.6, MCH 31.3, MCHC 34.9, RDW Std Deviation 43.9, RDW Coeff of Fercho 13.4, Plt Count 177, MPV 10.7, Immature Gran % (Auto) 0.400, Neut % (Auto) 77.2 H, Lymph % (Auto) 10.4 L, [place] % (Auto) 9.6, Eos % (Auto) 2.0, Baso % (Auto) 0.4, Absolute Neuts (auto) 8.6 H, Absolute Lymphs (auto) 1.16, Nucleated RBC % 0, Sodium 136, Potassium 4.2, Chloride 105, Carbon Dioxide 26.0, Anion Gap 5, BUN 29 H, Creatinine 1.79 H, Estim Creat Clear Calc 32.91, Est GFR (MDRD) Af Amer 47 L, Est GFR (MDRD) Non-Af 39 L, BUN/Creatinine Ratio 16.2, Glucose 113 H, Calcium 9.4, Total Bilirubin 0.90, AST 24, ALT 31, Alkaline Phosphatase 97, Troponin I High Sens 18, Total Protein 7.9, Albumin 3.7, Globulin 4.2, Albumin/Globulin Ratio 0.9, Lipase 33 05/10/23 09:32: Urine Color Yellow, Urine Clarity Clear, Urine pH 5.0, Ur Specific [place] 1.015, Urine Protein 15 H, Urine Glucose (UA) Normal, Urine Ketones Negative, Urine Occult Blood 10 H, Urine Nitrite Negative, Urine Bilirubin Negative, Urine Urobilinogen Normal, Ur Leukocyte Esterase Negative, Urine RBC 0 SEEN, Urine WBC 0 SEEN, Ur Squamous Epith Cells 0 SEEN, Urine Bacteria 0 SEEN, Urine Mucus 0 SEEN Radiology Impression Abdomen/Pelvis CT 05/10/23 08:44 IMPRESSION: Abnormally distended gallbladder with gallbladder wall enhancement and thickening. There is associated intra and extrahepatic biliary dilatation but there are no gallstones identified. Findings likely due to acalculous cholecystitis. Please correlate clinically and with lab results. Further evaluation with ultrasound may be of benefit. Remaining solid organs are unremarkable. Small bowel ileus, likely due to retained stool throughout the colon Degenerative bony changes Electronically Signed: Adrien Chung MD at 11:16 EDT , Assessment & Plan Assessment/Plan (1) Acute acalculous cholecystitis: PLAN: Plan Patient is a 78-year-old gentleman presented with right upper quadrant abdominal pain 1. Right upper quadrant abdominal pain ? Secondary to suspected acalculous cholecystitis imaging studies obtained on admission did show Abnormally distended gallbladder with gallbladder wall enhancement and thickening. There is associated intra and extrahepatic biliary dilatation but there are no gallstones identified. Findings likely due to acalculous cholecystitis. Admitted to regular nursing floor treatment initiated with broad-spectrum antibiotic therapy with Zosyn, pain management, antinausea medication with consultation placed to Dr. Whitehead was notified by the ED doctor prior to patient being admitted 2. Essential hypertension ? Patient blood pressure markedly elevated on admission did continue home meds also added hydralazine as needed for systolic blood pressure greater than 160 3. Coronary artery disease ? With previous multiple PCI's. Patient is on guideline directed medical therapy continued 4. Dyslipidemia -Patient is on statin therapy, continued at home dose. 5. GERD ? On PPI 6. Paroxysmal A-fib ? Rate controlled with carvedilol patient is on systemic anticoagulation after having remained in sinus rhythm for prolonged period of time 7. Nonrheumatic valvular heart disease ? Echo from 05/16/2022 demonstrated trivial aortic valve insufficiency patient stable 8. DVT prophylaxis ? SC heparin Time spent in the patient's overall evaluation,decision-making process, review of diagnostic data, adjustment of management, discussion with other providers, nursing nursing and ancillary staff involved in patient's care documentation, 75 minutes Advance planning; did discuss with the patient and family regarding advanced directives as well as CODE STATUS. Did explain the various scenarios involved ( FULL CODE, DNR CCA, DNR CCA with no intubation, and DNR CC and what each meant) patient expresses a desire to remain full code with CPR and intubation if needed. Order was placed. Time spent on discussion 18 minutes. Charges/Coding Visit Charges Inpatient E&M: 52888 Init Hosp L3 Procedures Hospitalists Procedures: 60335 Advncd Care Plan 30 Min
[2023-05-10 13:15] LABS: Amylase 49 U/L (25-115); Lipase 36 U/L (13-75)
[2023-05-10 13:29] LABS: Lactic Acid 1.1 mmol/L (0.4-1.9)
[2023-05-10] MEDS: 0.9% Normal Saline 1,000 ML 125 ML IV (15:44)
[2023-05-10] MEDS: Carvedilol 3.125 MG TABLET PO (17:22)
[2023-05-10] MEDS: Isosorbide Mononitrate 60 MG Tablet PO (17:22)
[2023-05-10] MEDS: Losartan Potassium 50 MG Tablet PO (17:23)
[2023-05-10] MEDS: hydrALAZINE 20 MG/ML Vial 10 MG IV (17:24)
[2023-05-10] MEDS: Atorvastatin Calcium 80 MG Tablet PO (21:03)
[2023-05-10] MEDS: Heparin Injection (Vial) 5,000 UNIT/ML VIAL 5000 UNIT SC (21:03)
[2023-05-10] MEDS: Acetaminophen 325 MG Tablet 650 MG PO (21:10)
[2023-05-11] VITALS (13 sets, daily range): BP systolic 144–237; BP diastolic 61–89; PULSE 54–65; RESP 16–22; TEMP 36.6–36.9; O2SAT 94–99; BMI 28.9
[2023-05-11] MEDS: 0.9% Normal Saline 1,000 ML 125 ML IV (03:38)
[2023-05-11 06:24] LABS: Absolute Lymphocyte Count 1.08 X10^3/uL (0.83-4.51); Absolute Neutrophil Count 5.4 X10^3/uL (2.0-7.7); Basophil# 0.03 X10^3/uL; Basophil% 0.4 % (0-1); Eosinophil# 0.18 X10^3/uL; Eosinophils% 2.3 % (0-5); Hematocrit 33.4 % (40-54); Hemoglobin 11.2 g/dL (13.0-16.5); Lymphocyte # 1.08 X10^3/ul (0.83-4.51); Lymphocyte % 14.1 % (19-41); Mean Corp Hgb Conc 33.5 g/dL (32-36); Mean Corpuscular Hgb 30.3 pg (27.0-32.0); Mean Corpuscular Volume 90.3 fL (80-94); Mean Platelet Vol. 10.8 fl (6.2-12.0); Monocyte# 0.97 X10^3/uL; Monocyte% 12.7 % (0-10); NRBC Flagged by Analyzer 0 % (0-5); Neutrophil # 5.37 X10^3/uL (2.7-7.7); Neutrophil % 70.1 % (47-70); Platelet Count 156 K/mm3 (150-450); RBC Distribution Width CV 13.6 % (11.6-14.6); RBC Distribution Width SD 44.8 fl (35.1-43.9); White Blood Count 7.7 K/mm3 (4.4-11.0)
--- NOTE | 2023-05-11 07:00 | US_ITS ---
STUDY: ABDOMINAL ULTRASOUND - RIGHT UPPER QUADRANT REASON FOR VISIT: Male, 78 years old right upper quadrant pain and nausea TECHNIQUE: Ultrasound evaluation of the right upper quadrant was performed with real-time and static caputo-scale imaging. TECHNICAL QUALITY: Adequate. COMPARISON: CT from 05/10/2023 FINDINGS: Liver: The liver measures 19.7 cm. There is increased echogenicity consistent with mild fatty infiltration. The bile ducts are within normal limits. There is hepatic color flow. The direction of portal flow is hepatopetal. There is no demonstrated mass lesion. Gallbladder: Distended gallbladder. The gallbladder wall measures 3.1 mm. There is a positive sonographic Jewell''s sign. There is no pericholecystic fluid. There are no gallstones. Common Bile Duct (C.B.D.): The common bile duct measures 9.1 mm. Pancreas: There is nonvisualization of the pancreas. Right Kidney: Normal size of the right kidney. The right kidney measures 9.9 x 4.0 x 5.3 cm. Normal renal cortex. The right cortex measures 1.5 cm. There is no demonstrated renal mass or cyst. There is no right hydronephrosis. US/Gallbladder IMPRESSION: As with the recent CT scan of the abdomen. There is sonographic evidence to suspect acalculous cholecystitis. The gallbladder is abnormally distended with wall thickening and a positive Jewell sign. There is associated dilatation of the common bile duct. Surgical consultation recommended. Hepatomegaly with mild fatty infiltration of the liver Electronically Signed: Adrien Chung MD at 10:17 EDT ,
[2023-05-11 07:08] LABS: ALB/GLOB Ratio 0.9 RATIO (0.9-2.4); AST(SGOT) 25 U/L (15-37); Alanine Aminotransfer ALT/SGPT 29 U/L (16-61); Albumin, Serum 2.9 g/dL (3.2-5.0); Alkaline Phosphatase 74 U/L (45-117); Anion Gap 5 (5-15); BUN 21 mg/dL (7-18); BUN/Creat Ratio 13.5 RATIO (10-20); Calcium,Total 8.4 mg/dL (8.5-10.1); Chloride 109 mmol/L (98-107); Creatinine, Serum 1.55 mg/dL (0.70-1.30); EST Glomerular Filtration Rate 46 mL/min (>60); Est Glom Filt Rate - Afr Amer 56 mL/min (>60); Globulin 3.4 g/dL (2.2-4.2); Glucose 105 mg/dL (74-106); Magnesium 2.2 mg/dL (1.6-2.6); Phosphorus 2.7 mg/dL (2.5-4.9); Potassium 4.3 mmol/L (3.5-5.1); Protein, Total 6.3 g/dL (6.4-8.2); Sodium Level 140 mmol/L (136-145)
--- NOTE | 2023-05-11 07:31 | EX.PCM.CON.S ---
Assessment & Plan Assessment/Plan (1) Acute cholecystitis: PLAN: Plan Patient is getting ultrasound this morning. CT abdomen pelvis did not show any gallstones however patient is not typical of a calculus cholecystitis patient as they are usually very sick in the ICU. Would prefer patient to be off Plavix- 5 days prior to laparoscopic cholecystectomy if needed. Will await ultrasound results. Could possibly get very short-term cholecystostomy tube for symptomatic improvement prior to surgery if needed. Patient no further question at this time. Radha Otero M.D. Pager: [phone] [facility] [address] [place] [address], Outpatient Pavilion, [address] [place] [id number] Office: [phone] HPI Consult Data Date of Consult: 05/11/23 HPI Narrative Reason for Consultation: Cholecystitis HPI Narrative: QASIM TAO, is a 78 M who presents to the ED due to right upper quadrant pain starting on Thursday. Patient states he was at a and started to have right upper quadrant pain did eat some afterwards. Patient had a CAT scan which showed distended gallbladder no stones seen on CAT scan. Patient is scheduled for an ultrasound this morning. Patient is on aspirin Plavix due to 5 stents placed in 2019. Patient last took his Plavix on Thursday. Patient was started on Zosyn IV is initial white blood count was 11.4 with a left shift currently white blood cell count 7 with a decreased left shift. Patient denies any history of abdominal surgeries. Currently patient rates his pain 8/10 he is only had Tylenol throughout the night. [facility] Medical History Atherosclerosis of coronary artery of [place] heart without angina pectoris Dyslipidemia Essential hypertension History of non-ST elevation myocardial infarction (NSTEMI) (08/31/19) History of ST elevation myocardial infarction (STEMI) (12/23/18) Paroxysmal atrial fibrillation Right carotid bruit Home Medications aspirin 81 mg tablet,delayed release (Adult Low Dose Aspirin) 81 mg PO DAILY #90 tabs 01/21/19 [Rx Last Taken Unknown] nitroglycerin 0.4 mg sublingual tablet 0.4 mg sublingual Q5M PRN Cardiac/Chest Pain #1 BOTTLE 11/27/20 [Rx Last Taken Unknown] atorvastatin 80 mg tablet 80 mg PO QHS #90 tabs 04/28/22 [Rx Last Taken 05/09/23] pantoprazole 40 mg tablet,delayed release 40 mg PO DAILY reflux 05/16/22 [History Last Taken 05/09/23] carvedilol 3.125 mg tablet (Coreg) 3.125 mg PO BID #180 tabs 06/16/22 [Rx Last Taken 05/09/23] isosorbide mononitrate 60 mg tablet,extended release 24 hr 60 mg PO DAILY #90 tabs 07/03/22 [Rx Last Taken 05/09/23] clopidogrel 75 mg tablet (Plavix) 75 mg PO DAILY #90 tabs 09/29/22 [Rx Last Taken 05/09/23] cholecalciferol (vitamin D3) 1,250 mcg (50,000 unit) capsule 2,000 mcg PO DAILY unsure 10/09/22 [History Last Taken 05/09/23] losartan 50 mg tablet 50 mg PO DAILY not sure 10/09/22 [History Last Taken 05/09/23] acetaminophen 500 mg capsule 500 mg PO DAILY PRN pain 03/10/23 [History Last Taken Unknown] furosemide 40 mg tablet 40 mg PO DAILY diuretic #90 tabs 04/13/23 [Rx Last Taken 05/09/23] ferrous sulfate 325 mg (65 mg iron) tablet (FeroSul) mg unsure 05/10/23 [History Last Taken Unknown] Allergy/AdvReac Type Severity Reaction Status Date / Time No Known Allergies Allergy Verified 05/10/23 16:07 Surgical History History of coronary artery stent placement (08/23/19) Social History Smoking Status: Never smoker Physical Exam Const alert, oriented x3 and no apparent distress HEENT normocephalic and head/scalp atraumatic Resp normal respiratory effort Cardio regular rate GI soft to palpation; Negative for non-distended Palpation: tender RUQ (>Rmid); Negative for guarding Extremity no clubbing, cyanosis or edema Neuro CN's II-XII intact bilaterally Psych mental status grossly normal Lab / Micro Data 05/11/23 05:45 05/11/23 05:45 Labs: Laboratory Results - last 24 hr 05/10/23 09:12: WBC 11.1 H, RBC 4.44 L, Hgb 13.9, Hct 39.8 L, MCV 89.6, MCH 31.3, MCHC 34.9, RDW Std Deviation 43.9, RDW Coeff of Fercho 13.4, Plt Count 177, MPV 10.7, Immature Gran % (Auto) 0.400, Neut % (Auto) 77.2 H, Lymph % (Auto) 10.4 L, [place] % (Auto) 9.6, Eos % (Auto) 2.0, Baso % (Auto) 0.4, Absolute Neuts (auto) 8.6 H, Absolute Lymphs (auto) 1.16, Nucleated RBC % 0, Sodium 136, Potassium 4.2, Chloride 105, Carbon Dioxide 26.0, Anion Gap 5, BUN 29 H, Creatinine 1.79 H, Estim Creat Clear Calc 32.91, Est GFR (MDRD) Af Amer 47 L, Est GFR (MDRD) Non-Af 39 L, BUN/Creatinine Ratio 16.2, Glucose 113 H, Calcium 9.4, Total Bilirubin 0.90, AST 24, ALT 31, Alkaline Phosphatase 97, Troponin I High Sens 18, Total Protein 7.9, Albumin 3.7, Globulin 4.2, Albumin/Globulin Ratio 0.9, Amylase 49, Lipase 33 05/10/23 09:12: Lipase 36 05/10/23 09:32: Urine Color Yellow, Urine Clarity Clear, Urine pH 5.0, Ur Specific [place] 1.015, Urine Protein 15 H, Urine Glucose (UA) Normal, Urine Ketones Negative, Urine Occult Blood 10 H, Urine Nitrite Negative, Urine Bilirubin Negative, Urine Urobilinogen Normal, Ur Leukocyte Esterase Negative, Urine RBC 0 SEEN, Urine WBC 0 SEEN, Ur Squamous Epith Cells 0 SEEN, Urine Bacteria 0 SEEN, Urine Mucus 0 SEEN 05/10/23 12:54: Lactic Acid 1.1 05/11/23 05:45: WBC 7.7, RBC 3.70 L, Hgb 11.2 L, Hct 33.4 L, MCV 90.3, MCH 30.3, MCHC 33.5, RDW Std Deviation 44.8 H, RDW Coeff of Fercho 13.6, Plt Count 156, MPV 10.8, Immature Gran % (Auto) 0.400, Neut % (Auto) 70.1 H, Lymph % (Auto) 14.1 L, [place] % (Auto) 12.7 H, Eos % (Auto) 2.3, Baso % (Auto) 0.4, Absolute Neuts (auto) 5.4, Absolute Lymphs (auto) 1.08, Nucleated RBC % 0, Sodium 140, Potassium 4.3, Chloride 109 H, Carbon Dioxide 26.0, Anion Gap 5, BUN 21 H, Creatinine 1.55 H, Estim Creat Clear Calc 38.00, Est GFR (MDRD) Af Amer 56 L, Est GFR (MDRD) Non-Af 46 L, BUN/Creatinine Ratio 13.5, Glucose 105, Calcium 8.4 L, Phosphorus 2.7, Magnesium 2.2, Total Bilirubin 0.90, AST 25, ALT 29, Alkaline Phosphatase 74, Total Protein 6.3 L, Albumin 2.9 L, Globulin 3.4, Albumin/Globulin Ratio 0.9 Radiology Impression Abdomen/Pelvis CT 05/10/23 08:44 IMPRESSION: Abnormally distended gallbladder with gallbladder wall enhancement and thickening. There is associated intra and extrahepatic biliary dilatation but there are no gallstones identified. Findings likely due to acalculous cholecystitis. Please correlate clinically and with lab results. Further evaluation with ultrasound may be of benefit. Remaining solid organs are unremarkable. Small bowel ileus, likely due to retained stool throughout the colon Degenerative bony changes Electronically Signed: Adrien Chung MD at 11:16 EDT ,
--- NOTE | 2023-05-11 10:18 | CASEMGMT ---
FRANK CHIANG Assessment: Face to Face with pt for initial transition planning/care coordination assessment. FRANK CHIANG introduced self and role at [facility], pt voices understanding and consents to assessment. Pt is A/O x4 and answers all questions appropriately at this time. Pt lying in bed with present. Pt agreeable to assessment with in room. Care providers, pharmacy, and demographics verified/updated. Admitting Dx: abd pain PCP:Rich Specialists:[facility] Preferred [facility]acy: [facility] Insurance: Aisha ZARCO Prescription Benefit: yes LW/DPOA: Pt states he thinks Rasheeda is his DPOA but she states she looked at the paperwork lastnight and is not sure. She will bring in to be scanned into the chart. LNOK: Rasheeda Martinez, but pt reports is . Living Arrangements: Pt lives with in a ground level apt with no steps to enter. Pt reports he is I in ADL's and denies concerns at home. Pt able to do own laundry, get groceries and prepare meals. Transportation: Pt drives self and denies concerns with transportation. DME/HHC/SNF: Pt denies having any DME in the home, previous HHC or SNF stays. Pt states his insurance calls him frequently to ask about HHC and he feels it is a waste of time. Pt states no concerns with going home at time of dc. Pt states no further concerns/needs. CM to follow. Advised pt to ask CM if any further question/concerns/needs arise, voices understanding. Pt Goal: Home Plan: Home
[2023-05-11] MEDS: hydrALAZINE 20 MG/ML Vial 10 MG IV (13:47)
[2023-05-11] MEDS: 0.9% Saline Lock 10 ML Syringe IV ×2 (13:49→13:54)
[2023-05-11] MEDS: Midazolam 2 MG/2 ML Syringe IV (14:18)
[2023-05-11] MEDS: fentaNYL 100 MCG/2 ML Ampul IV (14:19)
--- NOTE | 2023-05-11 14:20 | CT_ITS ---
STUDY: PERCUTANEOUS CHOLECYSTOSTOMY. REASON FOR EXAM: Male, 78 years old. Cholecystitis-- -- theo tube placement talked to dr Moore RADIATION DOSAGE (If Supplied By Facility): CTDIvol = ( 26.04 ) mGy, DLP = ( 1998.55 ) mGycm. Individualized dose optimization techniques were used for this CT.? TECHNIQUE: The patient was in the supine position. The overlying skin was prepped and draped in the usual sterile fashion. Conscious sedation was performed. The patient received 2 mg of Versed and 50 mcg of fentanyl intravenously. Conscious sedation was started at 2:18 PM estimated at 2:47 PM the patient was independently monitored by the department nurse. The overlying skin was prepped and draped in usual sterile fashion. Following local anesthetic application, a 8 Wolof drainage catheter was placed into the gallbladder lumen. 175 cc of a light-colored purulent material was aspirated. The patient tolerated the procedure well. The catheter was secured to the patient. COMPARISON: Comparison is made with prior CT scan of the abdomen and pelvis dated May 10, 2023. CT/CT Guidance Abscess Drg w/Cath IMPRESSION: Successful percutaneous cholecystostomy as described. The patient tolerated the procedure well. Electronically Signed: Omar Anthony MD at 15:08 EDT ,
[2023-05-11] MEDS: Lidocaine 2% (20 ml mdv) 20 ML Vial INFILT (14:25)
[2023-05-11] MEDS: Losartan Potassium 50 MG Tablet PO (15:58)
[2023-05-11] MEDS: Carvedilol 3.125 MG TABLET PO ×2 (15:58→22:35)
[2023-05-11] MEDS: Aspirin E.C. 81 MG Tablet PO (15:58)
[2023-05-11] MEDS: Isosorbide Mononitrate 60 MG Tablet PO (15:59)
[2023-05-11] MEDS: Pantoprazole Sodium 40 MG Tablet PO (15:59)
--- NOTE | 2023-05-11 19:33 | PN.HOSP_ITS ---
Reason for Visit Reason for Visit: Diagnoses Acute cholecystitis (05/10/23) Subjective Subjective Patient was seen and examined today, he had insertion of a percutaneous cholecystostomy tube today, I talked briefly with general surgery and the plan is for the patient undergo cholecystectomy on . Patient does not complain of any abdominal pain at the time my examination today. I talked at length with several of his family members including his who was in the room at the time my examination today. Objective Data Objective Data Vital Signs: Vital Signs Temp Pulse Resp BP Pulse Ox O2 Del Method 97.9 F 63 16 177/66 H 97 Room Air 05/11/23 15:40 05/11/23 15:40 05/11/23 15:40 05/11/23 15:40 05/11/23 15:40 05/11/23 15:40 Oxygen Delivery Method [6] Room Air Oxygen Delivery Method [5] Room Air Oxygen Delivery Method [4] Room Air Oxygen Delivery Method [3] Room Air Oxygen Delivery Method [2] Room Air Oxygen Delivery Method [1 ( Room Air Initial Baseline)] Oxygen Delivery Method Room Air Weight: 86.6 kg Body Mass Index (BMI) 28.9 Intake & Output: Intake and Output for Last 24 Hours 05/09/23 05/10/23 05/11/23 23:59 23:59 23:59 Intake Total 1890.83 / 1890.83 1448.75 / 1448.75 Output Total 200 / 200 30 / 30 Balance 1690.83 / 1690.83 1418.75 / 1418.75 Lab / Micro Data 05/11/23 05:45 05/11/23 05:45 Labs: Laboratory Results - last 24 hr 05/11/23 05:45: WBC 7.7, RBC 3.70 L, Hgb 11.2 L, Hct 33.4 L, MCV 90.3, MCH 30.3, MCHC 33.5, RDW Std Deviation 44.8 H, RDW Coeff of Fercho 13.6, Plt Count 156, MPV 10.8, Immature Gran % (Auto) 0.400, Neut % (Auto) 70.1 H, Lymph % (Auto) 14.1 L, [place] % (Auto) 12.7 H, Eos % (Auto) 2.3, Baso % (Auto) 0.4, Absolute Neuts (auto) 5.4, Absolute Lymphs (auto) 1.08, Nucleated RBC % 0, Sodium 140, Potassium 4.3, Chloride 109 H, Carbon Dioxide 26.0, Anion Gap 5, BUN 21 H, Creatinine 1.55 H, Estim Creat Clear Calc 38.00, Est GFR (MDRD) Af Amer 56 L, Est GFR (MDRD) Non-Af 46 L, BUN/Creatinine Ratio 13.5, Glucose 105, Calcium 8.4 L, Phosphorus 2.7, Magnesium 2.2, Total Bilirubin 0.90, AST 25, ALT 29, Alkaline Phosphatase 74, Total Protein 6.3 L, Albumin 2.9 L, Globulin 3.4, Albumin/Globulin Ratio 0.9 Radiography Diagnostic Testing: Radiology Impression Gallbladder Ultrasound 05/11/23 07:00 IMPRESSION: As with the recent CT scan of the abdomen. There is sonographic evidence to suspect acalculous cholecystitis. The gallbladder is abnormally distended with wall thickening and a positive Jewell sign. There is associated dilatation of the common bile duct. Surgical consultation recommended. Hepatomegaly with mild fatty infiltration of the liver Electronically Signed: Adrien Chung MD at 10:17 EDT , Abscess Drainage CT 05/11/23 14:20 IMPRESSION: Successful percutaneous cholecystostomy as described. The patient tolerated the procedure well. Electronically Signed: Omar Anthony MD at 15:08 EDT , Physical Exam Const alert, oriented x3, no apparent distress, average body habitus and healthy appearing General Appearance: cooperative, well kempt and well developed Orientation / Consciousness: awake, oriented to person, oriented to place and oriented to time HEENT normocephalic and moist oral mucous membranes Eyes PERRL, EOMs intact bilaterally and conjunctivae normal Neck supple, no JVD, thyroid normal and no carotid bruits General: trachea midline Resp normal respiratory effort, no retractions, no use of accessory muscles and clear to auscultation bilaterally Auscultation: Negative for rales, rhonchi or wheezes Cardio regular rate, regular rhythm, S1 normal heart sound, S2 normal heart sound, no murmurs, no rub and no gallops GI soft to palpation and non-distended Extremity no clubbing, cyanosis or edema Skin no rashes or lesions noted General Skin Exam: no breakdown Neuro oriented x3, CN's II-XII intact bilaterally, moves all extremities, no focal motor deficits and no sensory deficits noted Sensorium / Orientation: awake and alert Speech: speech normal Psych affect normal Assessment & Plan Assessment/Plan (1) Acute cholecystitis: PLAN: Plan 1. Acute cholecystitis-again patient had a cholecystostomy tube inserted today, he will remain on his current medications, general surgery will take him for a cholecystectomy later on this week. #2 essential hypertension-patient will remain on his home medications for hypertension, evaluate, monitor, assess, and treat #3 hyperlipidemia-patient is on Lipitor, will monitor, evaluate, assess, and treat #4 atherosclerotic heart disease-patient is stable at this time, he remains on oral nitrates, will monitor, evaluate, assess, and treat #5 hyperlipidemia-patient remains on Lipitor, monitor, evaluate, assess, and treat Total clinical time spent by myself addressing patient's medical issues, reviewing all data, and collaborating with patient's care team: 35 minutes Charges/Coding Visit Charges Inpatient E&M: 68528 Subs Hosp L2
[2023-05-11] MEDS: Atorvastatin Calcium 80 MG Tablet PO (22:35)
[2023-05-11] MEDS: Heparin Injection (Vial) 5,000 UNIT/ML VIAL 5000 UNIT SC (22:43)
[2023-05-12 02:00] VITALS: BP 160/80; PULSE 60; RESP 12; TEMP 36.7; O2SAT 97
[2023-05-12 04:45] VITALS: BMI 28.8
--- NOTE | 2023-05-12 07:38 | PCM.PN.SRG ---
Subjective Subjective Patient states right upper quadrant pain is improved except for the tube is located. 175 cc of purulent material was aspirated at initial placement. Currently SHYANNE is more sanguinous. Objective Data Objective Data Vital Signs: Vital Signs Temp Pulse Resp BP Pulse Ox O2 Del Method 98.1 F 60 12 160/80 H 97 Room Air 05/12/23 02:00 05/12/23 02:00 05/12/23 02:00 05/12/23 02:00 05/12/23 02:00 05/12/23 02:00 Oxygen Delivery Method [6] Room Air Oxygen Delivery Method [5] Room Air Oxygen Delivery Method [4] Room Air Oxygen Delivery Method [3] Room Air Oxygen Delivery Method [2] Room Air Oxygen Delivery Method [1 ( Room Air Initial Baseline)] Oxygen Delivery Method Room Air Weight: 189 lb 13.088 oz Body Mass Index (BMI) 28.8 Intake & Output: Intake and Output for Last 24 Hours 05/10/23 05/11/23 05/12/23 23:59 23:59 23:59 Intake Total 1890.83 / 1890.83 1536.00 / 1536.00 195.5 / 195.5 Output Total 200 / 200 30 / 260 800 / 800 Balance 1690.83 / 1690.83 1506.00 / 1276.00 -604.5 / -604.5 Lab / Micro Data 05/12/23 08:15 05/11/23 05:45 Radiography Diagnostic Testing: Radiology Impression Gallbladder Ultrasound 05/11/23 07:00 IMPRESSION: As with the recent CT scan of the abdomen. There is sonographic evidence to suspect acalculous cholecystitis. The gallbladder is abnormally distended with wall thickening and a positive Jewell sign. There is associated dilatation of the common bile duct. Surgical consultation recommended. Hepatomegaly with mild fatty infiltration of the liver Electronically Signed: Adrien Chung MD at 10:17 EDT , Abscess Drainage CT 05/11/23 14:20 IMPRESSION: Successful percutaneous cholecystostomy as described. The patient tolerated the procedure well. Electronically Signed: Omar Anthony MD at 15:08 EDT , Physical Exam Const oriented x3 and no apparent distress Resp normal respiratory effort Cardio regular rate GI soft to palpation GI Narrative: Only tender in right upper quadrant at the area of the cholecystostomy tube much improved from yesterday, no peritoneal signs, nondistended Assessment & Plan Assessment/Plan (1) Acute cholecystitis: PLAN: Plan Continue continue cholecystostomy tube. We will schedule laparoscopic cholecystectomy for around 1 PM. Okay for full liquids?we will make n.p.o. 05/14/23 00:01 Continue IV Zosyn Reviewed the anatomy with the patient and discussed the procedure: laparoscopic cholecystectomy with cholangiograms, possible open. Review risks including but not limited to bleeding, infection, hernia, bile leak, retained gallstones requiring another procedure ERCP- Endoscopic Retrograde Cholangiopancreatography, injury to another organ (bile ducts, common bile duct, small bowel, etc.) and conversion to an open procedure. All questions were answered. Radha Otero M.D. Pager: [phone] [facility] [address] [place] [address], [facility], [address] [place] [address] Office: [phone] Charges/Coding Visit Charges Inpatient E&M: 01934 Subs Hosp L2
[2023-05-12] MEDS: Aspirin E.C. 81 MG Tablet PO (08:16)
[2023-05-12 08:19] VITALS: BP 176/76; PULSE 61; RESP 16; TEMP 36.7; O2SAT 96
[2023-05-12 08:25] LABS: Absolute Lymphocyte Count 0.99 X10^3/uL (0.83-4.51); Absolute Neutrophil Count 4.8 X10^3/uL (2.0-7.7); Basophil# 0.03 X10^3/uL; Basophil% 0.4 % (0-1); Eosinophil# 0.26 X10^3/uL; Eosinophils% 3.8 % (0-5); Hematocrit 35.6 % (40-54); Hemoglobin 12.3 g/dL (13.0-16.5); Lymphocyte # 0.99 X10^3/ul (0.83-4.51); Lymphocyte % 14.4 % (19-41); Mean Corp Hgb Conc 34.6 g/dL (32-36); Mean Corpuscular Hgb 30.8 pg (27.0-32.0); Mean Corpuscular Volume 89.2 fL (80-94); Monocyte# 0.73 X10^3/uL; Monocyte% 10.6 % (0-10); NRBC Flagged by Analyzer 0 % (0-5); Neutrophil # 4.83 X10^3/uL (2.7-7.7); Neutrophil % 70.5 % (47-70); Platelet Count 163 K/mm3 (150-450); RBC Distribution Width CV 13.4 % (11.6-14.6); RBC Distribution Width SD 44.1 fl (35.1-43.9); Red Blood Count 3.99 M/mm3 (4.6-6.2); White Blood Count 6.9 K/mm3 (4.4-11.0)
[2023-05-12 08:27] VITALS: BP 176/76; PULSE 61
[2023-05-12] MEDS: Carvedilol 3.125 MG TABLET PO ×2 (08:27→20:15)
[2023-05-12] MEDS: Losartan Potassium 50 MG Tablet PO (08:27)
[2023-05-12] MEDS: hydrALAZINE 20 MG/ML Vial 10 MG IV (08:27)
[2023-05-12 09:02] LABS: AST(SGOT) 26 U/L (15-37); Alanine Aminotransfer ALT/SGPT 26 U/L (16-61); Albumin, Serum 2.9 g/dL (3.2-5.0); Alkaline Phosphatase 75 U/L (45-117); Anion Gap 5 (5-15); BUN 21 mg/dL (7-18); BUN/Creat Ratio 13.8 RATIO (10-20); Bilirubin, Direct 0.33 mg/dL (0.00-0.30); Calcium,Total 8.7 mg/dL (8.5-10.1); Chloride 108 mmol/L (98-107); Creatinine, Serum 1.52 mg/dL (0.70-1.30); EST Glomerular Filtration Rate 47 mL/min (>60); Est Glom Filt Rate - Afr Amer 57 mL/min (>60); Estimated Creatinine Clearance 38.75 ml/min; Globulin 3.7 g/dL (2.2-4.2); Glucose 97 mg/dL (74-106); Potassium 3.9 mmol/L (3.5-5.1); Protein, Total 6.6 g/dL (6.4-8.2); Sodium Level 137 mmol/L (136-145)
[2023-05-12] MEDS: Heparin Injection (Vial) 5,000 UNIT/ML VIAL 5000 UNIT SC ×2 (10:11→22:17)
[2023-05-12] MEDS: 0.9% Saline Lock 10 ML Syringe IV ×2 (10:11→14:12)
[2023-05-12] MEDS: Isosorbide Mononitrate 60 MG Tablet PO (10:14)
[2023-05-12] MEDS: Pantoprazole Sodium 40 MG Tablet PO (10:14)
[2023-05-12 10:16] VITALS: BP 155/67; PULSE 60
[2023-05-12 14:28] VITALS: BP 142/65; PULSE 60; RESP 18; TEMP 36.6; O2SAT 96
--- NOTE | 2023-05-12 18:20 | PCM.PN.HOSP ---
Reason for Visit Reason for Visit: Diagnoses Acute cholecystitis (05/10/23) Subjective Subjective Patient was seen and examined today, he is up walking in his room and does not complain of any abdominal discomfort. Patient's white blood cell count today was 6.9. Creatinine was 1.52. Objective Data Objective Data Vital Signs: Vital Signs Temp Pulse Resp BP Pulse Ox O2 Del Method 97.8 F 60 18 142/65 H 96 Room Air 05/12/23 14:05/12/23 14:28 05/12/23 14:05/12/23 14:05/12/23 14:05/12/23 16:00 Oxygen Delivery Method [6] Room Air Oxygen Delivery Method [5] Room Air Oxygen Delivery Method [4] Room Air Oxygen Delivery Method [3] Room Air Oxygen Delivery Method [2] Room Air Oxygen Delivery Method [1 ( Room Air Initial Baseline)] Oxygen Delivery Method Room Air Weight: 86.1 kg Body Mass Index (BMI) 28.8 Intake & Output: Intake and Output for Last 24 Hours 05/10/23 05/11/23 05/12/23 23:59 23:59 23:59 Intake Total 1890.83 / 1890.83 1536.00 / 1536.00 995.5 / 995.5 Output Total 200 / 200 30 / 260 845 / 845 Balance 1690.83 / 1690.83 1506.00 / 1276.00 150.5 / 150.5 Lab / Micro Data 05/12/23 08:15 05/12/23 08:15 Labs: Laboratory Results - last 24 hr 05/12/23 08:15: WBC 6.9, RBC 3.99 L, Hgb 12.3 L, Hct 35.6 L, MCV 89.2, MCH 30.8, MCHC 34.6, RDW Std Deviation 44.1 H, RDW Coeff of Fercho 13.4, Plt Count 163, MPV 10.0, Immature Gran % (Auto) 0.300, Neut % (Auto) 70.5 H, Lymph % (Auto) 14.4 L, [place] % (Auto) 10.6 H, Eos % (Auto) 3.8, Baso % (Auto) 0.4, Absolute Neuts (auto) 4.8, Absolute Lymphs (auto) 0.99, Nucleated RBC % 0, Sodium 137, Potassium 3.9, Chloride 108 H, Carbon Dioxide 24.0, Anion Gap 5, BUN 21 H, Creatinine 1.52 H, Estim Creat Clear Calc 38.75, Est GFR (MDRD) Af Amer 57 L, Est GFR (MDRD) Non-Af 47 L, BUN/Creatinine Ratio 13.8, Glucose 97, Calcium 8.7, Total Bilirubin 0.90, Direct Bilirubin 0.33 H, AST 26, ALT 26, Alkaline Phosphatase 75, Total Protein 6.6, Albumin 2.9 L, Globulin 3.7 Micro: Microbiology 05/10/23 12:54 Blood Culture (Wb) - Anticubital Left Blood Culture - Preliminary No growth in 5 days. 05/10/23 12:54 Blood Culture (Wb) - Right Wrist Blood Culture - Preliminary No growth in 5 days. 05/11/23 14:45 Aspirate - Abdominal Gram Stain - Final 05/11/23 14:45 Aspirate - Abdominal Wound Culture - Preliminary Gram negative santo Physical Exam Const alert, oriented x3, no apparent distress, average body habitus and healthy appearing General Appearance: cooperative, well kempt and well developed Orientation / Consciousness: awake, oriented to person, oriented to place and oriented to time HEENT normocephalic, head/scalp atraumatic and moist oral mucous membranes Eyes PERRL, EOMs intact bilaterally and conjunctivae normal Neck supple, no JVD, thyroid normal and no carotid bruits General: trachea midline Resp normal respiratory effort, no retractions, no use of accessory muscles and clear to auscultation bilaterally Auscultation: Negative for rales, rhonchi or wheezes Cardio regular rate, regular rhythm, no murmurs, no rub and no gallops GI soft to palpation and non-distended GI Narrative: Patient has a cholecystostomy tube in place Extremity no clubbing, cyanosis or edema Skin no rashes or lesions noted General Skin Exam: no breakdown Neuro oriented x3, CN's II-XII intact bilaterally, moves all extremities, no focal motor deficits and no sensory deficits noted Sensorium / Orientation: awake, alert, oriented to person, oriented to place and oriented to time Speech: speech normal Psych affect normal Assessment & Plan Assessment/Plan (1) Acute cholecystitis: PLAN: Plan 1. Acute cholecystitis-patient has a cholecystostomy tube which is draining at this time, he does not have any abdominal discomfort, the plan is for the patient to have a laparoscopic cholecystectomy on of this week. Continue IV antibiotics. #2 essential hypertension-patient will remain on his home medications for hypertension, evaluate, monitor, assess, and treat #3 hyperlipidemia-patient is on Lipitor, will monitor, evaluate, assess, and treat #4 atherosclerotic heart disease-patient is stable at this time, he remains on oral nitrates, will monitor, evaluate, assess, and treat #5 hyperlipidemia-patient remains on Lipitor, monitor, evaluate, assess, and treat Total clinical time spent by myself addressing patient's medical issues, reviewing all data, and collaborating with patient's care team: 25 minutes Charges/Coding Visit Charges Inpatient E&M: 74442 [facility] L1
[2023-05-12 20:03] VITALS: BP 152/68; PULSE 61; RESP 18; TEMP 36.7; O2SAT 97
[2023-05-12] MEDS: Atorvastatin Calcium 80 MG Tablet PO (20:15)
[2023-05-13 03:14] VITALS: BMI 28.8
[2023-05-13 05:32] VITALS: BP 163/59; PULSE 61; RESP 18; TEMP 36.6; O2SAT 96
[2023-05-13] MEDS: 0.9% Saline Lock 10 ML Syringe IV (05:39)
--- NOTE | 2023-05-13 07:31 | PCM.PN.SRG ---
Subjective Subjective Patient tolerated fulls, only has some discomfort at the Peggy tube site. Peggy tube still sanguinous Objective Data Objective Data Vital Signs: Vital Signs Temp Pulse Resp BP Pulse Ox O2 Del Method 97.9 F 61 18 163/59 H 96 Room Air 05/13/23 05:32 05/13/23 05:32 05/13/23 05:32 05/13/23 05:32 05/13/23 05:32 05/13/23 05:32 Oxygen Delivery Method [6] Room Air Oxygen Delivery Method [5] Room Air Oxygen Delivery Method [4] Room Air Oxygen Delivery Method [3] Room Air Oxygen Delivery Method [2] Room Air Oxygen Delivery Method [1 ( Room Air Initial Baseline)] Oxygen Delivery Method Room Air Weight: 189 lb 13.088 oz Body Mass Index (BMI) 28.8 Intake & Output: Intake and Output for Last 24 Hours 05/11/23 05/12/23 05/13/23 23:59 23:59 23:59 Intake Total 1536.00 / 1536.00 1055.75 / 1255.75 477.5 / 477.5 Output Total 30 / 260 875 / 875 50 / 50 Balance 1506.00 / 1276.00 180.75 / 380.75 427.5 / 427.5 Lab / Micro Data 05/12/23 08:15 05/12/23 08:15 Labs: Laboratory Results - last 24 hr 05/12/23 08:15: WBC 6.9, RBC 3.99 L, Hgb 12.3 L, Hct 35.6 L, MCV 89.2, MCH 30.8, MCHC 34.6, RDW Std Deviation 44.1 H, RDW Coeff of Fercho 13.4, Plt Count 163, MPV 10.0, Immature Gran % (Auto) 0.300, Neut % (Auto) 70.5 H, Lymph % (Auto) 14.4 L, [place] % (Auto) 10.6 H, Eos % (Auto) 3.8, Baso % (Auto) 0.4, Absolute Neuts (auto) 4.8, Absolute Lymphs (auto) 0.99, Nucleated RBC % 0, Sodium 137, Potassium 3.9, Chloride 108 H, Carbon Dioxide 24.0, Anion Gap 5, BUN 21 H, Creatinine 1.52 H, Estim Creat Clear Calc 38.75, Est GFR (MDRD) Af Amer 57 L, Est GFR (MDRD) Non-Af 47 L, BUN/Creatinine Ratio 13.8, Glucose 97, Calcium 8.7, Total Bilirubin 0.90, Direct Bilirubin 0.33 H, AST 26, ALT 26, Alkaline Phosphatase 75, Total Protein 6.6, Albumin 2.9 L, Globulin 3.7 Micro: Microbiology 05/10/23 12:54 Blood Culture (Wb) - Anticubital Left Blood Culture - Preliminary No growth in 5 days. 05/10/23 12:54 Blood Culture (Wb) - Right Wrist Blood Culture - Preliminary No growth in 5 days. 05/11/23 14:45 Aspirate - Abdominal Gram Stain - Final 05/11/23 14:45 Aspirate - Abdominal Wound Culture - Preliminary Gram negative santo Physical Exam Const oriented x3 and no apparent distress Resp normal respiratory effort Cardio regular rate GI soft to palpation GI Narrative: Only tender in right upper quadrant at the area of the cholecystostomy tube much improved from yesterday, no peritoneal signs, nondistended Assessment & Plan Assessment/Plan (1) Acute cholecystitis: PLAN: Plan Continue continue cholecystostomy tube. We will schedule laparoscopic cholecystectomy for around 12:30 PM. Okay for regular diet?we will make n.p.o. 05/14/23 00:01, held heparin after 10 PM dose and held aspirin today. Continue IV Zosyn Reviewed the anatomy with the patient and discussed the procedure: laparoscopic cholecystectomy with cholangiograms, possible open. Review risks including but not limited to bleeding, infection, hernia, bile leak, retained gallstones requiring another procedure ERCP- Endoscopic Retrograde Cholangiopancreatography, injury to another organ (bile ducts, common bile duct, small bowel, etc.) and conversion to an open procedure. All questions were answered. Radha Otero M.D. Pager: [phone] [facility] [address] [place] [address], [facility], [address] [place] [address] Office: [phone]
[2023-05-13 08:17] VITALS: BP 140/73; PULSE 58; RESP 18; TEMP 36.5; O2SAT 96
[2023-05-13] MEDS: Senna/Docusate Sodium 1 Tablet 2 TABLET PO (08:22)
[2023-05-13] MEDS: Pantoprazole Sodium 40 MG Tablet PO (10:19)
[2023-05-13] MEDS: Losartan Potassium 50 MG Tablet PO (10:19)
[2023-05-13] MEDS: Carvedilol 3.125 MG TABLET PO ×2 (10:19→20:31)
[2023-05-13] MEDS: Isosorbide Mononitrate 60 MG Tablet PO (10:19)
[2023-05-13] MEDS: Heparin Injection (Vial) 5,000 UNIT/ML VIAL 5000 UNIT SC ×2 (10:20→22:53)
--- NOTE | 2023-05-13 16:18 | CASEMGMT ---
Social Work SW met with pt to discuss advance directives. Pt states he has completed a health care Power of [employer] but is uncertain if it names his or daughter. SW discussed the importance of this documentation and requested it be brought in. Pt states he will contact his and ask her to bring a copy in on her next visit. DARLIN Ventura
[2023-05-13] MEDS: Acetaminophen 325 MG Tablet 650 MG PO (17:37)
[2023-05-13 17:39] VITALS: BP 148/69; PULSE 55; RESP 18; TEMP 36.7; O2SAT 100
--- NOTE | 2023-05-13 17:46 | PCM.PN.HOSP ---
Reason for Visit Reason for Visit: Diagnoses Acute cholecystitis (05/10/23) Subjective Subjective Patient was seen and examined today, he complains of some slight abdominal pain but otherwise he has been doing well. Patient is scheduled for surgery tomorrow for a laparoscopic cholecystectomy. Objective Data Objective Data Vital Signs: Vital Signs Temp Pulse Resp BP Pulse Ox O2 Del Method 98.0 F 55 L 18 148/69 H 100 Room Air 05/13/23 17:39 05/13/23 17:39 05/13/23 17:39 05/13/23 17:39 05/13/23 17:39 05/13/23 17:39 Oxygen Delivery Method [6] Room Air Oxygen Delivery Method [5] Room Air Oxygen Delivery Method [4] Room Air Oxygen Delivery Method [3] Room Air Oxygen Delivery Method [2] Room Air Oxygen Delivery Method [1 ( Room Air Initial Baseline)] Oxygen Delivery Method Room Air Weight: 86.1 kg Body Mass Index (BMI) 28.8 Intake & Output: Intake and Output for Last 24 Hours 05/11/23 05/12/23 05/13/23 23:59 23:59 23:59 Intake Total 1536.00 / 1536.00 1055.75 / 1255.75 1377.5 / 1377.5 Output Total 30 / 260 875 / 875 90 / 90 Balance 1506.00 / 1276.00 180.75 / 380.75 1287.5 / 1287.5 Lab / Micro Data 05/12/23 08:15 05/12/23 08:15 Micro: Microbiology 05/11/23 14:45 Aspirate - Abdominal Gram Stain - Final 05/11/23 14:45 Aspirate - Abdominal Wound Culture - Final Pantoea spp 05/11/23 14:45 Aspirate - Abdominal Anaerobic Culture - Preliminary Checking for anaerobes, further studies to follow. 05/10/23 12:54 Blood Culture (Wb) - Anticubital Left Blood Culture - Preliminary No growth in 5 days. 05/10/23 12:54 Blood Culture (Wb) - Right Wrist Blood Culture - Preliminary No growth in 5 days. Physical Exam Narrative alert, oriented x3, no apparent distress, average body habitus and healthy appearing General Appearance: cooperative, well kempt and well developed Orientation / Consciousness: awake, oriented to person, oriented to place and oriented to time HEENT normocephalic, head/scalp atraumatic and moist oral mucous membranes Eyes PERRL, EOMs intact bilaterally and conjunctivae normal Neck supple, no JVD, thyroid normal and no carotid bruits General: trachea midline Resp normal respiratory effort, no retractions, no use of accessory muscles and clear to auscultation bilaterally Auscultation: Negative for rales, rhonchi or wheezes Cardio regular rate, regular rhythm, no murmurs, no rub and no gallops GI Mild diffuse abdominal tenderness is noted to mild abdominal palpation GI Narrative: Patient has a cholecystostomy tube in place Extremity no clubbing, cyanosis or edema Skin no rashes or lesions noted General Skin Exam: no breakdown Neuro oriented x3, CN's II-XII intact bilaterally, moves all extremities, no focal motor deficits and no sensory deficits noted Sensorium / Orientation: awake, alert, oriented to person, oriented to place and oriented to time Speech: speech normal Psych affect normal Assessment & Plan Assessment/Plan (1) Acute acalculous cholecystitis: (2) Acute cholecystitis: PLAN: Plan 1. Acute cholecystitis-patient has a cholecystostomy tube which is draining at this time, he has minimal abdominal discomfort, the plan is for the patient to have a laparoscopic cholecystectomy on of this week. Continue IV antibiotics. #2 essential hypertension-patient will remain on his home medications for hypertension, evaluate, monitor, assess, and treat #3 hyperlipidemia-patient is on Lipitor, will monitor, evaluate, assess, and treat #4 atherosclerotic heart disease-patient is stable at this time, he remains on oral nitrates, will monitor, evaluate, assess, and treat #5 hyperlipidemia-patient remains on Lipitor, monitor, evaluate, assess, and treat Total clinical time spent by myself addressing patient's medical issues, reviewing all data, and collaborating with patient's care team: 25 minutes Charges/Coding Visit Charges Inpatient E&M: 87978 Subs Hosp L1
[2023-05-13 20:22] VITALS: BP 122/54; PULSE 57; RESP 18; TEMP 36.7; O2SAT 97
[2023-05-13] MEDS: Atorvastatin Calcium 80 MG Tablet PO (20:31)
[2023-05-14] VITALS (12 sets, daily range): BP systolic 139–176; BP diastolic 51–93; PULSE 52–77; RESP 16–20; TEMP 36.3–36.9; O2SAT 89–98; BMI 28.8; BMI 28.9
--- NOTE | 2023-05-14 07:48 | PCM.PN.SRG ---
Subjective Subjective Patient tolerated diet yesterday n.p.o. since midnight, denies abdominal pain except for the cholecystostomy tube is in place Objective Data Objective Data Vital Signs: Vital Signs Temp Pulse Resp BP Pulse Ox O2 Del Method 98.2 F 52 L 16 164/72 H 96 Room Air 05/14/23 06:08 05/14/23 06:08 05/14/23 06:08 05/14/23 06:08 05/14/23 06:08 05/14/23 06:08 Oxygen Delivery Method [6] Room Air Oxygen Delivery Method [5] Room Air Oxygen Delivery Method [4] Room Air Oxygen Delivery Method [3] Room Air Oxygen Delivery Method [2] Room Air Oxygen Delivery Method [1 ( Room Air Initial Baseline)] Oxygen Delivery Method Room Air Weight: 190 lb 4.143 oz Body Mass Index (BMI) 28.8 Intake & Output: Intake and Output for Last 24 Hours 05/12/23 05/13/23 05/14/23 23:59 23:59 23:59 Intake Total 1055.75 / 1255.75 1487.75 / 1487.75 97.5 / 97.5 Output Total 875 / 875 100 / 100 100 / 100 Balance 180.75 / 380.75 1387.75 / 1387.75 -2.5 / -2.5 Lab / Micro Data 05/12/23 08:15 05/12/23 08:15 Micro: Microbiology 05/11/23 14:45 Aspirate - Abdominal Gram Stain - Final 05/11/23 14:45 Aspirate - Abdominal Wound Culture - Final Pantoea spp 05/11/23 14:45 Aspirate - Abdominal Anaerobic Culture - Preliminary Checking for anaerobes, further studies to follow. 05/10/23 12:54 Blood Culture (Wb) - Anticubital Left Blood Culture - Preliminary No growth in 5 days. 05/10/23 12:54 Blood Culture (Wb) - Right Wrist Blood Culture - Preliminary No growth in 5 days. Physical Exam Const oriented x3 and no apparent distress Resp normal respiratory effort Cardio regular rate GI soft to palpation GI Narrative: Only tender in right upper quadrant at the area of the cholecystostomy tube much improved from yesterday, no peritoneal signs, nondistended Assessment & Plan Assessment/Plan (1) Acute cholecystitis: PLAN: Plan Laparoscopic cholecystectomy today around 1230 Continue IV Zosyn Radha Otero, M.D. Pager: [phone] [facility] [address] [place] [address], [facility], [address] [place] [address] Office: [phone]
--- NOTE | 2023-05-14 12:30 | GALL_PTH ---
PATIENT: QASIM TAO JUNIOR LOC: MS3 U#:[id number] AGE/SX: 78/M [place] [facility] [place]: Dr. Juan D aSilva DO : 1945 BED: 1 DIS: 05/18/2023 SPEC #: [id number] RECD: 05/14/23 17:12 STATUS: TING RETiffany #: [id number] [place]: 05/14/23 12:[address]: Radha Otero DEPT: SURGICAL PATHOLOGY RECD BY: Ronda Mendoza ENTERED: 05/15/23 09:15 SP TYPE: GALLBLADDE OTHR DR: MD Dr. Claude Nicole MD Dr. Mark Tereletsky, DO Dr. Tamera Robotham, MD Tissues: Gallbladder, NOS Procedures: Surgery Specimen Level III Comments: @ Ordering doctor for SUIII edited from to @ by JACQUES at 05/15/23 1454 @ Submitting doctor edited from to @ by RGOOD at 05/15/23 1454 HEADER OPERATION: Laparoscopic subtotal cholecystectomy PRE-OP DIAGNOSIS: Acute acalculous cholecystitis TISSUE SUBMITTED: Gallbladder, subtotal MICROSCOPIC DIAGNOSIS Gallbladder, cholecystectomy: Chronic cholecystitis. AM:ryan 05/19/2023 MICROSCOPIC DESCRIPTION Slides are reviewed. GROSS DESCRIPTION Received is one container labeled with the patient's name and designated gallbladder, subtotal. The specimen consists of a previously opened gallbladder measuring 7.0 cm in length and up to 3.0 cm in diameter. The cystic duct is not identified. The external surface is pink-oliveira, smooth and glistening for the most part. Focally it is granular, hemorrhagic and contains cautery artifact. No bile is noted. No stones are identified in the container or in the gallbladder. The gallbladder wall measures up to 0.7 cm in thickness. Bridge Opener sections are submitted in one cassette. / SJ:ryan 05/15/2023 TC:3 CPT: 11713
[2023-05-14] MEDS: Bupivacaine Mpf 0.5% 30 ML VIAL (14:50)
--- NOTE | 2023-05-14 14:56 | PCM.OPRPT ---
Report of Operation Date of Procedure: 05/14/23 Pre-Operative Diagnosis: Acute cholecystitis Post-Operative Diagnosis: Acute cholecystitis, gallbladder sludge Surgery/Procedure Performed:: Laparoscopic subtotal cholecystectomy with SHYANNE placement Surgeon: Radha Otero compensation and benefits manager: Sunil Will Type of Anesthesia: General/Supplemental Anesthesiologist: Raulito Quiles Special Medications: Zosyn 3.375 g IV x1 Specimen's removed: Anterior gallbladder wall Drains: 15 [place]ic SHYANNE round Estimated Blood Loss (mL): 30 cc Description of Procedure: Indications: this is a 78 year-old male who developed abdominal pain/nausea/vomiting and on workup was found to have acute cholecystitis no stones seen on CAT scan and ultrasound, with a normal common bile duct. Due to patient being on Plavix patient did have short-term cholecystostomy tube placed by radiology. Laparoscopic cholecystectomy was elected. Description procedure: The patient was placed on operating table in supine position. A timeout was completed verifying correct patient, procedure, site, position and special equipment prior to beginning procedure. General Anesthesia was induced. The abdomen was prepped and draped in usual sterile fashion. An incision was made in the natural skin line above the umbilicus. The fascia was elevated and incised. The peritoneum was elevated and incised. Entry into the peritoneum was confirmed visually and no bowel was noted in the vicinity of the incision. Matthews trocar was placed. The abdomen was insufflated with carbon dioxide to a pressure of 12-15 mmHg. Patient tolerated insufflation well. The laparoscope was then inserted and abdomen inspected. No injuries from initial trocar placement were noted. Additional trochars were then inserted in the following locations 5 mm trocar in the epigastrium and 2 more 5 mm trochars along the right costal margin. The abdomen was inspected no abnormalities were found. The table is placed in reverse Trendelenburg position with the right side up. The cholecystostomy tube was removed and direct visualization, the dome of the gallbladder was firm/thick-walled. The dome of the gallbladder was grasped with atraumatic grasper passed through the lateral port and retracted over the dome of the liver. Carefully the omentum was able to be retracted off the gallbladder to work down towards the infundibulum. However there were very dense adhesions at the level of the neck of the gallbladder and near the cystic artery. Additional 5 mm trocar site was placed in the right mid abdomen to help with traction. Thus decided to convert to a subtotal cholecystectomy. Harmonic and electrocautery were used to divide the gallbladder wall-removing the anterior gallbladder wall. Review was used to coagulate the remaining gallbladder mucosa, no identifiable cystic duct orifice this was seen. 15 [place]ic round SHYANNE was placed in the gallbladder fossa. Hemostasis was checked and the gallbladder and contained stones were removed using the endoscopic retrieval bag through the umbilical port. The anterior gallbladder wall is passed off table as specimen. The gallbladder fossa was irrigated with saline and hemostasis obtained. There is no evidence of bleeding or bile leakage from the gallbladder fossa. 15 [place]ic SHYANNE was secured with a 3-0 nylon suture. Secondary trochars removed under direct vision. No bleeding was noted the trocar sites. The laparoscope was withdrawn and umbilical trocar removed. The abdomen was allowed to collapse. The fascia of the 12 mm trocar was closed with a [id number] 0 Vicryl suture. The skin was closed with sutures of 4-0 Monocryl and Steri-Strips. The patient was extubated. The patient tolerated procedure well and was taken to the postanesthesia care unit in stable condition. Complications none
--- NOTE | 2023-05-14 15:29 | DCINST_ITS ---
Discharge Instructions Diet Discharge Diet: Light diet - advance as tolerated Activity Discharge Activity: May Not Drive (while taking narcotic pain medications.) May shower in (days): 1 Lifting Restrictions: no lifting >20 lbs x 2 wks, no strenuous exercise for 4 wks Dressing / Incision Call your doctor if your incision/area has: Continuous Slow Oozing, Sudden Increased Bleeding, Increased Pain/ Swelling, Increased Redness, Foul Smelling Discharge and Swelling at the incision site Call your doctor if you observe: Fever of 101 or Higher Remove Dressing in: 2 days Cleanse incision/area with: Soap & Water Additional Dressing/Incision Instructions:: Steri-Strips will fall off in 7 to 10 days, if they do not fall off okay to remove after 10 days. Follow Up Care Please Follow Up With: Radha Otero MD When: Call the office for a follow-up appointment 2 weeks---- unless drain is still in place then make an appointment for early next week; after 5 PM and on the weekends call [phone] with any concerns. Test Results: Test results from this visit will be discussed in further detail at your follow- up appointment, if applicable. Discharge Plan Admission Admit Date/Time: 05/10/23 12:39 Attending Provider: Juan Da Silva Primary Care Provider: Mal Villanueva Consulting Providers: Radha Otero; Claude Rodriguez Instructions Patient Instructions: WILMER MARIE Procedural Sedation Discharge Orders/Prescriptions Prescriptions: No Action nitroglycerin 0.4 mg tablet, sublingual 0.4 mg sublingual Q5M PRN (Reason: Cardiac/Chest Pain) Qty: 1 4RF isosorbide mononitrate 60 mg tablet extended release 24 hr 60 mg PO DAILY Qty: 90 3RF cholecalciferol (vitamin D3) 1,250 mcg (50,000 unit) capsule 2,000 mcg PO DAILY losartan 50 mg tablet 50 mg PO DAILY acetaminophen 500 mg capsule 500 mg PO DAILY PRN (Reason: pain) Patient Comments: for pain in legs pantoprazole 40 mg tablet,delayed release (DR/EC) 40 mg PO DAILY ferrous sulfate [FeroSul] 325 mg (65 mg iron) tablet Patient Comments: Take 1 tablet by mouth once daily. aspirin [Adult Low Dose Aspirin] 81 mg tablet,delayed release (DR/EC) 81 mg PO DAILY Qty: 90 3RF atorvastatin 80 mg tablet 80 mg PO QHS Qty: 90 3RF carvedilol [Coreg] 3.125 mg tablet 3.125 mg PO BID Qty: 180 3RF Rx Instructions: must administer with a meal/food clopidogrel [Plavix] 75 mg tablet 75 mg PO DAILY Qty: 90 3RF furosemide 40 mg tablet 40 mg PO DAILY Qty: 90 3RF Referrals / Follow Up: Mal Villanueva MD [Primary Care Provider] -
[2023-05-14] MEDS: HYDROmorphone 1 MG/ML Syringe IV (16:51)
[2023-05-14] MEDS: 0.9% Normal Saline 1,000 ML 75 ML IV (17:12)
--- NOTE | 2023-05-14 18:38 | PN.HOSP_ITS ---
Reason for Visit Reason for Visit: Diagnoses Acute cholecystitis (05/10/23) Subjective Subjective Patient was seen and examined today, he had a laparoscopic cholecystectomy today which was only partial due to the fact that the wall of his gallbladder was stuck to the liver, his surgical drain was placed and I talked with general surgery about his surgery today. At the time my examination today, patient is lethargic due to his sedation from the surgery, his is in the room and I talked with her briefly. He does not seem to be in any respiratory distress. Objective Data Objective Data Vital Signs: Vital Signs Temp Pulse Resp BP Pulse Ox O2 Del Method 97.5 F L 62 16 172/72 H 95 Room Air 05/14/23 16:59 05/14/23 16:59 05/14/23 16:59 05/14/23 16:59 05/14/23 16:59 05/14/23 16:59 Oxygen Delivery Method [6] Room Air Oxygen Delivery Method [5] Room Air Oxygen Delivery Method [4] Room Air Oxygen Delivery Method [3] Room Air Oxygen Delivery Method [2] Room Air Oxygen Delivery Method [1 ( Room Air Initial Baseline)] Oxygen Delivery Method Room Air Weight: 86.3 kg Body Mass Index (BMI) 28.8 Intake & Output: Intake and Output for Last 24 Hours 05/12/23 05/13/23 05/14/23 23:59 23:59 23:59 Intake Total 1055.75 / 1255.75 1487.75 / 1487.75 339.25 / 339.25 Output Total 875 / 875 100 / 100 125 / 125 Balance 180.75 / 380.75 1387.75 / 1387.75 214.25 / 214.25 Lab / Micro Data 05/12/23 08:15 05/12/23 08:15 Micro: Microbiology 05/11/23 14:45 Aspirate - Abdominal Gram Stain - Final 05/11/23 14:45 Aspirate - Abdominal Wound Culture - Final Pantoea spp 05/11/23 14:45 Aspirate - Abdominal Anaerobic Culture - Preliminary Checking for anaerobes, further studies to follow. 05/10/23 12:54 Blood Culture (Wb) - Anticubital Left Blood Culture - Preliminary No growth in 5 days. 05/10/23 12:54 Blood Culture (Wb) - Right Wrist Blood Culture - Preliminary No growth in 5 days. Physical Exam Const no apparent distress Constitutional Narrative: Patient is sleepy and lethargic, he does open his eyes to verbal stimulation and tries to say few words. General Appearance: cooperative, well kempt and well developed Orientation / Consciousness: lethargic HEENT normocephalic, head/scalp atraumatic and moist oral mucous membranes Eyes PERRL, EOMs intact bilaterally and conjunctivae normal Neck supple, no JVD and thyroid normal General: trachea midline Resp normal respiratory effort, no retractions, no use of accessory muscles and clear to auscultation bilaterally Auscultation: Negative for rales, rhonchi or wheezes Cardio regular rate, regular rhythm, S1 normal heart sound, S2 normal heart sound, no rub, no gallops and no JVD Cardio Narrative: 2/6 systolic murmur is noted at the apex and left sternal border Extremity normal to inspection and no clubbing, cyanosis or edema Skin no rashes or lesions noted General Skin Exam: no breakdown Neuro CN's II-XII intact bilaterally, moves all extremities, no focal motor deficits and no sensory deficits noted Neuro Narrative: Patient is lethargic, he awakens to verbal stimulation and says a few words Psych Psych Narrative: Patient is sleepy and lethargic, he awakens to verbal stimuli and says a few words Assessment & Plan Assessment/Plan (1) Acute cholecystitis: (2) Acute acalculous cholecystitis: PLAN: Plan 1. Acute cholecystitis-postop day 0 partial cholecystectomy, surgery is participating in his care, continue present IV antibiotics #2 essential hypertension-patient will remain on his home medications for hypertension, evaluate, monitor, assess, and treat #3 hyperlipidemia-patient is on Lipitor, will monitor, evaluate, assess, and treat #4 atherosclerotic heart disease-patient is stable at this time, he remains on oral nitrates, will monitor, evaluate, assess, and treat #5 hyperlipidemia-patient remains on Lipitor, monitor, evaluate, assess, and treat Total clinical time spent by myself addressing patient's medical issues, reviewing all data, and collaborating with patient's care team: 25 minutes Charges/Coding Visit Charges Inpatient E&M: 59782 Subs [facility] L1
[2023-05-14] MEDS: Acetaminophen 325 MG Tablet 650 MG PO (20:14)
[2023-05-14] MEDS: Carvedilol 3.125 MG TABLET PO (21:17)
[2023-05-14] MEDS: Atorvastatin Calcium 80 MG Tablet PO (21:18)
[2023-05-14] MEDS: Heparin Injection (Vial) 5,000 UNIT/ML VIAL 5000 UNIT SC (22:52)
[2023-05-15] VITALS (7 sets, daily range): BP systolic 134–181; BP diastolic 56–71; PULSE 59–64; RESP 16–24; TEMP 36.4–37.1; O2SAT 93–96; BMI 28.9; BMI 28.8
[2023-05-15] MEDS: HYDROmorphone 1 MG/ML Syringe IV (04:12)
[2023-05-15] MEDS: 0.9% Normal Saline 1,000 ML 75 ML IV ×2 (05:34→18:37)
[2023-05-15] MEDS: Ondansetron 4 MG/2 ML Vial IV (06:49)
[2023-05-15] MEDS: Acetaminophen 325 MG Tablet 650 MG PO (06:49)
--- NOTE | 2023-05-15 06:52 | PN.SURG_ITS ---
Subjective Subjective Patient seen and examined during p.m. rounds. He is found sitting out of bed in the chair. He and his have a number of questions. He confesses that he has not been able to eat because he finds the broth that he has been brought highly unappetizing. Nursing reports that he had significant right upper quadra nt abdominal discomfort early on, but when he was treated with Dilaudid he became very lethargic and this was thus switched to [place]. Objective Data Objective Data Vital Signs: Vital Signs Temp Pulse Resp BP Pulse Ox O2 Del Method O2 Flow Rate 98.7 F 64 20 H 161/61 H 94 Nasal Cannula 2 05/15/23 06:35 05/15/23 06:35 05/15/23 06:35 05/15/23 06:35 05/15/23 06:35 05/15/23 06:35 05/15/23 06:35 Oxygen Flow Rate (L/min) 2 Oxygen Delivery Method [6] Room Air Oxygen Delivery Method [5] Room Air Oxygen Delivery Method [4] Room Air Oxygen Delivery Method [3] Room Air Oxygen Delivery Method [2] Room Air Oxygen Delivery Method [1 ( Room Air Initial Baseline)] Oxygen Delivery Method Nasal Cannula Weight: 189 lb 13.088 oz Body Mass Index (BMI) 28.8 Intake & Output: Intake and Output for Last 24 Hours 05/13/23 05/14/23 05/15/23 23:59 23:59 23:59 Intake Total 1487.75 / 1487.75 339.25 / 539.25 1377.5 / 1377.5 Output Total 100 / 100 125 / 195 640 / 640 Balance 1387.75 / 1387.75 214.25 / 344.25 737.5 / 737.5 Lab / Micro Data 05/12/23 08:15 05/15/23 14:52 Micro: Microbiology 05/11/23 14:45 Aspirate - Abdominal Gram Stain - Final 05/11/23 14:45 Aspirate - Abdominal Wound Culture - Final Pantoea spp 05/11/23 14:45 Aspirate - Abdominal Anaerobic Culture - Preliminary Checking for anaerobes, further studies to follow. 05/10/23 12:54 Blood Culture (Wb) - Anticubital Left Blood Culture - Preliminary No growth in 5 days. 05/10/23 12:54 Blood Culture (Wb) - Right Wrist Blood Culture - Preliminary No growth in 5 days. Physical Exam Const oriented x3 and no apparent distress Resp normal respiratory effort GI GI Narrative: Mildly distended, operative dressings intact with SHYANNE drain to right upper quadrant. There is mild serosanguineous output to this drain. I do not see any bile presently. Patient has appropriate tenderness to palpation about his incisions. Assessment & Plan Assessment/Plan (1) Status post laparoscopic cholecystectomy: (2) Acute acalculous cholecystitis: (3) Acute cholecystitis: PLAN: Plan Patient is a 78-year-old male postoperative day 1 from laparoscopic subtotal cholecystectomy. Overall he is doing as expected with some expected postoperative discomfort that has responded well to oral pain medications. P atient appears particularly susceptible to IV pain medications. His exam is appropriate and I do not see any evidence of bile with his drain, however, I do not feel we can remove the drain at this point given how little he is taken of his diet. Since his primary impediment to taking this diet as the distaste for the broth available to him I will advance his diet and assess his drain output in response to more substantial intake. CMP was ordered postoperatively and appears appropriate. Manger of care per hospitalist service. ? Full liquid diet for now, plan to advance as tolerated ? Reassess drain tomorrow Charges/Coding Visit Charges Inpatient E&M: 75297 Subs Hosp L2
[2023-05-15] MEDS: Heparin Injection (Vial) 5,000 UNIT/ML VIAL 5000 UNIT SC ×2 (10:09→21:48)
[2023-05-15] MEDS: Losartan Potassium 50 MG Tablet PO (10:09)
[2023-05-15] MEDS: Pantoprazole Sodium 40 MG Tablet PO (10:09)
[2023-05-15] MEDS: Isosorbide Mononitrate 60 MG Tablet PO (10:09)
[2023-05-15] MEDS: Carvedilol 3.125 MG TABLET PO ×2 (10:09→21:47)
--- NOTE | 2023-05-15 11:00 | CASEMGMT ---
RN CM into pt room, pt lying in bed with oxygen on. Pt states he feels weak. Noted his board states x1 with walker and pt had been indep ambulating. Discussed therapy with pt. Pt states he doesn't want it because it will drain my bank account. Discussed with pt to remain as indep as possible so he is ready to go home at time of dc. Discussed with pt nurse, therapy orders received.
[2023-05-15] MEDS: HYDROcodone Bitartrate/Apap 5/325 Tablet PO ×2 (13:10→22:12)
[2023-05-15 15:27] LABS: ALB/GLOB Ratio 0.7 RATIO (0.9-2.4); AST(SGOT) 38 U/L (15-37); Alanine Aminotransfer ALT/SGPT 32 U/L (16-61); Albumin, Serum 2.3 g/dL (3.2-5.0); Alkaline Phosphatase 64 U/L (45-117); Anion Gap 6 (5-15); BUN 16 mg/dL (7-18); BUN/Creat Ratio 9.7 RATIO (10-20); Calcium,Total 7.8 mg/dL (8.5-10.1); Chloride 108 mmol/L (98-107); Creatinine, Serum 1.65 mg/dL (0.70-1.30); EST Glomerular Filtration Rate 43 mL/min (>60); Est Glom Filt Rate - Afr Amer 52 mL/min (>60); Globulin 3.5 g/dL (2.2-4.2); Glucose 116 mg/dL (74-106); Potassium 3.9 mmol/L (3.5-5.1); Protein, Total 5.8 g/dL (6.4-8.2); Sodium Level 137 mmol/L (136-145)
--- NOTE | 2023-05-15 19:17 | PCM.PN.HOSP ---
Reason for Visit Reason for Visit: Diagnoses Acute cholecystitis (05/10/23) Subjective Subjective Patient was seen and examined today, he appeared to be sleepy from his pain medications, he did not appear in any distress however, patient did not complain of any shortness of breath, fever, or chills, he had some complaints of some abdominal discomfort which I believe is postsurgical in nature. Objective Data Objective Data Vital Signs: Vital Signs Temp Pulse Resp BP Pulse Ox O2 Del Method O2 Flow Rate 97.9 F 59 L 16 134/62 H 95 Nasal Cannula 2 05/15/23 18:06 05/15/23 18:06 05/15/23 18:06 05/15/23 18:06 05/15/23 18:06 05/15/23 18:06 05/15/23 18:06 Oxygen Flow Rate (L/min) 2 Oxygen Delivery Method [6] Room Air Oxygen Delivery Method [5] Room Air Oxygen Delivery Method [4] Room Air Oxygen Delivery Method [3] Room Air Oxygen Delivery Method [2] Room Air Oxygen Delivery Method [1 ( Room Air Initial Baseline)] Oxygen Delivery Method Nasal Cannula Weight: 86.1 kg Body Mass Index (BMI) 28.8 Intake & Output: Intake and Output for Last 24 Hours 05/13/23 05/14/23 05/15/23 23:59 23:59 23:59 Intake Total 1487.75 / 1487.75 339.25 / 539.25 2646.25 / 2646.25 Output Total 100 / 100 125 / 195 785 / 785 Balance 1387.75 / 1387.75 214.25 / 344.25 1861.25 / 1861.25 Lab / Micro Data 05/12/23 08:15 05/15/23 14:52 Labs: Laboratory Results - last 24 hr 05/15/23 14:52: Sodium 137, Potassium 3.9, Chloride 108 H, Carbon Dioxide 23.0, Anion Gap 6, BUN 16, Creatinine 1.65 H, Estim Creat Clear Calc 35.70, Est GFR (MDRD) Af Amer 52 L, Est GFR (MDRD) Non-Af 43 L, BUN/Creatinine Ratio 9.7 L, Glucose 116 H, Calcium 7.8 L, Total Bilirubin 0.70, AST 38 H, ALT 32, Alkaline Phosphatase 64, Total Protein 5.8 L, Albumin 2.3 L, Globulin 3.5, Albumin/Globulin Ratio 0.7 L Micro: Microbiology 05/10/23 12:54 Blood Culture (Wb) - Anticubital Left Blood Culture - Final No growth in 5 days. 05/10/23 12:54 Blood Culture (Wb) - Right Wrist Blood Culture - Final No growth in 5 days. 05/11/23 14:45 Aspirate - Abdominal Gram Stain - Final 05/11/23 14:45 Aspirate - Abdominal Wound Culture - Final Pantoea spp 05/11/23 14:45 Aspirate - Abdominal Anaerobic Culture - Preliminary Checking for anaerobes, further studies to follow. Physical Exam Narrative no apparent distress Constitutional Narrative: Patient is sleepy,, he does open his eyes to verbal stimulation and tries to say few words. General Appearance: cooperative, well kempt and well developed Orientation / Consciousness: lethargic HEENT normocephalic, head/scalp atraumatic and moist oral mucous membranes Eyes PERRL, EOMs intact bilaterally and conjunctivae normal Neck supple, no JVD and thyroid normal General: trachea midline Resp normal respiratory effort, no retractions, no use of accessory muscles and clear to auscultation bilaterally Auscultation: Negative for rales, rhonchi or wheezes Cardio regular rate, regular rhythm, S1 normal heart sound, S2 normal heart sound, no rub, no gallops and no JVD Cardio Narrative: 2/6 systolic murmur is noted at the apex and left sternal border Extremity normal to inspection and no clubbing, cyanosis or edema Skin no rashes or lesions noted General Skin Exam: no breakdown Neuro CN's II-XII intact bilaterally, moves all extremities, no focal motor deficits and no sensory deficits noted Neuro Narrative: Patient is sleepy, he awakens to verbal stimulation and says a few words Psych Psych Narrative: Patient is sleepy, he awakens to verbal stimuli and says a few words Assessment & Plan Assessment/Plan (1) Acute cholecystitis: (2) Acute acalculous cholecystitis: PLAN: Plan 1. Acute cholecystitis-postop day 1 partial cholecystectomy, surgery is participating in his care, continue present IV antibiotics, PT and OT are seeing patient #2 essential hypertension-patient will remain on his home medications for hypertension, evaluate, monitor, assess, and treat #3 hyperlipidemia-patient is on Lipitor, will monitor, evaluate, assess, and treat #4 atherosclerotic heart disease-patient is stable at this time, he remains on oral nitrates, will monitor, evaluate, assess, and treat #5 hyperlipidemia-patient remains on Lipitor, monitor, evaluate, assess, and treat Total clinical time spent by myself addressing patient's medical issues, reviewing all data, and collaborating with patient's care team: 25 minutes Charges/Coding Visit Charges Inpatient E&M: 26687 Subs Hosp L1
[2023-05-15] MEDS: Atorvastatin Calcium 80 MG Tablet PO (21:48)
[2023-05-16] VITALS (12 sets, daily range): BP systolic 128–174; BP diastolic 60–87; PULSE 60–72; RESP 14–24; TEMP 36.4–37.2; O2SAT 86–99; BMI 28.6
[2023-05-16] MEDS: 0.9% Normal Saline 1,000 ML 75 ML IV ×2 (06:28→19:31)
[2023-05-16] MEDS: HYDROcodone Bitartrate/Apap 5/325 Tablet PO (06:37)
--- NOTE | 2023-05-16 07:28 | PCM.PN.SRG ---
Subjective Subjective Patient seen and examined during AM rounds. He denies any nausea or vomiting with this full liquid diet. Nursing reports that he has had difficulty with ambulating?requiring up to 4 L nasal cannula to maintain his oxygen saturations. There notes some refusal to participate with his incentive spirometer. Objective Data Objective Data Vital Signs: Vital Signs Temp Pulse Resp BP Pulse Ox O2 Del Method O2 Flow Rate 97.6 F L 71 24 H 154/60 H 95 Nasal Cannula 2 05/16/23 04:13 05/16/23 04:13 05/16/23 04:13 05/16/23 04:13 05/16/23 06:38 05/16/23 06:38 05/16/23 06:38 Oxygen Flow Rate (L/min) 2 Oxygen Delivery Method [6] Room Air Oxygen Delivery Method [5] Room Air Oxygen Delivery Method [4] Room Air Oxygen Delivery Method [3] Room Air Oxygen Delivery Method [2] Room Air Oxygen Delivery Method [1 ( Room Air Initial Baseline)] Oxygen Delivery Method Nasal Cannula Weight: 189 lb 2.506 oz Body Mass Index (BMI) 28.6 Intake & Output: Intake and Output for Last 24 Hours 05/14/23 05/15/23 05/16/23 23:59 23:59 23:59 Intake Total 339.25 / 539.25 2696.25 / 2896.25 1338.75 / 1338.75 Output Total 125 / 195 785 / 795 220 / 220 Balance 214.25 / 344.25 1911.25 / 2101.25 1118.75 / 1118.75 Lab / Micro Data 05/12/23 08:15 05/15/23 14:52 Labs: Laboratory Results - last 24 hr 05/15/23 14:52: Sodium 137, Potassium 3.9, Chloride 108 H, Carbon Dioxide 23.0, Anion Gap 6, BUN 16, Creatinine 1.65 H, Estim Creat Clear Calc 35.70, Est GFR (MDRD) Af Amer 52 L, Est GFR (MDRD) Non-Af 43 L, BUN/Creatinine Ratio 9.7 L, Glucose 116 H, Calcium 7.8 L, Total Bilirubin 0.70, AST 38 H, ALT 32, Alkaline Phosphatase 64, Total Protein 5.8 L, Albumin 2.3 L, Globulin 3.5, Albumin/Globulin Ratio 0.7 L Micro: Microbiology 05/11/23 14:45 Aspirate - Abdominal Gram Stain - Final 05/11/23 14:45 Aspirate - Abdominal Wound Culture - Final Pantoea spp 05/11/23 14:45 Aspirate - Abdominal Anaerobic Culture - Final No anaerobic bacteria isolated. 05/10/23 12:54 Blood Culture (Wb) - Anticubital Left Blood Culture - Final No growth in 5 days. 05/10/23 12:54 Blood Culture (Wb) - Right Wrist Blood Culture - Final No growth in 5 days. Physical Exam Const oriented x3 and no apparent distress Resp Resp Narrative: Shallow inspirations GI GI Narrative: Mildly distended, right upper quadrant drain with bloody output. I do not detect anything bilious even after stripping the drain. Patient has some tenderness with palpation directly about his port sites. Assessment & Plan Assessment/Plan (1) Status post laparoscopic cholecystectomy: (2) Acute acalculous cholecystitis: (3) Acute cholecystitis: PLAN: Plan Patient is a 78-year-old male postoperative day 2 from laparoscopic subtotal cholecystectomy. Today, he reports that he is controlled for pain. He also reports tolerance of a diet. Nursing has noted a progressive oxygen requirement. I obtained a chest x-ray which just showed some atelectasis. We will work to increase his pulmonary toilet. From an abdominal perspective, his exam is appropriate and, again, I do not see any evidence of bile with his drain. Since he has been taking more of his diet I have discontinued his drain at bedside. Lastly, it has become apparent that patient has been constipated since his stay began. We will work to integrate a bowel regimen. Manger of care per hospitalist service. ? Continue full liquid diet for now ? DC antibiotics ? Bowel regimen ? Scheduled DuoNebs every 4 hours while awake Charges/Coding Visit Charges Inpatient E&M: 27791 Subs Hosp L2
[2023-05-16] MEDS: Aspirin E.C. 81 MG Tablet PO (08:01)
--- NOTE | 2023-05-16 08:30 | RAD_ITS ---
INDICATION: tachypnea EXAMINATION/TECHNIQUE: X-RAY - XR Chest 1 View COMPARISON: FINDINGS: LINES/DEVICES: None. LUNGS: New mild right lower lobe atelectasis. MEDIASTINUM AND CARDIOVASCULAR STRUCTURES: Cardiac silhouette not enlarged. Central airways and mediastinal contour are unremarkable. BONES AND SOFT TISSUES: Unremarkable. RAD/Chest 1 View (Portable) IMPRESSION: New mild right lower lobe atelectasis. Electronically Signed: Juan Valero MD at 8:46 EDT ,
--- NOTE | 2023-05-16 08:30 | RAD_ITS ---
INDICATION: constipation EXAMINATION/TECHNIQUE: X-RAY - XR Abdomen 1 View COMPARISON: FINDINGS: BOWEL GAS PATTERN: Moderate stool ascending and transverse colon. FREE AIR: Not assessed on a single supine view. ORGANOMEGALY: Not seen. CALCIFICATIONS: No abnormal calcifications observed. LOWER CHEST: No acute pathology. BONES AND SOFT TISSUES: No acute pathology. RAD/Abdomen Single View (Portable) IMPRESSION: Fecal stasis. Electronically Signed: Juan Valero MD at 8:45 EDT ,
[2023-05-16] MEDS: Polyethylene Glycol 3350 17 GM PACKET PO (10:22)
[2023-05-16] MEDS: Losartan Potassium 50 MG Tablet PO (10:24)
[2023-05-16] MEDS: Heparin Injection (Vial) 5,000 UNIT/ML VIAL 5000 UNIT SC ×2 (10:24→22:10)
[2023-05-16] MEDS: Carvedilol 3.125 MG TABLET PO ×2 (10:24→22:10)
[2023-05-16] MEDS: Pantoprazole Sodium 40 MG Tablet PO (10:24)
[2023-05-16] MEDS: Isosorbide Mononitrate 60 MG Tablet PO (10:24)
[2023-05-16] MEDS: Acetaminophen 325 MG Tablet 650 MG PO (14:17)
[2023-05-16] MEDS: Ipratropium/Albuterol Sulfate 3 ML AMPUL.NEB INHALATION ×2 (15:58→19:17)
--- NOTE | 2023-05-16 17:20 | PCM.PN.HOSP ---
Reason for Visit Reason for Visit: Diagnoses Acute cholecystitis (05/10/23) Acquired absence of other specified parts of digestive tract (05/10/23) Subjective Subjective Patient was seen and examined today, he is alert, he states he still has some abdominal tenderness but overall feels better than yesterday. I talked with general surgery briefly about his care, general surgery ordered a chest x-ray due to some increase in the patient's respiratory rate, chest x-ray showed right lower lobe atelectasis. General surgery ordered aerosol treatments and I agreed. Objective Data Objective Data Vital Signs: Vital Signs Temp Pulse Resp BP Pulse Ox O2 Del Method O2 Flow Rate 98.5 F 72 18 149/73 H 93 Room Air 2 05/16/23 10:00 05/16/23 15:58 05/16/23 15:58 05/16/23 10:00 05/16/23 10:00 05/16/23 10:00 05/16/23 08:28 Oxygen Flow Rate (L/min) 2 Oxygen Delivery Method [6] Room Air Oxygen Delivery Method [5] Room Air Oxygen Delivery Method [4] Room Air Oxygen Delivery Method [3] Room Air Oxygen Delivery Method [2] Room Air Oxygen Delivery Method [1 ( Room Air Initial Baseline)] Oxygen Delivery Method Room Air Weight: 85.8 kg Body Mass Index (BMI) 28.6 Intake & Output: Intake and Output for Last 24 Hours 05/14/23 05/15/23 05/16/23 23:59 23:59 23:59 Intake Total 339.25 / 539.25 2696.25 / 2896.25 2088.75 / 2088.75 Output Total 125 / 195 785 / 795 240 / 240 Balance 214.25 / 344.25 1911.25 / 2101.25 1848.75 / 1848.75 Lab / Micro Data 05/12/23 08:15 05/15/23 14:52 Micro: Microbiology 05/11/23 14:45 Aspirate - Abdominal Gram Stain - Final 05/11/23 14:45 Aspirate - Abdominal Wound Culture - Final Pantoea spp 05/11/23 14:45 Aspirate - Abdominal Anaerobic Culture - Final No anaerobic bacteria isolated. 05/10/23 12:54 Blood Culture (Wb) - Anticubital Left Blood Culture - Final No growth in 5 days. 05/10/23 12:54 Blood Culture (Wb) - Right Wrist Blood Culture - Final No growth in 5 days. Radiography Diagnostic Testing: Radiology Impression Chest X-Ray 05/16/23 08:30 IMPRESSION: New mild right lower lobe atelectasis. Electronically Signed: Juan Valero MD at 8:46 EDT , KUB X-Ray 05/16/23 08:30 IMPRESSION: Fecal stasis. Electronically Signed: Juan Valero MD at 8:45 EDT , Physical Exam Const alert, oriented x3, no apparent distress and average body habitus General Appearance: cooperative, well kempt and well developed Orientation / Consciousness: awake, oriented to person and oriented to place HEENT normocephalic, head/scalp atraumatic and moist oral mucous membranes Eyes PERRL, EOMs intact bilaterally and conjunctivae normal Neck supple, no JVD, thyroid normal and no carotid bruits General: trachea midline Resp normal respiratory effort, no retractions, no use of accessory muscles and clear to auscultation bilaterally Auscultation: Negative for rales, rhonchi or wheezes Cardio regular rate, regular rhythm, S1 normal heart sound, S2 normal heart sound, no murmurs, no rub and no gallops GI GI Narrative: Patient has some mild abdominal distention, bowel sounds are hypoactive Extremity no clubbing, cyanosis or edema Skin no rashes or lesions noted General Skin Exam: no breakdown Neuro CN's II-XII intact bilaterally, moves all extremities, no focal motor deficits and no sensory deficits noted Sensorium / Orientation: awake, alert, oriented to person and oriented to place Speech: speech normal Psych affect normal Assessment & Plan Assessment/Plan (1) Acute cholecystitis: (2) Acute acalculous cholecystitis: PLAN: Plan 1. Acute cholecystitis-postop day 2 partial cholecystectomy, surgery is participating in his care, continue present IV antibiotics, PT and OT are seeing patient #2 essential hypertension-patient will remain on his home medications for hypertension, evaluate, monitor, assess, and treat #3 hyperlipidemia-patient is on Lipitor, will monitor, evaluate, assess, and treat #4 atherosclerotic heart disease-patient is stable at this time, he remains on oral nitrates, will monitor, evaluate, assess, and treat #5 hyperlipidemia-patient remains on Lipitor, monitor, evaluate, assess, and treat #6 right lower lobe atelectasis-patient will receive aerosol treatments, monitor pulse ox Total clinical time spent by myself addressing patient's medical issues, reviewing all data, and collaborating with patient's care team: 25 minutes Charges/Coding Visit Charges Inpatient E&M: 91151 Subs Hosp L1
[2023-05-16] MEDS: Atorvastatin Calcium 80 MG Tablet PO (22:10)
[2023-05-17] VITALS (14 sets, daily range): BP systolic 156–188; BP diastolic 72–82; PULSE 61–79; RESP 16–20; TEMP 36.4–37.1; O2SAT 88–99
[2023-05-17] MEDS: HYDROcodone Bitartrate/Apap 5/325 Tablet PO ×2 (00:31→09:01)
--- NOTE | 2023-05-17 05:37 | NURSING ---
Notified physician of elevated bp and 1+ pitting edema, stopped fluids as patient is tolerating a regular diet and fluids per physician order. Patient was updated.
[2023-05-17] MEDS: Ipratropium/Albuterol Sulfate 3 ML AMPUL.NEB INHALATION ×4 (07:21→19:36)
--- NOTE | 2023-05-17 08:29 | PN.SURG_ITS ---
Subjective Subjective Patient seen and examined during AM rounds. Is found sitting out of bed in chair. Nursing reports that he just recently was able to have his oxygen discontinued. Mr. Martinez states that he is no longer having gas and feels bloated. He confirms the record that he has not had a bowel movement yet. Objective Data Objective Data Vital Signs: Vital Signs Temp Pulse Resp BP Pulse Ox O2 Del Method O2 Flow Rate 98.2 F 77 18 171/74 H 98 Nasal Cannula 2 05/17/23 05:20 05/17/23 07:20 05/17/23 07:20 05/17/23 05:20 05/17/23 07:20 05/17/23 07:20 05/17/23 07:20 Oxygen Flow Rate (L/min) 2 Oxygen Delivery Method [6] Room Air Oxygen Delivery Method [5] Room Air Oxygen Delivery Method [4] Room Air Oxygen Delivery Method [3] Room Air Oxygen Delivery Method [2] Room Air Oxygen Delivery Method [1 ( Room Air Initial Baseline)] Oxygen Delivery Method Nasal Cannula Weight: 189 lb 2.506 oz Body Mass Index (BMI) 28.6 Intake & Output: Intake and Output for Last 24 Hours 05/15/23 05/16/23 05/17/23 23:59 23:59 23:59 Intake Total 2696.25 / 2896.25 3692.92 / 3692.92 786.25 / 786.25 Output Total 785 / 795 240 / 390 500 / 500 Balance 1911.25 / 2101.25 3452.92 / 3302.92 286.25 / 286.25 Lab / Micro Data 05/12/23 08:15 05/15/23 14:52 Micro: Microbiology 05/11/23 14:45 Aspirate - Abdominal Gram Stain - Final 05/11/23 14:45 Aspirate - Abdominal Wound Culture - Final Pantoea spp 05/11/23 14:45 Aspirate - Abdominal Anaerobic Culture - Final No anaerobic bacteria isolated. 05/10/23 12:54 Blood Culture (Wb) - Anticubital Left Blood Culture - Final No growth in 5 days. 05/10/23 12:54 Blood Culture (Wb) - Right Wrist Blood Culture - Final No growth in 5 days. Radiography Diagnostic Testing: Radiology Impression Chest X-Ray 05/16/23 08:30 IMPRESSION: New mild right lower lobe atelectasis. Electronically Signed: Juan Valero MD at 8:46 EDT , KUB X-Ray 05/16/23 08:30 IMPRESSION: Fecal stasis. Electronically Signed: Juan Valero MD at 8:45 EDT , Physical Exam Const oriented x3 Constitutional Narrative: Mild distress from abdominal discomfort Resp normal respiratory effort GI GI Narrative: Distended, firm, mildly tender to palpation about port sites. Drain site unremarkable in right upper quadrant. Assessment & Plan Assessment/Plan (1) Status post laparoscopic cholecystectomy: (2) Acute acalculous cholecystitis: (3) Acute cholecystitis: PLAN: Plan Patient is a 78-year-old male postoperative day 3 from laparoscopic subtotal cholecystectomy. His postoperative drain was discontinued without event yest erday. The site appears appropriate today. Today, he reports that he is feeling bloated and not having much flatus. I am concerned that this is related to constipation that predates his admission. MiraLAX was administered yesterday without desired effect. Given his distention today, I have worked to convince him to allow us to administer a suppository. Ultimately he does agree. We will hold his MiraLAX for today. I would not advance his diet further until he has a bowel movement. On a positive note, we seem to be making progress with his oxygen status and he is no longer requiring supplemental O2 at this moment. He is encouraged to continue making use of his I-S and work on deeper inspirations. ? Continue full liquid diet for now ? Bowel regimen with Dulcolax suppository?follow-up for bowel movement ? Scheduled DuoNebs every 4 hours while awake
[2023-05-17] MEDS: Heparin Injection (Vial) 5,000 UNIT/ML VIAL 5000 UNIT SC ×2 (09:01→21:03)
[2023-05-17] MEDS: Isosorbide Mononitrate 60 MG Tablet PO (09:01)
[2023-05-17] MEDS: Aspirin E.C. 81 MG Tablet PO (09:01)
[2023-05-17] MEDS: Pantoprazole Sodium 40 MG Tablet PO (09:01)
[2023-05-17] MEDS: Carvedilol 3.125 MG TABLET PO ×2 (09:02→21:03)
[2023-05-17] MEDS: Losartan Potassium 50 MG Tablet PO (09:02)
--- NOTE | 2023-05-17 09:28 | NURSING ---
Patient was instructed on how to use IS. He was receptive to the teaching this time. He was only able to get the meter up to 250/500. Patient was instructed to use this at least 10 times/hr. Will monitor.
[2023-05-17] MEDS: Bisacodyl 10 MG Suppository RC (10:14)
--- NOTE | 2023-05-17 12:48 | PN.HOSP_ITS ---
Reason for Visit Reason for Visit: Diagnoses Acute cholecystitis (05/10/23) Acquired absence of other specified parts of digestive tract (05/10/23) Subjective Subjective Patient was seen and examined today, he states he has not had a bowel movement yet, he is now off oxygen however. Patient was given a suppository today to try to induce a bowel movement. Objective Data Objective Data Vital Signs: Vital Signs Temp Pulse Resp BP Pulse Ox O2 Del Method O2 Flow Rate 97.8 F 77 18 156/73 H 95 Room Air 1 05/17/23 09:11 05/17/23 11:20 05/17/23 11:20 05/17/23 09:11 05/17/23 11:20 05/17/23 11:20 05/17/23 09:11 Oxygen Flow Rate (L/min) 1 Oxygen Delivery Method [6] Room Air Oxygen Delivery Method [5] Room Air Oxygen Delivery Method [4] Room Air Oxygen Delivery Method [3] Room Air Oxygen Delivery Method [2] Room Air Oxygen Delivery Method [1 ( Room Air Initial Baseline)] Oxygen Delivery Method Room Air Weight: 85.8 kg Body Mass Index (BMI) 28.6 Intake & Output: Intake and Output for Last 24 Hours 05/15/23 05/16/23 05/17/23 23:59 23:59 23:59 Intake Total 2696.25 / 2896.25 3692.92 / 3692.92 786.25 / 786.25 Output Total 785 / 795 240 / 390 500 / 500 Balance 1911.25 / 2101.25 3452.92 / 3302.92 286.25 / 286.25 Lab / Micro Data 05/12/23 08:15 05/15/23 14:52 Micro: Microbiology 05/11/23 14:45 Aspirate - Abdominal Gram Stain - Final 05/11/23 14:45 Aspirate - Abdominal Wound Culture - Final Pantoea spp 05/11/23 14:45 Aspirate - Abdominal Anaerobic Culture - Final No anaerobic bacteria isolated. 05/10/23 12:54 Blood Culture (Wb) - Anticubital Left Blood Culture - Final No growth in 5 days. 05/10/23 12:54 Blood Culture (Wb) - Right Wrist Blood Culture - Final No growth in 5 days. Physical Exam Narrative alert, oriented x3, no apparent distress and average body habitus General Appearance: cooperative, well kempt and well developed Orientation / Consciousness: awake, oriented to person and oriented to place HEENT normocephalic, head/scalp atraumatic and moist oral mucous membranes Eyes PERRL, EOMs intact bilaterally and conjunctivae normal Neck supple, no JVD, thyroid normal and no carotid bruits General: trachea midline Resp normal respiratory effort, no retractions, no use of accessory muscles and clear to auscultation bilaterally Auscultation: Negative for rales, rhonchi or wheezes Cardio regular rate, regular rhythm, S1 normal heart sound, S2 normal heart sound, no murmurs, no rub and no gallops GI GI Narrative: Patient has some mild abdominal distention, bowel sounds are hypoactive, mild abdominal tenderness is noted to palpation Extremity no clubbing, cyanosis or edema Skin no rashes or lesions noted General Skin Exam: no breakdown Neuro CN's II-XII intact bilaterally, moves all extremities, no focal motor deficits and no sensory deficits noted Sensorium / Orientation: awake, alert, oriented to person and oriented to place Speech: speech normal Psych affect normal Assessment & Plan Assessment/Plan (1) Status post laparoscopic cholecystectomy: (2) Acute cholecystitis: (3) Acute acalculous cholecystitis: PLAN: Plan 1. Acute cholecystitis-postop day 3 partial cholecystectomy, surgery is participating in his care, continue present IV antibiotics, PT and OT are seeing patient #2 essential hypertension-patient will remain on his home medications for hype rtension, evaluate, monitor, assess, and treat #3 hyperlipidemia-patient is on Lipitor, will monitor, evaluate, assess, and treat #4 atherosclerotic heart disease-patient is stable at this time, he remains on oral nitrates, will monitor, evaluate, assess, and treat #5 hyperlipidemia-patient remains on Lipitor, monitor, evaluate, assess, and treat #6 right lower lobe atelectasis-patient will receive aerosol treatments, monitor pulse ox Total clinical time spent by myself addressing patient's medical issues, reviewing all data, and collaborating with patient's care team: 25 minutes Charges/Coding Visit Charges Inpatient E&M: 78101 Subs Hosp L1
[2023-05-17] MEDS: Acetaminophen 325 MG Tablet 650 MG PO (18:05)
[2023-05-17] MEDS: Atorvastatin Calcium 80 MG Tablet PO (21:02)
[2023-05-17] MEDS: MELATONIN 3 MG TABLET PO (21:05)
[2023-05-18] VITALS (8 sets, daily range): BP systolic 157–196; BP diastolic 60–77; PULSE 55–61; RESP 16–18; TEMP 36.3–36.6; O2SAT 93–95; BMI 30.4
[2023-05-18] MEDS: Senna/Docusate Sodium 1 Tablet 2 TABLET PO (06:11)
[2023-05-18] MEDS: Losartan Potassium 50 MG Tablet PO (06:11)
[2023-05-18] MEDS: Ipratropium/Albuterol Sulfate 3 ML AMPUL.NEB INHALATION ×2 (07:18→11:08)
--- NOTE | 2023-05-18 07:59 | PN.SURG_ITS ---
Subjective Subjective Patient seen and examined during AM rounds. He was found walking the halls with physical therapy, initially. On return to his room patient states that he is ready to go home, however, he admits that he has not had a bowel movement. He confirms that he is passing gas, but admits that it is not as frequent as befo re. He denies any nausea in response to his diet. Objective Data Objective Data Vital Signs: Vital Signs Temp Pulse Resp BP Pulse Ox O2 Del Method O2 Flow Rate 97.4 F L 55 L 18 188/77 H 93 Room Air 1 05/18/23 06:03 05/18/23 07:18 05/18/23 07:18 05/18/23 06:59 05/18/23 07:18 05/18/23 07:18 05/17/23 09:11 Oxygen Flow Rate (L/min) 1 Oxygen Delivery Method [6] Room Air Oxygen Delivery Method [5] Room Air Oxygen Delivery Method [4] Room Air Oxygen Delivery Method [3] Room Air Oxygen Delivery Method [2] Room Air Oxygen Delivery Method [1 ( Room Air Initial Baseline)] Oxygen Delivery Method Room Air Weight: 200 lb 9.93 oz Body Mass Index (BMI) 30.4 Intake & Output: Intake and Output for Last 24 Hours 05/16/23 05/17/23 05/18/23 23:59 23:59 23:59 Intake Total 3692.92 / 3692.92 1536.25 / 1736.25 400 / 400 Output Total 240 / 390 500 / 500 Balance 3452.92 / 3302.92 1036.25 / 1236.25 400 / 400 Lab / Micro Data 05/12/23 08:15 05/15/23 14:52 Micro: Microbiology 05/11/23 14:45 Aspirate - Abdominal Gram Stain - Final 05/11/23 14:45 Aspirate - Abdominal Wound Culture - Final Pantoea spp 05/11/23 14:45 Aspirate - Abdominal Anaerobic Culture - Final No anaerobic bacteria isolated. 05/10/23 12:54 Blood Culture (Wb) - Anticubital Left Blood Culture - Final No growth in 5 days. 05/10/23 12:54 Blood Culture (Wb) - Right Wrist Blood Culture - Final No growth in 5 days. Physical Exam Const oriented x3 and no apparent distress Resp normal respiratory effort Resp Narrative: No longer requiring nasal cannula GI GI Narrative: Moderately distended, port sites with Steri-Strips and drain site with bandage. There is scant crusted blood. Patient's abdomen is soft and tender to palpation only about port sites. Assessment & Plan Assessment/Plan (1) Status post laparoscopic cholecystectomy: (2) Acute acalculous cholecystitis: (3) Acute cholecystitis: PLAN: Plan Patient is a 78-year-old male postoperative day 4 from laparoscopic subtotal cholecystectomy. Patient still without a bowel movement today despite MiraLAX 2 days ago and a Dulcolax suppository yesterday. Based on his denial of no nausea and parent tolerance of a diet, is most suspicious for postoperative constipatio n but did obtain a KUB to more fully evaluate and this shows possible ileus with gaseous distention of small bowel and colon. In my independent review of this imaging a find that the distention is most pronounced in the area of the splenic flexure. It is my hope that this represents colonic gas that is yet to mobilize towards the rectum and that patient will begin to have bowel function. With t his picture I recommend repeat attempt at stimulating bowel function from below. I have discussed with primary service and we have resolved to attempt a fleets enema. ? Continue full liquid diet for now ? Fleets enema; based on patient's current physical picture he needs to have bowel movement and consistent bowel function before he is eligible for discharge from a surgical standpoint ? Scheduled DuoNebs every 4 hours while awake Charges/Coding Visit Charges Inpatient E&M: 36624 Subs Hosp L2
[2023-05-18] MEDS: Pantoprazole Sodium 40 MG Tablet PO (08:12)
[2023-05-18] MEDS: Aspirin E.C. 81 MG Tablet PO (08:12)
[2023-05-18] MEDS: Carvedilol 3.125 MG TABLET PO (08:12)
[2023-05-18] MEDS: Acetaminophen 325 MG Tablet 650 MG PO (08:12)
[2023-05-18] MEDS: Isosorbide Mononitrate 60 MG Tablet PO (08:12)
[2023-05-18] MEDS: Polyethylene Glycol 3350 17 GM PACKET PO (08:12)
[2023-05-18] MEDS: Heparin Injection (Vial) 5,000 UNIT/ML VIAL 5000 UNIT SC (08:12)
--- NOTE | 2023-05-18 08:58 | RAD_ITS ---
INDICATION: constipation -- wet read to Dr. Will EXAMINATION/TECHNIQUE: X-RAY - XR Abdomen W/ Decub and/or Erect Views COMPARISON: 05/16/2023. FINDINGS: BOWEL GAS PATTERN: Dilated gaseous small bowel loops and colon with air-fluid levels likely due to ileus. FREE AIR: No evidence of free air. ORGANOMEGALY: Not seen. CALCIFICATIONS: No abnormal calcifications observed. LOWER CHEST: Not well visualized. BONES AND SOFT TISSUES: No acute pathology. RAD/Abd Inc Decub and/or Erect IMPRESSION: Nonspecific dilated gaseous small bowel loops and colon likely due to ileus. Electronically Signed: Daniel Multani MD at 9:13 EDT ,
[2023-05-18] MEDS: Fleet Enema 1 ML RC (10:32)
--- NOTE | 2023-05-18 14:15 | DCINST_ITS ---
Discharge Instructions Diet Discharge Diet: Light diet - advance as tolerated Activity Discharge Activity: Return to Normal Activity May shower in (days): 1 Weight Bearing Status: Full weight bearing Dressing / Incision Call your doctor if your incision/area has: Continuous Slow Oozing, Sudden Increased Bleeding, Increased Pain/ Swelling, Increased Redness, Foul Smelling Discharge and Swelling at the incision site Call your doctor if you observe: Fever of 101 or Higher Cleanse incision/area with: Soap & Water Additional Dressing/Incision Instructions:: Steri-Strips will fall off in 7 to 10 days, if they do not fall off okay to remove after 10 days. Follow Up Care Please Follow Up With: Radha Otero MD Test Results: Test results from this visit will be discussed in further detail at your follow- up appointment, if applicable. Discharge Plan Admission Admit Date/Time: 05/10/23 12:39 Primary Reason for Your Visit: cholecystitis Attending Provider: Juan Da Silva Primary Care Provider: Mal Villanueva Consulting Providers: Radha Otero; Claude Rodriguez Instructions Patient Instructions: WILMER MARIE Procedural Sedation Additional Instructions / Restrictions: You may take MiraLAX 17 g once or twice a day as needed for constipation, you can buy this [id number] Discharge Orders/Prescriptions Prescriptions: Continued nitroglycerin 0.4 mg tablet, sublingual 0.4 mg sublingual Q5M PRN (Reason: Cardiac/Chest Pain) Qty: 1 4RF isosorbide mononitrate 60 mg tablet extended release 24 hr 60 mg PO DAILY Qty: 90 3RF cholecalciferol (vitamin D3) 1,250 mcg (50,000 unit) capsule 2,000 mcg PO DAILY losartan 50 mg tablet 50 mg PO DAILY acetaminophen 500 mg capsule 500 mg PO DAILY PRN (Reason: pain) Patient Comments: for pain in legs pantoprazole 40 mg tablet,delayed release (DR/EC) 40 mg PO DAILY ferrous sulfate [FeroSul] 325 mg (65 mg iron) tablet Patient Comments: Take 1 tablet by mouth once daily. aspirin [Adult Low Dose Aspirin] 81 mg tablet,delayed release (DR/EC) 81 mg PO DAILY Qty: 90 3RF atorvastatin 80 mg tablet 80 mg PO QHS Qty: 90 3RF carvedilol [Coreg] 3.125 mg tablet 3.125 mg PO BID Qty: 180 3RF Rx Instructions: must administer with a meal/food clopidogrel [Plavix] 75 mg tablet 75 mg PO DAILY Qty: 90 3RF furosemide 40 mg tablet 40 mg PO DAILY Qty: 90 3RF Referrals / Follow Up: Mal Villanueva MD [Primary Care Provider] - Within 2 Weeks Radha Otero MD [Med Staff - Active Staff] - In 1 Week (Call their office to make an appointment, tell them that you had surgery and were discharged from the hospital on 05/18/2023) Disposition Disposition (needs filled in before D/C Order can be placed): Home, Self Care
--- NOTE | 2023-05-18 14:21 | PCM.DC.SUM ---
Providers Date of Admission: 05/10/23 Date of Discharge: 05/18/23 Primary Care Physician: Dr. Mal Villanueva MD Consultations 05/10/23 15:34 Consult: General Surgery Routine Consulting Provider: Radha Otero Reason for Consult: Suspected cholecystitis EMERGENT Consult: No MD Notified: Yes Date Notified: 05/10/23 Time Notified: 12:42 Method of Notification: ED Physician Initiated Reason For Visit: ABDOMINAL PAIN Diagnosis Discharge Diagnosis (1) Status post laparoscopic cholecystectomy: Status: Acute Code(s): Z90.49 - Acquired absence of other specified parts of digestive tract (2) Acute acalculous cholecystitis: Status: Acute Code(s): K81.0 - Acute cholecystitis (3) Acute cholecystitis: Status: Acute Code(s): K81.0 - Acute cholecystitis Plan 1. Acute cholecystitis-postop day 5 partial cholecystectomy, surgery is participating in his care, continue present IV antibiotics, PT and OT are seeing patient #2 essential hypertension-patient will remain on his home medications for hypertension, evaluate, monitor, assess, and treat #3 hyperlipidemia-patient is on Lipitor, will monitor, evaluate, assess, and treat #4 atherosclerotic heart disease-patient is stable at this time, he remains on oral nitrates, will monitor, evaluate, assess, and treat #5 hyperlipidemia-patient remains on Lipitor, monitor, evaluate, assess, and treat #6 right lower lobe atelectasis-patient will receive aerosol treatments, monitor pulse ox Total clinical time spent by myself addressing patient's medical issues, reviewing all data, and collaborating with patient's care team: 25 minutes Medications at Discharge Home Medications aspirin 81 mg tablet,delayed release (Adult Low Dose Aspirin) 81 mg PO DAILY #90 tabs 01/21/19 nitroglycerin 0.4 mg sublingual tablet 0.4 mg sublingual Q5M PRN Cardiac/Chest Pain #1 BOTTLE 11/27/20 atorvastatin 80 mg tablet 80 mg PO QHS #90 tabs 04/28/22 pantoprazole 40 mg tablet,delayed release 40 mg PO DAILY reflux 05/16/22 carvedilol 3.125 mg tablet (Coreg) 3.125 mg PO BID #180 tabs 06/16/22 isosorbide mononitrate 60 mg tablet,extended release 24 hr 60 mg PO DAILY #90 tabs 07/03/22 clopidogrel 75 mg tablet (Plavix) 75 mg PO DAILY #90 tabs 09/29/22 cholecalciferol (vitamin D3) 1,250 mcg (50,000 unit) capsule 2,000 mcg PO DAILY unsure 10/09/22 losartan 50 mg tablet 50 mg PO DAILY not sure 10/09/22 acetaminophen 500 mg capsule 500 mg PO DAILY PRN pain 03/10/23 furosemide 40 mg tablet 40 mg PO DAILY diuretic #90 tabs 04/13/23 ferrous sulfate 325 mg (65 mg iron) tablet (FeroSul) mg unsure 05/10/23 Hospital Course Operations - (Partial laparoscopic cholecystectomy) Procedures - (Placement of a cholecystectomy tube) Summary of Care Provided Minutes Spent on Discharge: 31 Hospital Course: This 78-year-old white male was seen in the emergency room at [facility] with complaints of diffuse upper abdominal pain x2 days, he was seen in consultation by general surgery and imaging studies were performed which indicated the patient had acute cholecystitis. CT revealed an abnormally distended gallbladder and gallbladder wall enhancement and thickening, there was associated intra and extrahepatic biliary distention but no gallstones were identified indicating a calculus cholecystitis. Patient was admitted to [place] [id number] and placed on IV antibiotics. He was seen in consultation by general surgery. Patient underwent placement of a cholecystectomy tube and there was a waiting period before the patient finally underwent a laparoscopic cholecystectomy by general surgery, due to the severe nature of his cholecystitis, a partial cholecystectomy was only able to be performed. He did well after the surgery and there were no severe complications. Patient was seen by PT and OT. On 05/19/2023, patient was seen and examined: On examination he appeared in good health and spirits. Vital signs as documented. Skin warm and dry and without overt rashes. Neck without JVD, neck was supple, trachea midline, thyroid was normal. Lungs clear bilaterally, normal air movement was noted. Heart exam notable for regular rhythm, normal sounds and absence of murmurs, rubs or gallops. Abdomen unremarkable and without evidence of organomegaly, masses, or abdominal aortic enlargement. Bowel sounds are present, abdomen is not distended. Extremities nonedematous, no cyanosis was noted, no clubbing was noted. Neuro: Cranial nerves II through XII are grossly intact, no focal motor deficits were noted, sensation to light touch and pinprick intact, motor exam 5/5 throughout. Psych: Patient is alert and oriented x3, he does not appear anxious or depressed, he does not appear agitated. Patient appears stable for discharge home on 05/19/2023. Weight / BMI Weight Weight: 91 kg Body Mass Index (BMI) 30.4 ABG / Lab / Microbiology Data 05/12/23 08:15 05/15/23 14:52 Microbiology: Microbiology 05/11/23 14:45 Aspirate - Abdominal Gram Stain - Final 05/11/23 14:45 Aspirate - Abdominal Wound Culture - Final Pantoea spp 05/11/23 14:45 Aspirate - Abdominal Anaerobic Culture - Final No anaerobic bacteria isolated. 05/10/23 12:54 Blood Culture (Wb) - Anticubital Left Blood Culture - Final No growth in 5 days. 05/10/23 12:54 Blood Culture (Wb) - Right Wrist Blood Culture - Final No growth in 5 days. Radiography Diagnostic Testing: Radiology Impression Abdomen X-Ray 05/18/23 08:58 IMPRESSION: Nonspecific dilated gaseous small bowel loops and colon likely due to ileus. Electronically Signed: Daniel Multani MD at 9:13 EDT , D/C Instructions Discharge Diet: Light diet - advance as tolerated May shower in (days): 1 Weight Bearing Status: Full weight bearing Call your doctor if your incision/area has: Continuous Slow Oozing, Sudden Increased Bleeding, Increased Pain/ Swelling, Increased Redness, Foul Smelling Discharge and Swelling at the incision site Call your doctor if you observe: Fever of 101 or Higher Cleanse incision/area with: Soap & Water Additional Dressing/Incision Instructions: Steri-Strips will fall off in 7 to 10 days, if they do not fall off okay to remove after 10 days. Please Follow Up With: Radha Otero MD When: Call the office for a follow-up appointment 2 weeks---- unless drain is still in place then make an appointment for early next week; after 5 PM and on the weekends call [phone] with any concerns. Meaningful Use Info Meaningful Use Diagnoses (Choose all that apply): None applicable Discharge Plan Admission Admit Date/Time: 05/10/23 12:39 Primary Reason for Your Visit: cholecystitis Attending Provider: Juan Da Silva Primary Care Provider: Mal Villanueva Consulting Providers: Radha Otero; Claude Rodriguez Instructions Patient Instructions: WILMER MARIE Procedural Sedation Additional Instructions / Restrictions: You may take MiraLAX 17 g once or twice a day as needed for constipation, you can buy this [id number] Discharge Orders/Prescriptions Prescriptions: Continued nitroglycerin 0.4 mg tablet, sublingual 0.4 mg sublingual Q5M PRN (Reason: Cardiac/Chest Pain) Qty: 1 4RF isosorbide mononitrate 60 mg tablet extended release 24 hr 60 mg PO DAILY Qty: 90 3RF cholecalciferol (vitamin D3) 1,250 mcg (50,000 unit) capsule 2,000 mcg PO DAILY losartan 50 mg tablet 50 mg PO DAILY acetaminophen 500 mg capsule 500 mg PO DAILY PRN (Reason: pain) Patient Comments: for pain in legs pantoprazole 40 mg tablet,delayed release (DR/EC) 40 mg PO DAILY ferrous sulfate [FeroSul] 325 mg (65 mg iron) tablet Patient Comments: Take 1 tablet by mouth once daily. aspirin [Adult Low Dose Aspirin] 81 mg tablet,delayed release (DR/EC) 81 mg PO DAILY Qty: 90 3RF atorvastatin 80 mg tablet 80 mg PO QHS Qty: 90 3RF carvedilol [Coreg] 3.125 mg tablet 3.125 mg PO BID Qty: 180 3RF Rx Instructions: must administer with a meal/food clopidogrel [Plavix] 75 mg tablet 75 mg PO DAILY Qty: 90 3RF furosemide 40 mg tablet 40 mg PO DAILY Qty: 90 3RF Referrals / Follow Up: Mal Villanueva MD [Primary Care Provider] - Within 2 Weeks Radah Otero MD [Med Staff - Active Staff] - In 1 Week (Call their office to make an appointment, tell them that you had surgery and were discharged from the hospital on 05/18/2023) Disposition Disposition (needs filled in before D/C Order can be placed): Home, Self Care Charges/Coding Visit Charges Inpatient E&M: 90083 Disch Hosp >30min
--- NOTE | 2023-05-21 15:15 | CASEMGMT ---
TC to pt as notification received that he called in with questions. Pt was questioning how much of his gallbladder was taken out. He states he was told 95%. Made pt aware that per the op note, he had a subtotal theo but it does not state the percentage. Pt states he made a f/u appt for next Thursday. He is aware to take this question in and ask the surgeon. He verbalizes understanding of this. He denied further questions.
== END 2023-05-18 15:17 | disposition home or self-care (01) | DRG 418 ==
LOC: ED 12:46 → MS3 12:56
PROVIDERS: Surgery; Admitting Provider Internal Medicine; Emergency Provider Emergency Medicine; PCP Family Medicine; Visit Provider Internal Medicine
PROC: 0FB44ZZ Excision of Gallbladder, Percutaneous Endoscopic Approach (ICD-10-PCS; CPT 47610; principal; 2023-05-14 12:10)
DX: K81.0 Acute cholecystitis (principal); J98.11 Atelectasis; E78.5 Hyperlipidemia, unspecified; N18.30 Chronic kidney disease, stage 3 unspecified; I48.0 Paroxysmal atrial fibrillation; I12.9 Hypertensive chronic kidney disease with stage 1 through stage 4 chronic kidney disease, or unspecified chronic kidney disease; I35.0 Nonrheumatic aortic (valve) stenosis; I25.10 Atherosclerotic heart disease of native coronary artery without angina pectoris; I25.2 Old myocardial infarction; K21.9 Gastro-esophageal reflux disease without esophagitis; K59.09 Other constipation; K82.8 Other specified diseases of gallbladder; Z95.5 Presence of coronary angioplasty implant and graft; Z79.02 Long term (current) use of antithrombotics/antiplatelets; Z79.82 Long term (current) use of aspirin; Z79.899 Other long term (current) drug therapy
CPT/HCPCS: 36415; 71045; 74018; 74019; 74177; 75989; 76705; 80048; 80053; 80076; 81001; 82150; 83605; 83690; 83735; 84100; 84484; 85025; 87040; 87070; 87075; 87077; 87186; 87205; 88304; 93005; 94640; 97110; 97162; 97166; 97530; 99156; 99284; J7030; J7050; J7120; Q9967; A4216; J2405

== ENCOUNTER → 2023-09-17 | Outpatient (CLI) | payer MEDICARE, SELFPAY ==
[2019-08-23 10:44] VITALS: BMI 24.7
--- OUTSIDE RECORDS SUMMARY | 2023-09-17 09:22 | XMS RPT_ITS | CCD ---
Author Name Unknown Address [address] [place] [id number] Organization [facility] Care Team Providers Care Director Institution Name Role Phone Partha Santana (Hist) Primary Care Provider Un available Bryant Villanueva () Primary Care Provide r Bryant Villanueva MD Primary Care Provider Bryant Villanueva MD Primary Care Provider Bryant Villanueva MD Primary Care Provider Bryant Villanueva MD Primary Care Provider BRYANT VILLANUEVA Referring Unavailab BRYANT Evans Primary Care Unavailab BRYANT Evans Attending Unavailab BRYANT Evans Primary Care Unavailab BRYANT Evans Referring Unavailab le BRYANT VILLANUEVA Primary Care Unavailab BRYANT Evans Referring Unavailab BRYANT Evans Primary Care Unavailab BRYANT Evans Attending Unavailab BRYANT Evans Primary Care Unavailab BRYANT Evans Attending Unavailab BRYANT Evans Primary Care Unavailab BRYANT Evans Attending Unavailab BRYANT Evans Primary Care Unavailab BRYANT Evans Primary Care Unavailab BRYANT Evans Referring Unavailab BRYANT Evans Primary Care Unavailab BRYANT Evans Attending Unavailab BRYANT Evans Primary Care Unavailab le Medications Current Medications Medication Drug Class(es) Dates Sig (Normalized) Sig (Original) amLODIPine 2.5 mg oral tablet (5 sources) Dihydropyridine Calcium Channel Rocio Start: 06-03-2023 End: 09-01-2023 take 1 tablet by mouth once daily amLODIPine (NORVASC) 2.5 mg tablet Take 1 tablet by mouth once daily. 30 tablet 2 06/03/2023 09/01/2023 Active Completed/Discontinued Medications Medication Drug Class(es) Dates Sig (Normalized) Sig (Original) aspirin 81 mg delayed release oral tablet (20 sources) Platelet Aggregation Inhibitor, Nonsteroidal Anti-inflammatory Drug take 1 tablet by mouth once daily aspirin, enteric coated (ASPIRIN, ENTERIC COATED) 81 mg EC tablet Take 81 mg by mouth once daily. 0 Active Problems Active Problems Problem Classification Problem Date Documented Da te Episodic/Chronic Abdominal pain (1 source) Right upper quadrant pain; Translations: [Right upper quadrant pain] 05-10-2023 Episodic Cardiac dysrhythmias (20 sources) Paroxysmal atrial fibrillation; Translations: [Paroxysmal atrial fibrillation] Onset: 1 11-20-2020 Chronic Chronic kidney disease (17 sources) Chronic kidney disease stage 3; Translations: [Stage 3 chronic kidney disease, unspecified whether stage 3a or 3b CKD (HCC)] Onset: 2 Chronic Chronic kidney disease (1 source) Chronic kidney disease; Translations: [Stage 3 chronic kidney disease, unspecified whether stage 3a or 3b CKD (HCC)] Onset: 2 Congestive heart failure; nonhypertensive (12 sources) Congestive heart failure; Translations: [Heart failure, unspecified] Onset: 3 Chronic Coronary atherosclerosis and other heart disease (20 sources) Ischemic myocardial dysfunction; Translations: [Arteriosclerotic vascular disease] Onset: 1 11-20-2020 Chronic Deficiency and other anemia (3 sources) Normocytic anemia; Translations: [Anemia, unspecified] Episodic Deficiency and other anemia (2 sources) Iron deficiency anemia; Translations: [Iron deficiency anemia, unspecified] Episodic Diabetes mellitus without complication (1 source) Hyperglycemia; Translations: [Hyperglycemia, unspecified] Episodic Disorders of lipid metabolism (20 sources) Mixed hyperlipidemia; Translations: [Mixed hyperlipidemia] Onset: 1 11-20-2020 Chronic Esophageal disorders (5 sources) Gastroesophageal reflux disease; Translations: [Gastro-esophageal reflux disease without esophagitis] Onset: 3 Chronic Essential hypertension (20 sources) Benign essential hypertension; Translations: [Essential hypertension] Onset: 7 04-02-2007 Chronic Genitourinary symptoms and ill-defined conditions (2 sources) Increased frequency of urination; Translations: [Frequency of micturition] Onset: 3 06-03-2023 Episodic Heart valve disorders (20 sources) Aortic valve sclerosis; Translations: [Mitral valve regurgitation] Onset: 4 07-10-2014 Chronic Immunizations and screening for infectious disease (1 source) Suspected disease caused by 2019-nCoV; Translations: [Suspected COVID-19 virus infection] 06-03-2023 Episodic Mood disorders (20 sources) Moderate major depression, single episode; Translations: [Major depressive disorder, single episode, moderate] Onset: 1 05-27-2021 Chronic Nutritional deficiencies (20 sources) Vitamin D deficiency; Translations: [Vitamin D deficiency, unspecified] Onset: 1 05-30-2021 Chronic Other gastrointestinal disorders (3 sources) Esophageal dysphagia; Translations: [Other dysphagia] Episodic Other gastrointestinal disorders (1 source) H/O: gallbladder disease; Translations: [Personal history of other diseases of the digestive system] 06-03-2023 Episodic Other gastrointestinal disorders (1 source) Personal history of other diseases of the digestive system; Translations: [H/O acute cholecystitis] Onset: 3 Episodic Other nutritional; endocrine; and metabolic disorders (13 sources) Obesity; Translations: [Other obesity due to excess calories] 11-20-2020 Chronic Other nutritional; endocrine; and metabolic disorders (7 sources) Obesity caused by energy imbalance; Translations: [Other obesity due to excess calories] 11-20-2020 Chronic Peripheral and visceral atherosclerosis (5 sources) Arteriosclerotic vascular disease; Translations: [Intermittent claudication] Onset: 3 11-20-2020 Chronic Residual codes; unclassified (1 source) Acquired absence of other specified parts of digestive tract; Translations: [S/P laparoscopic cholecystectomy] Onset: 3 Episodic Thyroid disorders (20 sources) Subclinical hypothyroidism; Translations: [Other specified hypothyroidism] Onset: 2 11-26-2021 Chronic Unclassified (1 source) Patient encounter status; Translations: [Encounter for hepatitis C screening test for low risk patient] Unclassified (18 sources) Aortic valve sclerosis; Translations: [Aortic sclerosis] Onset: 4 09-09-2021 Unclassified (1 source) Suspected COVID-19 virus infection; Translations: [Suspected COVID-19 virus infection] Onset: 3 Urinary tract infections (1 source) Acute cystitis; Translations: [Acute cystitis without hematuria] 06-19-2023 Episodic Past or Other Problems Problem Classification Problem Date Documented Da te Episodic/Chronic Coagulation and hemorrhagic disorders (2 sources) Easy bruising; Translations: [Spontaneous ecchymoses] Onset: 02-17-2023 Episodic Deficiency and other anemia (1 source) Iron deficiency anemia, unspecified; Translations: [Iron deficiency anemia, unspecified iron deficiency anemia type] Onset: 01-12-2023 Episodic Deficiency and other anemia (1 source) Anemia, unspecified; Translations: [Normocytic anemia] Onset: 10-01-2022 Episodic Other gastrointestinal disorders (1 source) Other dysphagia; Translations: [Esophageal dysphagia] Onset: 01-12-2023 Episodic Results Test Name Value Interpretation Reference Range Facil ity Vital Signs Date Time Vital Sign Value Performing Clinician Duane barnes 06-19-2023 09:18-0400 Body weight 82.74 kg Bryant Villanueva MD Work Phone: [facility] 06-19-2023 09:18-0400 Diastolic blood pressure 66 mm[Hg] Bryant Villanueva MD Work Phone: [facility] 06-19-2023 09:18-0400 Heart rate 58 /min Bryant Villanueva MD Work Phone: [facility] 06-19-2023 09:18-0400 Respiratory rate 16 /min Bryant Villanueva MD Work Phone: [facility] 06-19-2023 09:18-0400 SaO2% (BldA) [Mass fraction] 97 % Bryant Villanueva MD Work Phone: [facility] 06-19-2023 09:18-0400 Systolic blood pressure 130 mm[Hg] Bryant Villanueva MD Work Phone: [facility] 06-03-2023 10:32-0400 Diastolic blood pressure 71 mm[Hg] Bryant Villanueva MD Work Phone: [facility] 06-03-2023 10:32-0400 Heart rate 67 /min Bryant Villanueva MD Work Phone: [facility] 06-03-2023 10:32-0400 Systolic blood pressure 197 mm[Hg] Bryant Villanueva MD Work Phone: [facility] 06-03-2023 09:42-0400 Body weight 84.82 kg Bryant Villanueva MD Work Phone: [facility] 06-03-2023 09:42-0400 Respiratory rate 16 /min Bryant Villanueva MD Work Phone: [facility] 05-10-2023 08:11-0400 Body temperature 98.29 [degF] Tonya Diane APRN.SINTER PRESS OPERATOR Work Phone: [facility] 05-10-2023 08:11-0400 Body weight 85.73 kg Tonya Diane APRN.SINTER PRESS OPERATOR Work Phone: [facility] 05-10-2023 08:11-0400 Diastolic blood pressure 70 mm[Hg] Tonya Diane APRN.SINTER PRESS OPERATOR Work Phone: [facility] 05-10-2023 08:11-0400 Heart rate 57 /min Tonya Diane APRN.SINTER PRESS OPERATOR Work Phone: [facility] 05-10-2023 08:11-0400 Respiratory rate 16 /min Tonya Diane APRN.SINTER PRESS OPERATOR Work Phone: [facility] 05-10-2023 08:11-0400 SaO2% (BldA) [Mass fraction] 97 % Tonya Diane APRN.SINTER PRESS OPERATOR Work Phone: [facility] 05-10-2023 08:11-0400 Systolic blood pressure 138 mm[Hg] Tonya Diane APRN.SINTER PRESS OPERATOR Work Phone: [facility] 02-17-2023 16:06-0400 Diastolic blood pressure 68 mm[Hg] Bryant Villanueva MD Work Phone: [facility] 02-17-2023 16:06-0400 Systolic blood pressure 124 mm[Hg] Bryant Villanueva MD Work Phone: [facility] 02-17-2023 15:42-0400 Body weight 88.45 kg Bryant Villanueva MD Work Phone: [facility] 02-17-2023 15:42-0400 Heart rate 56 /min Bryant Villanueva MD Work Phone: [facility] 02-17-2023 15:42-0400 Respiratory rate 16 /min Bryant Villanueva MD Work Phone: [facility] 02-17-2023 15:42-0400 SaO2% (BldA) [Mass fraction] 96 % Bryant Villanueva MD Work Phone: [facility] 01-12-2023 13:47-0400 Body weight 89.99 kg Bryant Villanueva MD Work Phone: [facility] 01-12-2023 13:47-0400 Diastolic blood pressure 64 mm[Hg] Bryant Villanueva MD Work Phone: [facility] 01-12-2023 13:47-0400 Heart rate 54 /min Bryant Villanueva MD Work Phone: [facility] 01-12-2023 13:47-0400 Respiratory rate 16 /min Bryant Villanueva MD Work Phone: [facility] 01-12-2023 13:47-0400 SaO2% (BldA) [Mass fraction] 96 % Bryant Villanueva MD Work Phone: [facility] 01-12-2023 13:47-0400 Systolic blood pressure 126 mm[Hg] Bryant Villanueva MD Work Phone: [facility] 07-15-2022 16:24-0400 Diastolic blood pressure 62 mm[Hg] Bryant Villanueva MD Work Phone: [facility] 07-15-2022 16:24-0400 Systolic blood pressure 118 mm[Hg] Bryant Villanueva MD Work Phone: [facility] 07-15-2022 11:42-0400 Body weight 87.36 kg Bryant Villanueva MD Work Phone: [facility] 07-15-2022 11:42-0400 Heart rate 56 /min Bryant Villanueva MD Work Phone: [facility] 07-15-2022 11:42-0400 Respiratory rate 16 /min Bryant Villanueva MD Work Phone: [facility] 07-15-2022 11:42-0400 SaO2% (BldA) [Mass fraction] 95 % Bryant Villanueva MD Work Phone: [facility] 12-31-2021 13:47-0400 Body height 170.2 cm Shereen Faheem PA-C Work Phone: [facility] 12-31-2021 13:47-0400 Body temperature 97.81 [degF] Shereen Faheem PA-C Work Phone: [facility] 12-31-2021 13:47-0400 Body weight 90.72 kg Shereen Faheem PA-C Work Phone: [facility] 12-31-2021 13:47-0400 Heart rate 62 /min Shereen Faheem PA-C Work Phone: [facility] 12-31-2021 13:47-0400 SaO2% (BldA) [Mass fraction] 97 % Shereen Faheem PA-C Work Phone: [facility] 11-20-2020 17:05-0500 Body weight 87.09 kg Bryant Villanueva [facility] in 11-20-2020 17:05-0500 BP Diastolic 72 mm[Hg] Bryant Villanueva [facility] 11-20-2020 17:05-0500 BP Systolic 134 mm[Hg] Bryant Villanueva [facility] 11-20-2020 17:05-0500 Height 169.5 cm Bryant Villanueva [facility] 11-20-2020 17:05-0500 Pulse (Heart Rate) 60 /min Bryant Villanueva [facility] 11-20-2020 17:05-0500 Pulse Oximetry 98 % Bryant Villanueva [facility] 11-20-2020 17:05-0500 Respiratory Rate 12 /min [facility] Encounter Date Encounter Type Care Provider Facility Start: 06-19-2023 Telephone encounter Mal Villanueva MD Work Phone: [facility] Procedures Date Procedure Procedure Detail Performing Clinician Start: 06-03-2023 Urnls dip stick/tablet rgnt auto w/o microscopy Bryant Villanueva MD Work Phone: Start: 11-14-2020 EXTERNAL CARDIOLOGY External Provider History of cholecystectomy S/P laparoscopic cholecystectomy Bryant Villanueva MD Work Phone: Plan of Treatment Date Care Activity Detail Author Start: 01-12-2026 DIABETES SCREEN DIABETES SCREEN [facility] Start: 01-12-2026 Diabetes Screening Diabetes Screenin g [facility] Start: 11-02-2025 LIPID SCREEN LIPID SCREEN [facility] Start: 07-15-2025 DIABETES SCREEN DIABETES SCREEN [facility] Start: 11-27-2024 DIABETES SCREEN DIABETES SCREEN [facility] Start: 06-19-2024 Annual PCP Team [employer] keith Disease Visit Annual PCP Team Chronic Disease Visit [facility] Start: 06-19-2024 Covid-19 Vaccine (5 - Pfizer series) Covid-19 Vaccine (5 - Pfizer series) [facility] Immunizations Immunization Date Immunization Notes Care Provider Fa cilijeanne 05-26-2023 influenza (HD-IIV4) vaccine, age 65+ yr, high dose, quadrivalent, PF (FLUZONE HIGH-DOSE) Bryant Villanueva MD Work Phone: [facility] Work Phone: 06-09-2022 influenza, high-dose , quadrivalent vaccine (FLUZONE HIGH DOSE QUADRIVALENT) Bryant Villanueva MD Work Phone: [facility] Work Phone: 06-02-2022 COVID-19 booster vaccine, age 12+ yr, bivalent ([employer]-BIONTECH) Bryant Villanueva MD Work Phone: [facility] 06-14-2021 COVID-19 vaccine, ag e 12+ yr (PFIZER-BIONTECH - PURPLE TOP) Shereen Mayen PA-C Work Phone: [facility] 05-27-2021 influenza, high-dose , quadrivalent vaccine (FLUZONE HIGH DOSE QUADRIVALENT) Shereen Mayen PA-C Work Phone: [facility] 05-18-2019 influenza, seasonal, injectable, preservative free Bryant Villanueva MD Work Phone: [facility] Work Phone: 06-25-2014 pneumococcal polysaccharide vaccine, 23 valent Bryant Villanueva MD Work Phone: [facility] 07-24-2008 influenza virus vaccine, unspecified formulation External Provider [facility] Payers Date Payer Category Payer Unknown [id number] 2016 Unknown [id number] 2016 Unknown [id number] Social History Date Type Detail Facility Start: 07-10-2014 End: 07-15-2022 Tobacco smoking status NHIS Former smoker [facility] End: 01-20-1987 History of tobacco use Current smoker [facility] Start: 07-10-2014 End: 06-19-2023 Alcohol intake Current non-drinker of alcohol (finding) [facility] Start: 1945 Sex Assigned At Not on file [facility] End: 11-20-1969 History of tobacco use Cigarette Smoker [facility] Start: 11-20-2020 End: 06-03-2023 Cigarettes smoked current (pack per day) - Reported [facility] Start: 11-20-2020 End: 07-15-2022 Tobacco use and exposure Former user [facility] Start: 12-21-2021 End: 07-15-2022 Exposure to SARS-CoV-2 (event) Not sure [facility] Start: 05-10-2023 End: 06-03-2023 Tobacco use panel [facility] Adult Depression Scr eening Assessment 6 [facility] Clinical Notes 12-05-2021 to 06-19-2023 Telephone Encounter - Shereen Ghosh RN - 06/19/2023 11:23 AM EDTTelephone Encounter - eTreza Cortes - 06/19/2023 10:02 AM EDTTelephone Encounter - Janay Miranda LPN - 06/19/2023 9:48 AM EDT Note Date & Type Note Facility 06-19-2023 Note HNO ID: [id number] Author: Bryant Villanueva MD Service: ? Author Type: Physician Type: Progress Notes Filed: 06/19/2023 9:55 AM Note Text: Chief Complaint Patient presents with: Follow Up: 2 week BP follow up HPI Matthew Martinez is a 78 year old male who presents here today for Above Complaints.. Losartan increased to 100 mg and added amlodipine at last OV for BP 182/80. BP improved on this regimen without side effects. Readings at home 110-130/60's. Treated UTI with Cipro. Held statin as requested. Symptoms resolved. Past medical history, appointments, medications, allergies reviewed. Previous Medical History PAST MEDICAL HISTORY Diagnosis Date ASCVD (arteriosclerotic cardiovascular disease) [facility] Chronic kidney disease (CKD), stage III (moderate) (HCC) Class 1 obesity due to excess calories with serious comorbidity and body mass index (BMI) of 30.0 to 30.9 in adult Current moderate episode of major depressive disorder without prior episode (HCC) Dysphagia Essential hypertension GERD (gastroesophageal reflux disease) Iron deficiency anemia Refusing FOBT Ischemic cardiomyopathy Mixed hyperlipidemia Paroxysmal atrial fibrillation (HCC) Subclinical hypothyroidism Vitamin D deficiency Previous Surgical History PAST SURGICAL HISTORY Procedure Laterality Date COLONOSCOPY GEN ANES age 50 IR RT HEART CATH 12/2018 IR RT HEART CATH 08/2019 TONSILLECTOMY PRIMARY/SECONDARY Tonsillectomy Family History FAMILY HISTORY Adopted: Yes Problem Relation Age of Onset Cancer Father Brain Tumor No Known Problems Daughter Aneurysm Son Brain No Known Problems Son Patient Allergies ALLERGIES No Known Allergies Current Medications Current Outpatient Medications on File Prior to Visit Medication Sig losartan (COZAAR) 100 mg tablet Take 1 tablet by mouth once daily. amLODIPine (NORVASC) 2.5 mg tablet Take 1 tablet by mouth once daily. pantoprazole DR (PROTONIX) 40 mg tablet Take 1 tablet by mouth daily before breakfast. Take on empty stomach, 1/2 hr before meal. carvedilol (COREG) 3.125 mg tablet Take 1 tablet by mouth twice daily. TAKE WITH FOOD. isosorbide mononitrate ER (IMDUR) 60 mg 24 hr tablet Take 1 tablet by mouth once daily. nitroglycerin sublingual (NITROQUICK) 0.4 mg SL tablet Dissolve 1 tablet under the tongue every 5 minutes as needed for chest pain. atorvastatin (LIPITOR) 80 mg tablet Take 80 mg by mouth daily at bedtime. clopidogrel (PLAVIX) 75 mg tablet Take 75 mg by mouth once daily. furosemide (LASIX) 40 mg tablet Take 40 mg by mouth once daily. aspirin, enteric coated (ASPIRIN, ENTERIC COATED) 81 mg EC tablet Take 81 mg by mouth once daily. cholecalciferol, Vitamin D3, (VITAMIN D3) 1,250 mcg (50,000 unit) cap capsule Take 1 capsule by mouth one time a week. No current facility-administered medications on file prior to visit. Social History Social History Tobacco Use Smoking status: Former Packs/day: 3.00 Years: 7.00 Additional pack years: 0.00 Total pack years: 21.00 Types: Cigarettes Quit date: 11/20/1969 Years since quittin.6 Smokeless tobacco: Former Vaping Use Vaping Use: Never used Substance Use Topics Alcohol use: No Drug use: No Review of Symptoms REVIEW OF SYSTEMS GENERAL: No weight loss, malaise or fevers RESPIRATORY: Negative for cough, hemoptysis, wheezing, COPD, dyspnea or shortness of breath CARDIOVASCULAR: Negative for chest pain, leg swelling, hypertension, CHF or palpitations GI: No nausea, vomiting, or diarrhea : No history of dysuria, frequency or incontinence SKIN: Negative for lesions, rash, and itching EXAM: BP 130/66 Pulse (!) 58 Resp 16 Wt 82.7 kg (182 lb 6.4 oz) SpO2 97% BMI 28.57 kg/m? General Appearance: Well appearing, alert, in no acute distress, well-hydrated, well nourished.. Skin: Skin color, texture, turgor normal, no suspicious rashes or lesions. Lungs: Lungs clear to auscultation. No wheezing, rhonchi, rales.. Heart: RRR without murmur, gallop, or rubs. No ectopy. Abdomen: Normal abdominal exam, Abdomen soft, non-tender. Bowel sounds normal. No masses, organomegaly. Extremities: No deformities, edema, skin discoloration, clubbing or cyanosis. Good capillary refill. . Health Maintenance List BP Controlled (<130/80) Never done Shingrix Vaccine(1 of 2) Never done Advance Directive Discussion Never done Covid-19 Vaccine(5 - Pfizer series) due on 10/02/2022 DTaP,Tdap,Td Vaccine(1 - Tdap) due on 07/15/2023 Pneumococcal Vaccine: 65+(2 - PCV) due on 07/15/2023 Serum Creatinine due on 01/13/2024 Hemoglobin/Hematocrit due on 02/18/2024 Annual PCP Team Chronic Disease Visit due on 06/03/2024 Diabetes Screening due on 01/12/2026 Influenza Vaccine Completed Hepatitis C Screening Completed ASSESSMENT/PLAN: 1. Essential hypertension - ICD9: 401.9, ICD10: I10 (primary diagnosis) - Controlled - C (more content not included)... [facility] 06-19-2023 Miscellaneous Notes Pt called and is notified of providers results and instructions. Pt voices understanding. Shereen Ghosh RN Left message for patient to return call [facility]re[facility] Cortes [facility] from [facility] appeared stable. Will recheck in 6 months. Patient questioning if he needs the labs that were ordered today as he thinks he may have had them drawn at [facility] when he had surgery. documented in this encounter [facility] 06-19-2023 Instructions Bryant Villanueva MD - 06/19/2023 9:33 AM EDT Please restart your lipitor. documented in this encounter [facility] 06-19-2023 History of Presen t illness Narrative Chief Complaint Patient presents with: Follow Up: 2 week BP follow up HPI Matthew Martinez is a 78 year old male who presents here today for Above Complaints.. Losartan increased to 100 mg and added amlodipine at last OV for BP 182/80. BP improved on this regimen without side effects. Readings at home 110-130/60's. Treated UTI with Cipro. Held statin as requested. Symptoms resolved. Past medical history, appointments, medications, allergies reviewed. Previous Medical History PAST MEDICAL HISTORY Diagnosis Date ASCVD (arteriosclerotic cardiovascular disease) [facility] Chronic kidney disease (CKD), stage III (moderate) (HCC) Class 1 obesity due to excess calories with serious comorbidity and body mass index (BMI) of 30.0 to 30.9 in adult Current moderate episode of major depressive disorder without prior episode (HCC) Dysphagia Essential hypertension GERD (gastroesophageal reflux disease) Iron deficiency anemia Refusing FOBT Ischemic cardiomyopathy Mixed hyperlipidemia Paroxysmal atrial fibrillation (HCC) Subclinical hypothyroidism Vitamin D deficiency Previous Surgical History PAST SURGICAL HISTORY Procedure Laterality Date COLONOSCOPY GEN ANES age 50 IR RT HEART CATH 12/2018 IR RT HEART CATH 08/2019 TONSILLECTOMY PRIMARY/SECONDARY <AGE 12 Tonsillectomy Family History FAMILY HISTORY Adopted: Yes Problem Relation Age of Onset Cancer Father Brain Tumor No Known Problems Daughter Aneurysm Son Brain No Known Problems Son Patient Allergies ALLERGIES No Known Allergies Current Medications Current Outpatient Medications on File Prior to Visit Medication Sig losartan (COZAAR) 100 mg tablet Take 1 tablet by mouth once daily. amLODIPine (NORVASC) 2.5 mg tablet Take 1 tablet by mouth once daily. pantoprazole DR (PROTONIX) 40 mg tablet Take 1 tablet by mouth daily before breakfast. Take on empty stomach, 1/2 hr before meal. carvedilol (COREG) 3.125 mg tablet Take 1 tablet by mouth twice daily. TAKE WITH FOOD. isosorbide mononitrate ER (IMDUR) 60 mg 24 hr tablet Take 1 tablet by mouth once daily. nitroglycerin sublingual (NITROQUICK) 0.4 mg SL tablet Dissolve 1 tablet under the tongue every 5 minutes as needed for chest pain. atorvastatin (LIPITOR) 80 mg tablet Take 80 mg by mouth daily at bedtime. clopidogrel (PLAVIX) 75 mg tablet Take 75 mg by mouth once daily. furosemide (LASIX) 40 mg tablet Take 40 mg by mouth once daily. aspirin, enteric coated (ASPIRIN, ENTERIC COATED) 81 mg EC tablet Take 81 mg by mouth once daily. cholecalciferol, Vitamin D3, (VITAMIN D3) 1,250 mcg (50,000 unit) cap capsule Take 1 capsule by mouth one time a week. No current facility-administered medications on file prior to visit. Social History Social History Tobacco Use Smoking status: Former Packs/day: 3.00 Years: 7.00 Additional pack years: 0.00 Total pack years: 21.00 Types: Cigarettes Quit date: 11/20/1969 Years since quittin.6 Smokeless tobacco: Former Vaping Use Vaping Use: Never used Substance Use Topics Alcohol use: No Drug use: No Review of Symptoms REVIEW OF SYSTEMS GENERAL: No weight loss, malaise or fevers RESPIRATORY: Negative for cough, hemoptysis, wheezing, COPD, dyspnea or shortness of breath CARDIOVASCULAR: Negative for chest pain, leg swelling, hypertension, CHF or palpitations GI: No nausea, vomiting, or diarrhea : No history of dysuria, frequency or incontinence SKIN: Negative for lesions, rash, and itching EXAM: BP 130/66 Pulse (!) 58 Resp 16 Wt 82.7 kg (182 lb 6.4 oz) SpO2 97% BMI 28.57 kg/m General Appearance: Well appearing, alert, in no acute distress, well-hydrated, well nourished.. Skin: Skin color, texture, turgor normal, no suspicious rashes or lesions. Lungs: Lungs clear to auscultation. No wheezing, rhonchi, rales.. Heart: RRR without murmur, gallop, or rubs. No ectopy. Abdomen: Normal abdominal exam, Abdomen soft, non-tender. Bowel sounds normal. No masses, organomegaly. Extremities: No deformities, edema, skin discoloration, clubbing or cyanosis. Good capillary refill. . Health Maintenance List BP Controlled (<130/80) Never done Shingrix Vaccine(1 of 2) Never done Advance Directive Discussion Never done Covid-19 Vaccine(5 - Pfizer series) due on 10/02/2022 DTaP,Tdap,Td Vaccine(1 - Tdap) due on 07/15/2023 Pneumococcal Vaccine: 65+(2 - PCV) due on 07/15/2023 Serum Creatinine due on 01/13/2024 Hemoglobin/Hematocrit due on 02/18/2024 Annual PCP Team Chronic Disease Visit due on 06/03/2024 Diabetes Screening due on 01/12/2026 Influenza Vaccine Completed Hepatitis C Screening Completed ASSESSMENT/PLAN: 1. Essential hypertension - ICD9: 401.9, ICD10: I10 (primary diagnosis) - Controlled - Continue current medications - Recommend home blood pressure monitoring, to bring results to next visit - Encouraged sodium restriction, DASH or Mediterranean diet - Recommend regular aerobic exercise 2. Acute cystitis without hematuria - ICD9: 595.0, ICD10: N30.00 Resolved. Call with recurrent symptoms. Push PO fluids. 3. Stage 3 chronic kidney disease, unspecified whether stage 3a or 3b CKD (HCC) - ICD9: 585.3, ICD10: N18.30 Labs stable with recent hospitalization. Continue current regimen. Recheck in 6 months. 4. Congestive heart failure, unspecified HF chronicity, unspecified heart failure type (HCC) - ICD9: 428.0, ICD10: I50.9 Asymptomatic on current regimen. 5. Major depressive disorder, single episode, moderate (HCC) - ICD9: 296.22, ICD10: F32.1 Controlled on current regimen. 6. Intermittent claudication (HCC) - ICD9: 443.9, ICD10: I73.9 No complaints today. Continue current regimen. Bryant Villanueva MD documented in this encounter [facility] 06-06-2023 Miscellaneous Notes Phoned patient and reviewed results and new orders with patient. Patient repeated orders back and voiced understanding. Urine culture growing e coli which has intermediate susceptibility to macrobid. Recommend stopping macrobid with switch to cipro for 7 days as ordered. Needs to hold his atorvastatin while on abx. documented in this encounter [facility] 06-03-2023 Miscellaneous Notes Call placed to patient and provider message reviewed. Patient verbalizes understanding and will call back in a couple of days with BP readings. Nan Olivares RN BP still high, but improving. Take additional amlodipine as prescribed and update us in 2 days on his home BP readings. Patient calls with update on blood pressure readings since appointment: 06/03/2023 2 pm 168/65 HR 80 168/73 HR 63 170/85 HR 64 Patient reports he took the extra dose of losartan 50 mg. Patient will take amlodipine 2.5 mg when he hangs up the phone. Patient denies chest pain, sob, headache, changes in vision, or any other symptoms. Nan Olivares RN documented in this encounter [facility] 06-03-2023 Note HNO ID: [id number] Author: Bryant Villanueva MD Service: ? Author Type: Physician Type: Progress Notes Filed: 06/03/2023 2:09 PM Note Text: Chief Complaint Patient presents with: Hospital F/U: HPI Matthew Martinez is a 78 year old male who presents here today for Hospital Discharge Follow up.. Patient admitted to [facility] from 05/10 to 05/18 for abdominal pain 2/2 acute cholecystitis s/p partial lap theo after placement of cholecystectomy tube. No complications after surgery. Evaluated by PT/OT on discharge. Discharged home with without change in regimen. Advised to f/u with surgery in 1 week and our office in 2 weeks. Since discharge, patient states that he has not had any pain since operation. Followed up with surgeon's office last week and they were satisfied with how he was healing. Discharged without need for follow up appointment. Tolerating PO diet without nausea, vomiting, diarrhea, constipation. BP significantly elevated on initial check today. Has not been checking his BP at home, but states that his BP was high in the hospital during his entire stay. This was not mentioned on his discharge summary. Taking medications as prescribed. Admits to headache coming on today. Denies vision changes, chest pain, SOB, leg swelling. Also complaining of new urinary frequency without dysuria or hematuria. Has chronically weak stream with straining to urinate. Today developed new myalgias with fatigue, chills and rhinorrhea. Denies fever, cough, SOB, chest pain, sore throat, new loss of taste/smell, nasal congestion, nausea, vomiting, diarrhea. Past medical history, appointments, medications, allergies reviewed. Previous Medical History PAST MEDICAL HISTORY Diagnosis Date ASCVD (arteriosclerotic cardiovascular disease) [facility] Chronic kidney disease (CKD), stage III (moderate) (HCC) Class 1 obesity due to excess calories with serious comorbidity and body mass index (BMI) of 30.0 to 30.9 in adult Current moderate episode of major depressive disorder without prior episode (HCC) Dysphagia Essential hypertension GERD (gastroesophageal reflux disease) Iron deficiency anemia Refusing FOBT Ischemic cardiomyopathy Mixed hyperlipidemia Paroxysmal atrial fibrillation (HCC) Subclinical hypothyroidism Vitamin D deficiency Previous Surgical History PAST SURGICAL HISTORY Procedure Laterality Date COLONOSCOPY GEN ANES age 50 IR RT HEART CATH 12/2018 IR RT HEART CATH 08/2019 TONSILLECTOMY PRIMARY/SECONDARY Tonsillectomy Family History FAMILY HISTORY Adopted: Yes Problem Relation Age of Onset Cancer Father Brain Tumor No Known Problems Daughter Aneurysm Son Brain No Known Problems Son Patient Allergies ALLERGIES No Known Allergies Current Medications Current Outpatient Medications on File Prior to Visit Medication Sig pantoprazole DR (PROTONIX) 40 mg tablet Take 1 tablet by mouth daily before breakfast. Take on empty stomach, 1/2 hr before meal. carvedilol (COREG) 3.125 mg tablet Take 1 tablet by mouth twice daily. TAKE WITH FOOD. losartan (COZAAR) 50 mg tablet Take 1 tablet by mouth once daily. isosorbide mononitrate ER (IMDUR) 60 mg 24 hr tablet Take 1 tablet by mouth once daily. nitroglycerin sublingual (NITROQUICK) 0.4 mg SL tablet Dissolve 1 tablet under the tongue every 5 minutes as needed for chest pain. cholecalciferol, Vitamin D3, (VITAMIN D3) 1,250 mcg (50,000 unit) cap capsule Take 1 capsule by mouth one time a week. atorvastatin (LIPITOR) 80 mg tablet Take 80 mg by mouth daily at bedtime. clopidogrel (PLAVIX) 75 mg tablet Take 75 mg by mouth once daily. furosemide (LASIX) 40 mg tablet Take 40 mg by mouth once daily. aspirin, enteric coated (ASPIRIN, ENTERIC COATED) 81 mg EC tablet Take 81 mg by mouth once daily. No current facility-administered medications on file prior to visit. Social History Social History Tobacco Use Smoking status: Former Packs/day: 3.00 Years: 7.00 Additional pack years: 0.00 Total pack years: 21.00 Types: Cigarettes Quit date: 11/20/1969 Years since quittin.5 Smokeless tobacco: Former Vaping Use Vaping Use: Never used Substance Use Topics Alcohol use: No Drug use: No Review of Symptoms REVIEW OF SYSTEMS See HPI EXAM: BP 182/80 Pulse 64 Resp 16 Wt 84.8 kg (187 lb) BMI 29.29 kg/m? General Appearance: Ill appearing, no acute distress. Skin: Skin color, texture, turgor normal, no suspicious rashes or lesions. Lap theo incision sites well healed without cellulitis or drainage. Head: Normocephalic, no masses, lesions, tenderness or abnormalities. Eyes: Anicteric sclera. Pupils are equally round and reactive to light. Extraocular movements are intact. . Ears: External ears normal, canals clear. Nose/Sinuses: No sinus TTP Oropharynx: Lips, mucosa, and tongue normal, teeth and gums normal, oropharynx normal. Neck: Supple, no dipti (more content not included)... [facility] 06-03-2023 Instructions Bryant Villanueva MD - 06/03/2023 10:33 AM EDT Take an additional 50 mg of your Losartan when you get home. Recheck your blood pressure this afternoon and call us with your results. You can start the macrobid and amlodipine today as well. Call 911 for blood pressure above 180/110 with new headache, chest pain, shortness of breath, leg swelling, vision changes, or concerns for stroke. documented in this encounter [facility] 06-03-2023 History of Presen t illness Narrative Chief Complaint Patient presents with: Hospital F/U: HPI Matthew Martinez is a 78 year old male who presents here today for Hospital Discharge Follow up.. Patient admitted to [facility] from 05/10 to 05/18 for abdominal pain 2/2 acute cholecystitis s/p partial lap theo after placement of cholecystectomy tube. No complications after surgery. Evaluated by PT/OT on discharge. Discharged home with without change in regimen. Advised to f/u with surgery in 1 week and our office in 2 weeks. Since discharge, patient states that he has not had any pain since operation. Followed up with surgeon's office last week and they were satisfied with how he was healing. Discharged without need for follow up appointment. Tolerating PO diet without nausea, vomiting, diarrhea, constipation. BP significantly elevated on initial check today. Has not been checking his BP at home, but states that his BP was high in the hospital during his entire stay. This was not mentioned on his discharge summary. Taking medications as prescribed. Admits to headache coming on today. Denies vision changes, chest pain, SOB, leg swelling. Also complaining of new urinary frequency without dysuria or hematuria. Has chronically weak stream with straining to urinate. Today developed new myalgias with fatigue, chills and rhinorrhea. Denies fever, cough, SOB, chest pain, sore throat, new loss of taste/smell, nasal congestion, nausea, vomiting, diarrhea. Past medical history, appointments, medications, allergies reviewed. Previous Medical History PAST MEDICAL HISTORY Diagnosis Date ASCVD (arteriosclerotic cardiovascular disease) [facility] Chronic kidney disease (CKD), stage III (moderate) ([facility]) Class 1 obesity due to excess calories with serious comorbidity and body mass index (BMI) of 30.0 to 30.9 in adult Current moderate episode of major depressive disorder without prior episode (HCC) Dysphagia Essential hypertension GERD (gastroesophageal reflux disease) Iron deficiency anemia Refusing FOBT Ischemic cardiomyopathy Mixed hyperlipidemia Paroxysmal atrial fibrillation (HCC) Subclinical hypothyroidism Vitamin D deficiency Previous Surgical History PAST SURGICAL HISTORY Procedure Laterality Date COLONOSCOPY GEN ANES age 50 IR RT HEART CATH 12/2018 IR RT HEART CATH 08/2019 TONSILLECTOMY PRIMARY/SECONDARY <AGE 12 Tonsillectomy Family History FAMILY HISTORY Adopted: Yes Problem Relation Age of Onset Cancer Father Brain Tumor No Known Problems Daughter Aneurysm Son Brain No Known Problems Son Patient Allergies ALLERGIES No Known Allergies Current Medications Current Outpatient Medications on File Prior to Visit Medication Sig pantoprazole DR (PROTONIX) 40 mg tablet Take 1 tablet by mouth daily before breakfast. Take on empty stomach, 1/2 hr before meal. carvedilol (COREG) 3.125 mg tablet Take 1 tablet by mouth twice daily. TAKE WITH FOOD. losartan (COZAAR) 50 mg tablet Take 1 tablet by mouth once daily. isosorbide mononitrate ER (IMDUR) 60 mg 24 hr tablet Take 1 tablet by mouth once daily. nitroglycerin sublingual (NITROQUICK) 0.4 mg SL tablet Dissolve 1 tablet under the tongue every 5 minutes as needed for chest pain. cholecalciferol, Vitamin D3, (VITAMIN D3) 1,250 mcg (50,000 unit) cap capsule Take 1 capsule by mouth one time a week. atorvastatin (LIPITOR) 80 mg tablet Take 80 mg by mouth daily at bedtime. clopidogrel (PLAVIX) 75 mg tablet Take 75 mg by mouth once daily. furosemide (LASIX) 40 mg tablet Take 40 mg by mouth once daily. aspirin, enteric coated (ASPIRIN, ENTERIC COATED) 81 mg EC tablet Take 81 mg by mouth once daily. No current facility-administered medications on file prior to visit. Social History Social History Tobacco Use Smoking status: Former Packs/day: 3.00 Years: 7.00 Additional pack years: 0.00 Total pack years: 21.00 Types: Cigarettes Quit date: 11/20/1969 Years since quittin.5 Smokeless tobacco: Former Vaping Use Vaping Use: Never used Substance Use Topics Alcohol use: No Drug use: No Review of Symptoms REVIEW OF SYSTEMS See HPI EXAM: BP 182/80 Pulse 64 Resp 16 Wt 84.8 kg (187 lb) BMI 29.29 kg/m General Appearance: Ill appearing, no acute distress. Skin: Skin color, texture, turgor normal, no suspicious rashes or lesions. Lap theo incision sites well healed without cellulitis or drainage. Head: Normocephalic, no masses, lesions, tenderness or abnormalities. Eyes: Anicteric sclera. Pupils are equally round and reactive to light. Extraocular movements are intact. . Ears: External ears normal, canals clear. Nose/Sinuses: No sinus TTP Oropharynx: Lips, mucosa, and tongue normal, teeth and gums normal, oropharynx normal. Neck: Supple, no adenopathy; thyroid symmetric, normal size, no bruits. Lungs: Lungs clear to auscultation. No wheezing, rhonchi, rales.. Heart: RRR without murmur, gallop, or rubs. No ectopy. Abdomen: Normal abdominal exam, Abdomen soft, non-tender. Bowel sounds normal. No masses, organomegaly. Health Maintenance List BP Controlled (<130/80) Never done Shingrix Vaccine(1 of 2) Never done Advance Directive Discussion Never done Covid-19 Vaccine(5 - Pfizer series) due on 10/02/2022 DTaP,Tdap,Td Vaccine(1 - Tdap) due on 07/15/2023 Pneumococcal Vaccine: 65+(2 - PCV) due on 07/15/2023 Serum Creatinine due on 01/13/2024 Annual PCP Team Chronic Disease Visit due on 02/18/2024 Hemoglobin/Hematocrit due on 02/18/2024 Diabetes Screening due on 01/12/2026 Influenza Vaccine Completed Hepatitis C Screening Completed Data reviewed Component Latest Ref Rng & Units 06/03/2023 GLUCOSE UA (POCT) Negative mg/dL Negative BILIRUBIN UA (POCT) Negative Negative KETONE UA (POCT) Negative mg/dL Negative SPECIFIC GRAVITY UA (POCT) 1.005 - 1.030 1.015 HEMOGLOBIN/BLOOD UA (POCT) Negative Small (A) PH UA (POCT) 4.5 - 8.0 5.5 PROTEIN UA (POCT) Negative mg/dL 30 (A) UROBILINOGEN UA (POCT) Normal E.U./dL 0.2 NITRITE UA (POCT) Negative Negative LEUKOCYTES UA (POCT) Negative Moderate (A) COLOR UA (POCT) Yellow CLARITY UA (POCT) Clear ASSESSMENT/PLAN: 1. H/O acute cholecystitis - ICD9: V12.79, ICD10: Z87.19 (primary diagnosis) S/p partial lap theo. Healing well without pain . Tolerating PO diet. Discharged from surgery. 2. S/P laparoscopic cholecystectomy - ICD9: V45.89, ICD10: Z90.49 See above. 3. Essential hypertension - ICD9: 401.9, ICD10: I10 - Uncontrolled without symptoms of end organ damage or hypertensive emergency. - Increase Losartan to 100 mg daily and add amlodipine 2.5 mg daily. - Recommend home blood pressure monitoring, to bring results to next visit - Encouraged sodium restriction, DASH or Mediterranean diet - Recommend regular aerobic exercise - Red flags for re-assessment reviewed with patient in detail. 4. Urinary frequency - ICD9: 788.41, ICD10: R35.0 acute - UA positive for mona esterase and hematuria - Send urine for culture - Begin treatment with Macrobid 100 mg BID for 7 days - Patient education for prevention given - UA DIP, URINE (POC) - URINE CULTURE - NITROFURANTOIN MONOHYDRATE & MACROCRYSTAL 100 MG ORAL CAP 5. Suspected COVID-19 virus infection - ICD9: V01.79, ICD10: Z20.822 Recommend rest, supportive care, and should isolate until: At least 5 days have passed since symptoms first appeared and At least 24 hours have passed since last fever without the use of fever-reducing medications and Symptoms (e.g., cough, shortness of breath) have improved. Should wear mask for at least 5 days after he ends isolation to prevent spread to others. Red flags for re-assessment reviewed with patient in detail. - COVID & INFLUENZA A/B & RSV NAAT, ROUTINE - COVID NAAT, UPPER RESPIRATORY, ROUTINE - ROUTINE FLU A/B + RSV I spent a total of 40 minutes on the date of the service which included preparing to see the patient, [id number] patient care, completing clinical documentation, obtaining and/or reviewing separately obtained history, performing a medically appropriate examination, counseling and educating the patient/family/caregiver, and ordering medications, tests, or procedures. Bryant Villanueva MD documented in this encounter [facility] 05-22-2023 Miscellaneous Notes Patient scheduled for 06/03/23 Phoned patient and detailed message left on secure VM for patient to return call to schedule hospital follow up for the week of the 06/01/23 or beginning of the week of 06/08/23. documented in this encounter [facility] 05-10-2023 Note HNO ID: [id number] Author: Tonya Diane [email or web address].LEYLA Service: ? Author Type: Nurse Practitioner Type: Progress Notes Filed: 05/10/2023 8:22 AM Note Text: came in with complaints of abdominal pain for 2 days. Patient says seems to be getting worse. Denies ever having this before. Patient denies any significant history of abdominal pain. Upon attempting to palpate patient was extremely painful when right upper abdomen was slightly touched. Patient is being sent to the ER for full evaluation will take him. [facility] 05-10-2023 History of Presen t illness Narrative came in with complaints of abdominal pain for 2 days. Patient says seems to be getting worse. Denies ever having this before. Patient denies any significant history of abdominal pain. Upon attempting to palpate patient was extremely painful when right upper abdomen was slightly touched. Patient is being sent to the ER for full evaluation will take him. documented in this encounter [facility] 02-18-2023 Miscellaneous Notes Images from the original note were not included. Patient notified of message below. Stephanie Andrea RN Result Notes Bryant Villanueva MD 02/18/2023 8:05 AM EDT Improving anemia compared to 1 month ago. Platelet counts and other labs normal. I am not seeing anything that would contribute to his bruising here. Recommend he avoid NSAIDs and discuss continued use of ASA and Plavix with cardiology. documented in this encounter [facility] 02-17-2023 Note HNO ID: [id number] Author: Bryant Villanueva MD Service: ? Author Type: Physician Type: Progress Notes Filed: 02/17/2023 4:33 PM Note Text: Chief Complaint Patient presents with: Bleeding/Bruising: Patient noted large bruise to left posterior FA- unknown origin HPI Matthew Martinez is a 78 year old male who presents here today for Above Complaints.. Patient states that he was pulling weeds about 2 hours ago and noticed new bruise on his left forearm without apparent injury. States that this bruise was puffier and has become more flat in the last hour. Not treating with anything at home. Denies bleeding symptoms, other large areas of bruising, SOB, lightheadedness. Patient is on both ASA and Plavix through his cost recorder. Taking 1 tablet of ibuprofen in the morning for aches and pains. Tooth pulled 5 days ago, but was not given any new rx for pain. Past medical history, appointments, medications, allergies reviewed. Previous Medical History PAST MEDICAL HISTORY Diagnosis Date ASCVD (arteriosclerotic cardiovascular disease) [facility] Chronic kidney disease (CKD), stage III (moderate) (HCC) Class 1 obesity due to excess calories with serious comorbidity and body mass index (BMI) of 30.0 to 30.9 in adult Current moderate episode of major depressive disorder without prior episode (HCC) Dysphagia Essential hypertension GERD (gastroesophageal reflux disease) Iron deficiency anemia Refusing FOBT Ischemic cardiomyopathy Mixed hyperlipidemia Paroxysmal atrial fibrillation (HCC) Subclinical hypothyroidism Vitamin D deficiency Previous Surgical History PAST SURGICAL HISTORY Procedure Laterality Date COLONOSCOPY GEN ANES age 50 IR RT HEART CATH 12/2018 IR RT HEART CATH 08/2019 TONSILLECTOMY PRIMARY/SECONDARY Tonsillectomy Family History FAMILY HISTORY Adopted: Yes Problem Relation Age of Onset Cancer Father Brain Tumor No Known Problems Daughter Aneurysm Son Brain No Known Problems Son Patient Allergies ALLERGIES No Known Allergies Current Medications Current Outpatient Medications on File Prior to Visit Medication Sig ferrous sulfate 325 mg (65 mg iron) tablet Take 1 tablet by mouth once daily. pantoprazole DR (PROTONIX) 40 mg tablet Take 1 tablet by mouth daily before breakfast. Take on empty stomach, 1/2 hr before meal. carvedilol (COREG) 3.125 mg tablet Take 1 tablet by mouth twice daily. TAKE WITH FOOD. losartan (COZAAR) 50 mg tablet Take 1 tablet by mouth once daily. isosorbide mononitrate ER (IMDUR) 60 mg 24 hr tablet Take 1 tablet by mouth once daily. nitroglycerin sublingual (NITROQUICK) 0.4 mg SL tablet Dissolve 1 tablet under the tongue every 5 minutes as needed for chest pain. atorvastatin (LIPITOR) 80 mg tablet Take 80 mg by mouth daily at bedtime. clopidogrel (PLAVIX) 75 mg tablet Take 75 mg by mouth once daily. furosemide (LASIX) 40 mg tablet Take 40 mg by mouth once daily. aspirin, enteric coated (ASPIRIN, ENTERIC COATED) 81 mg EC tablet Take 81 mg by mouth once daily. cholecalciferol, Vitamin D3, (VITAMIN D3) 1,250 mcg (50,000 unit) cap capsule Take 1 capsule by mouth one time a week. No current facility-administered medications on file prior to visit. Social History Social History Tobacco Use Smoking status: Former Packs/day: 3.00 Years: 7.00 Pack years: 21.00 Types: Cigarettes Quit date: 11/20/1969 Years since quittin.2 Smokeless tobacco: Former Vaping Use Vaping Use: Never used Substance Use Topics Alcohol use: No Drug use: No Review of Symptoms REVIEW OF SYSTEMS See HPI EXAM: BP 124/68 Pulse (!) 56 Resp 16 Wt 88.5 kg (195 lb) SpO2 96% BMI 30.54 kg/m? General Appearance: Well appearing, alert, in no acute distress, well-hydrated, well nourished.. Skin: 7x7 cm bruise on left forearm without TTP, fluctuance, hematoma. 2 quarter sized bruises on right forearm in early stages of healing. Lungs: Lungs clear to auscultation. No wheezing, rhonchi, rales.. Heart: RRR without murmur, gallop, or rubs. No ectopy. Health Maintenance List SHINGRIX VACCINE(1 of 2) Never done ADVANCE DIRECTIVE DISCUSSION Never done DTAP,TDAP,TD(1 - Tdap) due on 07/15/2023 PNEUMOCOCCAL: 65+(2 - PCV) due on 07/15/2023 ANNUAL PCP TEAM CHRONIC DISEASE VISIT due on 01/13/2024 SERUM CREATININE due on 01/13/2024 HEMOGLOBIN/HEMATOCRIT due on 01/13/2024 BP CONTROLLED (<130/80) due on 01/13/2024 DIABETES SCREEN due on 01/12/2026 INFLUENZA Completed HEPATITIS C SCREENING Completed COVID-19 VACCINE Completed Data reviewed Component Latest Ref Rng AND Units 01/12/2023 WBC 3.70 - 11.00 k/uL 8.81 RBC 4.20 - 6.00 m/uL 4.11 (L) Hemoglobin 13.0 - 17.0 g/dL 12.2 (L) Hematocrit 39.0 - 51.0 % 36.4 (L) MCV 80.0 - 100.0 fL 88.6 MCH 26.0 - 34.0 pg 29.7 MCHC 30.5 - 36.0 g/dL 33.5 RDW-CV 11.5 - 15.0 % 14.6 Platelet Count 150 - 400 k/uL 170 MPV 9.0 - 12.7 f (more content not included)... [facility] 02-17-2023 Instructions Bryant Villanueva MD - 02/17/2023 4:01 PM EDT Take tylenol instead of ibuprofen or aleve for pain. documented in this encounter [facility] 02-17-2023 History of Presen t illness Narrative Chief Complaint Patient presents with: Bleeding/Bruising: Patient noted large bruise to left posterior FA- unknown origin HPI Matthew Martinez is a 78 year old male who presents here today for Above Complaints.. Patient states that he was pulling weeds about 2 hours ago and noticed new bruise on his left forearm without apparent injury. States that this bruise was puffier and has become more flat in the last hour. Not treating with anything at home. Denies bleeding symptoms, other large areas of bruising, SOB, lightheadedness. Patient is on both ASA and Plavix through his cost recorder. Taking 1 tablet of ibuprofen in the morning for aches and pains. Tooth pulled 5 days ago, but was not given any new rx for pain. Past medical history, appointments, medications, allergies reviewed. Previous Medical History PAST MEDICAL HISTORY Diagnosis Date ASCVD (arteriosclerotic cardiovascular disease) [facility] Chronic kidney disease (CKD), stage III (moderate) (HCC) Class 1 obesity due to excess calories with serious comorbidity and body mass index (BMI) of 30.0 to 30.9 in adult Current moderate episode of major depressive disorder without prior episode (HCC) Dysphagia Essential hypertension GERD (gastroesophageal reflux disease) Iron deficiency anemia Refusing FOBT Ischemic cardiomyopathy Mixed hyperlipidemia Paroxysmal atrial fibrillation (HCC) Subclinical hypothyroidism Vitamin D deficiency Previous Surgical History PAST SURGICAL HISTORY Procedure Laterality Date COLONOSCOPY GEN ANES age 50 IR RT HEART CATH 12/2018 IR RT HEART CATH 08/2019 TONSILLECTOMY PRIMARY/SECONDARY <AGE 12 Tonsillectomy Family History FAMILY HISTORY Adopted: Yes Problem Relation Age of Onset Cancer Father Brain Tumor No Known Problems Daughter Aneurysm Son Brain No Known Problems Son Patient Allergies ALLERGIES No Known Allergies Current Medications Current Outpatient Medications on File Prior to Visit Medication Sig ferrous sulfate 325 mg (65 mg iron) tablet Take 1 tablet by mouth once daily. pantoprazole DR (PROTONIX) 40 mg tablet Take 1 tablet by mouth daily before breakfast. Take on empty stomach, 1/2 hr before meal. carvedilol (COREG) 3.125 mg tablet Take 1 tablet by mouth twice daily. TAKE WITH FOOD. losartan (COZAAR) 50 mg tablet Take 1 tablet by mouth once daily. isosorbide mononitrate ER (IMDUR) 60 mg 24 hr tablet Take 1 tablet by mouth once daily. nitroglycerin sublingual (NITROQUICK) 0.4 mg SL tablet Dissolve 1 tablet under the tongue every 5 minutes as needed for chest pain. atorvastatin (LIPITOR) 80 mg tablet Take 80 mg by mouth daily at bedtime. clopidogrel (PLAVIX) 75 mg tablet Take 75 mg by mouth once daily. furosemide (LASIX) 40 mg tablet Take 40 mg by mouth once daily. aspirin, enteric coated (ASPIRIN, ENTERIC COATED) 81 mg EC tablet Take 81 mg by mouth once daily. cholecalciferol, Vitamin D3, (VITAMIN D3) 1,250 mcg (50,000 unit) cap capsule Take 1 capsule by mouth one time a week. No current facility-administered medications on file prior to visit. Social History Social History Tobacco Use Smoking status: Former Packs/day: 3.00 Years: 7.00 Pack years: 21.00 Types: Cigarettes Quit date: 11/20/1969 Years since quittin.2 Smokeless tobacco: Former Vaping Use Vaping Use: Never used Substance Use Topics Alcohol use: No Drug use: No Review of Symptoms REVIEW OF SYSTEMS See HPI EXAM: BP 124/68 Pulse (!) 56 Resp 16 Wt 88.5 kg (195 lb) SpO2 96% BMI 30.54 kg/m General Appearance: Well appearing, alert, in no acute distress, well-hydrated, well nourished.. Skin: 7x7 cm bruise on left forearm without TTP, fluctuance, hematoma. 2 quarter sized bruises on right forearm in early stages of healing. Lungs: Lungs clear to auscultation. No wheezing, rhonchi, rales.. Heart: RRR without murmur, gallop, or rubs. No ectopy. Health Maintenance List SHINGRIX VACCINE(1 of 2) Never done ADVANCE DIRECTIVE DISCUSSION Never done DTAP,TDAP,TD(1 - Tdap) due on 07/15/2023 PNEUMOCOCCAL: 65+(2 - PCV) due on 07/15/2023 ANNUAL PCP TEAM CHRONIC DISEASE VISIT due on 01/13/2024 SERUM CREATININE due on 01/13/2024 HEMOGLOBIN/HEMATOCRIT due on 01/13/2024 BP CONTROLLED (<130/80) due on 01/13/2024 DIABETES SCREEN due on 01/12/2026 INFLUENZA Completed HEPATITIS C SCREENING Completed COVID-19 VACCINE Completed Data reviewed Component Latest Ref Rng & Units 01/12/2023 WBC 3.70 - 11.00 k/uL 8.81 RBC 4.20 - 6.00 m/uL 4.11 (L) Hemoglobin 13.0 - 17.0 g/dL 12.2 (L) Hematocrit 39.0 - 51.0 % 36.4 (L) MCV 80.0 - 100.0 fL 88.6 MCH 26.0 - 34.0 pg 29.7 MCHC 30.5 - 36.0 g/dL 33.5 RDW-CV 11.5 - 15.0 % 14.6 Platelet Count 150 - 400 k/uL 170 MPV 9.0 - 12.7 fL 11.4 Neut% % 61.0 Abs Neut (ANC) 1.45 - 7.50 k/uL 5.38 Lymph% % 21.5 Abs Lymph 1.00 - 4.00 k/uL 1.89 [place]% % 10.[address] [place] <0.87 k/uL 0.95 (H) Eosin% % 5.9 Abs Eosin <0.46 k/uL 0.52 (H) Baso% % 0.6 Abs Baso <0.11 k/uL 0.05 Immature Gran % % 0.2 IMMATURE GRANS (ABS) <0.10 k/uL <0.03 NRBC /100 WBC 0.0 Absolute nRBC <0.01 k/uL <0.01 DTYPE Auto Protein, Total 6.3 - 8.0 g/dL 6.6 Albumin 3.9 - 4.9 g/dL 4.0 Calcium 8.5 - 10.2 mg/dL 9.4 Bilirubin, Total 0.2 - 1.3 mg/dL 0.3 Alkaline Phosphatase 38 - 113 U/L 80 AST 14 - 40 U/L 32 ALT 10 - 54 U/L 24 Glucose 74 - 99 mg/dL 143 (H) BUN 9 - 24 mg/dL 24 Creatinine 0.73 - 1.22 mg/dL 1.64 (H) Sodium 136 - 144 mmol/L 138 Potassium 3.7 - 5.1 mmol/L 4.1 Chloride 97 - 105 mmol/L 102 CO2 22 - 30 mmol/L 25 Anion Gap 9 - 18 mmol/L 11 eGFR >=60 mL/min/1.73m 43 (L) Iron 41 - 186 ug/dL 59 TIBC 232 - 386 ug/dL 256 Transferrin Saturation 15.0 - 57.0 % 23.0 Ferritin 30.3 - 565.7 ng/mL 76.2 Vitamin D 25 Hydroxy 31.0 - 80.0 ng/mL 48.8 TSH 0.270 - 4.200 mIU/L 8.080 (H) Free T4 0.9 - 1.7 ng/dL 1.0 ASSESSMENT/PLAN: 1. Easy bruising - ICD9: 782.7, ICD10: R23.3 (primary diagnosis) Likely 2/2 ASA + Plavix and NSAIDs OTC. Check labs as ordered. Recommended he stop NSAIDs and treat bruising with rest and ice. Red flags for re-assessment reviewed with patient in detail. Keep f/u with cardiology as scheduled this month to discuss continued DAPT. - CBC + DIFF - PROTHROMBIN TIME/PT - ACTIVATED PTT 2. Essential hypertension - ICD9: 401.9, ICD10: I10 - Controlled - Continue current medications - Recommend home blood pressure monitoring, to bring results to next visit - Encouraged sodium restriction, DASH or Mediterranean diet - Recommend regular aerobic exercise Bryant Villanueva MD documented in this encounter [facility] 01-14-2023 Miscellaneous Notes Spoke with patient. Given message from provider's office. Patient verbalizes understanding. Trisha Dos Santos RN Message left for patient to call office back and ask for triage nurse for update. Greta Yang LPN Yes, continue ASA with history of heart disease. Images from the original note were not included. Patient notified of provider's message below. Patient states he takes aspirin daily and asks if this is ok, since he has CKD? Please advise patient. Thank you. Stephanie Andrea RN Result Notes Bryant Villanueva MD 01/14/2023 11:11 AM EDT Labs show CKD still in stage III range. Recommend low sodium diet, avoidance of NSAIDs, increased fluid intake. Will monitor every 6 months. Still shows subclinical hypothyroidism with TSH <10. Would not treat at this time. Will recheck at future OV. Anemia and iron levels are slowly improving. Recommend he continue with daily iron supplement. Does he need a refill on this? documented in this encounter [facility] 01-12-2023 Note HNO ID: [id number] Author: Bryant Villanueva MD Service: ? Author Type: Physician Type: Progress Notes Filed: 01/17/2023 12:53 PM Note Text: Chief Complaint Patient presents with: Follow Up: 6 month HPI Matthew Martinez is a 78 year old male who presents here today for Above Complaints.. Patient found to have iron deficiency anemia about 3 months ago. Refused FOBT testing because it was disgusting. Given rx for iron supplement which he has been taking. Has not come back in for repeat testing as ordered. Denies hematochezia or melena. Still refusing FOBT or colonoscopy. ASCVD/a fib: No changes to regimen with [facility] in September. F/u in 6 months. Has not needed nitro. Asymtpomatic on medical management. BP in good range with goal <130/80. GERD: controlled on protonix. Needs refill today. Denies dysphagia. Past medical history, appointments, medications, allergies reviewed. Previous Medical History PAST MEDICAL HISTORY Diagnosis Date ASCVD (arteriosclerotic cardiovascular disease) [facility] Chronic kidney disease (CKD), stage III (moderate) (HCC) Class 1 obesity due to excess calories with serious comorbidity and body mass index (BMI) of 30.0 to 30.9 in adult Current moderate episode of major depressive disorder without prior episode (HCC) Dysphagia Essential hypertension GERD (gastroesophageal reflux disease) Iron deficiency anemia Refusing FOBT Ischemic cardiomyopathy Mixed hyperlipidemia Paroxysmal atrial fibrillation (HCC) Subclinical hypothyroidism Vitamin D deficiency Previous Surgical History PAST SURGICAL HISTORY Procedure Laterality Date COLONOSCOPY GEN ANES age 50 IR RT HEART CATH 12/2018 IR RT HEART CATH 08/2019 TONSILLECTOMY PRIMARY/SECONDARY Tonsillectomy Family History FAMILY HISTORY Adopted: Yes Problem Relation Age of Onset Cancer Father Brain Tumor No Known Problems Daughter Aneurysm Son Brain No Known Problems Son Patient Allergies ALLERGIES No Known Allergies Current Medications Current Outpatient Medications on File Prior to Visit Medication Sig carvedilol (COREG) 3.125 mg tablet Take 1 tablet by mouth twice daily. TAKE WITH FOOD. losartan (COZAAR) 50 mg tablet Take 1 tablet by mouth once daily. isosorbide mononitrate ER (IMDUR) 60 mg 24 hr tablet Take 1 tablet by mouth once daily. pantoprazole DR (PROTONIX) 40 mg tablet Take 1 tablet by mouth daily before breakfast. Take on empty stomach, 1/2 hr before meal. nitroglycerin sublingual (NITROQUICK) 0.4 mg SL tablet Dissolve 1 tablet under the tongue every 5 minutes as needed for chest pain. cholecalciferol, Vitamin D3, (VITAMIN D3) 1,250 mcg (50,000 unit) cap capsule Take 1 capsule by mouth one time a week. atorvastatin (LIPITOR) 80 mg tablet Take 80 mg by mouth daily at bedtime. clopidogrel (PLAVIX) 75 mg tablet Take 75 mg by mouth once daily. furosemide (LASIX) 40 mg tablet Take 40 mg by mouth once daily. aspirin, enteric coated (ASPIRIN, ENTERIC COATED) 81 mg EC tablet Take 81 mg by mouth once daily. No current facility-administered medications on file prior to visit. Social History Social History Tobacco Use Smoking status: Former Packs/day: 3.00 Years: 7.00 Pack years: 21.00 Types: Cigarettes Quit date: 11/20/1969 Years since quittin.1 Smokeless tobacco: Former Vaping Use Vaping Use: Never used Substance Use Topics Alcohol use: No Drug use: No Review of Symptoms REVIEW OF SYSTEMS GENERAL: No weight loss, malaise or fevers RESPIRATORY: Negative for cough, hemoptysis, wheezing, COPD, dyspnea or shortness of breath CARDIOVASCULAR: Negative for chest pain, leg swelling, hypertension, CHF or palpitations GI: No nausea, vomiting, or diarrhea SKIN: Negative for lesions, rash, and itching EXAM: BP 126/64 Pulse (!) 54 Resp 16 Wt 90 kg (198 lb 6.4 oz) SpO2 96% BMI 31.07 kg/m? General Appearance: Well appearing, alert, in no acute distress, well-hydrated, well nourished.. Skin: Skin color, texture, turgor normal, no suspicious rashes or lesions. Lungs: Lungs clear to auscultation. No wheezing, rhonchi, rales.. Heart: RRR without murmur, gallop, or rubs. No ectopy. Abdomen: Normal abdominal exam, Abdomen soft, non-tender. Bowel sounds normal. No masses, organomegaly. Extremities: No deformities, edema, skin discoloration, clubbing or cyanosis. Good capillary refill. . Health Maintenance List SHINGRIX VACCINE(1 of 2) Never done ADVANCE DIRECTIVE DISCUSSION Never done DTAP,TDAP,TD(1 - Tdap) due on 07/15/2023 PNEUMOCOCCAL: 65+(2 - PCV) due on 07/15/2023 ANNUAL PCP TEAM CHRONIC DISEASE VISIT due on 07/15/2023 SERUM CREATININE due on 07/15/2023 BP CONTROLLED (<130/80) due on 07/15/2023 HEMOGLOBIN/HEMATOCRIT due on 10/01/2023 DIABETES SCREEN due on 07/15/2025 INFLUENZA Completed HEPATITIS C SCREENING Completed COVID-19 VACCINE Completed Data reviewed (more content not included)... [facility] 01-12-2023 History of Presen t illness Narrative Chief Complaint Patient presents with: Follow Up: 6 month HPI Matthew Martinez is a 78 year old male who presents here today for Above Complaints.. Patient found to have iron deficiency anemia about 3 months ago. Refused FOBT testing because it was disgusting. Given rx for iron supplement which he has been taking. Has not come back in for repeat testing as ordered. Denies hematochezia or melena. Still refusing FOBT or colonoscopy. ASCVD/a fib: No changes to regimen with [facility] in September. F/u in 6 months. Has not needed nitro. Asymtpomatic on medical management. BP in good range with goal <130/80. GERD: controlled on protonix. Needs refill today. Denies dysphagia. Past medical history, appointments, medications, allergies reviewed. Previous Medical History PAST MEDICAL HISTORY Diagnosis Date ASCVD (arteriosclerotic cardiovascular disease) [facility] Chronic kidney disease (CKD), stage III (moderate) (HCC) Class 1 obesity due to excess calories with serious comorbidity and body mass index (BMI) of 30.0 to 30.9 in adult Current moderate episode of major depressive disorder without prior episode (HCC) Dysphagia Essential hypertension GERD (gastroesophageal reflux disease) Iron deficiency anemia Refusing FOBT Ischemic cardiomyopathy Mixed hyperlipidemia Paroxysmal atrial fibrillation (HCC) Subclinical hypothyroidism Vitamin D deficiency Previous Surgical History PAST SURGICAL HISTORY Procedure Laterality Date COLONOSCOPY GEN ANES age 50 IR RT HEART CATH 12/2018 IR RT HEART CATH 08/2019 TONSILLECTOMY PRIMARY/SECONDARY <AGE 12 Tonsillectomy Family History FAMILY HISTORY Adopted: Yes Problem Relation Age of Onset Cancer Father Brain Tumor No Known Problems Daughter Aneurysm Son Brain No Known Problems Son Patient Allergies ALLERGIES No Known Allergies Current Medications Current Outpatient Medications on File Prior to Visit Medication Sig carvedilol (COREG) 3.125 mg tablet Take 1 tablet by mouth twice daily. TAKE WITH FOOD. losartan (COZAAR) 50 mg tablet Take 1 tablet by mouth once daily. isosorbide mononitrate ER (IMDUR) 60 mg 24 hr tablet Take 1 tablet by mouth once daily. pantoprazole DR (PROTONIX) 40 mg tablet Take 1 tablet by mouth daily before breakfast. Take on empty stomach, 1/2 hr before meal. nitroglycerin sublingual (NITROQUICK) 0.4 mg SL tablet Dissolve 1 tablet under the tongue every 5 minutes as needed for chest pain. cholecalciferol, Vitamin D3, (VITAMIN D3) 1,250 mcg (50,000 unit) cap capsule Take 1 capsule by mouth one time a week. atorvastatin (LIPITOR) 80 mg tablet Take 80 mg by mouth daily at bedtime. clopidogrel (PLAVIX) 75 mg tablet Take 75 mg by mouth once daily. furosemide (LASIX) 40 mg tablet Take 40 mg by mouth once daily. aspirin, enteric coated (ASPIRIN, ENTERIC COATED) 81 mg EC tablet Take 81 mg by mouth once daily. No current facility-administered medications on file prior to visit. Social History Social History Tobacco Use Smoking status: Former Packs/day: 3.00 Years: 7.00 Pack years: 21.00 Types: Cigarettes Quit date: 11/20/1969 Years since quittin.1 Smokeless tobacco: Former Vaping Use Vaping Use: Never used Substance Use Topics Alcohol use: No Drug use: No Review of Symptoms REVIEW OF SYSTEMS GENERAL: No weight loss, malaise or fevers RESPIRATORY: Negative for cough, hemoptysis, wheezing, COPD, dyspnea or shortness of breath CARDIOVASCULAR: Negative for chest pain, leg swelling, hypertension, CHF or palpitations GI: No nausea, vomiting, or diarrhea SKIN: Negative for lesions, rash, and itching EXAM: BP 126/64 Pulse (!) 54 Resp 16 Wt 90 kg (198 lb 6.4 oz) SpO2 96% BMI 31.07 kg/m General Appearance: Well appearing, alert, in no acute distress, well-hydrated, well nourished.. Skin: Skin color, texture, turgor normal, no suspicious rashes or lesions. Lungs: Lungs clear to auscultation. No wheezing, rhonchi, rales.. Heart: RRR without murmur, gallop, or rubs. No ectopy. Abdomen: Normal abdominal exam, Abdomen soft, non-tender. Bowel sounds normal. No masses, organomegaly. Extremities: No deformities, edema, skin discoloration, clubbing or cyanosis. Good capillary refill. . Health Maintenance List SHINGRIX VACCINE(1 of 2) Never done ADVANCE DIRECTIVE DISCUSSION Never done DTAP,TDAP,TD(1 - Tdap) due on 07/15/2023 PNEUMOCOCCAL: 65+(2 - PCV) due on 07/15/2023 ANNUAL PCP TEAM CHRONIC DISEASE VISIT due on 07/15/2023 SERUM CREATININE due on 07/15/2023 BP CONTROLLED (<130/80) due on 07/15/2023 HEMOGLOBIN/HEMATOCRIT due on 10/01/2023 DIABETES SCREEN due on 07/15/2025 INFLUENZA Completed HEPATITIS C SCREENING Completed COVID-19 VACCINE Completed Data reviewed Component Latest Ref Rng & Units 07/15/2022 10/01/2022 WBC 3.70 - 11.00 k/uL 8.03 8.00 RBC 4.20 - 6.00 m/uL 4.14 (L) 3.84 (L) Hemoglobin 13.0 - 17.0 g/dL 11.0 (L) 10.5 (L) Hematocrit 39.0 - 51.0 % 35.9 (L) 33.0 (L) MCV 80.0 - 100.0 fL 86.7 85.9 MCH 26.0 - 34.0 pg 26.6 27.3 MCHC 30.5 - 36.0 g/dL 30.6 31.8 RDW-CV 11.5 - 15.0 % 15.9 (H) 15.1 (H) Platelet Count 150 - 400 k/uL 183 172 MPV 9.0 - 12.7 fL 11.7 11.8 Neut% % 63.8 63.0 Abs Neut (ANC) 1.45 - 7.50 k/uL 5.13 5.04 Lymph% % 19.4 19.1 Abs Lymph 1.00 - 4.00 k/uL 1.[address] [place]% % 11.[address] [place] <0.87 k/uL 0.92 (H) 0.96 (H) Eosin% % 4.4 5.0 Abs Eosin <0.46 k/uL 0.35 0.40 Baso% % 0.5 0.5 Abs Baso <0.11 k/uL 0.04 0.04 Immature Gran % % 0.4 0.4 IMMATURE GRANS (ABS) <0.10 k/uL 0.03 0.03 NRBC /100 WBC 0.0 0.0 Absolute nRBC <0.01 k/uL <0.01 <0.01 DTYPE Auto Auto Protein, Total 6.3 - 8.0 g/dL 7.3 Albumin 3.9 - 4.9 g/dL 4.2 Calcium 8.5 - 10.2 mg/dL 9.6 Bilirubin, Total 0.2 - 1.3 mg/dL 0.3 Alkaline Phosphatase 38 - 113 U/L 71 AST 14 - 40 U/L 34 ALT 10 - 54 U/L 22 Glucose 74 - 99 mg/dL 95 BUN 9 - 24 mg/dL 25 (H) Creatinine 0.73 - 1.22 mg/dL 1.49 (H) Sodium 136 - 144 mmol/L 136 Potassium 3.7 - 5.1 mmol/L 4.3 Chloride 97 - 105 mmol/L 102 CO2 22 - 30 mmol/L 25 Anion Gap 9 - 18 mmol/L 9 eGFR >=60 mL/min/1.73m 48 (L) Total Cholesterol, Nonfasting <200 mg/dL 100 Triglycerides, Nonfasting <150 mg/dL 90 HDL Cholesterol, Nonfasting >39 mg/dL 33 (L) LDL Cholesterol, Nonfasting <100 mg/dL 49 Non HDL Cholesterol, Nonfasting <130 mg/dL 67 VLDL Cholesterol, Nonfasting <30 mg/dL 18 Total Chol/HDL Ratio, Nonfasting <5.10 mg/dL 3.03 LDL/HDL Ratio, Nonfasting <2.54 mg/dL 1.48 Iron 41 - 186 ug/dL 44 TIBC 232 - 386 ug/dL 324 Transferrin Saturation 15.0 - 57.0 % 13.6 (L) Ferritin 30.3 - 565.7 ng/mL 22.8 (L) Folate >4.7 ng/mL 13.3 Vitamin B12 232 - 1,245 pg/mL 413 ASSESSMENT/PLAN: 1. Iron deficiency anemia, unspecified iron deficiency anemia type - ICD9: 280.9, ICD10: D50.9 (primary diagnosis) Recheck labs. Refusing FOBT to rule out GI bleed. - CBC + DIFF - IRON + TIBC - FERRITIN BLD 2. Esophageal dysphagia - ICD9: 787.29, ICD10: R13.19 Improved with PPI. - PANTOPRAZOLE 40 MG TABLET,DELAYED RELEASE 3. Gastroesophageal reflux disease, unspecified whether esophagitis present - ICD9: 530.81, ICD10: K21.9 Improved with PPI - PANTOPRAZOLE 40 MG TABLET,DELAYED RELEASE 4. Stage 3 chronic kidney disease, unspecified whether stage 3a or 3b CKD (HCC) - ICD9: 585.3, ICD10: N18.30 - Counseled on avoiding regular use of NSAIDs, adequate hydration, potential risk of IV dye - Recommend maintaining blood pressure under 130/80 - Counseled on renal diet (low sodium/low potassium/low phosphorus) - Refer to [email or web address] for diet information 5. ASCVD (arteriosclerotic cardiovascular disease) - ICD9: 429.2, 440.9, ICD10: I25.10 Asymptomatic on medical management. F/u with cardiology. 6. Paroxysmal atrial fibrillation (HCC) - ICD9: 427.31, ICD10: I48.0 Asymptomatic on medical management. F/u with cardiology. 7. Essential hypertension - ICD9: 401.9, ICD10: I10 - good control - Continue current medication(s) - Encouraged dietary sodium restriction/DASH diet - Recommended regular aerobic exercise. - Reviewed risks of HTN and principles of treatment - Goal of BP <140/90 - COMP METABOLIC PANEL 8. Mixed hyperlipidemia - ICD9: 272.2, ICD10: E78.2 - good control - Continue current medication. - Encouraged following a low fat, low cholesterol diet. - Discussed the benefits of regular aerobic exercise and weight loss. 9. Subclinical hypothyroidism - ICD9: 244.8, ICD10: E03.8 Recheck labs. - TSH BLD - T4 FREE/FREE THYROX 10. Vitamin D deficiency - ICD9: 268.9, ICD10: E55.9 - VITAMIN D 25 HYDROXY Bryant Villanueva MD documented in this encounter [facility] 10-02-2022 Miscellaneous Notes Reviewed. Phoned patient and given provider's message below with verbalized understanding. Patient reports, he has discussed privately with pcp, that he has done a fecal occult test in the past, and he will not do it again. States it is disgusting and he will not do it. States he will take the iron, do the blood draw in 6-8 weeks, increase fluids, and increase fiber to prevent constipation. Iron level and iron stores are low. With his gradually worsening anemia, would recommend he start daily iron supplement and will check FOBT to rule out GI bleed as possible cause. Recheck levels in 6-8 weeks. Push PO fluids and increase fiber intake on iron to prevent constipation. Should have stool softener and miralax on hand in case of constipation. documented in this encounter [facility] 10-01-2022 Miscellaneous Notes Left detailed message on identifiable voicemail. That vitamin D was ordered in 2020. His last level was normal. Recommend 2,000 units of Vitamin D daily OTC. Phoned patient and updated him on the lab orders and to stop this week to complete. Patient voiced understanding and asked about the Vitamin D3 50,000 units. Advised him to come in for the lab work and told him will check with provider about the vitamin D. He voiced understanding again. His labs were reordered on 07/16, but cancelled again. Probably because they were not completed. Repeat labs have been ordered to follow up on his anemia. Please come in for labs this week. Pt reports he had an appt on 07/15/22. Pt thought he was supposed to be taking VitD3 50,000 unit cap but said he never got a prescription for it. According to Result note for 07/16/22 lab for iron and vitamin levels were cancelled for an unknown reason and orders were going to be placed for this. Do not see any orders for these labs. Also pt reports he didn't realize he was supposed to come back for more labs. Documented that pt was advised of this. Pt is asking what dr wants him to do. Renetta Zepeda LPN documented in this encounter [facility] 07-15-2022 Note HNO ID: [id number] Author: Bryant Villanueva MD Service: ? Author Type: Physician Type: Progress Notes Filed: 07/15/2022 4:32 PM Note Text: Chief Complaint Patient presents with: Follow Up: 6 month HPI Matthew Martinez is a 77 year old male who presents here today for 6 month follow up. No falls in the last 6 months. ASCVD: Managed by Dr. Dumas's office. At last OV on 07/03, he had been complaining of chest heaviness so they increased his Imdur to 60 mg daily and BP was elevated so increased his losartan to 50 mg daily. Stress test in May was negative for ischemia. Has not had any recurrent symptoms since. Denies chest pain, palpitations, SOB, LE edema on his regimen. BP well controlled on higher dose of losartan. Discussed low sodium diet for BP and CKD. GERD controlled on PPI. Refusing Prevnar 20 vaccine today. Past medical history, appointments, medications, allergies reviewed. Previous Medical History PAST MEDICAL HISTORY Diagnosis Date ASCVD (arteriosclerotic cardiovascular disease) [facility] Class 1 obesity due to excess calories with serious comorbidity and body mass index (BMI) of 30.0 to 30.9 in adult Current moderate episode of major depressive disorder without prior episode (HCC) Essential hypertension Ischemic cardiomyopathy Mixed hyperlipidemia Paroxysmal atrial fibrillation (HCC) Subclinical hypothyroidism Vitamin D deficiency Previous Surgical History PAST SURGICAL HISTORY Procedure Laterality Date COLONOSCOPY GEN ANES age 50 IR RT HEART CATH 12/2018 IR RT HEART CATH 08/2019 TONSILLECTOMY PRIMARY/SECONDARY Tonsillectomy Family History FAMILY HISTORY Adopted: Yes Problem Relation Age of Onset Cancer Father Brain Tumor No Known Problems Daughter Aneurysm Son Brain No Known Problems Son Patient Allergies ALLERGIES No Known Allergies Current Medications Current Outpatient Medications on File Prior to Visit Medication Sig pantoprazole DR (PROTONIX) 40 mg tablet Take 1 tablet by mouth daily before breakfast. Take on empty stomach, 1/2 hr before meal. nitroglycerin sublingual (NITROQUICK) 0.4 mg SL tablet Dissolve 1 tablet under the tongue every 5 minutes as needed for chest pain. atorvastatin (LIPITOR) 80 mg tablet Take 80 mg by mouth daily at bedtime. carvedilol (COREG) 6.25 mg tablet Take 3.125 mg by mouth twice daily. TAKE WITH FOOD. clopidogrel (PLAVIX) 75 mg tablet Take 75 mg by mouth once daily. furosemide (LASIX) 40 mg tablet Take 40 mg by mouth once daily. isosorbide mononitrate ER (IMDUR) 30 mg 24 hr tablet Take 60 mg by mouth once daily. losartan (COZAAR) 25 mg tablet Take 50 mg by mouth once daily. aspirin, enteric coated (ASPIRIN, ENTERIC COATED) 81 mg EC tablet Take 81 mg by mouth once daily. cholecalciferol, Vitamin D3, (VITAMIN D3) 1,250 mcg (50,000 unit) cap capsule Take 1 capsule by mouth one time a week. No current facility-administered medications on file prior to visit. Social History Social History Tobacco Use Smoking status: Former Packs/day: 3.00 Years: 7.00 Pack years: 21.00 Types: Cigarettes Quit date: 11/20/1969 Years since quittin.6 Smokeless tobacco: Former Vaping Use Vaping Use: Never used Substance Use Topics Alcohol use: No Drug use: No Review of Symptoms REVIEW OF SYSTEMS GENERAL: No weight loss, malaise or fevers RESPIRATORY: Negative for cough, hemoptysis, wheezing, COPD, dyspnea or shortness of breath CARDIOVASCULAR: Negative for chest pain, leg swelling, hypertension, CHF or palpitations GI: No nausea, vomiting, or diarrhea SKIN: Negative for lesions, rash, and itching EXAM: BP 118/62 Pulse (!) 56 Resp 16 Wt 87.4 kg (192 lb 9.6 oz) SpO2 95% BMI 30.17 kg/m? General Appearance: Well appearing, alert, in no acute distress, well-hydrated, well nourished.. Skin: Skin color, texture, turgor normal, no suspicious rashes or lesions. Lungs: Lungs clear to auscultation. No wheezing, rhonchi, rales.. Heart: RRR without murmur, gallop, or rubs. No ectopy. Abdomen: Normal abdominal exam, Abdomen soft, non-tender. Bowel sounds normal. No masses, organomegaly. Extremities: No deformities, edema, skin discoloration, clubbing or cyanosis. Good capillary refill. . Health Maintenance List BP CONTROLLED (<130/80) Never done DTAP,TDAP,TD(1 - Tdap) Never done SHINGRIX VACCINE(1 of 2) Never done PNEUMOCOCCAL: 65+(2 - PCV) due on 06/25/2015 ADVANCE DIRECTIVE DISCUSSION Never done ANNUAL PCP TEAM CHRONIC DISEASE VISIT due on 11/26/2022 DIABETES SCREEN due on 11/27/2024 INFLUENZA Completed HEPATITIS C SCREENING Completed COVID-19 VACCINE Completed Data reviewed Component Latest Ref Rng AND Units 11/27/2021 Protein, Total 6.3 - 8.0 g/dL 7.4 Albumin 3.9 - 4.9 g/dL 4.2 Calcium 8.5 - 10.2 mg/dL 9.9 Bilirubin, Total 0.2 - 1.3 mg/dL 0.5 Alkaline Phosphatase 38 - 113 U/L 71 AST 14 - 40 U/L 33 ALT (more content not included)... [facility] 07-15-2022 History of Presen t illness Narrative Chief Complaint Patient presents with: Follow Up: 6 month HPI Matthew Martinez is a 77 year old male who presents here today for 6 month follow up. No falls in the last 6 months. ASCVD: Managed by Dr. Dumas's office. At last OV on 07/03, he had been complaining of chest heaviness so they increased his Imdur to 60 mg daily and BP was elevated so increased his losartan to 50 mg daily. Stress test in May was negative for ischemia. Has not had any recurrent symptoms since. Denies chest pain, palpitations, SOB, LE edema on his regimen. BP well controlled on higher dose of losartan. Discussed low sodium diet for BP and CKD. GERD controlled on PPI. Refusing Prevnar 20 vaccine today. Past medical history, appointments, medications, allergies reviewed. Previous Medical History PAST MEDICAL HISTORY Diagnosis Date ASCVD (arteriosclerotic cardiovascular disease) [facility] Class 1 obesity due to excess calories with serious comorbidity and body mass index (BMI) of 30.0 to 30.9 in adult Current moderate episode of major depressive disorder without prior episode (HCC) Essential hypertension Ischemic cardiomyopathy Mixed hyperlipidemia Paroxysmal atrial fibrillation (HCC) Subclinical hypothyroidism Vitamin D deficiency Previous Surgical History PAST SURGICAL HISTORY Procedure Laterality Date COLONOSCOPY GEN ANES age 50 IR RT HEART CATH 12/2018 IR RT HEART CATH 08/2019 TONSILLECTOMY PRIMARY/SECONDARY <AGE 12 Tonsillectomy Family History FAMILY HISTORY Adopted: Yes Problem Relation Age of Onset Cancer Father Brain Tumor No Known Problems Daughter Aneurysm Son Brain No Known Problems Son Patient Allergies ALLERGIES No Known Allergies Current Medications Current Outpatient Medications on File Prior to Visit Medication Sig pantoprazole DR (PROTONIX) 40 mg tablet Take 1 tablet by mouth daily before breakfast. Take on empty stomach, 1/2 hr before meal. nitroglycerin sublingual (NITROQUICK) 0.4 mg SL tablet Dissolve 1 tablet under the tongue every 5 minutes as needed for chest pain. atorvastatin (LIPITOR) 80 mg tablet Take 80 mg by mouth daily at bedtime. carvedilol (COREG) 6.25 mg tablet Take 3.125 mg by mouth twice daily. TAKE WITH FOOD. clopidogrel (PLAVIX) 75 mg tablet Take 75 mg by mouth once daily. furosemide (LASIX) 40 mg tablet Take 40 mg by mouth once daily. isosorbide mononitrate ER (IMDUR) 30 mg 24 hr tablet Take 60 mg by mouth once daily. losartan (COZAAR) 25 mg tablet Take 50 mg by mouth once daily. aspirin, enteric coated (ASPIRIN, ENTERIC COATED) 81 mg EC tablet Take 81 mg by mouth once daily. cholecalciferol, Vitamin D3, (VITAMIN D3) 1,250 mcg (50,000 unit) cap capsule Take 1 capsule by mouth one time a week. No current facility-administered medications on file prior to visit. Social History Social History Tobacco Use Smoking status: Former Packs/day: 3.00 Years: 7.00 Pack years: 21.00 Types: Cigarettes Quit date: 11/20/1969 Years since quittin.6 Smokeless tobacco: Former Vaping Use Vaping Use: Never used Substance Use Topics Alcohol use: No Drug use: No Review of Symptoms REVIEW OF SYSTEMS GENERAL: No weight loss, malaise or fevers RESPIRATORY: Negative for cough, hemoptysis, wheezing, COPD, dyspnea or shortness of breath CARDIOVASCULAR: Negative for chest pain, leg swelling, hypertension, CHF or palpitations GI: No nausea, vomiting, or diarrhea SKIN: Negative for lesions, rash, and itching EXAM: BP 118/62 Pulse (!) 56 Resp 16 Wt 87.4 kg (192 lb 9.6 oz) SpO2 95% BMI 30.17 kg/m General Appearance: Well appearing, alert, in no acute distress, well-hydrated, well nourished.. Skin: Skin color, texture, turgor normal, no suspicious rashes or lesions. Lungs: Lungs clear to auscultation. No wheezing, rhonchi, rales.. Heart: RRR without murmur, gallop, or rubs. No ectopy. Abdomen: Normal abdominal exam, Abdomen soft, non-tender. Bowel sounds normal. No masses, organomegaly. Extremities: No deformities, edema, skin discoloration, clubbing or cyanosis. Good capillary refill. . Health Maintenance List BP CONTROLLED (<130/80) Never done DTAP,TDAP,TD(1 - Tdap) Never done SHINGRIX VACCINE(1 of 2) Never done PNEUMOCOCCAL: 65+(2 - PCV) due on 06/25/2015 ADVANCE DIRECTIVE DISCUSSION Never done ANNUAL PCP TEAM CHRONIC DISEASE VISIT due on 11/26/2022 DIABETES SCREEN due on 11/27/2024 INFLUENZA Completed HEPATITIS C SCREENING Completed COVID-19 VACCINE Completed Data reviewed Component Latest Ref Rng & Units 11/27/2021 Protein, Total 6.3 - 8.0 g/dL 7.4 Albumin 3.9 - 4.9 g/dL 4.2 Calcium 8.5 - 10.2 mg/dL 9.9 Bilirubin, Total 0.2 - 1.3 mg/dL 0.5 Alkaline Phosphatase 38 - 113 U/L 71 AST 14 - 40 U/L 33 ALT 10 - 54 U/L 24 Glucose 74 - 99 mg/dL 174 (H) BUN 9 - 24 mg/dL 32 (H) Creatinine 0.73 - 1.22 mg/dL 1.70 (H) Sodium 136 - 144 mmol/L 138 Potassium 3.7 - 5.1 mmol/L 4.0 Chloride 97 - 105 mmol/L 101 CO2 22 - 30 mmol/L 25 Anion Gap 9 - 18 mmol/L 12 eGFR >=60 mL/min/1.73m 41 (L) WBC 3.70 - 11.00 k/uL 7.94 RBC 4.20 - 6.00 m/uL 4.05 (L) Hemoglobin 13.0 - 17.0 g/dL 11.1 (L) Hematocrit 39.0 - 51.0 % 35.4 (L) MCV 80.0 - 100.0 fL 87.4 MCH 26.0 - 34.0 pg 27.4 MCHC 30.5 - 36.0 g/dL 31.4 RDW-CV 11.5 - 15.0 % 15.7 (H) Platelet Count 150 - 400 k/uL 188 MPV 9.0 - 12.7 fL 11.8 Absolute nRBC <0.01 k/uL <0.01 TSH 0.270 - 4.200 mIU/L 6.180 (H) Free T4 0.9 - 1.7 ng/dL 1.0 Vitamin D 25 Hydroxy 31.0 - 80.0 ng/mL 57.2 ASSESSMENT/PLAN: 1. ASCVD (arteriosclerotic cardiovascular disease) - ICD9: 429.2, 440.9, ICD10: I25.10 (primary diagnosis) Symptoms improved on higher dose Imdur. BP controlled on Losartan 50 mg daily. - CBC + DIFF - COMP METABOLIC PANEL - LIPID PANEL, NONFASTING 2. Essential hypertension - ICD9: 401.9, ICD10: I10 - good control - Continue current medication(s) - Encouraged dietary sodium restriction/DASH diet - Recommended regular aerobic exercise. - Reviewed risks of HTN and principles of treatment - Goal of BP <130/80 3. Mixed hyperlipidemia - ICD9: 272.2, ICD10: E78.2 - good control - Continue current medication. - Encouraged following a low fat, low cholesterol diet. - Discussed the benefits of regular aerobic exercise and weight loss. 4. Normocytic anemia - ICD9: 285.9, ICD10: D64.9 Due for recheck on mild/moderate anemia. Denies bleeding/bruising symptoms. 5. Subclinical hypothyroidism - ICD9: 244.8, ICD10: E03.8 Recheck labs in 6 months. Asymptomatic. 6. Stage 3 chronic kidney disease, unspecified whether stage 3a or 3b CKD (HCC) - ICD9: 585.3, ICD10: N18.30 Recheck CMP. - Counseled on avoiding regular use of NSAIDs, adequate hydration, potential risk of IV dye - Recommend maintaining blood pressure under 130/80 - Counseled on renal diet (low sodium/low potassium/low phosphorus) 7. Gastroesophageal reflux disease, unspecified whether esophagitis present - ICD9: 530.81, ICD10: K21.9 - Continue treatment with pantoprazole 40 mg daily Bryant Villanueva MD documented in this encounter [facility] 06-27-2022 Miscellaneous Notes Patient rescheduled for 07/15/22 Greta Yang LPN Phoned patient to see about coming in for an appt today. Patient is scheduled for tomorrow afternoon and PCP is not in the office on Thursday afternoon. documented in this encounter [facility] 05-29-2022 Miscellaneous Notes Patient has been identified by name and date of : Yes Patient phones for refill(s): Requested Prescriptions Pending Prescriptions Disp Refills pantoprazole DR (PROTONIX) 40 mg tablet 30 tablet 2 Sig: Take 1 tablet by mouth daily before breakfast. Take on empty stomach, 1/2 hr before meal. Date of last office visit with pcp: 11-26-21. Next appt: 06-27-22 Last 2 Encounter Wt Readings: Date: Wt: 12/31/2021 90.7 kg (200 lb) 11/26/2021 89.3 kg (196 lb 12.8 oz) Previous labs/tests for medication: Blood Pressure: BUN (mg/dL) Date Value 11/27/2021 32 06/24/2021 21 Sodium (mmol/L) Date Value 11/27/2021 138 06/24/2021 139 Last 1 Encounter BP Readings: Date: BP: 11/26/2021 130/64 Liver Function: ALT (U/L) Date Value 11/27/2021 24 06/24/2021 37 AST (U/L) Date Value 11/27/2021 33 06/24/2021 50 Please advise. Thank you. Cayla Templeton RN documented in this encounter [facility] 12-31-2021 Instructions Shereen Mayen PA-C - 12/31/2021 2:17 PM EDT -Recommend taking pantoprazole daily as directed, in addition to dietary and lifestyle modifications as discussed -Limit caffeine, alcohol and spicy foods. Avoid eating and drinking after 7 pm Contact office if you decide to proceed with scheduling EGD at documented in this encounter [facility] 12-31-2021 History of Presen t illness Narrative HISTORY AND PHYSICAL Matthew Martinez 1945 REFERRING PHYSICIAN: Bryant Villanueva,* CHIEF COMPLAINT: Consult (EGD) HPI: The patient is a 76 year old male referred for endoscopy. Matthew notes some dysphagia with swallowing pills x 1 year. He denies any prior history of esophageal issues. Patient feels his symptoms were brought on by some of his newer medications in the last year. He denies any dietary correlation with issues. Patient was initiated on pantoprazole by his PCP and was referred to surgery for possible EGD. Patient states the pantoprazole seems to help, but admits he often forgets to take this. Patient denies chest pain, shortness of breath or recent hospitalizations. Denies problems with sedation in the past. PAST MEDICAL HISTORY Diagnosis Date ASCVD (arteriosclerotic cardiovascular disease) [facility] Class 1 obesity due to excess calories with serious comorbidity and body mass index (BMI) of 30.0 to 30.9 in adult Current moderate episode of major depressive disorder without prior episode (HCC) Essential hypertension Ischemic cardiomyopathy Mixed hyperlipidemia Paroxysmal atrial fibrillation (HCC) Subclinical hypothyroidism Vitamin D deficiency PAST SURGICAL HISTORY Procedure Laterality Date COLONOSCOPY GEN ANES age 50 IR RT HEART CATH 12/2018 IR RT HEART CATH 08/2019 TONSILLECTOMY PRIMARY/SECONDARY <AGE 12 Tonsillectomy Current Outpatient Medications Medication Sig nitroglycerin sublingual (NITROQUICK) 0.4 mg SL tablet Dissolve 1 tablet under the tongue every 5 minutes as needed for chest pain. pantoprazole DR (PROTONIX) 40 mg tablet Take 1 tablet by mouth daily before breakfast. Take on empty stomach, 1/2 hr before meal. atorvastatin (LIPITOR) 80 mg tablet Take 80 mg by mouth daily at bedtime. carvedilol (COREG) 6.25 mg tablet Take 6.25 mg by mouth twice daily. TAKE WITH FOOD. clopidogrel (PLAVIX) 75 mg tablet Take 75 mg by mouth once daily. furosemide (LASIX) 40 mg tablet Take 40 mg by mouth once daily. isosorbide mononitrate ER (IMDUR) 30 mg 24 hr tablet Take 30 mg by mouth once daily. losartan (COZAAR) 25 mg tablet Take 25 mg by mouth once daily. aspirin, enteric coated (ASPIRIN, ENTERIC COATED) 81 mg EC tablet Take 81 mg by mouth once daily. cholecalciferol, Vitamin D3, (VITAMIN D3) 1,250 mcg (50,000 unit) cap capsule Take 1 capsule by mouth one time a week. No current facility-administered medications for this visit. ALLERGIES: Patient has no known allergies. PERSONAL HISTORY: Social History Tobacco Use Smoking status: Former Smoker Packs/day: 3.00 Years: 7.00 Pack years: 21.00 Types: Cigarettes Quit date: 11/20/1969 Years since quittin.1 Smokeless tobacco: Former User Vaping Use Vaping Use: Never used Substance Use Topics Alcohol use: No Drug use: No FAMILY HISTORY: FAMILY HISTORY Adopted: Yes Problem Relation Age of Onset Cancer Father Brain Tumor No Known Problems Daughter Aneurysm Son Brain No Known Problems Son REVIEW OF SYMPTOMS: The review of systems data was entered by the nurse and reviewed by mn Nursing Notes: Josefa Louis RN 12/31/2021 1:52 PM Signed REVIEW OF SYSTEMS: General: The patient NOTES fatigue, denies weight loss, denies weight gain, denies feeling hot, and denies feelings of cold. Eyes: The patient denies glaucoma, NOTES eye injury/surgery, wears glasses or contacts. Ear/Nose/Throat: The patient denies allergies, denies hayfever, denies ear infections, and NOTES bloody noses. Cardiovascular: The patient denies chest pain, NOTES heart disease, denies high blood pressure,NOTES cardiac stent, denies prior heart attack, denies irregular heart beat, denies high cholesterol, denies poor circulation, denies heart failure, other cardiac issues, denies claudication, NOTES cold feet, denies peripheral arterial stent. Respiratory: The patient denies tuberculosis, NOTES pneumonia, denies frequent cough, denies pulmonary embolism, denies shortness of breath, and denies coughing up blood. Gastrointestinal: The patient NOTES difficulty swallowing, denies acid reflux, denies ulcers, denies vomiting, denies jaundice/hepatitis, denies gallbladder problems, denies black or tarry stools, denies hemorrhoids, denies bleeding from rectum, denies diverticulitis, denies constipation, denies diarrhea, denies loss of stool control, and denies hernias. Kidney/Bladder: The patient denies kidney stones, denies urine infections, and denies bloody urine. Skin: The patient denies a history of skin cancer, denies bleeding/changing moles, and denies a history of skin rash. Neurologic: The patient denies a history of epilepsy/convulsions, denies headaches, denies head/spinal injuries, and denies stroke/TIA. Psychiatric: The patient denies psychiatric medications, denies depression, and denies voices, denies substance abuse. Endocrine: The patient denies thyroid disorders, denies diabetes, and denies hormonal problems. Hematologic: The patient NOTES a history of bruising, denies bleeding, and denies anemia, denies blood clots. Infections: The patient denies a history of measles and mumps, denies rheumatic fever, and denies sexually transmitted diseases. Musculoskeletal: The patient denies back pain/injury, denies back problems, denies sciatica, denies knee/foot trouble, denies arthritis, or denies gout. When was patient's last Mammogram screening? Last Colonoscopy: 1994 Josefa Louis RN I have confirmed and edited as necessary, the PFSH and ROS obtained by others. Shereen Mayen PA-C PHYSICAL EXAMINATION: General: The patient is 76 year old male, well nourished, well hydrated in no acute distress. The patient is oriented to time, place, and person. VITALS: Pulse 62, temperature 36.6 C (97.8 F), height 170.2 cm (5' 7 ), weight 90.7 kg (200 lb), SpO2 97 %. Body mass index is 31.32 kg/m . HEENT: Normal cephalic, ataumatic, pupils are equally round, sclera are anicteric, mucous membranes are moist, oropharynx is clear. Neck has no masses, asymmetry or lymphadenopathy. Respiratory: Clear to auscultation and percussion. Normal respiratory excursion and pattern. Cardiac: Examination is regular rate and rhythm. Normal S1/S2 Abdominal exam: Soft, nontender, with no palpable masses. No hepatosplenomegaly. No palpable hernias. Extremities: no clubbing, cyanosis or edema. No adenopathy. LABORATORY VALUES: As Noted RADIOLOGIC STUDIES: As Noted Assessment IMPRESSION: GERD, dysphagia PLAN: I have reviewed my findings with the surgeon. We have offered upper endoscopy, would recommend that this be performed under Monitored Anesthetic Care. We discussed the risks and benefits of the planned endoscopy. I have informed the patient that complications can occur including failure to complete the endoscopy and perforation. The patient had the opportunity to ask questions concerning the planned endoscopy. Patient states he wants to hold off on scheduling any procedures or further workup at this time Reviewed dietary and lifestyle modifications for GERD. 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 Villanueva for an opinion regarding GERD and dysphagia complaints. My final recommendations will be communicated back to the requesting physician by way of shared Medical record or letter to requesting physician via US mail. Shereen Mayen PA-C documented in this encounter [facility] 12-31-2021 Nurse Note REVIEW OF SYSTEMS: General: The patient NOTES fatigue, denies weight loss, denies weight gain, denies feeling hot, and denies feelings of cold. Eyes: The patient denies glaucoma, NOTES eye injury/surgery, wears glasses or contacts. Ear/Nose/Throat: The patient denies allergies, denies hayfever, denies ear infections, and NOTES bloody noses. Cardiovascular: The patient denies chest pain, NOTES heart disease, denies high blood pressure,NOTES cardiac stent, denies prior heart attack, denies irregular heart beat, denies high cholesterol, denies poor circulation, denies heart failure, other cardiac issues, denies claudication, NOTES cold feet, denies peripheral arterial stent. Respiratory: The patient denies tuberculosis, NOTES pneumonia, denies frequent cough, denies pulmonary embolism, denies shortness of breath, and denies coughing up blood. Gastrointestinal: The patient NOTES difficulty swallowing, denies acid reflux, denies ulcers, denies vomiting, denies jaundice/hepatitis, denies gallbladder problems, denies black or tarry stools, denies hemorrhoids, denies bleeding from rectum, denies diverticulitis, denies constipation, denies diarrhea, denies loss of stool control, and denies hernias. Kidney/Bladder: The patient denies kidney stones, denies urine infections, and denies bloody urine. Skin: The patient denies a history of skin cancer, denies bleeding/changing moles, and denies a history of skin rash. Neurologic: The patient denies a history of epilepsy/convulsions, denies headaches, denies head/spinal injuries, and denies stroke/TIA. Psychiatric: The patient denies psychiatric medications, denies depression, and denies voices, denies substance abuse. Endocrine: The patient denies thyroid disorders, denies diabetes, and denies hormonal problems. Hematologic: The patient NOTES a history of bruising, denies bleeding, and denies anemia, denies blood clots. Infections: The patient denies a history of measles and mumps, denies rheumatic fever, and denies sexually transmitted diseases. Musculoskeletal: The patient denies back pain/injury, denies back problems, denies sciatica, denies knee/foot trouble, denies arthritis, or denies gout. When was patient's last Mammogram screening? Last Colonoscopy: 1994 Josefa Louis RN documented in this encounter [facility] 12-05-2021 Miscellaneous Notes Phoned patient and updated him with results and new orders/recommendations. Patient voiced understanding. Thyroid levels still in subclinical hypothyroidism range. Recheck in 6-12 months. Kidney function decreased. Recommend low sodium diet, avoidance of NSAIDs, and push PO fluids. Patient's sugar level was high up to 174. Recommend repeat labs to check A1C and kidney function in 1-2 weeks. Mild anemia which is likely related to chronic disease. Recommend repeat labs in 1-2 weeks to check iron and vitamin levels as well as FOBT. documented in this encounter [facility] Diagnosis Normocytic anemia- Primary Anemia, unspecified Hyperglycemia Other abnormal glucose [facility] Diagnosis Esophageal dysphagia Dysphagia, pharyngoesophageal phase Gastroesophageal reflux disease, unspecified whether esophagitis present [facility] Diagnosis ASCVD (arteriosclerotic cardiovascular disease)- Primary Unspecified cardiovascular disease Essential hypertension Unspecified essential hypertension Mixed hyperlipidemia Normocytic anemia Anemia, unspecified Subclinical hypothyroidism Other specified acquired hypothyroidism Stage 3 chronic kidney disease, unspecified whether stage 3a or 3b CKD (HCC) Gastroesophageal reflux disease, unspecified whether esophagitis present [facility] Diagnosis Normocytic anemia- Primary Anemia, unspecified [facility] Diagnosis Iron deficiency anemia, unspecified iron deficiency anemia type- Primary [facility] Diagnosis Iron deficiency anemia, unspecified iron deficiency anemia type- Primary Esophageal dysphagia Dysphagia, pharyngoesophageal phase Gastroesophageal reflux disease, unspecified whether esophagitis present Stage 3 chronic kidney disease, unspecified whether stage 3a or 3b CKD (HCC) ASCVD (arteriosclerotic cardiovascular disease) Unspecified cardiovascular disease Paroxysmal atrial fibrillation (HCC) Atrial fibrillation Essential hypertension Unspecified essential hypertension Mixed hyperlipidemia Subclinical hypothyroidism Other specified acquired hypothyroidism Vitamin D deficiency Unspecified vitamin D deficiency Congestive heart failure, unspecified HF chronicity, unspecified heart failure type (HCC) Major depressive disorder, single episode, moderate (HCC) Major depressive disorder, single episode, moderate [facility] Diagnosis Easy bruising- Primary Other symptoms involving skin and integumentary tissues Essential hypertension Unspecified essential hypertension [facility] Diagnosis Right upper quadrant abdominal pain- Primary Abdominal pain, right upper quadrant [facility] Diagnosis H/O acute cholecystitis- Primary Personal history of other diseases of digestive system S/P laparoscopic cholecystectomy Other postprocedural status Essential hypertension Unspecified essential hypertension Urinary frequency Suspected COVID-19 virus infection [facility] Essential hypertension- Primary Unspecified essential hypertension Acute cystitis without hematuria Acute cystitis Stage 3 chronic kidney disease, unspecified whether stage 3a or 3b CKD (HCC) Congestive heart failure, unspecified HF chronicity, unspecified heart failure type (HCC) Major depressive disorder, single episode, moderate (HCC) Major depressive disorder, single episode, moderate Intermittent claudication (HCC) Peripheral vascular disease, unspecified documented [facility] History of Present Illness * Bryant Villanueva) - 11/20/2020 5:07 PM EST Chief Complaint Patient presents with: Establish Care HPI Matthew Martinez is a 75 year old male who presents here today for establish care visit. No questions or concerns today. Patient states that he decided to re-establish because he had 2 heart attacks in 2019, in December. Required multiple stents and has been following up with [facility]. Last OV withthe office was 1 month ago and has a follow up in 1 week to establish with new cost recorder at their practice. They added carvedilol to his regimen at his last appointment. Patient admits to SOB with exertion which has been present about 6 months. Denies chest pain, palpitations, leg swelling, orthopnea. Has never required his nitro. Eats low sodium diet. Does not exercise regularly. Patient states he had blood work 2 weeks ago and results did not warrant any changes. Lipid panel entered and is normal on statin. Patient believes he had pneumococcal vaccines in 2019 after his 2nd heart attack. Up to date on influenza vaccine in the fall at [facility]. Due for shingrix vaccine. Scheduled COVID vaccine tomorrow at [facility]. Patient refusing colonoscopy and FOBT testing. Had colonoscopy in his 50's and will never have one again. Past medical history, appointments, medications, allergies reviewed. Previous Medical History PAST MEDICAL HISTORY Diagnosis Date ASCVD (arteriosclerotic cardiovascular disease) [facility] Class 1 obesity due to excess calories with serious comorbidity and body mass index (BMI) of 30.0 to 30.9 in adult Essential hypertension Ischemic cardiomyopathy Mixed hyperlipidemia Paroxysmal atrial fibrillation (HCC) Previous Surgical History PAST SURGICAL HISTORY Procedure Laterality Date REMOVAL OF TONSILS,<12 Y/O Tonsillectomy Family History FAMILY HISTORY Adopted: Yes Problem Relation Age of Onset Cancer Father Brain Tumor Patient Allergies ALLERGIES No Known Allergies Current Medications Current Outpatient Medications on File Prior to Visit Medication Sig nitroglycerin sublingual (NITROQUICK) 0.4 mg SL tablet Dissolve 0.4 mg under the tongue as needed. aspirin, enteric coated (ASPIRIN, ENTERIC COATED) 81 mg EC tablet Take 81 mg by mouth once daily. metoprolol tartrate, short acting, (LOPRESSOR) 25 mg tablet Take 1 tablet by mouth twice daily. (Patient taking differently: Take 25 mg by mouth once daily. ) atorvastatin (LIPITOR) 80 mg tablet Take 80 mg by mouth daily at bedtime. carvedilol (COREG) 6.25 mg tablet Take 6.25 mg by mouth twice daily. TAKE WITH FOOD. clopidogrel (PLAVIX) 75 mg tablet Take 75 mg by mouth once daily. furosemide (LASIX) 40 mg tablet Take 40 mg by mouth once daily. isosorbide mononitrate ER (IMDUR) 30 mg 24 hr tablet Take 30 mg by mouth once daily. losartan (COZAAR) 25 mg tablet Take 25 mg by mouth once daily. No current facility-administered medications on file prior to visit. Social History Social History Tobacco Use Smoking status: Former Smoker Quit date: 01/20/1987 Years since quittin.8 Smokeless tobacco: Never Used Substance Use Topics Alcohol use: No Drug use: No Review of Symptoms REVIEW OF SYSTEMS GENERAL: No weight loss, malaise or fevers RESPIRATORY: Negative for cough, hemoptysis, wheezing, COPD, dyspnea or shortness of breath CARDIOVASCULAR: Negative for chest pain, leg swelling, hypertension, CHF or palpitations GI: No nausea, vomiting, or diarrhea : No history of dysuria, frequency or incontinence MUSCULOSKELETAL: Negative for joint pain or swelling, back pain or muscle pain SKIN: Negative for lesions, rash, and itching EXAM: BP 134/72 Pulse 60 Resp 12 Ht 169.5 cm (5' 6.73 ) Wt 87.1 kg (192 lb) SpO2 98% BMI 30.31 kg/m General Appearance: Well appearing, alert, in no acute distress, well-hydrated, well nourished.. Skin: Skin color, texture, turgor normal, no suspicious rashes or lesions. Lungs: Lungs clear to auscultation. No wheezing, rhonchi, rales.. Heart: Negative findings: regular rate and rhythm, Positive findings: 2/6 RIC heard at RUSB. Abdomen: Normal abdominal exam, Abdomen soft, non-tender. Bowel sounds normal. No masses, organomegaly. Extremities: No deformities, edema, skin discoloration, clubbing or cyanosis. Good capillary refill. . Health Maintenance List DEPRESSION SCREENING Completed ANNUAL PCP TEAM CHRONIC DISEASE VISIT Completed HEPATITIS C SCREENING Completed BP CONTROLLED (<130/80) Completed DTAP,TDAP,TD(1 - Tdap) Completed COLORECTAL CANCER SCREENING Completed SHINGRIX VACCINE(1 of 2) Completed ADVANCE DIRECTIVE DISCUSSION Completed DIABETES SCREEN due on 06/24/2017 INFLUENZA(1) due on 05/15/2020 LIPID SCREEN due on 11/02/2025 PNEUMOVAX AGE 65 AND OVER WITH 5YR LOOKBACK Completed MENINGOCOCCAL CONJUGATE Completed ASSESSMENT/PLAN: 1. ASCVD (arteriosclerotic cardiovascular disease) - ICD9: 429.2, 440.9, ICD10: I25.10 (primary diagnosis) Patient well controlled on medical management. Will obtain records from [facility] and follow up recommendations. Red flags for re-assessment reviewed with patient in detail. 2. Class 1 obesity due to excess calories with serious comorbidity and body mass index (BMI) of 30.0 to 30.9 in adult - ICD9: 278.00, V85.30, ICD10: E66.09, Z68.30 Newly diagnosed - Behavioral intervention 3. Ischemic cardiomyopathy - ICD9: 414.8, ICD10: I25.5 See #1 4. Mixed hyperlipidemia - ICD9: 272.2, ICD10: E78.2 - good control - Continue current medication. - Encouraged following a low fat, low cholesterol diet. - Discussed the benefits of regular aerobic exercise and weight loss. 5. Paroxysmal atrial fibrillation (HCC) - ICD9: 427.31, ICD10: I48.0 This appears to have been present after initial heart attack based on records from 12/2018. ContinueASA and beta rocio and will review recent cardiology records to confirm. Normal rate and rhythm on exam today. 6. Encounter for hepatitis C screening test for low risk patient - ICD9: V73.89, ICD10: Z11.59 - HEP C AB IA W/CONF SCRN Braynt Villanueva MD documented in this encounter Assessments Diagnosis ASCVD (arteriosclerotic cardiovascular disease)- Primary Unspecified cardiovascular disease Class 1 obesity due to excess calories with serious comorbidity and body mass index (BMI) of 30.0 to 30.9 in adult Ischemic cardiomyopathy Other specified forms of chronic ischemic heart disease Mixed hyperlipidemia Paroxysmal atrial fibrillation (HCC) Atrial fibrillation Encounter for hepatitis C screening test for low risk patient Summary Purpose Family History No Family History Records Found Advance Directives No Advanced Directives Records Found Additional Source Comments Source Comments (unrecognize d section and content) In the event this informatio n is protected by the Federal Confidentiality of Alcohol and Drug Abuse Patient Records regulations: The Federal rules restrict any use of the information to criminally investigate or prosecute any alcohol or drug abuse patient.[facility] the event this information is protected by the Federal Confidentiality of Alcohol and Drug Abuse Patient Records regulations: The Federal rules restrict any use of the information to criminally investigate or prosecute any alcohol or drug abuse patient.[facility] the event this information is protected by the Federal Confidentiality of Alcohol and Drug Abuse Patient Records regulations: The Federal rules restrict any use of the information to criminally investigate or prosecute any alcohol or drug abuse patient.[facility] the event this information is protected by the Federal Confidentiality of Alcohol and Drug Abuse Patient Records regulations: The Federal rules restrict any use of the information to criminally investigate or prosecute any alcohol or drug abuse patient.[facility] the event this information is protected by the Federal Confidentiality of Alcohol and Drug Abuse Patient Records regulations: The Federal rules restrict any use of the information to criminally investigate or prosecute any alcohol or drug abuse patient.[facility] the event this information is protected by the Federal Confidentiality of Alcohol and Drug Abuse Patient Records regulations: The Federal rules restrict any use of the information to criminally investigate or prosecute any alcohol or drug abuse patient.[facility] HospitalIn the event this information is protected by the Federal Confidentiality of Alcohol and Drug Abuse Patient Records regulations: The Federal rules restrict any use of the information to criminally investigate or prosecute any alcohol or drug abuse patient.[facility] the event this information is protected by the Federal Confidentiality of Alcohol and Drug Abuse Patient Records regulations: The Federal rules restrict any use of the information to criminally investigate or prosecute any alcohol or drug abuse patient.[facility] the event this information is protected by the Federal Confidentiality of Alcohol and Drug Abuse Patient Records regulations: The Federal rules restrict any use of the information to criminally investigate or prosecute any alcohol or drug abuse patient.[facility] the event this information is protected by the Federal Confidentiality of Alcohol and Drug Abuse Patient Records regulations: The Federal rules restrict any use of the information to criminally investigate or prosecute any alcohol or drug abuse patient.[facility] HospitalIn the event this information is protected by the Federal Confidentiality of Alcohol and Drug Abuse Patient Records regulations: The Federal rules restrict any use of the information to criminally investigate or prosecute any alcohol or drug abuse patient.[facility] HospitalIn the event this information is protected by the Federal Confidentiality of Alcohol and Drug Abuse Patient Records regulations: The Federal rules restrict any use of the information to criminally investigate or prosecute any alcohol or drug abuse patient.[facility] HospitalIn the event this information is protected by the Federal Confidentiality of Alcohol and Drug Abuse Patient Records regulations: The Federal rules restrict any use of the information to criminally investigate or prosecute any alcohol or drug abuse patient.[facility] Hospital[facility] the event this information is protected by the Federal Confidentiality of Alcohol and Drug Abuse Patient Records regulations: The Federal rules restrict any use of the information to criminally investigate or prosecute any alcohol or drug abuse patient.[facility] HospitalIn the event this information is protected by the Federal Confidentiality of Alcohol and Drug Abuse Patient Records regulations: The Federal rules restrict any use of the information to criminally investigate or prosecute any alcohol or drug abuse patient.[facility] HospitalIn the event this information is protected by the Federal Confidentiality of Alcohol and Drug Abuse Patient Records regulations: The Federal rules restrict any use of the information to criminally investigate or prosecute any alcohol or drug abuse patient.[facility] HospitalIn the event this information is protected by the Federal Confidentiality of Alcohol and Drug Abuse Patient Records regulations: The Federal rules restrict any use of the information to criminally investigate or prosecute any alcohol or drug abuse patient.[facility] HospitalIn the event this information is protected by the Federal Confidentiality of Alcohol and Drug Abuse Patient Records regulations: The Federal rules restrict any use of the information to criminally investigate or prosecute any alcohol or drug abuse patient.[facility] HospitalIn the event this information is protected by the Federal Confidentiality of Alcohol and Drug Abuse Patient Records regulations: The Federal rules restrict any use of the information to criminally investigate or prosecute any alcohol or drug abuse patient.[facility] HospitalIn the event this information is protected by the Federal Confidentiality of Alcohol and Drug Abuse Patient Records regulations: The Federal rules restrict any use of the information to criminally investigate or prosecute any alcohol or drug abuse patient.[facility] Reason for Visit (unrecogniz ed section and content) Reason Comments Consult EGD Specialty Diagnoses / Procedures Referred By [place] [email or web address] Referred To Contact General Surgery Diagnoses Esophageal dysphagia Gastroesophageal reflux disease, unspecified whether esophagitis present Procedures CONSULT TO GENERAL SURGERY OFFICE/OUTPATIENT [facility] 60-74 MINUTES Bryant Villanueva MD [address] [place] [address] Referral ID Status Reason Start Date Expiration Date Visits Requested Visits Authorized [id number] Pending Review PCP Requested Referral 11/26/2021 11/26/2022 1 1 Reason Comments Results Reason Onset Date Comments Refill Request 05/29/2022 Reason Comments Appointment Reason Comments Follow Up 6 month Reason Comments Patient Question Reason Comments Bleeding/Bruising Patient noted large bruise to left posterior FA- unknown origin Reason Comments Abdominal Pain X 2 days Reason Comments Hospital F/U Reason Comments Patient Update Reason Comments Follow Up 2 week BP follow up Care Teams (unrecognized sec tion and content) Director Institution Relationship Specialty Start Date End Date Bryant Villanueva MD [address] [facility] [place] [address] PCP - General Family Practice 11/20/20 Director Institution Relationship Specialty Start Date End Date Bryant Villanueva MD [address] [facility] [place] [address] PCP - General Family Practice 11/20/20 Director Institution Relationship Specialty Start Date End Date Bryant Villanueva MD [address] [facility] [place] [address] PCP - General Family Medicine 11/20/20 Director Institution Relationship Specialty Start Date End Date Bryant Villanueva MD [address] [facility] [place] [address] PCP - General Family Medicine 11/20/20 Director Institution Relationship Specialty Start Date End Date Bryant Villanueva MD [address] [facility] [place] [address] PCP - General Family Medicine 11/20/20 Director Institution Relationship Specialty Start Date End Date Bryant Villanueva MD [address] [facility] [place] [address] PCP - General Family Medicine 11/20/20 Director Institution Relationship Specialty Start Date End Date Bryant Villanueva MD [address] [facility] [place] [address] PCP - General Family Medicine 11/20/20 Director Institution Relationship Specialty Start Date End Date Bryant Villanueva MD [address] [place] [address] PCP - General [facility] 11/20/20 Director Institution Relationship Specialty Start Date End Date Bryant Villanueva MD [address] [place] [address] PCP - General [facility] 11/20/20 Director Institution Relationship Specialty Start Date End Date Bryant Villanueva MD [address] [place] [address] PCP - [facility] 11/20/20 Director Institution Relationship Specialty Start Date End Date Bryant Villanueva MD [address] [place] [address] PCP - [facility] 11/20/20 Director Institution Relationship Specialty Start Date End Date Bryant Villanueva MD [address] [place] [address] PCP - General [facility] 11/20/20 Director Institution Relationship Specialty Start Date End Date Bryant Villanueva MD [address] [place] [address] PCP - General Family Medicine 11/20/20 (unrecognized sect ion and content) No Status Records Found INFORMATION SOURCE (unrecogn ized section and content) FOR RECORDS PERTAINING TO PATIENTS WHO ARE OR HAVE BEEN ENROLLED IN A CHEMICAL DEPENDENCY/SUBSTANCEABUSE PROGRAM, SOME INFORMATION MAY BE OMITTED. This clinical summary was aggregated from multiple sources. Caution should be exercised in using it in the provision of clinical care. This summary normalizes information from multiple sources, and as a consequence, information in this document may materially change the coding, format and clinical context of patient data. In addition, data may be omitted in some cases. CLINICAL DECISIONS SHOULD BE BASED ON THE PRIMARY CLINICAL RECORDS. [facility] [employer] [facility]. provides no warranty or guarantee of the accuracy or completeness of information in this document.
[2023-09-17 10:46] LABS: AST(SGOT) 28 U/L (15-37); Alanine Aminotransfer ALT/SGPT 27 U/L (16-61); Albumin, Serum 3.6 g/dL (3.2-5.0); Alkaline Phosphatase 87 U/L (45-117); Bilirubin, Direct 0.12 mg/dL (0.00-0.30); Cholesterol 109 mg/dL (200); High Density Lipoprotein 33 mg/dL; Protein, Total 7.6 g/dL (6.4-8.2); Triglycerides 131 mg/dL; Very Low Density Lipoprotein 26 mg/dL (5-40)
== END | disposition home or self-care (01) ==
LOC: LAB 08:57
PROVIDERS: PCP Family Medicine; Referring Provider Nurse Practitioner Family; Visit Provider Nurse Practitioner Family
DX: E78.00 Pure hypercholesterolemia, unspecified (principal)
CPT/HCPCS: 36415; 80061; 80076

== ENCOUNTER → 2024-04-08 | Outpatient (CLI) | payer MEDICARE, SELFPAY ==
[2019-08-23 10:44] VITALS: BMI 24.7
[2024-04-08 12:56] LABS: Absolute Lymphocyte Count 1.52 X10^3/uL (0.83-4.51); Absolute Neutrophil Count 4.2 X10^3/uL (2.0-7.7); Basophil# 0.03 X10^3/uL; Basophil% 0.4 % (0-1); Eosinophil# 0.32 X10^3/uL; Eosinophils% 4.5 % (0-5); Hematocrit 36.1 % (40-54); Lymphocyte # 1.52 X10^3/ul (0.83-4.51); Lymphocyte % 21.5 % (19-41); Mean Corp Hgb Conc 33.2 g/dL (32-36); Mean Corpuscular Hgb 28.9 pg (27.0-32.0); Mean Platelet Vol. 10.8 fl (6.2-12.0); Monocyte# 0.97 X10^3/uL; Monocyte% 13.7 % (0-10); NRBC Flagged by Analyzer 0 % (0-5); Neutrophil # 4.22 X10^3/uL (2.7-7.7); Neutrophil % 59.6 % (47-70); Platelet Count 176 K/mm3 (150-450); RBC Distribution Width CV 14.4 % (11.6-14.6); RBC Distribution Width SD 45.6 fl (35.1-43.9); Red Blood Count 4.15 M/mm3 (4.6-6.2); White Blood Count 7.1 K/mm3 (4.4-11.0)
[2024-04-08 13:22] LABS: BNP,B-Type NATRIURETIC PEPTIDE 75.7 pg/mL (0-100)
[2024-04-08 13:29] LABS: Anion Gap 6 (5-15); BUN 27 mg/dL (7-18); BUN/Creat Ratio 15.2 RATIO (10-20); Chloride 111 mmol/L (98-107); Creatinine, Serum 1.78 mg/dL (0.70-1.30); EST Glomerular Filtration Rate 39 mL/min (>60); Est Glom Filt Rate - Afr Amer 48 mL/min (>60); Glucose 119 mg/dL (74-106); Sodium Level 138 mmol/L (136-145)
[2024-04-08 13:31] LABS: AST(SGOT) 32 U/L (15-37); Alanine Aminotransfer ALT/SGPT 33 U/L (16-61); Albumin, Serum 3.6 g/dL (3.2-5.0); Alkaline Phosphatase 78 U/L (45-117); Bilirubin, Direct 0.11 mg/dL (0.00-0.30); Globulin 3.9 g/dL (2.2-4.2); Protein, Total 7.5 g/dL (6.4-8.2)
== END | disposition home or self-care (01) ==
LOC: LAB 12:07
PROVIDERS: Nurse Practitioner Family; PCP Family Medicine; Referring Provider Nurse Practitioner Gerontology; Visit Provider Nurse Practitioner Gerontology
DX: E78.00 Pure hypercholesterolemia, unspecified (principal); R07.89 Other chest pain; R06.02 Shortness of breath
CPT/HCPCS: 36415; 80048; 80076; 83880; 85025

== ENCOUNTER → 2024-04-21 | Outpatient (CLI) | payer MEDICARE, SELFPAY ==
[2019-08-23 10:44] VITALS: BMI 24.7
--- NOTE | 2024-04-21 12:49 | STRESSREP ---
Stress Test Report Pharmacologic myocardial perfusion stress test. 79-year-old man with a history of chest pain Resting EKG demonstrates sinus bradycardia with a rate of 50 bpm. Resting blood pressure is 110/64 mmHg. 0.4 mg of regadenoson was infused per usual protocol followed by rapid intravenous saline flush injection. Continuous EKG monitoring was performed. The maximum heart rate was 60 bpm which was 42% of max impacted heart rate the maximum workload was 1 metabolic equivalent. At rest there were no ST or T wave changes noted to suggest ischemia and at peak infusion nonspecific ST changes were noted which did not meet the criteria for ischemia. No clinical angina is noted. The final blood pressure was 118/64 mmHg. Myocardial perfusion protocol. 15.0 mCi of technetium 99m sestamibi was injected at rest. 0.4 mg of regadenoson was infused per usual protocol. At peak infusion 44.4 mCi of technetium 99m sestamibi was injected stress images were obtained stress and rest images were reconstructed and compared in the short axis vertical long and horizontal long axis. Gated images were also obtained. Perfusion SPECT analysis: Review of the stress images demonstrate normal uptake of tracer noted in all areas of the myocardium. The resting images similar demonstrated normal uptake of tracer noted in all areas of the myocardium. No areas of reversibility are noted to suggest ischemia and no previous infarct is noted. Gated SPECT analysis: The gated ejection fraction is 77%. Conclusion: Normal pharmacologic myocardial perfusion stress test. Preserved ejection fraction.
== END | disposition home or self-care (01) ==
LOC: CVS 06:24
PROVIDERS: PCP Family Medicine; Referring Provider Nurse Practitioner Gerontology; Visit Provider Nurse Practitioner Gerontology
DX: R07.89 Other chest pain (principal); Z95.5 Presence of coronary angioplasty implant and graft
CPT/HCPCS: 78452; 93017; A9500; A4216; J2785